=== PATIENT | female | born 1940 | race Caucasian/White ===

== ENCOUNTER 2016-05-27 19:18 | Inpatient (IN) | payer MEDICARE, OTHER ==
[~2016-05-27] VITALS: Ht 160 cm; Wt 52.3 kg
[~2016-05-27 19:18] MED LIST: ACET325T9 PO; ARIP15TA2 PO; ASCO500T3 PO; ASPI325T4 PO; BISA-42 PO; BISA5TAB4 PO; CALC-56 PO; CALC-77 PO; CALC500T PO; DOCO2CRE TP; ERGO500012 PO; FAMO1TAB3 PO; HALO5TAB PO; HYDR25TA PO; IBUP200T5 PO; IMIQ1CRE TP; IMIQ1CRE17 TP; LITH150C PO; LITH300C PO; LITH300T PO; LITH450T PO; LITH600C PO; LORA0.5T PO; LORA1TAB PO; MAG30ORA2 PO; MAGN2400 PO; MELA3TAB PO; METH57CR7 TP; MULT-246 PO; MULT1TAB52 PO; NICO2GUM5 BC; OMEG10005 PO; OMEG1CAP16 PO; RISP0.5T18 PO; TRAZ100T12 PO; TRAZ50TA15 PO
--- NOTE | 2016-05-27 20:16 | PHYS DOC ---
General Chief Complaint: PSYCH EVALUATION Stated Complaint: PSYCH EVAL Time Seen by MD: 19:29 Source: patient, [facility] records, other ([place] staff member) Exam Limitations: clinical condition Problems: History of Present Illness Initial Comments Pt is 75/F to ED via POV from [facility] [place], [place] for medical clearance and [facility] admission. AL records indicate for past two days pt very manic, hallucinating, sexually inappropriate. Pt has been talking constantly with high pitch voice, refusing meds and encouraging other residents to refuse meds etc. Pt had fall with head injury earlier today, was seen at [facility] reportedly CT head normal records requested. Pt agitated on arrival and when staff interact, otherwise pt lying quietly waiting obviously confused. Among other things pt claims to be a unicorn. Pt has DNR Timing/Duration: getting worse (2 days) Severity: severe Modifying Factors: improves with other Associated Symptoms: other Allergies: Coded Allergies: No Known Drug Allergies (Unverified , 10/13/13) Past Medical History Medical History: other (bipolar, tobaccoism, CHF, etoh, OA, DJD, Parkinson's, insomnia, dyspepsia, chronic pain, HLP, anxiety, impulse disorder) Surgical History: noncontributory Family History Significant Family History: no pertinent family hx Social History Smoker: cigarettes, less than 1 pack/day Alcohol: other (h/o alcoholism) Drugs: none Review of Systems All Other Systems: Reviewed and Negative (poor historian, accurate ROS unobtainable) Physical Exam Eyes: bilateral eye EOMI, bilateral eye PERRL, bilateral eye normal inspection Ear, Nose, Throat: hearing grossly normal, normal ENT inspection, normal pharynx, other (dried blood in hair, neg menard/raccoon eyes, no ear/nose disch no palpable bony deform) Neck: non-tender, supple Respiratory: normal breath sounds, no respiratory distress Cardiovascular: normal peripheral pulses, regular rate, rhythm Gastrointestinal: non tender, soft Extremities: normal range of motion, non-tender 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 Cipro 500mg bid given. Pt medically cleared for [facility] admission Dr Aguilera is accepting. Departure Time of Disposition: 22:08 Disposition: 09 ADMITTED INPATIENT Diagnosis: UTI, Dementia w/BD, h/o head injury Condition: STABLE Additional Instructions: Medically cleared for [facility] admission Dr Aguilera is accepting. MARCO BRANHMA DO May 27, 2016 20:16
--- NOTE | 2016-05-27 20:34 | EKG ---
[address] [address] Test Date: 2016-05-27 Test Time: 20:33:28 Pat Name: THELMA ROSA Department: Room: Gender: F Finisher Machine: : [id number] Requested By: MARCO BRANHAM Order Number: [id number] Reading MD: Measurements Intervals [place] Rate: 69 P: 44 NH: 156 QRS: -2 QRSD: 84 T: 58 QT: 390 QTc: 419 Interpretive Statements SINUS RHYTHM LEFTWARD AXIS QRS(T) CONTOUR ABNORMALITY CONSISTENT WITH ANTEROSEPTAL INFARCT AGE UNDETERMINED ABNORMAL ECG RI6.01 Unconfirmed report No previous ECG available for comparison
[2016-05-27 20:45] LABS: BASO % 0 % (0-3); EOS # 0.3 x10^3/uL (0.0-0.7); EOS % 4 % (0-3); HEMATOCRIT 37.1 % (36.0-47.0); HEMOGLOBIN 12.2 g/dL (12.0-15.5); LYMPH # 0.8 x10^3/uL (1.0-4.8); LYMPH % 10 % (24-48); MEAN CORPUSCULAR HEMOGLOBIN 30 pg (25-35); MEAN CORPUSCULAR HGB CONC 33 g/dL (31-37); MEAN CORPUSCULAR VOLUME 90 fL (79-100); MONO # 0.3 x10^3/uL (0.0-1.1); MONO % 4 % (0-9); NEUT # 6.9 x10^3uL (1.8-7.7); NEUT % 82 % (31-73); PLATELET COUNT 223 x10^3/uL (140-400); RED BLOOD COUNT 4.12 x10^6/uL (3.50-5.40); RED CELL DISTRIBUTION WIDTH 14.1 % (11.5-14.5); WHITE BLOOD COUNT 8.4 x10^3/uL (4.0-11.0)
[2016-05-27 21:52] LABS: AMPHETAMINE/METHAMPHETAMINE NEG (NEG); BARBITURATES NEG (NEG); BENZODIAZEPINES NEG (NEG); CANNABINOIDS NEG (NEG); COCAINE NEG (NEG); METHADONE NEG (NEG); OPIATES NEG (NEG); PHENCYCLIDINE NEG (NEG)
[2016-05-27 22:07] LABS: BILIRUBIN,URINE NEG (NEG); CLARITY,URINE CLEAR; COLOR,URINE STRAW; GLUCOSE,URINE NEG (NEG); NITRITE,URINE NEG (NEG); UROBILINOGEN,URINE 0.2 mg/dL (0.2 mg/dL)
[2016-05-27 22:08] LABS: BACTERIA,URINE 0 /HPF (0-FEW); RBC,URINE RARE /HPF (0-2); SQUAMOUS EPITHELIAL CELL,UR FEW /LPF
[2016-05-27] MEDS ORDERED: ACETAMINOPHEN 325 MG TABLET PO PRN ×3 (22:15→23:15)
[2016-05-27] MEDS: CIPROFLOXACIN HCL 500 MG TABLET PO SCH (22:27)
[2016-05-27 22:56] VITALS: BP 123/69
[2016-05-27] MEDS ORDERED: METHYL SALICYLATE/MENTHOL TOPICAL OINTMENT 29GM TUBE. TP PRN (23:00)
[2016-05-27] MEDS ORDERED: MAGNESIUM HYDROXIDE 2,400 MG/30 ML ORAL.SUSP. PO PRN (23:00)
[2016-05-27] MEDS ORDERED: MAG HYDROX/AL HYDROX/SIMETH 30 ML ORAL.SUSP PO PRN (23:00)
--- NOTE | 2016-05-27 23:07 | ACF ---
Admission Criteria Forms PSYCHIATRIC DISORDERS Clinical Indications for Inpatient Care (Place 'X' for any and all applicable criteria): Ongoing inpatient care may be needed for ANY ONE of the following(1)(2)(3)(4)(6) (7)(8): [ ]I. Danger to self or others not manageable at lower level of care. [ ]II. Grave disability (eg, inability to perform self care necessary at lower level of care) [X]III. Agitation or inappropriate behavior interfering with care for primary condition (eg, attempting to discontinue lines or drains prematurely, unable to cooperate with respiratory care) [ ]IV. Severe disability or disorder indicated by ALL of the following: [ ]a) Severe behavioral health disorder-related symptoms or condition indicated by ANY ONE of the following: [ ]i) Severe problem with cognition, memory, judgment, or impulse control [ ]ii) Severe clinical manifestations (eg, hallucinations, delusions, other acute psychotic symptoms, agustin, extreme agitation or anxiety) [ ]b) Patient management at lower level of care is not feasible until acute intervention or modification is initiated. Extended stay beyond goal length of stay for the primary condition may be indicated when ANY ONE of the following is present: (1)(2)(3)(4): [ ]a) Patient is a danger to self or others and not manageable at lower level of care. [ ]b) Behavior crisis management, including physical or chemical restraints, is required and is not available at a lower level of care. [ ]c) Behavioral symptoms (e.g., agitation, somnolence, inappropriate behavior) are present, and are not manageable at a lower level of care. [ ]d) Patient cannot understand follow-up treatment and crisis plan. [ ]e) Provider and supports are not sufficiently available at lower level of care. [ ]f) Patient cannot participate (e.g., verify absence of plan for harm) and is in needed of monitoring. The original [employer] content created by [employer] has been revised. The portions of the content which have been revised are identified through the use of italic text or in bold, and [facility] has neither reviewed nor approved the modified material. All other unmodified content is copyright [facility] [employer]. Please see references footnoted in the original [facility] edition 2016 Admission Criteria Met?: Yes OLIVE ACOSTA May 27, 2016 23:07
[2016-05-27] MEDS ORDERED: HYDR28.423 TP (23:08)
[2016-05-27] MEDS ORDERED: CALCIUM CARBONATE 500 MG TAB.CHEW PO PRN (23:15)
[2016-05-27] MEDS ORDERED: ASPIRIN 325 MG TABLET PO PRN (23:15)
[2016-05-27] MEDS ORDERED: traZODone 50 MG TABLET. PO PRN (23:15)
[2016-05-27] MEDS ORDERED: IBUPROFEN 200 MG TABLET PO PRN (23:15)
[2016-05-27] MEDS ORDERED: NON FORMULARY ITEM (Magnesium Hydroxide (Milk Of Magnesia) 2,400 MG) PO PRN (23:15)
[2016-05-27 23:31] LABS: ALBUMIN 3.5 g/dL (3.4-5.0); CALCIUM 9.8 mg/dL (8.5-10.1); CREATININE 0.9 mg/dL (0.6-1.0); GFR 61.2; MAGNESIUM 2.2 mg/dL (1.8-2.4); POTASSIUM 3.8 mmol/L (3.5-5.1); TOTAL BILIRUBIN 0.4 mg/dL (0.2-1.0)
[2016-05-28 05:45] VITALS: BP 124/75
[2016-05-28] MEDS: LITHIUM CARBONATE ER 300 MG TABLET.ER PO SCH ×2 (10:28→20:13)
[2016-05-28] MEDS: CIPROFLOXACIN HCL 500 MG TABLET PO SCH (10:28)
[2016-05-28] MEDS: CALCIUM CARB/VIT D3 500/200 TABLET PO SCH ×2 (10:28→20:13)
[2016-05-28] MEDS: OMEGA-3 FATTY ACIDS/FISH OIL 1,000 MG CAPSULE. PO SCH ×2 (10:28→20:12)
[2016-05-28] MEDS: MULTIVITAMIN with MINERAL TABLET. PO SCH (10:30)
[2016-05-28] MEDS: HYDROCORTISONE 1% TOPICAL CREAM 30GM TUBE. TP SCH ×2 (10:31→20:13)
[2016-05-28] MEDS: ASCORBIC ACID 500 MG TABLET PO SCH (10:31)
[2016-05-28] MEDS: OLANZAPINE ZYDIS 5 MG TAB.RAPDIS PO PRN (11:41)
[2016-05-28 14:39] LABS: THYROID STIM HORMONE (TSH) 0.814 uIU/mL (0.358-3.740)
[2016-05-28 14:41] LABS: IRON,SERUM 31 ug/dL (50-170)
[2016-05-28 14:42] LABS: LI 0.7 mmol/L (0.6-1.2)
[2016-05-28 15:41] VITALS: BP 132/82
[2016-05-28 17:59] LABS: T3 TOTAL 123 ng/dL (71-180); THYROXINE 7.5 ug/dL (4.5-12.0)
[2016-05-28] MEDS: NICOTINE POLACRILEX GUM 2 MG GUM. BC PRN ×2 (18:00→20:25)
[2016-05-28] MEDS: CIPROFLOXACIN HCL 250 MG TABLET PO SCH (20:12)
[2016-05-28] MEDS: risperiDONE 0.5 MG TABLET. PO SCH (20:13)
[2016-05-28] MEDS: NEOMY/BACITR/POLYMYXIN OINT PACKET. TP SCH (21:08)
--- NOTE | 2016-05-28 21:16 | PDOC ---
Exam [place] Demential Exam: [place] Note: Please also refer to the separate dictated note~for this date of service dictated separately.~Patient seen individually. Discussed the patient with Nursing staff reviewed the chart.~Reviewed interim history and current functioning. Reviewed vital signs,~Labs/ Radiology~and current medications noted below. Continue current treatment with the changes noted in the dictated addendum note Assessment: Vital Signs: Vital Signs Date Time Temp Pulse Resp B/P Pulse Ox O2 Delivery O2 Flow Rate FiO2 05/28/16 15:41 98.8 81 20 132/82 93 05/27/16 19:18 Room Air Current Medications: Meds: Current Medications Acetaminophen (Tylenol) 650 mg PRN Q6HRS PRN PO PAIN / TEMP Last administered on 05/27/16 22:28; Start 05/27/16 at 22:15; Stop 05/27/16 at 23:11; Status DC Ciprofloxacin (Cipro) 500 mg BID PO Last administered on 05/28/16 10:28; Start 05/27/16 at 22:30; Stop 05/28/16 at 13:06; Status DC Acetaminophen (Tylenol) 650 mg PRN Q6HRS PRN PO PAIN / TEMP; Start 05/27/16 at 23:00; Status Cancel Multi-Ingredient Ointment (Analgesic [place]) 1 mikaela PRN QID PRN TP MUSCLE PAIN; Start 05/27/16 at 23:00 Al Hydroxide/Mg Hydroxide (Mylanta Plus Xs) 15 ml PRN AFTMEALHC PRN PO DYSPEPSIA; Start 05/27/16 at 23:00 Magnesium Hydroxide (Milk Of Magnesia) 2,400 mg PRN QHS PRN PO CONSTIPATION; Start 05/27/16 at 23:00 Acetaminophen (Tylenol) 650 mg PRN Q6HRS PRN PO MILD PAIN; Start 05/27/16 at 23 :15 Ascorbic Acid (Vitamin C) 500 mg DAILY PO Last administered on 05/28/16 10:31 ; Start 05/28/16 at 09:00 Aspirin (Benji Aspirin) 325 mg PRN Q8HRS PRN PO MODERATE PAIN; Start 05/27/16 at 23:15 Calcium Carbonate/ Glycine (Tums) 500 mg PRN BID PRN PO DYSPEPSIA; Start at 23:15 Calcium/Vitamin D (Oscal D 500mg/ 200uts) 1 tab BID PO Last administered on 20:13; Start 05/28/16 at 09:00 Ergocalciferol (Vitamin D2) 50,000 unit Q4WK PO ; Start 06/24/16 at 09:00 Ibuprofen (Motrin) 200 mg PRN Q6HRS PRN PO ear pain; Start 05/27/16 at 23:15 Hydrocortisone (Cortaid) 1 mikaela BID TP Last administered on 05/28/16 20:13; Start 05/28/16 at 09:00 Non-Formulary Medication 2,400 mg PRN QHS PRN PO CONSTIPATION; Start 05/27/16 at 23:15; Status UNV Multivitamins/ Calcium (Thera-M Plus) 1 tab DAILY PO Last administered on 10:30; Start 05/28/16 at 09:00 Fish Oil (Fish Oil) 1,000 mg BID PO Last administered on 05/28/16 20:12; Start 05/28/16 at 09:00 [place] Carbonate (Lithobid) 300 mg BID PO Last administered on 05/28/16 20:13 ; Start 05/28/16 at 09:00 Risperidone (Risperdal) 0.75 mg HS PO Last administered on 05/28/16 20:13; Start 05/28/16 at 21:00 Trazodone HCl (Desyrel) 50 mg PRN QHS PRN PO INSOMNIA; Start 05/27/16 at 23:15 Nicotine Polacrilex (Nicorette Gum) 2 mg PRN Q1HR PRN BC SMOKING CESSATION Last administered on 05/28/16 20:25; Start 05/28/16 at 01:00 Olanzapine (Zyprexa Zydis) 2.5 mg PRN Q2HR PRN PO PSYCHOSIS Last administered on 05/28/16 11:41; Start 05/28/16 at 11:45 Ciprofloxacin (Cipro) 250 mg BID PO Last administered on 05/28/16 20:12; Start 05/28/16 at 21:00 Neomycin/ Polymyxin/ Bacitracin (Triple Antibiotic Ointment) 1 pkt BID TP Last administered on 05/28/16 21:08; Start 05/28/16 at 21:00 Active Scripts Active Reported Hydrocortisone Plus 1% Cream (Hydrocortisone/Aloe Vera) 28.4 Gm Cream..g. 1 Mikaela TP BID Apply to Bilateral lower legs topically for rash until healed. Calcium Carbonate 500 Mg Tablet 500 Mg PO PRN BID PRN Trazodone Hcl 50 Mg Tablet 50 Mg PO PRN QHS PRN Risperdal (Risperidone) 0.5 Mg Tablet 0.75 Mg PO HS [place] Carbonate 300 Mg Tablet.er 300 Mg PO BID Ibuprofen 200 Mg Tablet 200 Mg PO PRN Q6HRS PRN Aspirin 325 Mg Tablet 325 Mg PO PRN Q8HRS PRN [place]-3 ([place]-3 Fatty Acids) 1,000 Mg Capsule 1,000 Mg PO BID Vitamin D2 (Ergocalciferol (Vitamin D2)) 50,000 Unit Capsule 50,000 Unit PO Q4WK Ascorbic Acid 500 Mg Tablet 500 Mg PO DAILY Multivitamins (Multivitamin) 1 Each Tablet 1 Tab PO DAILY Milk Of Magnesia (Magnesium Hydroxide) 2,400 Mg/10 Ml Oral.susp 2,400 Mg PO PRN QHS PRN Tylenol (Acetaminophen) 325 Mg Tablet 650 Mg PO PRN Q6HRS PRN Calcium 500 + Vit D 200 Caplet (Calcium Carbonate/Vitamin D3) 1 Each Tablet 1 Each PO BID Diagnosis: Problems: (1) Behavior disorder (2) Impulse control disorder (3) Dementia with behavioral disturbance (4) Depressed (5) Bipolar 1 disorder (6) Anxiety (7) Impulse control disorder GERA MAY MD May 28, 2016 21:16
[2016-05-28 22:28] LABS: HEMOGLOBIN A1C 5.1 % (4.8-5.6)
[2016-05-29 02:10] LABS: VITAMIN D25(OH)TOTAL 25.3 ng/mL (30.0-100.0)
[2016-05-29 05:09] LABS: RPR REFLEX Non Reactive (Non Reactive)
[2016-05-29 06:15] VITALS: BP 114/70
[2016-05-29] MEDS: NICOTINE POLACRILEX GUM 2 MG GUM. BC PRN ×3 (06:42→20:41)
[2016-05-29] MEDS: MULTIVITAMIN with MINERAL TABLET. PO SCH (09:43)
[2016-05-29] MEDS: OMEGA-3 FATTY ACIDS/FISH OIL 1,000 MG CAPSULE. PO SCH ×2 (09:43→20:00)
[2016-05-29] MEDS: ASCORBIC ACID 500 MG TABLET PO SCH (09:43)
[2016-05-29] MEDS: CIPROFLOXACIN HCL 250 MG TABLET PO SCH (09:43)
[2016-05-29] MEDS: LITHIUM CARBONATE ER 300 MG TABLET.ER PO SCH ×2 (09:43→20:04)
[2016-05-29] MEDS: CALCIUM CARB/VIT D3 500/200 TABLET PO SCH ×2 (09:43→20:01)
[2016-05-29] MEDS: NEOMY/BACITR/POLYMYXIN OINT PACKET. TP SCH ×2 (09:44→20:05)
[2016-05-29] MEDS: HYDROCORTISONE 1% TOPICAL CREAM 30GM TUBE. TP SCH ×2 (09:44→20:05)
--- NOTE | 2016-05-29 14:52 | HP ---
ADMIT DATE: 05/28/2016 IDENTIFYING DATA: The patient is a 75-year-old female who was recently discharged from my unit to return back to [facility] after stabilization for her bipolar disorder mixed with psychotic features. The patient [facility] did well at the [facility], but over the past few days, she has been increasingly manic, hallucinating, sexually inappropriate, talking constantly in a high pitched voice, refusing her medications, and encouraging other patients to refuse their medications. She has failed outpatient psychiatric interventions with Dr. Lindsey Perez/Dr. Negrete and referred back to us by them and her primary care physician, Dr. Teodoro Orozco and admitted by her court-appointed legal guardian. CHIEF COMPLAINT: "I don't do those things. I fell and hit my head at the [facility]." HISTORY OF PRESENT ILLNESS: The patient has a history of bipolar disorder mixed with psychotic features. She has been residing at the above [facility] for sometime and was admitted to us 05/05/2016 to 05/19/2016 with marked exacerbation of her bipolar disorder with psychotic features. She was stabilized on a combination of Lithobid 300 b.i.d. with a level of 0.8, Risperdal 0.75 mg at bedtime, trazodone 50 at bedtime p.r.n., july repeat x1; and Ativan p.r.n. She was intermittently noncompliant with the psychotropics at discharge. She has had other significant psychiatric hospitalizations in the past. PSYCHIATRIC HISTORY: Past history of alcohol abuse. PAST MEDICAL HISTORY: Parkinson's disease, congestive heart failure, osteoarthritis, degenerative joint disease, dyspepsia, hyperlipidemia, and chronic pain. The patient was seen at the [facility] Emergency Room prior to this admission by Dr. Peters and found to have a UTI and she is on Cipro for this. Dr. Peters noted that the patient had a fall with head injury earlier on the day of admission, she was seen at [facility] and reportedly CT head normal. I have not reviewed those records however. CURRENT PSYCHOTROPICS: Lithobid 300 mg twice a day, Risperdal 0.75 mg at bedtime, and trazodone 50 at bedtime p.r.n. DRUG ALLERGIES: Negative. CODE STATUS: DNR. FAMILY HISTORY: Noncontributory. SOCIAL HISTORY: Past history of alcohol abuse. She has a court-appointed guardian. No physical, sexual, or elder abuse history is noted. She is not known to be a perpetrator. Reaction to hospitalization, the patient accepting, but minimizes and denies circumstances prompting admission. REVIEW OF SYSTEMS: Complains of headache. No CV, , pulmonary, or eye system symptoms on review. OBJECTIVE: VITAL SIGNS: Temperature 97.6, pulse 66, and BP 124/75. MENTAL STATUS EXAM: The patient is oriented to herself and situation. She readily recognized me. Speech is coherent and somewhat pressured at times. Abstraction fair, computation impaired, language function intact, and attention span short. Mood and affect remains intermittently labile. No active suicidal or homicidal ideation. LABORATORY DATA: Reviewed. IMPRESSION: Bipolar 1 disorder mixed with psychotic features; anxiety disorder, unspecified; impulse control disorder, unspecified; past history of alcohol abuse, current urinary tract infection, Parkinson's disease, congestive heart failure, degenerative joint disease, and osteoarthritis. PLAN: Admit to geropsychiatry unit at [facility]. I will see the patient daily individually from a psychiatric standpoint and request medical follow up with Dr. Washington/Dr. Botello. Follow the patient's lithium level. Treat the UTI symptoms. If mood lability persists, we will adjust psychotropics after the UTI results. We will get results of her past CT head. MAN Martin MAY MD DR: ANNE/caitlyn JOB#: [id number] / [id number]
[2016-05-29 15:52] VITALS: BP 132/78
[2016-05-29] MEDS ORDERED: DOCUSATE SODIUM 100 MG CAPSULE PO PRN (17:45)
[2016-05-29] MEDS: risperiDONE 0.5 MG TABLET. PO SCH (20:01)
[2016-05-29] MEDS: busPIRone 5 MG TABLET. PO SCH (20:04)
--- NOTE | 2016-05-29 21:21 | PDOC ---
Exam [place] Demential Exam: [place] Note: Please also refer to the separate dictated note~for this date of service dictated separately.~Patient seen individually. Discussed the patient with Nursing staff reviewed the chart.~Reviewed interim history and current functioning. Reviewed vital signs,~Labs/ Radiology~and current medications noted below. Continue current treatment with the changes noted in the dictated addendum note Assessment: Vital Signs: Vital Signs Date Time Temp Pulse Resp B/P Pulse Ox O2 Delivery O2 Flow Rate FiO2 05/29/16 15:52 96.7 74 18 132/78 96 05/27/16 19:18 Room Air I&O Intake and Output 05/29/16 07:00 Intake Total 960 ml Balance 960 ml Intake Oral 960 ml Current Medications: Meds: Current Medications Acetaminophen (Tylenol) 650 mg PRN Q6HRS PRN PO PAIN / TEMP Last administered on 05/27/16 22:28; Start 05/27/16 at 22:15; Stop 05/27/16 at 23:11; Status DC Ciprofloxacin (Cipro) 500 mg BID PO Last administered on 05/28/16 10:28; Start 05/27/16 at 22:30; Stop 05/28/16 at 13:06; Status DC Acetaminophen (Tylenol) 650 mg PRN Q6HRS PRN PO PAIN / TEMP; Start 05/27/16 at 23:00; Status Cancel Multi-Ingredient Ointment (Analgesic [place]) 1 mikaela PRN QID PRN TP MUSCLE PAIN; Start 05/27/16 at 23:00 Al Hydroxide/Mg Hydroxide (Mylanta Plus Xs) 15 ml PRN AFTMEALHC PRN PO DYSPEPSIA; Start 05/27/16 at 23:00 Magnesium Hydroxide (Milk Of Magnesia) 2,400 mg PRN QHS PRN PO CONSTIPATION; Start 05/27/16 at 23:00 Acetaminophen (Tylenol) 650 mg PRN Q6HRS PRN PO MILD PAIN; Start 05/27/16 at 23 :15 Ascorbic Acid (Vitamin C) 500 mg DAILY PO Last administered on 05/29/16 09:43 ; Start 05/28/16 at 09:00 Aspirin (Benji Aspirin) 325 mg PRN Q8HRS PRN PO MODERATE PAIN; Start 05/27/16 at 23:15 Calcium Carbonate/ Glycine (Tums) 500 mg PRN BID PRN PO DYSPEPSIA; Start at 23:15 Calcium/Vitamin D (Oscal D 500mg/ 200uts) 1 tab BID PO Last administered on 20:01; Start 05/28/16 at 09:00 Ergocalciferol (Vitamin D2) 50,000 unit Q4WK PO ; Start 06/24/16 at 09:00 Ibuprofen (Motrin) 200 mg PRN Q6HRS PRN PO ear pain; Start 05/27/16 at 23:15; Stop 05/29/16 at 17:42; Status DC Hydrocortisone (Cortaid) 1 mikaela BID TP Last administered on 05/29/16 20:05; Start 05/28/16 at 09:00 Non-Formulary Medication 2,400 mg PRN QHS PRN PO CONSTIPATION; Start 05/27/16 at 23:15; Status UNV Multivitamins/ Calcium (Thera-M Plus) 1 tab DAILY PO Last administered on 09:43; Start 05/28/16 at 09:00 Fish Oil (Fish Oil) 1,000 mg BID PO Last administered on 05/29/16 20:00; Start 05/28/16 at 09:00 [place] Carbonate (Lithobid) 300 mg BID PO Last administered on 05/29/16 20:04 ; Start 05/28/16 at 09:00 Risperidone (Risperdal) 0.75 mg HS PO Last administered on 05/29/16 20:01; Start 05/28/16 at 21:00 Trazodone HCl (Desyrel) 50 mg PRN QHS PRN PO INSOMNIA; Start 05/27/16 at 23:15 Nicotine Polacrilex (Nicorette Gum) 2 mg PRN Q1HR PRN BC SMOKING CESSATION Last administered on 05/29/16 20:41; Start 05/28/16 at 01:00 Olanzapine (Zyprexa Zydis) 2.5 mg PRN Q2HR PRN PO PSYCHOSIS Last administered on 05/28/16 11:41; Start 05/28/16 at 11:45 Ciprofloxacin (Cipro) 250 mg BID PO Last administered on 05/29/16 09:43; Start 05/28/16 at 21:00; Stop 05/29/16 at 17:44; Status DC Neomycin/ Polymyxin/ Bacitracin (Triple Antibiotic Ointment) 1 pkt BID TP Last administered on 05/29/16 20:05; Start 05/28/16 at 21:00 Docusate Sodium (Colace) 100 mg PRN BID PRN PO CONSTIPATION; Start 05/29/16 at 17:45 Polyethylene Glycol (miraLAX) 17 gm DAILY PO ; Start 05/30/16 at 09:00 Buspirone HCl (Buspar) 5 mg BID PO Last administered on 05/29/16 20:04; Start 05/29/16 at 21:00 Active Scripts Active Reported Hydrocortisone Plus 1% Cream (Hydrocortisone/Aloe Vera) 28.4 Gm Cream..g. 1 Mikaela TP BID Apply to Bilateral lower legs topically for rash until healed. Calcium Carbonate 500 Mg Tablet 500 Mg PO PRN BID PRN Trazodone Hcl 50 Mg Tablet 50 Mg PO PRN QHS PRN Risperdal (Risperidone) 0.5 Mg Tablet 0.75 Mg PO HS [place] Carbonate 300 Mg Tablet.er 300 Mg PO BID Ibuprofen 200 Mg Tablet 200 Mg PO PRN Q6HRS PRN Aspirin 325 Mg Tablet 325 Mg PO PRN Q8HRS PRN [place]-3 ([place]-3 Fatty Acids) 1,000 Mg Capsule 1,000 Mg PO BID Vitamin D2 (Ergocalciferol (Vitamin D2)) 50,000 Unit Capsule 50,000 Unit PO Q4WK Ascorbic Acid 500 Mg Tablet 500 Mg PO DAILY Multivitamins (Multivitamin) 1 Each Tablet 1 Tab PO DAILY Milk Of Magnesia (Magnesium Hydroxide) 2,400 Mg/10 Ml Oral.susp 2,400 Mg PO PRN QHS PRN Tylenol (Acetaminophen) 325 Mg Tablet 650 Mg PO PRN Q6HRS PRN Calcium 500 + Vit D 200 Caplet (Calcium Carbonate/Vitamin D3) 1 Each Tablet 1 Each PO BID Diagnosis: Problems: (1) Impulse control disorder (2) Dementia with behavioral disturbance (3) Behavior disorder (4) Depressed (5) Bipolar 1 disorder (6) Anxiety (7) Impulse control disorder GERA MAY MD May 29, 2016 21:21
[2016-05-30] MEDS: NICOTINE POLACRILEX GUM 2 MG GUM. BC PRN ×4 (05:36→20:43)
[2016-05-30 06:18] VITALS: BP 175/84
[2016-05-30] MEDS: busPIRone 5 MG TABLET. PO SCH ×2 (08:54→20:10)
[2016-05-30] MEDS: OMEGA-3 FATTY ACIDS/FISH OIL 1,000 MG CAPSULE. PO SCH ×2 (08:54→20:09)
[2016-05-30] MEDS: CALCIUM CARB/VIT D3 500/200 TABLET PO SCH ×2 (08:55→20:09)
[2016-05-30] MEDS: LITHIUM CARBONATE ER 300 MG TABLET.ER PO SCH ×2 (08:55→20:10)
[2016-05-30] MEDS: MULTIVITAMIN with MINERAL TABLET. PO SCH (08:56)
[2016-05-30] MEDS: ASCORBIC ACID 500 MG TABLET PO SCH (08:56)
[2016-05-30] MEDS: HYDROCORTISONE 1% TOPICAL CREAM 30GM TUBE. TP SCH ×3 (08:57→20:11)
[2016-05-30] MEDS: POLYETHYLENE GLYCOL 3350 17 GM PACKET. PO SCH (08:57)
[2016-05-30 09:00] VITALS: BP 90/50
[2016-05-30] MEDS: NEOMY/BACITR/POLYMYXIN OINT PACKET. TP SCH ×2 (09:00→20:10)
--- NOTE | 2016-05-30 09:57 | PDOC ---
Exam [place] Demential Exam: [place] Note: Please also refer to the separate dictated note~for this date of service dictated separately.~Patient seen individually. Discussed the patient with Nursing staff reviewed the chart.~Reviewed interim history and current functioning. Reviewed vital signs,~Labs/ Radiology~and current medications noted below. Continue current treatment with the changes noted in the dictated addendum note Assessment: Vital Signs: Vital Signs Date Time Temp Pulse Resp B/P Pulse Ox O2 Delivery O2 Flow Rate FiO2 05/30/16 06:18 97.8 45 16 175/84 97 05/27/16 19:18 Room Air I&O Intake and Output 05/30/16 07:00 Intake Total 960 ml Balance 960 ml Intake Oral 960 ml Current Medications: Meds: Current Medications Acetaminophen (Tylenol) 650 mg PRN Q6HRS PRN PO PAIN / TEMP Last administered on 05/27/16 22:28; Start 05/27/16 at 22:15; Stop 05/27/16 at 23:11; Status DC Ciprofloxacin (Cipro) 500 mg BID PO Last administered on 05/28/16 10:28; Start 05/27/16 at 22:30; Stop 05/28/16 at 13:06; Status DC Acetaminophen (Tylenol) 650 mg PRN Q6HRS PRN PO PAIN / TEMP; Start 05/27/16 at 23:00; Status Cancel Multi-Ingredient Ointment (Analgesic [place]) 1 mikaela PRN QID PRN TP MUSCLE PAIN; Start 05/27/16 at 23:00 Al Hydroxide/Mg Hydroxide (Mylanta Plus Xs) 15 ml PRN AFTMEALHC PRN PO DYSPEPSIA; Start 05/27/16 at 23:00 Magnesium Hydroxide (Milk Of Magnesia) 2,400 mg PRN QHS PRN PO CONSTIPATION; Start 05/27/16 at 23:00 Acetaminophen (Tylenol) 650 mg PRN Q6HRS PRN PO MILD PAIN; Start 05/27/16 at 23 :15 Ascorbic Acid (Vitamin C) 500 mg DAILY PO Last administered on 05/30/16 08:56 ; Start 05/28/16 at 09:00 Aspirin (Benji Aspirin) 325 mg PRN Q8HRS PRN PO MODERATE PAIN; Start 05/27/16 at 23:15 Calcium Carbonate/ Glycine (Tums) 500 mg PRN BID PRN PO DYSPEPSIA; Start at 23:15 Calcium/Vitamin D (Oscal D 500mg/ 200uts) 1 tab BID PO Last administered on 08:55; Start 05/28/16 at 09:00 Ergocalciferol (Vitamin D2) 50,000 unit Q4WK PO ; Start 06/24/16 at 09:00 Ibuprofen (Motrin) 200 mg PRN Q6HRS PRN PO ear pain; Start 05/27/16 at 23:15; Stop 05/29/16 at 17:42; Status DC Hydrocortisone (Cortaid) 1 mikaela BID TP Last administered on 05/30/16 08:57; Start 05/28/16 at 09:00 Non-Formulary Medication 2,400 mg PRN QHS PRN PO CONSTIPATION; Start 05/27/16 at 23:15; Status UNV Multivitamins/ Calcium (Thera-M Plus) 1 tab DAILY PO Last administered on 08:56; Start 05/28/16 at 09:00 Fish Oil (Fish Oil) 1,000 mg BID PO Last administered on 05/30/16 08:54; Start 05/28/16 at 09:00 [place] Carbonate (Lithobid) 300 mg BID PO Last administered on 05/30/16 08:55 ; Start 05/28/16 at 09:00 Risperidone (Risperdal) 0.75 mg HS PO Last administered on 05/29/16 20:01; Start 05/28/16 at 21:00 Trazodone HCl (Desyrel) 50 mg PRN QHS PRN PO INSOMNIA; Start 05/27/16 at 23:15 Nicotine Polacrilex (Nicorette Gum) 2 mg PRN Q1HR PRN BC SMOKING CESSATION Last administered on 05/30/16 05:36; Start 05/28/16 at 01:00 Olanzapine (Zyprexa Zydis) 2.5 mg PRN Q2HR PRN PO PSYCHOSIS Last administered on 05/28/16 11:41; Start 05/28/16 at 11:45 Ciprofloxacin (Cipro) 250 mg BID PO Last administered on 05/29/16 09:43; Start 05/28/16 at 21:00; Stop 05/29/16 at 17:44; Status DC Neomycin/ Polymyxin/ Bacitracin (Triple Antibiotic Ointment) 1 pkt BID TP Last administered on 05/29/16 20:05; Start 05/28/16 at 21:00 Docusate Sodium (Colace) 100 mg PRN BID PRN PO CONSTIPATION; Start 05/29/16 at 17:45 Polyethylene Glycol (miraLAX) 17 gm DAILY PO Last administered on 05/30/16 08: 57; Start 05/30/16 at 09:00 Buspirone HCl (Buspar) 5 mg BID PO Last administered on 05/30/16 08:54; Start 05/29/16 at 21:00 Active Scripts Active Reported Hydrocortisone Plus 1% Cream (Hydrocortisone/Aloe Vera) 28.4 Gm Cream..g. 1 Mikaela TP BID Apply to Bilateral lower legs topically for rash until healed. Calcium Carbonate 500 Mg Tablet 500 Mg PO PRN BID PRN Trazodone Hcl 50 Mg Tablet 50 Mg PO PRN QHS PRN Risperdal (Risperidone) 0.5 Mg Tablet 0.75 Mg PO HS [place] Carbonate 300 Mg Tablet.er 300 Mg PO BID Ibuprofen 200 Mg Tablet 200 Mg PO PRN Q6HRS PRN Aspirin 325 Mg Tablet 325 Mg PO PRN Q8HRS PRN [place]-3 ([place]-3 Fatty Acids) 1,000 Mg Capsule 1,000 Mg PO BID Vitamin D2 (Ergocalciferol (Vitamin D2)) 50,000 Unit Capsule 50,000 Unit PO Q4WK Ascorbic Acid 500 Mg Tablet 500 Mg PO DAILY Multivitamins (Multivitamin) 1 Each Tablet 1 Tab PO DAILY Milk Of Magnesia (Magnesium Hydroxide) 2,400 Mg/10 Ml Oral.susp 2,400 Mg PO PRN QHS PRN Tylenol (Acetaminophen) 325 Mg Tablet 650 Mg PO PRN Q6HRS PRN Calcium 500 + Vit D 200 Caplet (Calcium Carbonate/Vitamin D3) 1 Each Tablet 1 Each PO BID Diagnosis: Problems: (1) Impulse control disorder (2) Dementia with behavioral disturbance (3) Behavior disorder (4) Depressed (5) Bipolar 1 disorder (6) Anxiety (7) Impulse control disorder GERA MAY MD May 30, 2016 09:57
[2016-05-30 16:18] VITALS: BP 145/82
[2016-05-30] MEDS: risperiDONE 0.5 MG TABLET. PO SCH (20:09)
[2016-05-31] MEDS: NICOTINE POLACRILEX GUM 2 MG GUM. BC PRN (06:32)
[2016-05-31 07:00] VITALS: BP 121/77
[2016-05-31] MEDS: busPIRone 5 MG TABLET. PO SCH ×2 (09:09→20:09)
[2016-05-31] MEDS: POLYETHYLENE GLYCOL 3350 17 GM PACKET. PO SCH (09:09)
[2016-05-31] MEDS: LITHIUM CARBONATE ER 300 MG TABLET.ER PO SCH ×2 (09:09→20:18)
[2016-05-31] MEDS: OMEGA-3 FATTY ACIDS/FISH OIL 1,000 MG CAPSULE. PO SCH ×2 (09:09→20:09)
[2016-05-31] MEDS: CALCIUM CARB/VIT D3 500/200 TABLET PO SCH ×2 (09:10→20:09)
[2016-05-31] MEDS: NEOMY/BACITR/POLYMYXIN OINT PACKET. TP SCH ×2 (09:10→20:10)
[2016-05-31] MEDS: MULTIVITAMIN with MINERAL TABLET. PO SCH (09:10)
[2016-05-31] MEDS: ASCORBIC ACID 500 MG TABLET PO SCH (09:10)
[2016-05-31] MEDS: HYDROCORTISONE 1% TOPICAL CREAM 30GM TUBE. TP SCH ×2 (09:27→20:19)
[2016-05-31 16:41] VITALS: BP 142/86
[2016-05-31] MEDS: risperiDONE 0.5 MG TABLET. PO SCH (20:09)
--- NOTE | 2016-05-31 21:15 | PDOC ---
Exam [place] Demential Exam: [place] Note: Please also refer to the separate dictated note~for this date of service dictated separately.~Patient seen individually. Discussed the patient with Nursing staff reviewed the chart.~Reviewed interim history and current functioning. Reviewed vital signs,~Labs/ Radiology~and current medications noted below. Continue current treatment with the changes noted in the dictated addendum note Assessment: Vital Signs: Vital Signs Date Time Temp Pulse Resp B/P Pulse Ox O2 Delivery O2 Flow Rate FiO2 05/31/16 16:41 98.1 83 20 142/86 97 05/31/16 07:00 Room Air I&O Intake and Output 05/31/16 07:00 Intake Total 840 ml Balance 840 ml Intake Oral 840 ml Current Medications: Meds: Current Medications Acetaminophen (Tylenol) 650 mg PRN Q6HRS PRN PO PAIN / TEMP Last administered on 05/27/16 22:28; Start 05/27/16 at 22:15; Stop 05/27/16 at 23:11; Status DC Ciprofloxacin (Cipro) 500 mg BID PO Last administered on 05/28/16 10:28; Start 05/27/16 at 22:30; Stop 05/28/16 at 13:06; Status DC Acetaminophen (Tylenol) 650 mg PRN Q6HRS PRN PO PAIN / TEMP; Start 05/27/16 at 23:00; Status Cancel Multi-Ingredient Ointment (Analgesic [place]) 1 mikaela PRN QID PRN TP MUSCLE PAIN; Start 05/27/16 at 23:00 Al Hydroxide/Mg Hydroxide (Mylanta Plus Xs) 15 ml PRN AFTMEALHC PRN PO DYSPEPSIA; Start 05/27/16 at 23:00 Magnesium Hydroxide (Milk Of Magnesia) 2,400 mg PRN QHS PRN PO CONSTIPATION; Start 05/27/16 at 23:00 Acetaminophen (Tylenol) 650 mg PRN Q6HRS PRN PO MILD PAIN; Start 05/27/16 at 23 :15 Ascorbic Acid (Vitamin C) 500 mg DAILY PO Last administered on 05/31/16 09:10 ; Start 05/28/16 at 09:00 Aspirin (Benji Aspirin) 325 mg PRN Q8HRS PRN PO MODERATE PAIN; Start 05/27/16 at 23:15 Calcium Carbonate/ Glycine (Tums) 500 mg PRN BID PRN PO DYSPEPSIA; Start at 23:15 Calcium/Vitamin D (Oscal D 500mg/ 200uts) 1 tab BID PO Last administered on 20:09; Start 05/28/16 at 09:00 Ergocalciferol (Vitamin D2) 50,000 unit Q4WK PO ; Start 06/24/16 at 09:00 Ibuprofen (Motrin) 200 mg PRN Q6HRS PRN PO ear pain; Start 05/27/16 at 23:15; Stop 05/29/16 at 17:42; Status DC Hydrocortisone (Cortaid) 1 mikaela BID TP Last administered on 05/30/16 20:11; Start 05/28/16 at 09:00 Non-Formulary Medication 2,400 mg PRN QHS PRN PO CONSTIPATION; Start 05/27/16 at 23:15; Status UNV Multivitamins/ Calcium (Thera-M Plus) 1 tab DAILY PO Last administered on 09:10; Start 05/28/16 at 09:00 Fish Oil (Fish Oil) 1,000 mg BID PO Last administered on 05/31/16 20:09; Start 05/28/16 at 09:00 [place] Carbonate (Lithobid) 300 mg BID PO Last administered on 05/31/16 20:18 ; Start 05/28/16 at 09:00 Risperidone (Risperdal) 0.75 mg HS PO Last administered on 05/31/16 20:09; Start 05/28/16 at 21:00 Trazodone HCl (Desyrel) 50 mg PRN QHS PRN PO INSOMNIA; Start 05/27/16 at 23:15 Nicotine Polacrilex (Nicorette Gum) 2 mg PRN Q1HR PRN BC SMOKING CESSATION Last administered on 05/31/16 06:32; Start 05/28/16 at 01:00 Olanzapine (Zyprexa Zydis) 2.5 mg PRN Q2HR PRN PO PSYCHOSIS Last administered on 05/28/16 11:41; Start 05/28/16 at 11:45 Ciprofloxacin (Cipro) 250 mg BID PO Last administered on 05/29/16 09:43; Start 05/28/16 at 21:00; Stop 05/29/16 at 17:44; Status DC Neomycin/ Polymyxin/ Bacitracin (Triple Antibiotic Ointment) 1 pkt BID TP Last administered on 05/31/16 20:10; Start 05/28/16 at 21:00 Docusate Sodium (Colace) 100 mg PRN BID PRN PO CONSTIPATION; Start 05/29/16 at 17:45 Polyethylene Glycol (miraLAX) 17 gm DAILY PO Last administered on 05/31/16 09: 09; Start 05/30/16 at 09:00 Buspirone HCl (Buspar) 5 mg BID PO Last administered on 05/31/16 20:09; Start 05/29/16 at 21:00 Active Scripts Active Reported Hydrocortisone Plus 1% Cream (Hydrocortisone/Aloe Vera) 28.4 Gm Cream..g. 1 Mikaela TP BID Apply to Bilateral lower legs topically for rash until healed. Calcium Carbonate 500 Mg Tablet 500 Mg PO PRN BID PRN Trazodone Hcl 50 Mg Tablet 50 Mg PO PRN QHS PRN Risperdal (Risperidone) 0.5 Mg Tablet 0.75 Mg PO HS [place] Carbonate 300 Mg Tablet.er 300 Mg PO BID Ibuprofen 200 Mg Tablet 200 Mg PO PRN Q6HRS PRN Aspirin 325 Mg Tablet 325 Mg PO PRN Q8HRS PRN [place]-3 ([place]-3 Fatty Acids) 1,000 Mg Capsule 1,000 Mg PO BID Vitamin D2 (Ergocalciferol (Vitamin D2)) 50,000 Unit Capsule 50,000 Unit PO Q4WK Ascorbic Acid 500 Mg Tablet 500 Mg PO DAILY Multivitamins (Multivitamin) 1 Each Tablet 1 Tab PO DAILY Milk Of Magnesia (Magnesium Hydroxide) 2,400 Mg/10 Ml Oral.susp 2,400 Mg PO PRN QHS PRN Tylenol (Acetaminophen) 325 Mg Tablet 650 Mg PO PRN Q6HRS PRN Calcium 500 + Vit D 200 Caplet (Calcium Carbonate/Vitamin D3) 1 Each Tablet 1 Each PO BID Diagnosis: Problems: (1) Impulse control disorder (2) Dementia with behavioral disturbance (3) Behavior disorder (4) Depressed (5) Bipolar 1 disorder (6) Anxiety (7) Impulse control disorder GERA MAY MD May 31, 2016 21:15
--- NOTE | 2016-05-31 22:06 | PN ---
DATE: 05/29/2016 PSYCHIATRIC PROGRESS NOTE This is a late entry for 05/29/2016 covers the elements not covered in my initial note. SUBJECTIVE: The patient was quite inappropriate the previous night. She was wearing a blue glove in her hand quite psychotic, stated that she might need to dig into her bowels later. Later, the glove was found somewhat dirty stained with fecal matter in between the cushions of the sofa in the common area. The patient denied doing this. REVIEW OF SYSTEMS: No CV, , pulmonary, eye system symptoms on review. Reliability varies. MENTAL STATUS EXAM: Reasonably oriented. Speech coherent, abstraction fair, computation impaired, language function intact. She can have some racing thoughts at times. [place] level 0.7. No suicidal or homicidal ideation. IMPRESSION: Bipolar 1 disorder mixed with psychotic features, anxiety disorder, unspecified; impulse control disorder, unspecified. PLAN: Start BuSpar 5 mg twice a day for anxiety. Continue lithium carbonate 300 b.i.d., Risperdal and trazodone at current dosage. Adjust further as clinically indicated. MAN Martin MAY MD DR: ANNE/caitlyn JOB#: [id number] / [id number]
--- NOTE | 2016-05-31 22:21 | PN ---
DATE: 05/30/2016 PSYCHIATRIC PROGRESS NOTE This is a late entry for 05/30/2016, covers elements not covered in my initial note. SUBJECTIVE: Overall, the patient remains somewhat labile in her mood, and at times, yelling out, oblivious of what she is doing. REVIEW OF SYSTEMS: No CV, , pulmonary, eye system symptoms on review. MENTAL STATUS EXAM: Reasonably oriented. Speech is coherent, less pressured. Abstraction fair, computation impaired, language function intact. Attention span short. LABORATORY DATA: Reviewed. [place] level is 0.7. IMPRESSION: Bipolar 1 disorder, mixed with psychotic features, in partial remission; anxiety disorder, unspecified. PLAN: Continue lithium 300 mg b.i.d., BuSpar 5 mg b.i.d., trazodone 50 mg at bedtime, Zyprexa p.r.n., Risperdal 0.75 mg daily. Adjust further as clinically indicated. GERA MAY MD DR: ANNE/caitlyn JOB#: [id number] / [id number]
[2016-06-01 06:00] VITALS: BP 127/73
[2016-06-01] MEDS: ASCORBIC ACID 500 MG TABLET PO SCH (08:58)
[2016-06-01] MEDS: HYDROCORTISONE 1% TOPICAL CREAM 30GM TUBE. TP SCH ×2 (08:58→20:32)
[2016-06-01] MEDS: MULTIVITAMIN with MINERAL TABLET. PO SCH (08:58)
[2016-06-01] MEDS: POLYETHYLENE GLYCOL 3350 17 GM PACKET. PO SCH (08:58)
[2016-06-01] MEDS: OMEGA-3 FATTY ACIDS/FISH OIL 1,000 MG CAPSULE. PO SCH ×2 (08:58→20:26)
[2016-06-01] MEDS: busPIRone 5 MG TABLET. PO SCH ×2 (08:58→20:27)
[2016-06-01] MEDS: LITHIUM CARBONATE ER 300 MG TABLET.ER PO SCH ×2 (08:58→20:27)
[2016-06-01] MEDS: CALCIUM CARB/VIT D3 500/200 TABLET PO SCH ×2 (08:58→20:25)
[2016-06-01] MEDS: NEOMY/BACITR/POLYMYXIN OINT PACKET. TP SCH ×2 (08:59→20:25)
[2016-06-01] MEDS: NICOTINE POLACRILEX GUM 2 MG GUM. BC PRN ×3 (09:00→19:13)
[2016-06-01] MEDS: OLANZAPINE ZYDIS 5 MG TAB.RAPDIS PO PRN (15:45)
[2016-06-01 17:10] VITALS: BP 146/81
[2016-06-01] MEDS ORDERED: traZODone 100 MG TABLET. PO PRN (18:15)
--- NOTE | 2016-06-01 19:24 | PDOC ---
Exam [place] Demential Exam: [place] Note: Please also refer to the separate dictated note~for this date of service dictated separately.~Patient seen individually. Discussed the patient with Nursing staff reviewed the chart.~Reviewed interim history and current functioning. Reviewed vital signs,~Labs/ Radiology~and current medications noted below. Continue current treatment with the changes noted in the dictated addendum note Assessment: Vital Signs: Vital Signs Date Time Temp Pulse Resp B/P Pulse Ox O2 Delivery O2 Flow Rate FiO2 06/01/16 17:10 98.7 18 146/81 97 06/01/16 06:00 20 05/31/16 07:00 Room Air I&O Intake and Output 06/01/16 07:00 Intake Total 1560 ml Balance 1560 ml Intake Oral 1560 ml Current Medications: Meds: Current Medications Acetaminophen (Tylenol) 650 mg PRN Q6HRS PRN PO PAIN / TEMP Last administered on 05/27/16 22:28; Start 05/27/16 at 22:15; Stop 05/27/16 at 23:11; Status DC Ciprofloxacin (Cipro) 500 mg BID PO Last administered on 05/28/16 10:28; Start 05/27/16 at 22:30; Stop 05/28/16 at 13:06; Status DC Acetaminophen (Tylenol) 650 mg PRN Q6HRS PRN PO PAIN / TEMP; Start 05/27/16 at 23:00; Status Cancel Multi-Ingredient Ointment (Analgesic [place]) 1 mikaela PRN QID PRN TP MUSCLE PAIN; Start 05/27/16 at 23:00 Al Hydroxide/Mg Hydroxide (Mylanta Plus Xs) 15 ml PRN AFTMEALHC PRN PO DYSPEPSIA; Start 05/27/16 at 23:00 Magnesium Hydroxide (Milk Of Magnesia) 2,400 mg PRN QHS PRN PO CONSTIPATION; Start 05/27/16 at 23:00 Acetaminophen (Tylenol) 650 mg PRN Q6HRS PRN PO MILD PAIN; Start 05/27/16 at 23 :15 Ascorbic Acid (Vitamin C) 500 mg DAILY PO Last administered on 06/01/16 08:58 ; Start 05/28/16 at 09:00 Aspirin (Benji Aspirin) 325 mg PRN Q8HRS PRN PO MODERATE PAIN; Start 05/27/16 at 23:15 Calcium Carbonate/ Glycine (Tums) 500 mg PRN BID PRN PO DYSPEPSIA; Start at 23:15 Calcium/Vitamin D (Oscal D 500mg/ 200uts) 1 tab BID PO Last administered on 08:58; Start 05/28/16 at 09:00 Ergocalciferol (Vitamin D2) 50,000 unit Q4WK PO ; Start 06/24/16 at 09:00 Ibuprofen (Motrin) 200 mg PRN Q6HRS PRN PO ear pain; Start 05/27/16 at 23:15; Stop 05/29/16 at 17:42; Status DC Hydrocortisone (Cortaid) 1 mikaela BID TP Last administered on 05/30/16 20:11; Start 05/28/16 at 09:00 Non-Formulary Medication 2,400 mg PRN QHS PRN PO CONSTIPATION; Start 05/27/16 at 23:15; Status UNV Multivitamins/ Calcium (Thera-M Plus) 1 tab DAILY PO Last administered on 08:58; Start 05/28/16 at 09:00 Fish Oil (Fish Oil) 1,000 mg BID PO Last administered on 06/01/16 08:58; Start 05/28/16 at 09:00 [place] Carbonate (Lithobid) 300 mg BID PO Last administered on 06/01/16 08:58 ; Start 05/28/16 at 09:00 Risperidone (Risperdal) 0.75 mg HS PO Last administered on 05/31/16 20:09; Start 05/28/16 at 21:00 Trazodone HCl (Desyrel) 50 mg PRN QHS PRN PO INSOMNIA; Start 05/27/16 at 23:15 ; Stop 06/01/16 at 18:07; Status DC Nicotine Polacrilex (Nicorette Gum) 2 mg PRN Q1HR PRN BC SMOKING CESSATION Last administered on 06/01/16 19:13; Start 05/28/16 at 01:00 Olanzapine (Zyprexa Zydis) 2.5 mg PRN Q2HR PRN PO PSYCHOSIS Last administered on 06/01/16 15:45; Start 05/28/16 at 11:45 Ciprofloxacin (Cipro) 250 mg BID PO Last administered on 05/29/16 09:43; Start 05/28/16 at 21:00; Stop 05/29/16 at 17:44; Status DC Neomycin/ Polymyxin/ Bacitracin (Triple Antibiotic Ointment) 1 pkt BID TP Last administered on 06/01/16 08:59; Start 05/28/16 at 21:00 Docusate Sodium (Colace) 100 mg PRN BID PRN PO CONSTIPATION; Start 05/29/16 at 17:45 Polyethylene Glycol (miraLAX) 17 gm DAILY PO Last administered on 06/01/16 08: 58; Start 05/30/16 at 09:00 Buspirone HCl (Buspar) 5 mg BID PO Last administered on 06/01/16 08:58; Start 05/29/16 at 21:00 Trazodone HCl (Desyrel) 100 mg PRN QHS PRN PO INSOMNIA, MAY REPEAT X1; Start at 18:15 Active Scripts Active Reported Hydrocortisone Plus 1% Cream (Hydrocortisone/Aloe Vera) 28.4 Gm Cream..g. 1 Mikaela TP BID Apply to Bilateral lower legs topically for rash until healed. Calcium Carbonate 500 Mg Tablet 500 Mg PO PRN BID PRN Trazodone Hcl 50 Mg Tablet 50 Mg PO PRN QHS PRN Risperdal (Risperidone) 0.5 Mg Tablet 0.75 Mg PO HS [place] Carbonate 300 Mg Tablet.er 300 Mg PO BID Ibuprofen 200 Mg Tablet 200 Mg PO PRN Q6HRS PRN Aspirin 325 Mg Tablet 325 Mg PO PRN Q8HRS PRN [place]-3 ([place]-3 Fatty Acids) 1,000 Mg Capsule 1,000 Mg PO BID Vitamin D2 (Ergocalciferol (Vitamin D2)) 50,000 Unit Capsule 50,000 Unit PO Q4WK Ascorbic Acid 500 Mg Tablet 500 Mg PO DAILY Multivitamins (Multivitamin) 1 Each Tablet 1 Tab PO DAILY Milk Of Magnesia (Magnesium Hydroxide) 2,400 Mg/10 Ml Oral.susp 2,400 Mg PO PRN QHS PRN Tylenol (Acetaminophen) 325 Mg Tablet 650 Mg PO PRN Q6HRS PRN Calcium 500 + Vit D 200 Caplet (Calcium Carbonate/Vitamin D3) 1 Each Tablet 1 Each PO BID Diagnosis: Problems: (1) Impulse control disorder (2) Dementia with behavioral disturbance (3) Behavior disorder (4) Depressed (5) Bipolar 1 disorder (6) Anxiety (7) Impulse control disorder GERA MAY MD Jun 01, 2016 19:24
[2016-06-01] MEDS: risperiDONE 0.5 MG TABLET. PO SCH (20:26)
--- NOTE | 2016-06-01 22:18 | PN ---
DATE: 05/31/2016 This late entry for 05/31/2016 covers elements not covered in my initial note. SUBJECTIVE: The patient was somewhat irritable, labile in her mood in the evening of 05/30/2016, better during the day on 05/31/2016. As I met with her, she was talking to another patient and telling this other demented patient "I am an antique." She had pulled her pants up in a funny manner, covered her head with cover pretending to be "antique." REVIEW OF SYSTEMS: No CV, , pulmonary, eye, ENT system symptoms on review. MENTAL STATUS EXAM: Reasonably oriented. Speech coherent. She does have a sense of humor, abstraction fair, computation impaired, language function intact, attention span short. Mood and affect somewhat anxious, at times labile. LABORATORY DATA: Reviewed. IMPRESSION: Bipolar 1 disorder, mixed with psychotic features, in partial remission; anxiety disorder, unspecified; impulse control disorder, unspecified. PLAN: Continue lithium carbonate 300 mg b.i.d., level is 0.7. BuSpar 5 b.i.d., Risperdal 0.75 mg at bedtime, Zyprexa p.r.n. May need to increase BuSpar for anxiety or Risperdal, but I would prefer not to increase Risperdal since she already has some tremors consequent to this. GERA MAY MD DR: ANNE/caitlyn JOB#: [id number] / [id number]
[2016-06-02] MEDS: NICOTINE POLACRILEX GUM 2 MG GUM. BC PRN ×2 (04:44→13:21)
[2016-06-02 06:18] VITALS: BP 153/83
[2016-06-02] MEDS: LITHIUM CARBONATE ER 300 MG TABLET.ER PO SCH ×2 (08:13→21:29)
[2016-06-02] MEDS: busPIRone 5 MG TABLET. PO SCH ×2 (08:13→21:29)
[2016-06-02] MEDS: HYDROCORTISONE 1% TOPICAL CREAM 30GM TUBE. TP SCH ×2 (09:00→21:00)
[2016-06-02] MEDS: OMEGA-3 FATTY ACIDS/FISH OIL 1,000 MG CAPSULE. PO SCH ×2 (09:00→21:29)
[2016-06-02] MEDS: NEOMY/BACITR/POLYMYXIN OINT PACKET. TP SCH ×2 (09:00→21:30)
[2016-06-02] MEDS: ASCORBIC ACID 500 MG TABLET PO SCH (09:00)
[2016-06-02] MEDS: POLYETHYLENE GLYCOL 3350 17 GM PACKET. PO SCH (09:00)
[2016-06-02] MEDS: CALCIUM CARB/VIT D3 500/200 TABLET PO SCH ×2 (09:00→21:00)
[2016-06-02] MEDS: MULTIVITAMIN with MINERAL TABLET. PO SCH (09:00)
[2016-06-02 10:29] LABS: BASO # 0.1 x10^3/uL (0.0-0.2); BASO % 1 % (0-3); EOS # 0.5 x10^3/uL (0.0-0.7); EOS % 6 % (0-3); HEMATOCRIT 40.1 % (36.0-47.0); HEMOGLOBIN 13.1 g/dL (12.0-15.5); LYMPH # 1.4 x10^3/uL (1.0-4.8); LYMPH % 15 % (24-48); MEAN CORPUSCULAR HEMOGLOBIN 30 pg (25-35); MEAN CORPUSCULAR HGB CONC 33 g/dL (31-37); MEAN CORPUSCULAR VOLUME 91 fL (79-100); MONO # 0.5 x10^3/uL (0.0-1.1); MONO % 5 % (0-9); NEUT # 6.7 x10^3uL (1.8-7.7); NEUT % 73 % (31-73); PLATELET COUNT 265 x10^3/uL (140-400); RED CELL DISTRIBUTION WIDTH 14.1 % (11.5-14.5); WHITE BLOOD COUNT 9.1 x10^3/uL (4.0-11.0)
[2016-06-02 10:43] LABS: ALBUMIN 3.6 g/dL (3.4-5.0); ALBUMIN/GLOBULIN RATIO 0.9 (1.0-1.7); CALCIUM 9.8 mg/dL (8.5-10.1); GFR 54.2; POTASSIUM 3.9 mmol/L (3.5-5.1); TOTAL BILIRUBIN 0.6 mg/dL (0.2-1.0); TOTAL PROTEIN 7.5 g/dL (6.4-8.2)
[2016-06-02 15:55] VITALS: BP 136/69
--- NOTE | 2016-06-02 21:07 | PDOC ---
Exam [place] Demential Exam: [place] Note: Please also refer to the separate dictated note~for this date of service dictated separately.~Patient seen individually. Discussed the patient with Nursing staff reviewed the chart.~Reviewed interim history and current functioning. Reviewed vital signs,~Labs/ Radiology~and current medications noted below. Continue current treatment with the changes noted in the dictated addendum note Assessment: Vital Signs: Vital Signs Date Time Temp Pulse Resp B/P Pulse Ox O2 Delivery O2 Flow Rate FiO2 06/02/16 15:55 98.3 78 20 136/69 99 05/31/16 07:00 Room Air I&O Intake and Output 06/02/16 07:00 Intake Total 840 ml Balance 840 ml Intake Oral 840 ml Labs: Laboratory Tests Test 06/02/16 10:20 White Blood Count 9.1x10^3/uL (4.0-11.0) Red Blood Count 4.40x10^6/uL (3.50-5.40) Hemoglobin 13.1g/dL (12.0-15.5) Hematocrit 40.1% (36.0-47.0) Mean Corpuscular Volume 91fL (79-100) Mean Corpuscular Hemoglobin 30pg (25-35) Mean Corpuscular Hemoglobin Concent 33g/dL (31-37) Red Cell Distribution Width 14.1% (11.5-14.5) Platelet Count 265x10^3/uL (140-400) Neutrophils (%) (Auto) 73% (31-73) Lymphocytes (%) (Auto) 15% (24-48) L Monocytes (%) (Auto) 5% (0-9) Eosinophils (%) (Auto) 6% (0-3) H Basophils (%) (Auto) 1% (0-3) Neutrophils # (Auto) 6.7x10^3uL (1.8-7.7) Lymphocytes # (Auto) 1.4x10^3/uL (1.0-4.8) Monocytes # (Auto) 0.5x10^3/uL (0.0-1.1) Eosinophils # (Auto) 0.5x10^3/uL (0.0-0.7) Basophils # (Auto) 0.1x10^3/uL (0.0-0.2) Sodium Level 144mmol/L (136-145) Potassium Level 3.9mmol/L (3.5-5.1) Chloride Level 108mmol/L (98-107) H Carbon Dioxide Level 29mmol/L (21-32) Anion Gap 7 (6-14) Blood Urea Nitrogen 16mg/dL (7-20) Creatinine 1.0mg/dL (0.6-1.0) Estimated GFR (Cockcroft-Gault) 54.2 BUN/Creatinine Ratio 16 (6-20) Glucose Level 118mg/dL (70-99) H Calcium Level 9.8mg/dL (8.5-10.1) Total Bilirubin 0.6mg/dL (0.2-1.0) Aspartate Amino Transferase (AST) 17U/L (15-37) Alanine Aminotransferase (ALT) 24U/L (14-59) Alkaline Phosphatase 63U/L (46-116) Total Protein 7.5g/dL (6.4-8.2) Albumin 3.6g/dL (3.4-5.0) Albumin/Globulin Ratio 0.9 (1.0-1.7) L Current Medications: Meds: Current Medications Acetaminophen (Tylenol) 650 mg PRN Q6HRS PRN PO PAIN / TEMP Last administered on 05/27/16 22:28; Start 05/27/16 at 22:15; Stop 05/27/16 at 23:11; Status DC Ciprofloxacin (Cipro) 500 mg BID PO Last administered on 05/28/16 10:28; Start 05/27/16 at 22:30; Stop 05/28/16 at 13:06; Status DC Acetaminophen (Tylenol) 650 mg PRN Q6HRS PRN PO PAIN / TEMP; Start 05/27/16 at 23:00; Status Cancel Multi-Ingredient Ointment (Analgesic [place]) 1 mikaela PRN QID PRN TP MUSCLE PAIN; Start 05/27/16 at 23:00 Al Hydroxide/Mg Hydroxide (Mylanta Plus Xs) 15 ml PRN AFTMEALHC PRN PO DYSPEPSIA; Start 05/27/16 at 23:00 Magnesium Hydroxide (Milk Of Magnesia) 2,400 mg PRN QHS PRN PO CONSTIPATION; Start 05/27/16 at 23:00 Acetaminophen (Tylenol) 650 mg PRN Q6HRS PRN PO MILD PAIN; Start 05/27/16 at 23 :15 Ascorbic Acid (Vitamin C) 500 mg DAILY PO Last administered on 06/01/16 08:58 ; Start 05/28/16 at 09:00 Aspirin (Benji Aspirin) 325 mg PRN Q8HRS PRN PO MODERATE PAIN; Start 05/27/16 at 23:15 Calcium Carbonate/ Glycine (Tums) 500 mg PRN BID PRN PO DYSPEPSIA; Start at 23:15 Calcium/Vitamin D (Oscal D 500mg/ 200uts) 1 tab BID PO Last administered on 20:25; Start 05/28/16 at 09:00 Ergocalciferol (Vitamin D2) 50,000 unit Q4WK PO ; Start 06/24/16 at 09:00 Ibuprofen (Motrin) 200 mg PRN Q6HRS PRN PO ear pain; Start 05/27/16 at 23:15; Stop 05/29/16 at 17:42; Status DC Hydrocortisone (Cortaid) 1 mikaela BID TP Last administered on 05/30/16 20:11; Start 05/28/16 at 09:00 Non-Formulary Medication 2,400 mg PRN QHS PRN PO CONSTIPATION; Start 05/27/16 at 23:15; Status UNV Multivitamins/ Calcium (Thera-M Plus) 1 tab DAILY PO Last administered on 08:58; Start 05/28/16 at 09:00 Fish Oil (Fish Oil) 1,000 mg BID PO Last administered on 06/01/16 20:26; Start 05/28/16 at 09:00 [place] Carbonate (Lithobid) 300 mg BID PO Last administered on 06/02/16 08:13 ; Start 05/28/16 at 09:00 Risperidone (Risperdal) 0.75 mg HS PO Last administered on 06/01/16 20:26; Start 05/28/16 at 21:00 Trazodone HCl (Desyrel) 50 mg PRN QHS PRN PO INSOMNIA; Start 05/27/16 at 23:15 ; Stop 06/01/16 at 18:07; Status DC Nicotine Polacrilex (Nicorette Gum) 2 mg PRN Q1HR PRN BC SMOKING CESSATION Last administered on 06/02/16 13:21; Start 05/28/16 at 01:00 Olanzapine (Zyprexa Zydis) 2.5 mg PRN Q2HR PRN PO PSYCHOSIS Last administered on 06/01/16 15:45; Start 05/28/16 at 11:45 Ciprofloxacin (Cipro) 250 mg BID PO Last administered on 05/29/16 09:43; Start 05/28/16 at 21:00; Stop 05/29/16 at 17:44; Status DC Neomycin/ Polymyxin/ Bacitracin (Triple Antibiotic Ointment) 1 pkt BID TP Last administered on 06/02/16 09:00; Start 05/28/16 at 21:00 Docusate Sodium (Colace) 100 mg PRN BID PRN PO CONSTIPATION; Start 05/29/16 at 17:45 Polyethylene Glycol (miraLAX) 17 gm DAILY PO Last administered on 06/01/16 08: 58; Start 05/30/16 at 09:00 Buspirone HCl (Buspar) 5 mg BID PO Last administered on 06/02/16 08:13; Start 05/29/16 at 21:00 Trazodone HCl (Desyrel) 100 mg PRN QHS PRN PO INSOMNIA, MAY REPEAT X1; Start at 18:15 Active Scripts Active Reported Hydrocortisone Plus 1% Cream (Hydrocortisone/Aloe Vera) 28.4 Gm Cream..g. 1 Mikaela TP BID Apply to Bilateral lower legs topically for rash until healed. Calcium Carbonate 500 Mg Tablet 500 Mg PO PRN BID PRN Trazodone Hcl 50 Mg Tablet 50 Mg PO PRN QHS PRN Risperdal (Risperidone) 0.5 Mg Tablet 0.75 Mg PO HS [place] Carbonate 300 Mg Tablet.er 300 Mg PO BID Ibuprofen 200 Mg Tablet 200 Mg PO PRN Q6HRS PRN Aspirin 325 Mg Tablet 325 Mg PO PRN Q8HRS PRN [place]-3 ([place]-3 Fatty Acids) 1,000 Mg Capsule 1,000 Mg PO BID Vitamin D2 (Ergocalciferol (Vitamin D2)) 50,000 Unit Capsule 50,000 Unit PO Q4WK Ascorbic Acid 500 Mg Tablet 500 Mg PO DAILY Multivitamins (Multivitamin) 1 Each Tablet 1 Tab PO DAILY Milk Of Magnesia (Magnesium Hydroxide) 2,400 Mg/10 Ml Oral.susp 2,400 Mg PO PRN QHS PRN Tylenol (Acetaminophen) 325 Mg Tablet 650 Mg PO PRN Q6HRS PRN Calcium 500 + Vit D 200 Caplet (Calcium Carbonate/Vitamin D3) 1 Each Tablet 1 Each PO BID Diagnosis: Problems: (1) Impulse control disorder (2) Dementia with behavioral disturbance (3) Behavior disorder (4) Depressed (5) Bipolar 1 disorder (6) Anxiety (7) Impulse control disorder GERA MAY MD Jun 02, 2016 21:07
[2016-06-02] MEDS: risperiDONE 0.5 MG TABLET. PO SCH (21:29)
[2016-06-03 07:41] VITALS: BP 107/69
[2016-06-03] MEDS: ASCORBIC ACID 500 MG TABLET PO SCH (09:26)
[2016-06-03] MEDS: LITHIUM CARBONATE ER 300 MG TABLET.ER PO SCH ×2 (09:26→19:37)
[2016-06-03] MEDS: POLYETHYLENE GLYCOL 3350 17 GM PACKET. PO SCH (09:26)
[2016-06-03] MEDS: busPIRone 5 MG TABLET. PO SCH ×2 (09:26→19:38)
[2016-06-03] MEDS: MULTIVITAMIN with MINERAL TABLET. PO SCH (09:26)
[2016-06-03] MEDS: CALCIUM CARB/VIT D3 500/200 TABLET PO SCH ×2 (09:26→19:37)
[2016-06-03] MEDS: OMEGA-3 FATTY ACIDS/FISH OIL 1,000 MG CAPSULE. PO SCH ×2 (09:26→19:37)
[2016-06-03] MEDS: HYDROCORTISONE 1% TOPICAL CREAM 30GM TUBE. TP SCH ×2 (09:28→21:00)
[2016-06-03] MEDS: NEOMY/BACITR/POLYMYXIN OINT PACKET. TP SCH ×2 (09:28→21:00)
[2016-06-03 16:23] VITALS: BP 116/75
[2016-06-03] MEDS: NICOTINE POLACRILEX GUM 2 MG GUM. BC PRN (18:09)
[2016-06-03] MEDS: risperiDONE 0.5 MG TABLET. PO SCH (19:38)
--- NOTE | 2016-06-03 21:21 | PDOC ---
Exam [place] Demential Exam: [place] Note: Please also refer to the separate dictated note~for this date of service dictated separately.~Patient seen individually. Discussed the patient with Nursing staff reviewed the chart.~Reviewed interim history and current functioning. Reviewed vital signs,~Labs/ Radiology~and current medications noted below. Continue current treatment with the changes noted in the dictated addendum note Assessment: Vital Signs: Vital Signs Date Time Temp Pulse Resp B/P Pulse Ox O2 Delivery O2 Flow Rate FiO2 06/03/16 16:23 98.0 88 18 116/75 97 05/31/16 07:00 Room Air I&O Intake and Output 06/03/16 07:00 Intake Total 970 ml Balance 970 ml Intake Oral 970 ml Current Medications: Meds: Current Medications Acetaminophen (Tylenol) 650 mg PRN Q6HRS PRN PO PAIN / TEMP Last administered on 05/27/16 22:28; Start 05/27/16 at 22:15; Stop 05/27/16 at 23:11; Status DC Ciprofloxacin (Cipro) 500 mg BID PO Last administered on 05/28/16 10:28; Start 05/27/16 at 22:30; Stop 05/28/16 at 13:06; Status DC Acetaminophen (Tylenol) 650 mg PRN Q6HRS PRN PO PAIN / TEMP; Start 05/27/16 at 23:00; Status Cancel Multi-Ingredient Ointment (Analgesic [place]) 1 mikaela PRN QID PRN TP MUSCLE PAIN; Start 05/27/16 at 23:00 Al Hydroxide/Mg Hydroxide (Mylanta Plus Xs) 15 ml PRN AFTMEALHC PRN PO DYSPEPSIA; Start 05/27/16 at 23:00 Magnesium Hydroxide (Milk Of Magnesia) 2,400 mg PRN QHS PRN PO CONSTIPATION; Start 05/27/16 at 23:00 Acetaminophen (Tylenol) 650 mg PRN Q6HRS PRN PO MILD PAIN; Start 05/27/16 at 23 :15 Ascorbic Acid (Vitamin C) 500 mg DAILY PO Last administered on 06/03/16 09:26 ; Start 05/28/16 at 09:00 Aspirin (Benji Aspirin) 325 mg PRN Q8HRS PRN PO MODERATE PAIN; Start 05/27/16 at 23:15 Calcium Carbonate/ Glycine (Tums) 500 mg PRN BID PRN PO DYSPEPSIA; Start at 23:15 Calcium/Vitamin D (Oscal D 500mg/ 200uts) 1 tab BID PO Last administered on 19:37; Start 05/28/16 at 09:00 Ergocalciferol (Vitamin D2) 50,000 unit Q4WK PO ; Start 06/24/16 at 09:00 Ibuprofen (Motrin) 200 mg PRN Q6HRS PRN PO ear pain; Start 05/27/16 at 23:15; Stop 05/29/16 at 17:42; Status DC Hydrocortisone (Cortaid) 1 mikaela BID TP Last administered on 06/03/16 09:28; Start 05/28/16 at 09:00 Non-Formulary Medication 2,400 mg PRN QHS PRN PO CONSTIPATION; Start 05/27/16 at 23:15; Status UNV Multivitamins/ Calcium (Thera-M Plus) 1 tab DAILY PO Last administered on 09:26; Start 05/28/16 at 09:00 Fish Oil (Fish Oil) 1,000 mg BID PO Last administered on 06/03/16 19:37; Start 05/28/16 at 09:00 [place] Carbonate (Lithobid) 300 mg BID PO Last administered on 06/03/16 19:37 ; Start 05/28/16 at 09:00 Risperidone (Risperdal) 0.75 mg HS PO Last administered on 06/03/16 19:38; Start 05/28/16 at 21:00 Trazodone HCl (Desyrel) 50 mg PRN QHS PRN PO INSOMNIA; Start 05/27/16 at 23:15 ; Stop 06/01/16 at 18:07; Status DC Nicotine Polacrilex (Nicorette Gum) 2 mg PRN Q1HR PRN BC SMOKING CESSATION Last administered on 06/03/16 18:09; Start 05/28/16 at 01:00 Olanzapine (Zyprexa Zydis) 2.5 mg PRN Q2HR PRN PO PSYCHOSIS Last administered on 06/01/16 15:45; Start 05/28/16 at 11:45 Ciprofloxacin (Cipro) 250 mg BID PO Last administered on 3/17/17at 09:43; Start 05/28/16 at 21:00; Stop 05/29/16 at 17:44; Status DC Neomycin/ Polymyxin/ Bacitracin (Triple Antibiotic Ointment) 1 pkt BID TP Last administered on 06/03/16 09:28; Start 05/28/16 at 21:00 Docusate Sodium (Colace) 100 mg PRN BID PRN PO CONSTIPATION; Start 05/29/16 at 17:45 Polyethylene Glycol (miraLAX) 17 gm DAILY PO Last administered on 06/03/16 09: 26; Start 05/30/16 at 09:00 Buspirone HCl (Buspar) 5 mg BID PO Last administered on 06/03/16 19:38; Start 05/29/16 at 21:00 Trazodone HCl (Desyrel) 100 mg PRN QHS PRN PO INSOMNIA, MAY REPEAT X1; Start at 18:15 Active Scripts Active Reported Hydrocortisone Plus 1% Cream (Hydrocortisone/Aloe Vera) 28.4 Gm Cream..g. 1 Mikaela TP BID Apply to Bilateral lower legs topically for rash until healed. Calcium Carbonate 500 Mg Tablet 500 Mg PO PRN BID PRN Trazodone Hcl 50 Mg Tablet 50 Mg PO PRN QHS PRN Risperdal (Risperidone) 0.5 Mg Tablet 0.75 Mg PO HS [place] Carbonate 300 Mg Tablet.er 300 Mg PO BID Ibuprofen 200 Mg Tablet 200 Mg PO PRN Q6HRS PRN Aspirin 325 Mg Tablet 325 Mg PO PRN Q8HRS PRN [place]-3 ([place]-3 Fatty Acids) 1,000 Mg Capsule 1,000 Mg PO BID Vitamin D2 (Ergocalciferol (Vitamin D2)) 50,000 Unit Capsule 50,000 Unit PO Q4WK Ascorbic Acid 500 Mg Tablet 500 Mg PO DAILY Multivitamins (Multivitamin) 1 Each Tablet 1 Tab PO DAILY Milk Of Magnesia (Magnesium Hydroxide) 2,400 Mg/10 Ml Oral.susp 2,400 Mg PO PRN QHS PRN Tylenol (Acetaminophen) 325 Mg Tablet 650 Mg PO PRN Q6HRS PRN Calcium 500 + Vit D 200 Caplet (Calcium Carbonate/Vitamin D3) 1 Each Tablet 1 Each PO BID Diagnosis: Problems: (1) Impulse control disorder (2) Dementia with behavioral disturbance (3) Behavior disorder (4) Depressed (5) Bipolar 1 disorder (6) Anxiety (7) Impulse control disorder GERA MAY MD Jun 03, 2016 21:21
--- NOTE | 2016-06-04 01:43 | PN ---
DATE: 06/01/2016 PSYCHIATRIC PROGRESS NOTE This is a late entry for 06/01/2016, covers elements not covered in my initial note. SUBJECTIVE: Overall, the patient has been hyperverbal, at times agitated, but tremors are better. Received p.r.n. x 1. REVIEW OF SYSTEMS: No CV, , pulmonary, eye, ENT system symptoms on review. MENTAL STATUS EXAM: Reasonably oriented. Speech coherent, less pressured though it is still slightly pressured at times. Abstraction fair, computation impaired, language function intact. Mood and affect, lability, grandiosity, improved. LABORATORY DATA: Reviewed. IMPRESSION: Bipolar 1 disorder, mixed with psychotic features, in partial remission. Rest diagnosis unchanged. PLAN: Maintain BuSpar 5 mg b.i.d., lithium 300 mg b.i.d., level is 0.7, trazodone is 50 mg at bedtime. We will increase to 100 mg at bedtime, may repeat x 1 since she is having sleep disturbance, Risperdal 0.75 mg at bedtime, Zyprexa p.r.n. Adjust further as clinically indicated. MAN Martin MAY MD DR: ANNE/caitlyn JOB#: [id number] / [id number]
--- NOTE | 2016-06-04 01:44 | PN ---
DATE: 06/02/2016 This is a late entry for 06/02/2016 and covers elements not covered in my initial note. SUBJECTIVE: Per nursing report, the patient has had a good day, less hyperverbal, at times she has some bizarre behaviors, walking with 1 shoe, but she says she has a bunion and explanation does not seem unreasonable. REVIEW OF SYSTEMS: No CV, , pulmonary, eye, ENT system symptoms on review. MENTAL STATUS EXAM: Oriented to herself and situation. Speech is coherent, less pressured. Abstraction fair, computation impaired, language function intact, attention span short, mood and affect is less labile. She slept 5-1/2 hours previous night with increased trazodone. LABORATORY DATA: Reviewed. IMPRESSION: Bipolar 1 disorder, mixed with psychotic features, in partial remission. PLAN: Maintain BuSpar 5 b.i.d., lithium 300 b.i.d., level 0.7; trazodone 100 at bedtime, july repeat x 1; Risperdal 0.75 mg at bedtime, Zyprexa p.r.n. Adjust further as clinically indicated. MAN Martin MAY MD DR: ANNE/caitlyn JOB#: [id number] / [id number]
[2016-06-04 06:29] VITALS: BP 120/74
[2016-06-04] MEDS: MULTIVITAMIN with MINERAL TABLET. PO SCH (09:06)
[2016-06-04] MEDS: LITHIUM CARBONATE ER 300 MG TABLET.ER PO SCH ×2 (09:06→20:26)
[2016-06-04] MEDS: POLYETHYLENE GLYCOL 3350 17 GM PACKET. PO SCH (09:06)
[2016-06-04] MEDS: CALCIUM CARB/VIT D3 500/200 TABLET PO SCH ×2 (09:06→20:25)
[2016-06-04] MEDS: busPIRone 5 MG TABLET. PO SCH ×2 (09:06→20:25)
[2016-06-04] MEDS: ASCORBIC ACID 500 MG TABLET PO SCH (09:06)
[2016-06-04] MEDS: OMEGA-3 FATTY ACIDS/FISH OIL 1,000 MG CAPSULE. PO SCH ×2 (09:06→20:26)
[2016-06-04] MEDS: NEOMY/BACITR/POLYMYXIN OINT PACKET. TP SCH ×2 (09:08→20:27)
[2016-06-04] MEDS: NICOTINE POLACRILEX GUM 2 MG GUM. BC PRN ×3 (09:08→18:00)
[2016-06-04] MEDS: HYDROCORTISONE 1% TOPICAL CREAM 30GM TUBE. TP SCH ×2 (09:08→20:27)
[2016-06-04 16:14] VITALS: BP 133/76
[2016-06-04] MEDS: CLOZAPINE 25 MG TABLET PO SCH (20:25)
[2016-06-04] MEDS: risperiDONE 0.5 MG TABLET. PO SCH (20:26)
--- NOTE | 2016-06-04 21:05 | PDOC ---
Exam [place] Demential Exam: [place] Note: Please also refer to the separate dictated note~for this date of service dictated separately.~Patient seen individually. Discussed the patient with Nursing staff reviewed the chart.~Reviewed interim history and current functioning. Reviewed vital signs,~Labs/ Radiology~and current medications noted below. Continue current treatment with the changes noted in the dictated addendum note Assessment: Vital Signs: Vital Signs Date Time Temp Pulse Resp B/P Pulse Ox O2 Delivery O2 Flow Rate FiO2 06/04/16 16:14 98.6 68 20 133/76 96 05/31/16 07:00 Room Air I&O Intake and Output 06/04/16 07:00 Intake Total 720 ml Balance 720 ml Intake Oral 720 ml Current Medications: Meds: Current Medications Acetaminophen (Tylenol) 650 mg PRN Q6HRS PRN PO PAIN / TEMP Last administered on 05/27/16 22:28; Start 05/27/16 at 22:15; Stop 05/27/16 at 23:11; Status DC Ciprofloxacin (Cipro) 500 mg BID PO Last administered on 05/28/16 10:28; Start 05/27/16 at 22:30; Stop 05/28/16 at 13:06; Status DC Acetaminophen (Tylenol) 650 mg PRN Q6HRS PRN PO PAIN / TEMP; Start 05/27/16 at 23:00; Status Cancel Multi-Ingredient Ointment (Analgesic [place]) 1 mikeala PRN QID PRN TP MUSCLE PAIN; Start 05/27/16 at 23:00 Al Hydroxide/Mg Hydroxide (Mylanta Plus Xs) 15 ml PRN AFTMEALHC PRN PO DYSPEPSIA; Start 05/27/16 at 23:00 Magnesium Hydroxide (Milk Of Magnesia) 2,400 mg PRN QHS PRN PO CONSTIPATION; Start 05/27/16 at 23:00 Acetaminophen (Tylenol) 650 mg PRN Q6HRS PRN PO MILD PAIN; Start 05/27/16 at 23 :15 Ascorbic Acid (Vitamin C) 500 mg DAILY PO Last administered on 06/04/16 09:06 ; Start 05/28/16 at 09:00 Aspirin (Benji Aspirin) 325 mg PRN Q8HRS PRN PO MODERATE PAIN; Start 05/27/16 at 23:15 Calcium Carbonate/ Glycine (Tums) 500 mg PRN BID PRN PO DYSPEPSIA; Start at 23:15 Calcium/Vitamin D (Oscal D 500mg/ 200uts) 1 tab BID PO Last administered on 20:25; Start 05/28/16 at 09:00 Ergocalciferol (Vitamin D2) 50,000 unit Q4WK PO ; Start 06/24/16 at 09:00 Ibuprofen (Motrin) 200 mg PRN Q6HRS PRN PO ear pain; Start 05/27/16 at 23:15; Stop 05/29/16 at 17:42; Status DC Hydrocortisone (Cortaid) 1 mikaela BID TP Last administered on 06/04/16 20:27; Start 05/28/16 at 09:00 Non-Formulary Medication 2,400 mg PRN QHS PRN PO CONSTIPATION; Start 05/27/16 at 23:15; Status UNV Multivitamins/ Calcium (Thera-M Plus) 1 tab DAILY PO Last administered on 09:06; Start 05/28/16 at 09:00 Fish Oil (Fish Oil) 1,000 mg BID PO Last administered on 06/04/16 20:26; Start 05/28/16 at 09:00 [place] Carbonate (Lithobid) 300 mg BID PO Last administered on 06/04/16 20:26 ; Start 05/28/16 at 09:00 Risperidone (Risperdal) 0.75 mg HS PO Last administered on 06/04/16 20:26; Start 05/28/16 at 21:00 Trazodone HCl (Desyrel) 50 mg PRN QHS PRN PO INSOMNIA; Start 05/27/16 at 23:15 ; Stop 06/01/16 at 18:07; Status DC Nicotine Polacrilex (Nicorette Gum) 2 mg PRN Q1HR PRN BC SMOKING CESSATION Last administered on 06/04/16 18:00; Start 05/28/16 at 01:00 Olanzapine (Zyprexa Zydis) 2.5 mg PRN Q2HR PRN PO PSYCHOSIS Last administered on 06/01/16 15:45; Start 05/28/16 at 11:45 Ciprofloxacin (Cipro) 250 mg BID PO Last administered on 05/29/16 09:43; Start 05/28/16 at 21:00; Stop 05/29/16 at 17:44; Status DC Neomycin/ Polymyxin/ Bacitracin (Triple Antibiotic Ointment) 1 pkt BID TP Last administered on 06/04/16 20:27; Start 05/28/16 at 21:00 Docusate Sodium (Colace) 100 mg PRN BID PRN PO CONSTIPATION; Start 05/29/16 at 17:45 Polyethylene Glycol (miraLAX) 17 gm DAILY PO Last administered on 06/04/16 09: 06; Start 05/30/16 at 09:00 Buspirone HCl (Buspar) 5 mg BID PO Last administered on 06/04/16 20:25; Start 05/29/16 at 21:00 Trazodone HCl (Desyrel) 100 mg PRN QHS PRN PO INSOMNIA, MAY REPEAT X1; Start at 18:15 Clozapine (Clozaril) 25 mg HS PO Last administered on 06/04/16 20:25; Start at 21:00 Active Scripts Active Reported Hydrocortisone Plus 1% Cream (Hydrocortisone/Aloe Vera) 28.4 Gm Cream..g. 1 Mikaela TP BID Apply to Bilateral lower legs topically for rash until healed. Calcium Carbonate 500 Mg Tablet 500 Mg PO PRN BID PRN Trazodone Hcl 50 Mg Tablet 50 Mg PO PRN QHS PRN Risperdal (Risperidone) 0.5 Mg Tablet 0.75 Mg PO HS [place] Carbonate 300 Mg Tablet.er 300 Mg PO BID Ibuprofen 200 Mg Tablet 200 Mg PO PRN Q6HRS PRN Aspirin 325 Mg Tablet 325 Mg PO PRN Q8HRS PRN [place]-3 ([place]-3 Fatty Acids) 1,000 Mg Capsule 1,000 Mg PO BID Vitamin D2 (Ergocalciferol (Vitamin D2)) 50,000 Unit Capsule 50,000 Unit PO Q4WK Ascorbic Acid 500 Mg Tablet 500 Mg PO DAILY Multivitamins (Multivitamin) 1 Each Tablet 1 Tab PO DAILY Milk Of Magnesia (Magnesium Hydroxide) 2,400 Mg/10 Ml Oral.susp 2,400 Mg PO PRN QHS PRN Tylenol (Acetaminophen) 325 Mg Tablet 650 Mg PO PRN Q6HRS PRN Calcium 500 + Vit D 200 Caplet (Calcium Carbonate/Vitamin D3) 1 Each Tablet 1 Each PO BID Diagnosis: Problems: (1) Impulse control disorder (2) Dementia with behavioral disturbance (3) Behavior disorder (4) Depressed (5) Bipolar 1 disorder (6) Impulse control disorder (7) Anxiety GERA MAY MD Jun 04, 2016 21:05
[2016-06-05] MEDS: POLYETHYLENE GLYCOL 3350 17 GM PACKET. PO SCH (07:59)
[2016-06-05] MEDS: CALCIUM CARB/VIT D3 500/200 TABLET PO SCH ×2 (08:00→20:13)
[2016-06-05] MEDS: MULTIVITAMIN with MINERAL TABLET. PO SCH (08:00)
[2016-06-05] MEDS: busPIRone 5 MG TABLET. PO SCH ×2 (08:00→20:14)
[2016-06-05] MEDS: LITHIUM CARBONATE ER 300 MG TABLET.ER PO SCH ×2 (08:00→20:15)
[2016-06-05] MEDS: OMEGA-3 FATTY ACIDS/FISH OIL 1,000 MG CAPSULE. PO SCH ×2 (08:00→20:14)
[2016-06-05] MEDS: ASCORBIC ACID 500 MG TABLET PO SCH (08:00)
[2016-06-05] MEDS: NEOMY/BACITR/POLYMYXIN OINT PACKET. TP SCH ×2 (08:01→20:18)
[2016-06-05] MEDS: HYDROCORTISONE 1% TOPICAL CREAM 30GM TUBE. TP SCH ×2 (08:01→20:16)
[2016-06-05 16:09] VITALS: BP 128/77
[2016-06-05] MEDS: risperiDONE 0.5 MG TABLET. PO SCH (20:14)
[2016-06-05] MEDS: CLOZAPINE 25 MG TABLET PO SCH (20:15)
--- NOTE | 2016-06-05 21:04 | PDOC ---
Exam [place] Demential Exam: [place] Note: Please also refer to the separate dictated note~for this date of service dictated separately.~Patient seen individually. Discussed the patient with Nursing staff reviewed the chart.~Reviewed interim history and current functioning. Reviewed vital signs,~Labs/ Radiology~and current medications noted below. Continue current treatment with the changes noted in the dictated addendum note Assessment: Vital Signs: Vital Signs Date Time Temp Pulse Resp B/P Pulse Ox O2 Delivery O2 Flow Rate FiO2 06/05/16 16:09 98.1 79 18 128/77 99 05/31/16 07:00 Room Air I&O Intake and Output 06/05/16 07:00 Intake Total 1040 ml Balance 1040 ml Intake Oral 1040 ml # Voids 2 Current Medications: Meds: Current Medications Acetaminophen (Tylenol) 650 mg PRN Q6HRS PRN PO PAIN / TEMP Last administered on 05/27/16 22:28; Start 05/27/16 at 22:15; Stop 05/27/16 at 23:11; Status DC Ciprofloxacin (Cipro) 500 mg BID PO Last administered on 05/28/16 10:28; Start 05/27/16 at 22:30; Stop 05/28/16 at 13:06; Status DC Acetaminophen (Tylenol) 650 mg PRN Q6HRS PRN PO PAIN / TEMP; Start 05/27/16 at 23:00; Status Cancel Multi-Ingredient Ointment (Analgesic [place]) 1 mikaela PRN QID PRN TP MUSCLE PAIN; Start 05/27/16 at 23:00 Al Hydroxide/Mg Hydroxide (Mylanta Plus Xs) 15 ml PRN AFTMEALHC PRN PO DYSPEPSIA; Start 05/27/16 at 23:00 Magnesium Hydroxide (Milk Of Magnesia) 2,400 mg PRN QHS PRN PO CONSTIPATION; Start 05/27/16 at 23:00 Acetaminophen (Tylenol) 650 mg PRN Q6HRS PRN PO MILD PAIN; Start 05/27/16 at 23 :15 Ascorbic Acid (Vitamin C) 500 mg DAILY PO Last administered on 06/05/16 08:00 ; Start 05/28/16 at 09:00 Aspirin (Benji Aspirin) 325 mg PRN Q8HRS PRN PO MODERATE PAIN; Start 05/27/16 at 23:15 Calcium Carbonate/ Glycine (Tums) 500 mg PRN BID PRN PO DYSPEPSIA; Start at 23:15 Calcium/Vitamin D (Oscal D 500mg/ 200uts) 1 tab BID PO Last administered on 20:13; Start 05/28/16 at 09:00 Ergocalciferol (Vitamin D2) 50,000 unit Q4WK PO ; Start 06/24/16 at 09:00 Ibuprofen (Motrin) 200 mg PRN Q6HRS PRN PO ear pain; Start 05/27/16 at 23:15; Stop 05/29/16 at 17:42; Status DC Hydrocortisone (Cortaid) 1 mikaela BID TP Last administered on 06/05/16 20:16; Start 05/28/16 at 09:00 Non-Formulary Medication 2,400 mg PRN QHS PRN PO CONSTIPATION; Start 05/27/16 at 23:15; Status UNV Multivitamins/ Calcium (Thera-M Plus) 1 tab DAILY PO Last administered on 08:00; Start 05/28/16 at 09:00 Fish Oil (Fish Oil) 1,000 mg BID PO Last administered on 06/05/16 20:14; Start 05/28/16 at 09:00 [place] Carbonate (Lithobid) 300 mg BID PO Last administered on 06/05/16 20:15 ; Start 05/28/16 at 09:00 Risperidone (Risperdal) 0.75 mg HS PO Last administered on 06/05/16 20:14; Start 05/28/16 at 21:00 Trazodone HCl (Desyrel) 50 mg PRN QHS PRN PO INSOMNIA; Start 05/27/16 at 23:15 ; Stop 06/01/16 at 18:07; Status DC Nicotine Polacrilex (Nicorette Gum) 2 mg PRN Q1HR PRN BC SMOKING CESSATION Last administered on 06/04/16 18:00; Start 05/28/16 at 01:00 Olanzapine (Zyprexa Zydis) 2.5 mg PRN Q2HR PRN PO PSYCHOSIS Last administered on 06/01/16 15:45; Start 05/28/16 at 11:45 Ciprofloxacin (Cipro) 250 mg BID PO Last administered on 05/29/16 09:43; Start 05/28/16 at 21:00; Stop 05/29/16 at 17:44; Status DC Neomycin/ Polymyxin/ Bacitracin (Triple Antibiotic Ointment) 1 pkt BID TP Last administered on 06/05/16 20:18; Start 05/28/16 at 21:00 Docusate Sodium (Colace) 100 mg PRN BID PRN PO CONSTIPATION; Start 05/29/16 at 17:45 Polyethylene Glycol (miraLAX) 17 gm DAILY PO Last administered on 06/05/16 07: 59; Start 05/30/16 at 09:00 Buspirone HCl (Buspar) 5 mg BID PO Last administered on 06/05/16 20:14; Start 05/29/16 at 21:00 Trazodone HCl (Desyrel) 100 mg PRN QHS PRN PO INSOMNIA, MAY REPEAT X1; Start at 18:15 Clozapine (Clozaril) 25 mg HS PO Last administered on 06/05/16 20:15; Start at 21:00 Active Scripts Active Reported Hydrocortisone Plus 1% Cream (Hydrocortisone/Aloe Vera) 28.4 Gm Cream..g. 1 Mikaela TP BID Apply to Bilateral lower legs topically for rash until healed. Calcium Carbonate 500 Mg Tablet 500 Mg PO PRN BID PRN Trazodone Hcl 50 Mg Tablet 50 Mg PO PRN QHS PRN Risperdal (Risperidone) 0.5 Mg Tablet 0.75 Mg PO HS [place] Carbonate 300 Mg Tablet.er 300 Mg PO BID Ibuprofen 200 Mg Tablet 200 Mg PO PRN Q6HRS PRN Aspirin 325 Mg Tablet 325 Mg PO PRN Q8HRS PRN [place]-3 ([place]-3 Fatty Acids) 1,000 Mg Capsule 1,000 Mg PO BID Vitamin D2 (Ergocalciferol (Vitamin D2)) 50,000 Unit Capsule 50,000 Unit PO Q4WK Ascorbic Acid 500 Mg Tablet 500 Mg PO DAILY Multivitamins (Multivitamin) 1 Each Tablet 1 Tab PO DAILY Milk Of Magnesia (Magnesium Hydroxide) 2,400 Mg/10 Ml Oral.susp 2,400 Mg PO PRN QHS PRN Tylenol (Acetaminophen) 325 Mg Tablet 650 Mg PO PRN Q6HRS PRN Calcium 500 + Vit D 200 Caplet (Calcium Carbonate/Vitamin D3) 1 Each Tablet 1 Each PO BID Diagnosis: Problems: (1) Impulse control disorder (2) Dementia with behavioral disturbance (3) Behavior disorder (4) Depressed (5) Bipolar 1 disorder (6) Anxiety (7) Impulse control disorder GERA MAY MD Jun 05, 2016 21:04
[2016-06-06 06:20] VITALS: BP 136/74
[2016-06-06] MEDS: HYDROCORTISONE 1% TOPICAL CREAM 30GM TUBE. TP SCH ×2 (09:00→20:48)
[2016-06-06] MEDS: CALCIUM CARB/VIT D3 500/200 TABLET PO SCH ×3 (09:09→21:00)
[2016-06-06] MEDS: OMEGA-3 FATTY ACIDS/FISH OIL 1,000 MG CAPSULE. PO SCH ×3 (09:09→21:00)
[2016-06-06] MEDS: busPIRone 5 MG TABLET. PO SCH ×2 (09:09→20:44)
[2016-06-06] MEDS: LITHIUM CARBONATE ER 300 MG TABLET.ER PO SCH ×2 (09:09→20:42)
[2016-06-06] MEDS: NEOMY/BACITR/POLYMYXIN OINT PACKET. TP SCH ×2 (09:09→20:48)
[2016-06-06] MEDS: POLYETHYLENE GLYCOL 3350 17 GM PACKET. PO SCH (09:09)
[2016-06-06] MEDS: MULTIVITAMIN with MINERAL TABLET. PO SCH (09:09)
[2016-06-06] MEDS: ASCORBIC ACID 500 MG TABLET PO SCH (09:09)
[2016-06-06 16:09] VITALS: BP 115/71
[2016-06-06] MEDS: risperiDONE 0.5 MG TABLET. PO SCH (20:42)
[2016-06-06] MEDS: CLOZAPINE 25 MG TABLET PO SCH (20:44)
[2016-06-06] MEDS: NICOTINE POLACRILEX GUM 2 MG GUM. BC PRN (21:18)
--- NOTE | 2016-06-06 22:45 | PDOC ---
Exam [place] Demential Exam: [place] Note: Please also refer to the separate dictated note~for this date of service dictated separately.~Patient seen individually. Discussed the patient with Nursing staff reviewed the chart.~Reviewed interim history and current functioning. Reviewed vital signs,~Labs/ Radiology~and current medications noted below. Continue current treatment with the changes noted in the dictated addendum note Assessment: Vital Signs: Vital Signs Date Time Temp Pulse Resp B/P Pulse Ox O2 Delivery O2 Flow Rate FiO2 06/06/16 16:09 98.0 82 20 115/71 96 05/31/16 07:00 Room Air I&O Intake and Output 06/06/16 07:00 Intake Total 1040 ml Balance 1040 ml Intake Oral 1040 ml # Voids 3 Current Medications: Meds: Current Medications Acetaminophen (Tylenol) 650 mg PRN Q6HRS PRN PO PAIN / TEMP Last administered on 05/27/16 22:28; Start 05/27/16 at 22:15; Stop 05/27/16 at 23:11; Status DC Ciprofloxacin (Cipro) 500 mg BID PO Last administered on 05/28/16 10:28; Start 05/27/16 at 22:30; Stop 05/28/16 at 13:06; Status DC Acetaminophen (Tylenol) 650 mg PRN Q6HRS PRN PO PAIN / TEMP; Start 05/27/16 at 23:00; Status Cancel Multi-Ingredient Ointment (Analgesic [place]) 1 mikaela PRN QID PRN TP MUSCLE PAIN; Start 05/27/16 at 23:00 Al Hydroxide/Mg Hydroxide (Mylanta Plus Xs) 15 ml PRN AFTMEALHC PRN PO DYSPEPSIA; Start 05/27/16 at 23:00 Magnesium Hydroxide (Milk Of Magnesia) 2,400 mg PRN QHS PRN PO CONSTIPATION; Start 05/27/16 at 23:00 Acetaminophen (Tylenol) 650 mg PRN Q6HRS PRN PO MILD PAIN; Start 05/27/16 at 23 :15 Ascorbic Acid (Vitamin C) 500 mg DAILY PO Last administered on 06/06/16 09:09 ; Start 05/28/16 at 09:00 Aspirin (Benji Aspirin) 325 mg PRN Q8HRS PRN PO MODERATE PAIN; Start 05/27/16 at 23:15 Calcium Carbonate/ Glycine (Tums) 500 mg PRN BID PRN PO DYSPEPSIA; Start at 23:15 Calcium/Vitamin D (Oscal D 500mg/ 200uts) 1 tab BID PO Last administered on 09:09; Start 05/28/16 at 09:00 Ergocalciferol (Vitamin D2) 50,000 unit Q4WK PO ; Start 06/24/16 at 09:00 Ibuprofen (Motrin) 200 mg PRN Q6HRS PRN PO ear pain; Start 05/27/16 at 23:15; Stop 05/29/16 at 17:42; Status DC Hydrocortisone (Cortaid) 1 mikaela BID TP Last administered on 06/06/16 20:48; Start 05/28/16 at 09:00 Non-Formulary Medication 2,400 mg PRN QHS PRN PO CONSTIPATION; Start 05/27/16 at 23:15; Status UNV Multivitamins/ Calcium (Thera-M Plus) 1 tab DAILY PO Last administered on 09:09; Start 05/28/16 at 09:00 Fish Oil (Fish Oil) 1,000 mg BID PO Last administered on 06/06/16 09:09; Start 05/28/16 at 09:00 [place] Carbonate (Lithobid) 300 mg BID PO Last administered on 06/06/16 20:42 ; Start 05/28/16 at 09:00 Risperidone (Risperdal) 0.75 mg HS PO Last administered on 06/06/16 20:42; Start 05/28/16 at 21:00 Trazodone HCl (Desyrel) 50 mg PRN QHS PRN PO INSOMNIA; Start 05/27/16 at 23:15 ; Stop 06/01/16 at 18:07; Status DC Nicotine Polacrilex (Nicorette Gum) 2 mg PRN Q1HR PRN BC SMOKING CESSATION Last administered on 06/06/16 21:18; Start 05/28/16 at 01:00 Olanzapine (Zyprexa Zydis) 2.5 mg PRN Q2HR PRN PO PSYCHOSIS Last administered on 06/01/16 15:45; Start 05/28/16 at 11:45 Ciprofloxacin (Cipro) 250 mg BID PO Last administered on 05/29/16 09:43; Start 05/28/16 at 21:00; Stop 05/29/16 at 17:44; Status DC Neomycin/ Polymyxin/ Bacitracin (Triple Antibiotic Ointment) 1 pkt BID TP Last administered on 06/06/16 20:48; Start 05/28/16 at 21:00 Docusate Sodium (Colace) 100 mg PRN BID PRN PO CONSTIPATION; Start 05/29/16 at 17:45 Polyethylene Glycol (miraLAX) 17 gm DAILY PO Last administered on 06/06/16 09: 09; Start 05/30/16 at 09:00 Buspirone HCl (Buspar) 5 mg BID PO Last administered on 06/06/16 20:44; Start 05/29/16 at 21:00 Trazodone HCl (Desyrel) 100 mg PRN QHS PRN PO INSOMNIA, MAY REPEAT X1; Start at 18:15 Clozapine (Clozaril) 25 mg HS PO Last administered on 06/06/16 20:44; Start at 21:00 Active Scripts Active Reported Hydrocortisone Plus 1% Cream (Hydrocortisone/Aloe Vera) 28.4 Gm Cream..g. 1 Mikaela TP BID Apply to Bilateral lower legs topically for rash until healed. Calcium Carbonate 500 Mg Tablet 500 Mg PO PRN BID PRN Trazodone Hcl 50 Mg Tablet 50 Mg PO PRN QHS PRN Risperdal (Risperidone) 0.5 Mg Tablet 0.75 Mg PO HS [place] Carbonate 300 Mg Tablet.er 300 Mg PO BID Ibuprofen 200 Mg Tablet 200 Mg PO PRN Q6HRS PRN Aspirin 325 Mg Tablet 325 Mg PO PRN Q8HRS PRN [place]-3 ([place]-3 Fatty Acids) 1,000 Mg Capsule 1,000 Mg PO BID Vitamin D2 (Ergocalciferol (Vitamin D2)) 50,000 Unit Capsule 50,000 Unit PO Q4WK Ascorbic Acid 500 Mg Tablet 500 Mg PO DAILY Multivitamins (Multivitamin) 1 Each Tablet 1 Tab PO DAILY Milk Of Magnesia (Magnesium Hydroxide) 2,400 Mg/10 Ml Oral.susp 2,400 Mg PO PRN QHS PRN Tylenol (Acetaminophen) 325 Mg Tablet 650 Mg PO PRN Q6HRS PRN Calcium 500 + Vit D 200 Caplet (Calcium Carbonate/Vitamin D3) 1 Each Tablet 1 Each PO BID Diagnosis: Problems: (1) Impulse control disorder (2) Dementia with behavioral disturbance (3) Behavior disorder (4) Depressed (5) Bipolar 1 disorder (6) Anxiety (7) Impulse control disorder GERA MAY MD Jun 06, 2016 22:44
[2016-06-07 06:13] VITALS: BP 108/57
[2016-06-07] MEDS: busPIRone 5 MG TABLET. PO SCH ×2 (08:59→21:05)
[2016-06-07] MEDS: OMEGA-3 FATTY ACIDS/FISH OIL 1,000 MG CAPSULE. PO SCH ×3 (08:59→21:05)
[2016-06-07] MEDS: ASCORBIC ACID 500 MG TABLET PO SCH (09:00)
[2016-06-07] MEDS: HYDROCORTISONE 1% TOPICAL CREAM 30GM TUBE. TP SCH ×3 (09:00→21:09)
[2016-06-07] MEDS: POLYETHYLENE GLYCOL 3350 17 GM PACKET. PO SCH (09:00)
[2016-06-07] MEDS: MULTIVITAMIN with MINERAL TABLET. PO SCH (09:00)
[2016-06-07] MEDS: LITHIUM CARBONATE ER 300 MG TABLET.ER PO SCH ×2 (09:00→21:07)
[2016-06-07] MEDS: CALCIUM CARB/VIT D3 500/200 TABLET PO SCH ×2 (09:00→21:05)
[2016-06-07] MEDS: NEOMY/BACITR/POLYMYXIN OINT PACKET. TP SCH ×2 (09:00→21:09)
[2016-06-07] MEDS: NICOTINE POLACRILEX GUM 2 MG GUM. BC PRN ×2 (11:48→16:50)
[2016-06-07 15:59] VITALS: BP 134/80
[2016-06-07] MEDS: CLOZAPINE 25 MG TABLET PO SCH (21:07)
[2016-06-07] MEDS: risperiDONE 0.5 MG TABLET. PO SCH (21:07)
--- NOTE | 2016-06-07 21:11 | PDOC ---
Exam [place] Demential Exam: [place] Note: Please also refer to the separate dictated note~for this date of service dictated separately.~Patient seen individually. Discussed the patient with Nursing staff reviewed the chart.~Reviewed interim history and current functioning. Reviewed vital signs,~Labs/ Radiology~and current medications noted below. Continue current treatment with the changes noted in the dictated addendum note Assessment: Vital Signs: Vital Signs Date Time Temp Pulse Resp B/P Pulse Ox O2 Delivery O2 Flow Rate FiO2 06/07/16 15:59 98.3 67 20 134/80 96 I&O Intake and Output 06/07/16 07:00 Intake Total 660 ml Balance 660 ml Intake Oral 660 ml Current Medications: Meds: Current Medications Acetaminophen (Tylenol) 650 mg PRN Q6HRS PRN PO PAIN / TEMP Last administered on 05/27/16 22:28; Start 05/27/16 at 22:15; Stop 05/27/16 at 23:11; Status DC Ciprofloxacin (Cipro) 500 mg BID PO Last administered on 05/28/16 10:28; Start 05/27/16 at 22:30; Stop 05/28/16 at 13:06; Status DC Acetaminophen (Tylenol) 650 mg PRN Q6HRS PRN PO PAIN / TEMP; Start 05/27/16 at 23:00; Status Cancel Multi-Ingredient Ointment (Analgesic [place]) 1 mikaela PRN QID PRN TP MUSCLE PAIN; Start 05/27/16 at 23:00 Al Hydroxide/Mg Hydroxide (Mylanta Plus Xs) 15 ml PRN AFTMEALHC PRN PO DYSPEPSIA; Start 05/27/16 at 23:00 Magnesium Hydroxide (Milk Of Magnesia) 2,400 mg PRN QHS PRN PO CONSTIPATION; Start 05/27/16 at 23:00 Acetaminophen (Tylenol) 650 mg PRN Q6HRS PRN PO MILD PAIN; Start 05/27/16 at 23 :15 Ascorbic Acid (Vitamin C) 500 mg DAILY PO Last administered on 06/06/16 09:09 ; Start 05/28/16 at 09:00 Aspirin (Benji Aspirin) 325 mg PRN Q8HRS PRN PO MODERATE PAIN; Start 05/27/16 at 23:15 Calcium Carbonate/ Glycine (Tums) 500 mg PRN BID PRN PO DYSPEPSIA; Start at 23:15 Calcium/Vitamin D (Oscal D 500mg/ 200uts) 1 tab BID PO Last administered on 09:09; Start 05/28/16 at 09:00 Ergocalciferol (Vitamin D2) 50,000 unit Q4WK PO ; Start 06/24/16 at 09:00 Ibuprofen (Motrin) 200 mg PRN Q6HRS PRN PO ear pain; Start 05/27/16 at 23:15; Stop 05/29/16 at 17:42; Status DC Hydrocortisone (Cortaid) 1 mikaela BID TP Last administered on 06/06/16 20:48; Start 05/28/16 at 09:00 Non-Formulary Medication 2,400 mg PRN QHS PRN PO CONSTIPATION; Start 05/27/16 at 23:15; Status UNV Multivitamins/ Calcium (Thera-M Plus) 1 tab DAILY PO Last administered on 09:09; Start 05/28/16 at 09:00 Fish Oil (Fish Oil) 1,000 mg BID PO Last administered on 06/06/16 09:09; Start 05/28/16 at 09:00 [place] Carbonate (Lithobid) 300 mg BID PO Last administered on 06/07/16 09:00 ; Start 05/28/16 at 09:00 Risperidone (Risperdal) 0.75 mg HS PO Last administered on 06/06/16 20:42; Start 05/28/16 at 21:00 Trazodone HCl (Desyrel) 50 mg PRN QHS PRN PO INSOMNIA; Start 05/27/16 at 23:15 ; Stop 06/01/16 at 18:07; Status DC Nicotine Polacrilex (Nicorette Gum) 2 mg PRN Q1HR PRN BC SMOKING CESSATION Last administered on 06/07/16 16:50; Start 05/28/16 at 01:00 Olanzapine (Zyprexa Zydis) 2.5 mg PRN Q2HR PRN PO PSYCHOSIS Last administered on 06/01/16 15:45; Start 05/28/16 at 11:45 Ciprofloxacin (Cipro) 250 mg BID PO Last administered on 05/29/16 09:43; Start 05/28/16 at 21:00; Stop 05/29/16 at 17:44; Status DC Neomycin/ Polymyxin/ Bacitracin (Triple Antibiotic Ointment) 1 pkt BID TP Last administered on 06/07/16 09:00; Start 05/28/16 at 21:00 Docusate Sodium (Colace) 100 mg PRN BID PRN PO CONSTIPATION; Start 05/29/16 at 17:45 Polyethylene Glycol (miraLAX) 17 gm DAILY PO Last administered on 06/06/16 09: 09; Start 05/30/16 at 09:00 Buspirone HCl (Buspar) 5 mg BID PO Last administered on 06/07/16 08:59; Start 05/29/16 at 21:00 Trazodone HCl (Desyrel) 100 mg PRN QHS PRN PO INSOMNIA, MAY REPEAT X1; Start at 18:15 Clozapine (Clozaril) 25 mg HS PO Last administered on 06/06/16 20:44; Start at 21:00 Active Scripts Active Reported Hydrocortisone Plus 1% Cream (Hydrocortisone/Aloe Vera) 28.4 Gm Cream..g. 1 Mikaela TP BID Apply to Bilateral lower legs topically for rash until healed. Calcium Carbonate 500 Mg Tablet 500 Mg PO PRN BID PRN Trazodone Hcl 50 Mg Tablet 50 Mg PO PRN QHS PRN Risperdal (Risperidone) 0.5 Mg Tablet 0.75 Mg PO HS [place] Carbonate 300 Mg Tablet.er 300 Mg PO BID Ibuprofen 200 Mg Tablet 200 Mg PO PRN Q6HRS PRN Aspirin 325 Mg Tablet 325 Mg PO PRN Q8HRS PRN [place]-3 ([place]-3 Fatty Acids) 1,000 Mg Capsule 1,000 Mg PO BID Vitamin D2 (Ergocalciferol (Vitamin D2)) 50,000 Unit Capsule 50,000 Unit PO Q4WK Ascorbic Acid 500 Mg Tablet 500 Mg PO DAILY Multivitamins (Multivitamin) 1 Each Tablet 1 Tab PO DAILY Milk Of Magnesia (Magnesium Hydroxide) 2,400 Mg/10 Ml Oral.susp 2,400 Mg PO PRN QHS PRN Tylenol (Acetaminophen) 325 Mg Tablet 650 Mg PO PRN Q6HRS PRN Calcium 500 + Vit D 200 Caplet (Calcium Carbonate/Vitamin D3) 1 Each Tablet 1 Each PO BID Diagnosis: Problems: (1) Impulse control disorder (2) Dementia with behavioral disturbance (3) Behavior disorder (4) Depressed (5) Bipolar 1 disorder (6) Anxiety (7) Impulse control disorder GERA MAY MD Jun 07, 2016 21:11
--- NOTE | 2016-06-07 21:54 | PN ---
DATE: 06/05/2016 PSYCHIATRIC PROGRESS NOTE This is a late entry for 06/05/2016, covers elements not covered in my initial note. 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 REVIEW OF SYSTEMS: No CV, , pulmonary, eye, ENT system symptoms on review. MENTAL STATUS EXAM: Oriented to herself and situation. Speech coherent, abstraction fair, computation impaired, language function intact, attention span short. Mood and affect still labile, but improved. LABORATORY DATA: Reviewed. IMPRESSION: Unchanged from initial note. PLAN: Continue current psychotropics including the Clozaril. Follow labs level, adjust as indicated, then reduce the Risperdal. MAN Martin MAY MD DR: ANNE/caitlyn JOB#: [id number] / [id number]
--- NOTE | 2016-06-07 21:57 | PN ---
DATE: 06/06/2016 PSYCHIATRIC PROGRESS NOTE This is a late entry of 06/06/2016 covers elements not covered in my initial note. SUBJECTIVE: The patient has been acting oddly per nursing report. She had a green sport bra on her head and refused to take it off. Nursing staff found specimen back a full of fecal matter in her room. She appears quite psychotic even though on talking to her, she does not appear that way, but her behaviors certainly are. No CV, , pulmonary, eye, ENT system symptoms on review. She has dressed quite oddly in different colored socks and clothes and ____ on her. MENTAL STATUS EXAM: Reasonably oriented. Speech coherent, abstraction fair, computation impaired, language function intact. Mood and affect, intermittently labile. LABORATORY DATA: Reviewed. IMPRESSION: Unchanged from initial note. PLAN: Continue current psychotropics. Check labs and absolute neutrophil counts. CBC on Wednesday and then increase the Clozaril consider reducing the respirdal. MAN Martin MAY MD DR: ANNE/caitlyn JOB#: [id number] / [id number]
[2016-06-08 06:09] LABS: BASO % 0 % (0-3); EOS # 0.4 x10^3/uL (0.0-0.7); EOS % 4 % (0-3); HEMATOCRIT 38.3 % (36.0-47.0); HEMOGLOBIN 12.3 g/dL (12.0-15.5); LYMPH # 0.7 x10^3/uL (1.0-4.8); LYMPH % 7 % (24-48); MEAN CORPUSCULAR HEMOGLOBIN 29 pg (25-35); MEAN CORPUSCULAR HGB CONC 32 g/dL (31-37); MEAN CORPUSCULAR VOLUME 91 fL (79-100); MONO # 0.4 x10^3/uL (0.0-1.1); MONO % 4 % (0-9); NEUT # 8.9 x10^3uL (1.8-7.7); NEUT % 85 % (31-73); PLATELET COUNT 230 x10^3/uL (140-400); RED BLOOD COUNT 4.21 x10^6/uL (3.50-5.40); WHITE BLOOD COUNT 10.5 x10^3/uL (4.0-11.0)
[2016-06-08 06:26] VITALS: BP 118/71
[2016-06-08] MEDS: HYDROCORTISONE 1% TOPICAL CREAM 30GM TUBE. TP SCH ×2 (09:00→20:34)
[2016-06-08] MEDS: OMEGA-3 FATTY ACIDS/FISH OIL 1,000 MG CAPSULE. PO SCH ×3 (09:51→20:44)
[2016-06-08] MEDS: ASCORBIC ACID 500 MG TABLET PO SCH (09:52)
[2016-06-08] MEDS: busPIRone 5 MG TABLET. PO SCH ×2 (09:52→20:32)
[2016-06-08] MEDS: MULTIVITAMIN with MINERAL TABLET. PO SCH (09:52)
[2016-06-08] MEDS: LITHIUM CARBONATE ER 300 MG TABLET.ER PO SCH ×2 (09:52→20:32)
[2016-06-08] MEDS: POLYETHYLENE GLYCOL 3350 17 GM PACKET. PO SCH (09:52)
[2016-06-08] MEDS: CALCIUM CARB/VIT D3 500/200 TABLET PO SCH ×3 (09:52→20:44)
[2016-06-08] MEDS: NEOMY/BACITR/POLYMYXIN OINT PACKET. TP SCH ×3 (09:53→20:45)
[2016-06-08] MEDS: NICOTINE POLACRILEX GUM 2 MG GUM. BC PRN ×2 (09:54→19:13)
[2016-06-08 16:22] VITALS: BP 121/83
[2016-06-08] MEDS: risperiDONE 0.5 MG TABLET. PO SCH ×2 (20:33→20:46)
[2016-06-08] MEDS: CLOZAPINE 25 MG TABLET PO SCH (20:33)
--- NOTE | 2016-06-08 21:05 | PDOC ---
Exam [place] Demential Exam: [place] Note: Please also refer to the separate dictated note~for this date of service dictated separately.~Patient seen individually. Discussed the patient with Nursing staff reviewed the chart.~Reviewed interim history and current functioning. Reviewed vital signs,~Labs/ Radiology~and current medications noted below. Continue current treatment with the changes noted in the dictated addendum note Assessment: Vital Signs: Vital Signs Date Time Temp Pulse Resp B/P Pulse Ox O2 Delivery O2 Flow Rate FiO2 06/08/16 16:22 97.6 76 20 121/83 97 I&O Intake and Output 06/08/16 07:00 Intake Total 1200 ml Balance 1200 ml Intake Oral 1200 ml Labs: Laboratory Tests Test 06/08/16 05:53 White Blood Count 10.5x10^3/uL (4.0-11.0) Red Blood Count 4.21x10^6/uL (3.50-5.40) Hemoglobin 12.3g/dL (12.0-15.5) Hematocrit 38.3% (36.0-47.0) Mean Corpuscular Volume 91fL (79-100) Mean Corpuscular Hemoglobin 29pg (25-35) Mean Corpuscular Hemoglobin Concent 32g/dL (31-37) Red Cell Distribution Width 14.0% (11.5-14.5) Platelet Count 230x10^3/uL (140-400) Neutrophils (%) (Auto) 85% (31-73) H Lymphocytes (%) (Auto) 7% (24-48) L Monocytes (%) (Auto) 4% (0-9) Eosinophils (%) (Auto) 4% (0-3) H Basophils (%) (Auto) 0% (0-3) Neutrophils # (Auto) 8.9x10^3uL (1.8-7.7) H Lymphocytes # (Auto) 0.7x10^3/uL (1.0-4.8) L Monocytes # (Auto) 0.4x10^3/uL (0.0-1.1) Eosinophils # (Auto) 0.4x10^3/uL (0.0-0.7) Basophils # (Auto) 0.0x10^3/uL (0.0-0.2) Current Medications: Meds: Current Medications Acetaminophen (Tylenol) 650 mg PRN Q6HRS PRN PO PAIN / TEMP Last administered on 05/27/16 22:28; Start 05/27/16 at 22:15; Stop 05/27/16 at 23:11; Status DC Ciprofloxacin (Cipro) 500 mg BID PO Last administered on 05/28/16 10:28; Start 05/27/16 at 22:30; Stop 05/28/16 at 13:06; Status DC Acetaminophen (Tylenol) 650 mg PRN Q6HRS PRN PO PAIN / TEMP; Start 05/27/16 at 23:00; Status Cancel Multi-Ingredient Ointment (Analgesic [place]) 1 mikaela PRN QID PRN TP MUSCLE PAIN; Start 05/27/16 at 23:00 Al Hydroxide/Mg Hydroxide (Mylanta Plus Xs) 15 ml PRN AFTMEALHC PRN PO DYSPEPSIA; Start 05/27/16 at 23:00 Magnesium Hydroxide (Milk Of Magnesia) 2,400 mg PRN QHS PRN PO CONSTIPATION Last administered on 06/08/16 10:18; Start 05/27/16 at 23:00 Acetaminophen (Tylenol) 650 mg PRN Q6HRS PRN PO MILD PAIN; Start 05/27/16 at 23 :15 Ascorbic Acid (Vitamin C) 500 mg DAILY PO Last administered on 06/08/16 09:52 ; Start 05/28/16 at 09:00 Aspirin (Benji Aspirin) 325 mg PRN Q8HRS PRN PO MODERATE PAIN; Start 05/27/16 at 23:15 Calcium Carbonate/ Glycine (Tums) 500 mg PRN BID PRN PO DYSPEPSIA; Start at 23:15 Calcium/Vitamin D (Oscal D 500mg/ 200uts) 1 tab BID PO Last administered on 09:52; Start 05/28/16 at 09:00 Ergocalciferol (Vitamin D2) 50,000 unit Q4WK PO ; Start 06/24/16 at 09:00 Ibuprofen (Motrin) 200 mg PRN Q6HRS PRN PO ear pain; Start 05/27/16 at 23:15; Stop 05/29/16 at 17:42; Status DC Hydrocortisone (Cortaid) 1 mikaela BID TP Last administered on 06/07/16 21:09; Start 05/28/16 at 09:00 Non-Formulary Medication 2,400 mg PRN QHS PRN PO CONSTIPATION; Start 05/27/16 at 23:15; Status UNV Multivitamins/ Calcium (Thera-M Plus) 1 tab DAILY PO Last administered on 09:52; Start 05/28/16 at 09:00 Fish Oil (Fish Oil) 1,000 mg BID PO Last administered on 06/08/16 09:51; Start 05/28/16 at 09:00 [place] Carbonate (Lithobid) 300 mg BID PO Last administered on 06/08/16 20:32 ; Start 05/28/16 at 09:00 Risperidone (Risperdal) 0.75 mg HS PO Last administered on 06/07/16 21:07; Start 05/28/16 at 21:00 Trazodone HCl (Desyrel) 50 mg PRN QHS PRN PO INSOMNIA; Start 05/27/16 at 23:15 ; Stop 06/01/16 at 18:07; Status DC Nicotine Polacrilex (Nicorette Gum) 2 mg PRN Q1HR PRN BC SMOKING CESSATION Last administered on 06/08/16 19:13; Start 05/28/16 at 01:00 Olanzapine (Zyprexa Zydis) 2.5 mg PRN Q2HR PRN PO PSYCHOSIS Last administered on 06/01/16 15:45; Start 05/28/16 at 11:45 Ciprofloxacin (Cipro) 250 mg BID PO Last administered on 05/29/16 09:43; Start 05/28/16 at 21:00; Stop 05/29/16 at 17:44; Status DC Neomycin/ Polymyxin/ Bacitracin (Triple Antibiotic Ointment) 1 pkt BID TP Last administered on 06/08/16 09:53; Start 05/28/16 at 21:00 Docusate Sodium (Colace) 100 mg PRN BID PRN PO CONSTIPATION; Start 05/29/16 at 17:45 Polyethylene Glycol (miraLAX) 17 gm DAILY PO Last administered on 06/08/16 09: 52; Start 05/30/16 at 09:00 Buspirone HCl (Buspar) 5 mg BID PO Last administered on 3/27/17at 20:32; Start 05/29/16 at 21:00 Trazodone HCl (Desyrel) 100 mg PRN QHS PRN PO INSOMNIA, MAY REPEAT X1; Start at 18:15 Clozapine (Clozaril) 25 mg HS PO Last administered on 06/07/16 21:07; Start at 21:00; Stop 06/08/16 at 18:21; Status DC Clozapine (Clozaril) 50 mg HS PO Last administered on 06/08/16 20:33; Start at 21:00 Active Scripts Active Reported Hydrocortisone Plus 1% Cream (Hydrocortisone/Aloe Vera) 28.4 Gm Cream..g. 1 Mikaela TP BID Apply to Bilateral lower legs topically for rash until healed. Calcium Carbonate 500 Mg Tablet 500 Mg PO PRN BID PRN Trazodone Hcl 50 Mg Tablet 50 Mg PO PRN QHS PRN Risperdal (Risperidone) 0.5 Mg Tablet 0.75 Mg PO HS [place] Carbonate 300 Mg Tablet.er 300 Mg PO BID Ibuprofen 200 Mg Tablet 200 Mg PO PRN Q6HRS PRN Aspirin 325 Mg Tablet 325 Mg PO PRN Q8HRS PRN [place]-3 ([place]-3 Fatty Acids) 1,000 Mg Capsule 1,000 Mg PO BID Vitamin D2 (Ergocalciferol (Vitamin D2)) 50,000 Unit Capsule 50,000 Unit PO Q4WK Ascorbic Acid 500 Mg Tablet 500 Mg PO DAILY Multivitamins (Multivitamin) 1 Each Tablet 1 Tab PO DAILY Milk Of Magnesia (Magnesium Hydroxide) 2,400 Mg/10 Ml Oral.susp 2,400 Mg PO PRN QHS PRN Tylenol (Acetaminophen) 325 Mg Tablet 650 Mg PO PRN Q6HRS PRN Calcium 500 + Vit D 200 Caplet (Calcium Carbonate/Vitamin D3) 1 Each Tablet 1 Each PO BID Diagnosis: Problems: (1) Impulse control disorder (2) Dementia with behavioral disturbance (3) Behavior disorder (4) Depressed (5) Bipolar 1 disorder (6) Anxiety (7) Impulse control disorder GERA MAY MD Jun 08, 2016 21:05
[2016-06-09] MEDS: NICOTINE POLACRILEX GUM 2 MG GUM. BC PRN ×2 (05:34→14:21)
[2016-06-09 06:41] VITALS: BP 122/79
[2016-06-09] MEDS: POLYETHYLENE GLYCOL 3350 17 GM PACKET. PO SCH ×2 (09:00→09:20)
[2016-06-09] MEDS: OMEGA-3 FATTY ACIDS/FISH OIL 1,000 MG CAPSULE. PO SCH ×3 (09:00→22:10)
[2016-06-09] MEDS: MULTIVITAMIN with MINERAL TABLET. PO SCH ×2 (09:00→09:20)
[2016-06-09] MEDS: ASCORBIC ACID 500 MG TABLET PO SCH ×2 (09:00→09:20)
[2016-06-09] MEDS: HYDROCORTISONE 1% TOPICAL CREAM 30GM TUBE. TP SCH ×3 (09:00→22:12)
[2016-06-09] MEDS: CALCIUM CARB/VIT D3 500/200 TABLET PO SCH ×3 (09:00→22:10)
[2016-06-09] MEDS: NEOMY/BACITR/POLYMYXIN OINT PACKET. TP SCH ×3 (09:00→22:13)
[2016-06-09] MEDS: LITHIUM CARBONATE ER 300 MG TABLET.ER PO SCH ×2 (09:20→22:10)
[2016-06-09] MEDS: busPIRone 5 MG TABLET. PO SCH ×2 (09:20→22:10)
[2016-06-09 16:02] VITALS: BP 124/88
--- NOTE | 2016-06-09 21:17 | PDOC ---
Exam [place] Demential Exam: [place] Note: Please also refer to the separate dictated note~for this date of service dictated separately.~Patient seen individually. Discussed the patient with Nursing staff reviewed the chart.~Reviewed interim history and current functioning. Reviewed vital signs,~Labs/ Radiology~and current medications noted below. Continue current treatment with the changes noted in the dictated addendum note Assessment: Vital Signs: Vital Signs Date Time Temp Pulse Resp B/P Pulse Ox O2 Delivery O2 Flow Rate FiO2 06/09/16 16:02 97.8 76 18 124/88 98 06/09/16 06:41 Room Air I&O Intake and Output 06/09/16 07:00 Intake Total 1080 ml Balance 1080 ml Intake Oral 1080 ml Current Medications: Meds: Current Medications Acetaminophen (Tylenol) 650 mg PRN Q6HRS PRN PO PAIN / TEMP Last administered on 05/27/16 22:28; Start 05/27/16 at 22:15; Stop 05/27/16 at 23:11; Status DC Ciprofloxacin (Cipro) 500 mg BID PO Last administered on 05/28/16 10:28; Start 05/27/16 at 22:30; Stop 05/28/16 at 13:06; Status DC Acetaminophen (Tylenol) 650 mg PRN Q6HRS PRN PO PAIN / TEMP; Start 05/27/16 at 23:00; Status Cancel Multi-Ingredient Ointment (Analgesic [place]) 1 mikaela PRN QID PRN TP MUSCLE PAIN; Start 05/27/16 at 23:00 Al Hydroxide/Mg Hydroxide (Mylanta Plus Xs) 15 ml PRN AFTMEALHC PRN PO DYSPEPSIA; Start 05/27/16 at 23:00 Magnesium Hydroxide (Milk Of Magnesia) 2,400 mg PRN QHS PRN PO CONSTIPATION Last administered on 06/08/16 10:18; Start 05/27/16 at 23:00 Acetaminophen (Tylenol) 650 mg PRN Q6HRS PRN PO MILD PAIN; Start 05/27/16 at 23 :15 Ascorbic Acid (Vitamin C) 500 mg DAILY PO Last administered on 06/08/16 09:52 ; Start 05/28/16 at 09:00 Aspirin (Benji Aspirin) 325 mg PRN Q8HRS PRN PO MODERATE PAIN; Start 05/27/16 at 23:15 Calcium Carbonate/ Glycine (Tums) 500 mg PRN BID PRN PO DYSPEPSIA; Start at 23:15 Calcium/Vitamin D (Oscal D 500mg/ 200uts) 1 tab BID PO Last administered on 09:52; Start 05/28/16 at 09:00 Ergocalciferol (Vitamin D2) 50,000 unit Q4WK PO ; Start 06/24/16 at 09:00 Ibuprofen (Motrin) 200 mg PRN Q6HRS PRN PO ear pain; Start 05/27/16 at 23:15; Stop 05/29/16 at 17:42; Status DC Hydrocortisone (Cortaid) 1 mikaela BID TP Last administered on 06/07/16 21:09; Start 05/28/16 at 09:00 Non-Formulary Medication 2,400 mg PRN QHS PRN PO CONSTIPATION; Start 05/27/16 at 23:15; Status UNV Multivitamins/ Calcium (Thera-M Plus) 1 tab DAILY PO Last administered on 09:52; Start 05/28/16 at 09:00 Fish Oil (Fish Oil) 1,000 mg BID PO Last administered on 06/08/16 09:51; Start 05/28/16 at 09:00 [place] Carbonate (Lithobid) 300 mg BID PO Last administered on 06/09/16 09:20 ; Start 05/28/16 at 09:00 Risperidone (Risperdal) 0.75 mg HS PO Last administered on 06/07/16 21:07; Start 05/28/16 at 21:00 Trazodone HCl (Desyrel) 50 mg PRN QHS PRN PO INSOMNIA; Start 05/27/16 at 23:15 ; Stop 06/01/16 at 18:07; Status DC Nicotine Polacrilex (Nicorette Gum) 2 mg PRN Q1HR PRN BC SMOKING CESSATION Last administered on 06/09/16 14:21; Start 05/28/16 at 01:00 Olanzapine (Zyprexa Zydis) 2.5 mg PRN Q2HR PRN PO PSYCHOSIS Last administered on 06/01/16 15:45; Start 05/28/16 at 11:45 Ciprofloxacin (Cipro) 250 mg BID PO Last administered on 05/29/16 09:43; Start 05/28/16 at 21:00; Stop 05/29/16 at 17:44; Status DC Neomycin/ Polymyxin/ Bacitracin (Triple Antibiotic Ointment) 1 pkt BID TP Last administered on 06/08/16 09:53; Start 05/28/16 at 21:00 Docusate Sodium (Colace) 100 mg PRN BID PRN PO CONSTIPATION; Start 05/29/16 at 17:45 Polyethylene Glycol (miraLAX) 17 gm DAILY PO Last administered on 06/08/16 09: 52; Start 05/30/16 at 09:00 Buspirone HCl (Buspar) 5 mg BID PO Last administered on 06/09/16 09:20; Start 05/29/16 at 21:00 Trazodone HCl (Desyrel) 100 mg PRN QHS PRN PO INSOMNIA, MAY REPEAT X1; Start at 18:15 Clozapine (Clozaril) 25 mg HS PO Last administered on 06/07/16 21:07; Start at 21:00; Stop 06/08/16 at 18:21; Status DC Clozapine (Clozaril) 50 mg HS PO Last administered on 06/08/16 20:33; Start at 21:00 Active Scripts Active Reported Hydrocortisone Plus 1% Cream (Hydrocortisone/Aloe Vera) 28.4 Gm Cream..g. 1 Mikaela TP BID Apply to Bilateral lower legs topically for rash until healed. Calcium Carbonate 500 Mg Tablet 500 Mg PO PRN BID PRN Trazodone Hcl 50 Mg Tablet 50 Mg PO PRN QHS PRN Risperdal (Risperidone) 0.5 Mg Tablet 0.75 Mg PO HS [place] Carbonate 300 Mg Tablet.er 300 Mg PO BID Ibuprofen 200 Mg Tablet 200 Mg PO PRN Q6HRS PRN Aspirin 325 Mg Tablet 325 Mg PO PRN Q8HRS PRN [place]-3 ([place]-3 Fatty Acids) 1,000 Mg Capsule 1,000 Mg PO BID Vitamin D2 (Ergocalciferol (Vitamin D2)) 50,000 Unit Capsule 50,000 Unit PO Q4WK Ascorbic Acid 500 Mg Tablet 500 Mg PO DAILY Multivitamins (Multivitamin) 1 Each Tablet 1 Tab PO DAILY Milk Of Magnesia (Magnesium Hydroxide) 2,400 Mg/10 Ml Oral.susp 2,400 Mg PO PRN QHS PRN Tylenol (Acetaminophen) 325 Mg Tablet 650 Mg PO PRN Q6HRS PRN Calcium 500 + Vit D 200 Caplet (Calcium Carbonate/Vitamin D3) 1 Each Tablet 1 Each PO BID Diagnosis: Problems: (1) Impulse control disorder (2) Dementia with behavioral disturbance (3) Behavior disorder (4) Depressed (5) Bipolar 1 disorder (6) Anxiety (7) Impulse control disorder GERA MAY MD Jun 09, 2016 21:17
[2016-06-09] MEDS: risperiDONE 0.5 MG TABLET. PO SCH (22:09)
[2016-06-09] MEDS: CLOZAPINE 25 MG TABLET PO SCH (22:12)
--- NOTE | 2016-06-09 22:29 | PN ---
DATE: 06/08/2016 PSYCHIATRIC PROGRESS NOTE This is a late entry of 06/08/2016 covers elements not covered in my initial note. SUBJECTIVE: Per nursing report, the patient sometimes appears somewhat bizarre in her statements psychotic at times, but no suicidal ideation noted though she told the nursing staff "in the past medications sometimes made me suicidal." REVIEW OF SYSTEMS: No CV, , pulmonary, eye, ENT system symptoms on review. MENTAL STATUS EXAM: Oriented reasonably. Speech coherent, abstraction fair, computation impaired, language function intact. Mood and affect still somewhat anxious, labile at times, but improved. LABORATORY DATA: Reviewed. IMPRESSION: Unchanged from initial note. PLAN: WBC count absolute neutrophil count unremarkable. We will increase the Clozaril to 50 mg at bedtime. Continue lithium along with Risperdal may need to reduce Risperdal in due course. MAN Martin MAY MD DR: ANNE/caitlyn JOB#: [id number] / [id number]
[2016-06-10 06:31] VITALS: BP 117/78
[2016-06-10] MEDS: HYDROCORTISONE 1% TOPICAL CREAM 30GM TUBE. TP SCH ×2 (09:00→19:21)
[2016-06-10] MEDS: NEOMY/BACITR/POLYMYXIN OINT PACKET. TP SCH ×2 (09:00→19:35)
[2016-06-10] MEDS: MULTIVITAMIN with MINERAL TABLET. PO SCH (09:28)
[2016-06-10] MEDS: POLYETHYLENE GLYCOL 3350 17 GM PACKET. PO SCH (09:28)
[2016-06-10] MEDS: OMEGA-3 FATTY ACIDS/FISH OIL 1,000 MG CAPSULE. PO SCH ×2 (09:28→19:16)
[2016-06-10] MEDS: CALCIUM CARB/VIT D3 500/200 TABLET PO SCH ×2 (09:28→19:17)
[2016-06-10] MEDS: busPIRone 5 MG TABLET. PO SCH ×2 (09:28→19:16)
[2016-06-10] MEDS: LITHIUM CARBONATE ER 300 MG TABLET.ER PO SCH ×2 (09:28→19:17)
[2016-06-10] MEDS: ASCORBIC ACID 500 MG TABLET PO SCH (09:28)
[2016-06-10 16:23] VITALS: BP 170/81
[2016-06-10] MEDS: risperiDONE 0.5 MG TABLET. PO SCH (19:18)
[2016-06-10] MEDS: CLOZAPINE 25 MG TABLET PO SCH (19:34)
[2016-06-10] MEDS: NICOTINE POLACRILEX GUM 2 MG GUM. BC PRN ×2 (22:01→23:01)
[2016-06-11 06:22] VITALS: BP 123/84
[2016-06-11] MEDS: NEOMY/BACITR/POLYMYXIN OINT PACKET. TP SCH ×2 (09:00→21:00)
[2016-06-11] MEDS: HYDROCORTISONE 1% TOPICAL CREAM 30GM TUBE. TP SCH ×2 (09:00→21:00)
[2016-06-11] MEDS: CALCIUM CARB/VIT D3 500/200 TABLET PO SCH ×3 (09:01→21:15)
[2016-06-11] MEDS: ASCORBIC ACID 500 MG TABLET PO SCH (09:01)
[2016-06-11] MEDS: busPIRone 5 MG TABLET. PO SCH ×2 (09:01→21:15)
[2016-06-11] MEDS: LITHIUM CARBONATE ER 300 MG TABLET.ER PO SCH ×2 (09:01→21:16)
[2016-06-11] MEDS: OMEGA-3 FATTY ACIDS/FISH OIL 1,000 MG CAPSULE. PO SCH ×3 (09:01→21:15)
[2016-06-11] MEDS: POLYETHYLENE GLYCOL 3350 17 GM PACKET. PO SCH (09:01)
[2016-06-11] MEDS: MULTIVITAMIN with MINERAL TABLET. PO SCH (09:01)
[2016-06-11 09:32] LABS: ALBUMIN 3.2 g/dL (3.4-5.0); ALBUMIN/GLOBULIN RATIO 0.9 (1.0-1.7); CALCIUM 9.7 mg/dL (8.5-10.1); CREATININE 0.9 mg/dL (0.6-1.0); GFR 61.2; POTASSIUM 4.2 mmol/L (3.5-5.1); TOTAL BILIRUBIN 0.4 mg/dL (0.2-1.0); TOTAL PROTEIN 6.9 g/dL (6.4-8.2)
[2016-06-11 16:28] VITALS: BP 156/72
[2016-06-11] MEDS: NICOTINE POLACRILEX GUM 2 MG GUM. BC PRN ×2 (18:21→22:06)
[2016-06-11] MEDS: risperiDONE 0.5 MG TABLET. PO SCH (21:15)
[2016-06-11] MEDS: CLOZAPINE 25 MG TABLET PO SCH (21:19)
[2016-06-12 05:58] VITALS: BP 122/82
[2016-06-12] MEDS: busPIRone 5 MG TABLET. PO SCH ×2 (08:11→20:39)
[2016-06-12] MEDS: POLYETHYLENE GLYCOL 3350 17 GM PACKET. PO SCH (08:11)
[2016-06-12] MEDS: ASCORBIC ACID 500 MG TABLET PO SCH ×2 (08:11→08:16)
[2016-06-12] MEDS: LITHIUM CARBONATE ER 300 MG TABLET.ER PO SCH ×2 (08:11→20:37)
[2016-06-12] MEDS: MULTIVITAMIN with MINERAL TABLET. PO SCH ×2 (08:11→08:16)
[2016-06-12] MEDS: CALCIUM CARB/VIT D3 500/200 TABLET PO SCH ×5 (08:11→21:00)
[2016-06-12] MEDS: OMEGA-3 FATTY ACIDS/FISH OIL 1,000 MG CAPSULE. PO SCH ×4 (08:11→20:49)
[2016-06-12] MEDS: NEOMY/BACITR/POLYMYXIN OINT PACKET. TP SCH ×2 (08:13→20:48)
[2016-06-12] MEDS: HYDROCORTISONE 1% TOPICAL CREAM 30GM TUBE. TP SCH ×2 (08:13→20:47)
[2016-06-12] MEDS: NICOTINE POLACRILEX GUM 2 MG GUM. BC PRN ×5 (09:07→19:21)
--- NOTE | 2016-06-12 09:25 | PDOC ---
Exam [place] Demential Exam: [place] Note: Please also refer to the separate dictated note~for this date of service dictated separately.~Patient seen individually. Discussed the patient with Nursing staff reviewed the chart.~Reviewed interim history and current functioning. Reviewed vital signs,~Labs/ Radiology~and current medications noted below. Continue current treatment with the changes noted in the dictated addendum note Assessment: Vital Signs: Vital Signs Date Time Temp Pulse Resp B/P Pulse Ox O2 Delivery O2 Flow Rate FiO2 06/12/16 05:58 97.2 97 22 122/82 94 06/10/16 16:23 Room Air I&O Intake and Output 06/12/16 07:00 Intake Total 1320 ml Balance 1320 ml Intake Oral 1320 ml Current Medications: Meds: Current Medications Acetaminophen (Tylenol) 650 mg PRN Q6HRS PRN PO PAIN / TEMP Last administered on 05/27/16 22:28; Start 05/27/16 at 22:15; Stop 05/27/16 at 23:11; Status DC Ciprofloxacin (Cipro) 500 mg BID PO Last administered on 05/28/16 10:28; Start 05/27/16 at 22:30; Stop 05/28/16 at 13:06; Status DC Acetaminophen (Tylenol) 650 mg PRN Q6HRS PRN PO PAIN / TEMP; Start 05/27/16 at 23:00; Status Cancel Multi-Ingredient Ointment (Analgesic [place]) 1 mikaela PRN QID PRN TP MUSCLE PAIN; Start 05/27/16 at 23:00 Al Hydroxide/Mg Hydroxide (Mylanta Plus Xs) 15 ml PRN AFTMEALHC PRN PO DYSPEPSIA; Start 05/27/16 at 23:00 Magnesium Hydroxide (Milk Of Magnesia) 2,400 mg PRN QHS PRN PO CONSTIPATION Last administered on 06/08/16 10:18; Start 05/27/16 at 23:00 Acetaminophen (Tylenol) 650 mg PRN Q6HRS PRN PO MILD PAIN; Start 05/27/16 at 23 :15 Ascorbic Acid (Vitamin C) 500 mg DAILY PO Last administered on 06/11/16 09:01 ; Start 05/28/16 at 09:00 Aspirin (Benji Aspirin) 325 mg PRN Q8HRS PRN PO MODERATE PAIN; Start 05/27/16 at 23:15 Calcium Carbonate/ Glycine (Tums) 500 mg PRN BID PRN PO DYSPEPSIA; Start at 23:15 Calcium/Vitamin D (Oscal D 500mg/ 200uts) 1 tab BID PO Last administered on 09:01; Start 05/28/16 at 09:00 Ergocalciferol (Vitamin D2) 50,000 unit Q4WK PO ; Start 06/24/16 at 09:00 Ibuprofen (Motrin) 200 mg PRN Q6HRS PRN PO ear pain; Start 05/27/16 at 23:15; Stop 05/29/16 at 17:42; Status DC Hydrocortisone (Cortaid) 1 mikaela BID TP Last administered on 06/10/16 19:21; Start 05/28/16 at 09:00 Non-Formulary Medication 2,400 mg PRN QHS PRN PO CONSTIPATION; Start 05/27/16 at 23:15; Status UNV Multivitamins/ Calcium (Thera-M Plus) 1 tab DAILY PO Last administered on 09:01; Start 05/28/16 at 09:00 Fish Oil (Fish Oil) 1,000 mg BID PO Last administered on 06/11/16 09:01; Start 05/28/16 at 09:00 [place] Carbonate (Lithobid) 300 mg BID PO Last administered on 06/12/16 08:11 ; Start 05/28/16 at 09:00 Risperidone (Risperdal) 0.75 mg HS PO Last administered on 06/11/16 21:15; Start 05/28/16 at 21:00 Trazodone HCl (Desyrel) 50 mg PRN QHS PRN PO INSOMNIA; Start 05/27/16 at 23:15 ; Stop 06/01/16 at 18:07; Status DC Nicotine Polacrilex (Nicorette Gum) 2 mg PRN Q1HR PRN BC SMOKING CESSATION Last administered on 06/12/16 09:07; Start 05/28/16 at 01:00 Olanzapine (Zyprexa Zydis) 2.5 mg PRN Q2HR PRN PO PSYCHOSIS Last administered on 06/01/16 15:45; Start 05/28/16 at 11:45 Ciprofloxacin (Cipro) 250 mg BID PO Last administered on 05/29/16 09:43; Start 05/28/16 at 21:00; Stop 05/29/16 at 17:44; Status DC Neomycin/ Polymyxin/ Bacitracin (Triple Antibiotic Ointment) 1 pkt BID TP Last administered on 06/11/16 09:00; Start 05/28/16 at 21:00 Docusate Sodium (Colace) 100 mg PRN BID PRN PO CONSTIPATION; Start 05/29/16 at 17:45 Polyethylene Glycol (miraLAX) 17 gm DAILY PO Last administered on 06/11/16 09: 01; Start 05/30/16 at 09:00 Buspirone HCl (Buspar) 5 mg BID PO Last administered on 06/12/16 08:11; Start 05/29/16 at 21:00 Trazodone HCl (Desyrel) 100 mg PRN QHS PRN PO INSOMNIA, MAY REPEAT X1; Start at 18:15 Clozapine (Clozaril) 25 mg HS PO Last administered on 06/07/16 21:07; Start at 21:00; Stop 06/08/16 at 18:21; Status DC Clozapine (Clozaril) 50 mg HS PO Last administered on 06/11/16 21:19; Start at 21:00 Active Scripts Active Reported Hydrocortisone Plus 1% Cream (Hydrocortisone/Aloe Vera) 28.4 Gm Cream..g. 1 Mikaela TP BID Apply to Bilateral lower legs topically for rash until healed. Calcium Carbonate 500 Mg Tablet 500 Mg PO PRN BID PRN Trazodone Hcl 50 Mg Tablet 50 Mg PO PRN QHS PRN Risperdal (Risperidone) 0.5 Mg Tablet 0.75 Mg PO HS [place] Carbonate 300 Mg Tablet.er 300 Mg PO BID Ibuprofen 200 Mg Tablet 200 Mg PO PRN Q6HRS PRN Aspirin 325 Mg Tablet 325 Mg PO PRN Q8HRS PRN [place]-3 ([place]-3 Fatty Acids) 1,000 Mg Capsule 1,000 Mg PO BID Vitamin D2 (Ergocalciferol (Vitamin D2)) 50,000 Unit Capsule 50,000 Unit PO Q4WK Ascorbic Acid 500 Mg Tablet 500 Mg PO DAILY Multivitamins (Multivitamin) 1 Each Tablet 1 Tab PO DAILY Milk Of Magnesia (Magnesium Hydroxide) 2,400 Mg/10 Ml Oral.susp 2,400 Mg PO PRN QHS PRN Tylenol (Acetaminophen) 325 Mg Tablet 650 Mg PO PRN Q6HRS PRN Calcium 500 + Vit D 200 Caplet (Calcium Carbonate/Vitamin D3) 1 Each Tablet 1 Each PO BID Diagnosis: Problems: (1) Impulse control disorder (2) Dementia with behavioral disturbance (3) Behavior disorder (4) Depressed (5) Bipolar 1 disorder (6) Anxiety (7) Impulse control disorder GERA MAY MD Jun 12, 2016 09:25
[2016-06-12 16:23] VITALS: BP 134/75
[2016-06-12] MEDS: risperiDONE 0.5 MG TABLET. PO SCH (20:37)
[2016-06-12] MEDS: CLOZAPINE 25 MG TABLET PO SCH (20:38)
[2016-06-12] MEDS: MIRTAZAPINE 7.5 MG TABLET. PO SCH (20:41)
--- NOTE | 2016-06-13 02:45 | PN ---
DATE: 06/11/2016 PSYCHIATRIC PROGRESS NOTE This is a late entry for 06/11/2016. SUBJECTIVE: Temperature 97.5, BP 123/84, pulse 85. The patient was seen individually. Per nursing report, she is better on 06/11/2016 as compared to previous day with no pasting her fecal matter all over the unit. Her speech is sing-song manner, pants around her head. Some of her mannerisms are bizarre and consistent with her diagnosis and psychosis, which is improving. REVIEW OF SYSTEMS: No CV, , pulmonary, eye system symptoms on review. MENTAL STATUS EXAM: Reasonably oriented. Speech is coherent as above. Abstraction fair, computation impaired, language function intact. Mood and affect, intermittently labile. LABORATORY DATA: Reviewed. IMPRESSION: Bipolar 1 disorder, mixed with psychotic features versus schizoaffective disorder, bipolar type, mixed with psychotic features. Rest diagnoses, unchanged. PLAN: Continue BuSpar 5 mg b.i.d.; lithium 300 mg b.i.d., level 0.7; trazodone 100 mg at bedtime, may repeat x 1; Risperdal 0.75 mg at bedtime, Clozaril 50 mg at bedtime. Adjust further as clinically indicated. MAN Martin MAY MD DR: ANNE/caitlyn JOB#: [id number] / [id number]
[2016-06-13 06:12] VITALS: BP 104/67
[2016-06-13] MEDS: ASCORBIC ACID 500 MG TABLET PO SCH (09:00)
[2016-06-13] MEDS: NEOMY/BACITR/POLYMYXIN OINT PACKET. TP SCH ×2 (09:00→19:31)
[2016-06-13] MEDS: POLYETHYLENE GLYCOL 3350 17 GM PACKET. PO SCH (09:00)
[2016-06-13] MEDS: MULTIVITAMIN with MINERAL TABLET. PO SCH (09:00)
[2016-06-13] MEDS: HYDROCORTISONE 1% TOPICAL CREAM 30GM TUBE. TP SCH ×2 (09:00→19:31)
[2016-06-13] MEDS: OMEGA-3 FATTY ACIDS/FISH OIL 1,000 MG CAPSULE. PO SCH ×3 (09:00→21:00)
[2016-06-13] MEDS: busPIRone 5 MG TABLET. PO SCH ×2 (09:37→19:28)
[2016-06-13] MEDS: LITHIUM CARBONATE ER 300 MG TABLET.ER PO SCH ×2 (09:38→19:28)
[2016-06-13] MEDS: NICOTINE POLACRILEX GUM 2 MG GUM. BC PRN ×2 (09:42→19:31)
[2016-06-13 16:21] VITALS: BP 138/79
[2016-06-13] MEDS: MIRTAZAPINE 7.5 MG TABLET. PO SCH (19:28)
[2016-06-13] MEDS: CALCIUM CARB/VIT D3 500/200 TABLET PO SCH ×2 (19:28→21:00)
[2016-06-13] MEDS: risperiDONE 0.5 MG TABLET. PO SCH (19:28)
[2016-06-13] MEDS: CLOZAPINE 25 MG TABLET PO SCH (19:31)
--- NOTE | 2016-06-13 22:09 | PDOC ---
Exam [place] Demential Exam: [place] Note: Please also refer to the separate dictated note~for this date of service dictated separately.~Patient seen individually. Discussed the patient with Nursing staff reviewed the chart.~Reviewed interim history and current functioning. Reviewed vital signs,~Labs/ Radiology~and current medications noted below. Continue current treatment with the changes noted in the dictated addendum note Assessment: Vital Signs: Vital Signs Date Time Temp Pulse Resp B/P Pulse Ox O2 Delivery O2 Flow Rate FiO2 06/13/16 16:21 98.4 80 18 138/79 94 06/13/16 06:12 Room Air I&O Intake and Output 06/13/16 07:00 Intake Total 1440 ml Balance 1440 ml Intake Oral 1440 ml Current Medications: Meds: Current Medications Acetaminophen (Tylenol) 650 mg PRN Q6HRS PRN PO PAIN / TEMP Last administered on 05/27/16 22:28; Start 05/27/16 at 22:15; Stop 05/27/16 at 23:11; Status DC Ciprofloxacin (Cipro) 500 mg BID PO Last administered on 05/28/16 10:28; Start 05/27/16 at 22:30; Stop 05/28/16 at 13:06; Status DC Acetaminophen (Tylenol) 650 mg PRN Q6HRS PRN PO PAIN / TEMP; Start 05/27/16 at 23:00; Status Cancel Multi-Ingredient Ointment (Analgesic [place]) 1 mikaela PRN QID PRN TP MUSCLE PAIN; Start 05/27/16 at 23:00 Al Hydroxide/Mg Hydroxide (Mylanta Plus Xs) 15 ml PRN AFTMEALHC PRN PO DYSPEPSIA; Start 05/27/16 at 23:00 Magnesium Hydroxide (Milk Of Magnesia) 2,400 mg PRN QHS PRN PO CONSTIPATION Last administered on 06/08/16 10:18; Start 05/27/16 at 23:00 Acetaminophen (Tylenol) 650 mg PRN Q6HRS PRN PO MILD PAIN; Start 05/27/16 at 23 :15 Ascorbic Acid (Vitamin C) 500 mg DAILY PO Last administered on 06/11/16 09:01 ; Start 05/28/16 at 09:00 Aspirin (Benji Aspirin) 325 mg PRN Q8HRS PRN PO MODERATE PAIN; Start 05/27/16 at 23:15 Calcium Carbonate/ Glycine (Tums) 500 mg PRN BID PRN PO DYSPEPSIA; Start at 23:15 Calcium/Vitamin D (Oscal D 500mg/ 200uts) 1 tab BID PO Last administered on 09:01; Start 05/28/16 at 09:00 Ergocalciferol (Vitamin D2) 50,000 unit Q4WK PO ; Start 06/24/16 at 09:00 Ibuprofen (Motrin) 200 mg PRN Q6HRS PRN PO ear pain; Start 05/27/16 at 23:15; Stop 05/29/16 at 17:42; Status DC Hydrocortisone (Cortaid) 1 mikaela BID TP Last administered on 06/10/16 19:21; Start 05/28/16 at 09:00 Non-Formulary Medication 2,400 mg PRN QHS PRN PO CONSTIPATION; Start 05/27/16 at 23:15; Status UNV Multivitamins/ Calcium (Thera-M Plus) 1 tab DAILY PO Last administered on 09:01; Start 05/28/16 at 09:00 Fish Oil (Fish Oil) 1,000 mg BID PO Last administered on 06/11/16 09:01; Start 05/28/16 at 09:00 [place] Carbonate (Lithobid) 300 mg BID PO Last administered on 06/13/16 19:28 ; Start 05/28/16 at 09:00 Risperidone (Risperdal) 0.75 mg HS PO Last administered on 06/13/16 19:28; Start 05/28/16 at 21:00 Trazodone HCl (Desyrel) 50 mg PRN QHS PRN PO INSOMNIA; Start 05/27/16 at 23:15 ; Stop 06/01/16 at 18:07; Status DC Nicotine Polacrilex (Nicorette Gum) 2 mg PRN Q1HR PRN BC SMOKING CESSATION Last administered on 06/13/16 19:31; Start 05/28/16 at 01:00 Olanzapine (Zyprexa Zydis) 2.5 mg PRN Q2HR PRN PO PSYCHOSIS Last administered on 06/01/16 15:45; Start 05/28/16 at 11:45 Ciprofloxacin (Cipro) 250 mg BID PO Last administered on 05/29/16 09:43; Start 05/28/16 at 21:00; Stop 05/29/16 at 17:44; Status DC Neomycin/ Polymyxin/ Bacitracin (Triple Antibiotic Ointment) 1 pkt BID TP Last administered on 06/11/16 09:00; Start 05/28/16 at 21:00 Docusate Sodium (Colace) 100 mg PRN BID PRN PO CONSTIPATION; Start 05/29/16 at 17:45 Polyethylene Glycol (miraLAX) 17 gm DAILY PO Last administered on 06/11/16 09: 01; Start 05/30/16 at 09:00 Buspirone HCl (Buspar) 5 mg BID PO Last administered on 06/13/16 19:28; Start 05/29/16 at 21:00 Trazodone HCl (Desyrel) 100 mg PRN QHS PRN PO INSOMNIA, MAY REPEAT X1; Start at 18:15 Clozapine (Clozaril) 25 mg HS PO Last administered on 06/07/16 21:07; Start at 21:00; Stop 06/08/16 at 18:21; Status DC Clozapine (Clozaril) 50 mg HS PO Last administered on 06/13/16 19:31; Start at 21:00 Mirtazapine (Remeron) 7.5 mg QHS PO Last administered on 06/13/16 19:28; Start 06/12/16 at 21:00 Active Scripts Active Reported Hydrocortisone Plus 1% Cream (Hydrocortisone/Aloe Vera) 28.4 Gm Cream..g. 1 Mikaela TP BID Apply to Bilateral lower legs topically for rash until healed. Calcium Carbonate 500 Mg Tablet 500 Mg PO PRN BID PRN Trazodone Hcl 50 Mg Tablet 50 Mg PO PRN QHS PRN Risperdal (Risperidone) 0.5 Mg Tablet 0.75 Mg PO HS [place] Carbonate 300 Mg Tablet.er 300 Mg PO BID Ibuprofen 200 Mg Tablet 200 Mg PO PRN Q6HRS PRN Aspirin 325 Mg Tablet 325 Mg PO PRN Q8HRS PRN [place]-3 ([place]-3 Fatty Acids) 1,000 Mg Capsule 1,000 Mg PO BID Vitamin D2 (Ergocalciferol (Vitamin D2)) 50,000 Unit Capsule 50,000 Unit PO Q4WK Ascorbic Acid 500 Mg Tablet 500 Mg PO DAILY Multivitamins (Multivitamin) 1 Each Tablet 1 Tab PO DAILY Milk Of Magnesia (Magnesium Hydroxide) 2,400 Mg/10 Ml Oral.susp 2,400 Mg PO PRN QHS PRN Tylenol (Acetaminophen) 325 Mg Tablet 650 Mg PO PRN Q6HRS PRN Calcium 500 + Vit D 200 Caplet (Calcium Carbonate/Vitamin D3) 1 Each Tablet 1 Each PO BID Diagnosis: Problems: (1) Impulse control disorder (2) Dementia with behavioral disturbance (3) Behavior disorder (4) Depressed (5) Bipolar 1 disorder (6) Anxiety (7) Impulse control disorder GERA MAY MD Jun 13, 2016 22:08
[2016-06-14] MEDS: OLANZAPINE ZYDIS 5 MG TAB.RAPDIS PO PRN (05:53)
[2016-06-14 06:33] VITALS: BP 102/66
[2016-06-14] MEDS: busPIRone 5 MG TABLET. PO SCH ×2 (08:56→20:04)
[2016-06-14] MEDS: POLYETHYLENE GLYCOL 3350 17 GM PACKET. PO SCH (08:57)
[2016-06-14] MEDS: LITHIUM CARBONATE ER 300 MG TABLET.ER PO SCH ×2 (08:57→20:05)
[2016-06-14] MEDS: OMEGA-3 FATTY ACIDS/FISH OIL 1,000 MG CAPSULE. PO SCH ×3 (08:57→21:00)
[2016-06-14] MEDS: HYDROCORTISONE 1% TOPICAL CREAM 30GM TUBE. TP SCH ×2 (08:58→21:00)
[2016-06-14] MEDS: NEOMY/BACITR/POLYMYXIN OINT PACKET. TP SCH ×2 (08:58→20:06)
[2016-06-14] MEDS: ASCORBIC ACID 500 MG TABLET PO SCH (08:58)
[2016-06-14] MEDS: MULTIVITAMIN with MINERAL TABLET. PO SCH (08:58)
[2016-06-14] MEDS: CALCIUM CARB/VIT D3 500/200 TABLET PO SCH ×3 (08:58→21:00)
[2016-06-14 10:01] LABS: MEAN CORPUSCULAR HEMOGLOBIN 29 pg (25-35); MEAN CORPUSCULAR VOLUME 92 fL (79-100)
[2016-06-14 10:12] LABS: ALBUMIN 3.1 g/dL (3.4-5.0); ALBUMIN/GLOBULIN RATIO 0.9 (1.0-1.7); CALCIUM 9.5 mg/dL (8.5-10.1); GFR 54.2; POTASSIUM 4.7 mmol/L (3.5-5.1); TOTAL BILIRUBIN 0.6 mg/dL (0.2-1.0); TOTAL PROTEIN 6.7 g/dL (6.4-8.2)
[2016-06-14] MEDS: NICOTINE POLACRILEX GUM 2 MG GUM. BC PRN ×2 (10:43→18:53)
[2016-06-14 11:53] LABS: BASO % 1 % (0-3); EOS # 0.4 x10^3/uL (0.0-0.7); EOS % 5 % (0-3); LYMPH # 1.1 x10^3/uL (1.0-4.8); LYMPH % 14 % (24-48); MONO # 0.4 x10^3/uL (0.0-1.1); MONO % 5 % (0-9); NEUT # 5.7 x10^3uL (1.8-7.7); NEUT % 75 % (31-73)
[2016-06-14 11:57] LABS: RED BLOOD COUNT 4.11 x10^6/uL (3.50-5.40); WHITE BLOOD COUNT 7.6 x10^3/uL (4.0-11.0)
[2016-06-14 11:58] LABS: HEMATOCRIT 37.6 % (36.0-47.0); MEAN CORPUSCULAR HGB CONC 32 g/dL (31-37); PLATELET COUNT 229 x10^3/uL (140-400); RED CELL DISTRIBUTION WIDTH 14.3 % (11.5-14.5)
[2016-06-14 15:54] VITALS: BP 121/88
[2016-06-14] MEDS: CLOZAPINE 25 MG TABLET PO SCH (20:04)
[2016-06-14] MEDS: MIRTAZAPINE 7.5 MG TABLET. PO SCH (20:05)
[2016-06-14] MEDS: risperiDONE 0.5 MG TABLET. PO SCH (20:06)
--- NOTE | 2016-06-14 20:39 | PN ---
DATE: 06/13/2016 PSYCHIATRIC PROGRESS NOTE This is a late entry for 06/13/2016 covers elements not covered in my initial note. SUBJECTIVE: Per nursing report, the patient was labile the previous night and during the day. Refused BuSpar took it later. REVIEW OF SYSTEMS: No CV, , pulmonary, eye, ENT system symptoms on review. Reliability poor. MENTAL STATUS EXAM: Oriented reasonably. Speech coherent, abstraction fair, computation impaired, mood lability persists, but is improved. LABORATORY DATA: Reviewed. IMPRESSION: Unchanged from initial note. PLAN: Continue current psychotropics mentioned in my initial note. MAN Martin MAY MD DR: ANNE/caitlyn JOB#: [id number] / [id number]
--- NOTE | 2016-06-14 20:51 | PDOC ---
Exam [place] Demential Exam: [place] Note: Please also refer to the separate dictated note~for this date of service dictated separately.~Patient seen individually. Discussed the patient with Nursing staff reviewed the chart.~Reviewed interim history and current functioning. Reviewed vital signs,~Labs/ Radiology~and current medications noted below. Continue current treatment with the changes noted in the dictated addendum note Assessment: Vital Signs: Vital Signs Date Time Temp Pulse Resp B/P Pulse Ox O2 Delivery O2 Flow Rate FiO2 06/14/16 15:54 98.7 68 20 121/88 100 06/13/16 06:12 Room Air I&O Intake and Output 06/14/16 07:00 Intake Total 1080 ml Balance 1080 ml Intake Oral 1080 ml Labs: Laboratory Tests Test 06/14/16 09:48 White Blood Count 7.6x10^3/uL (4.0-11.0) Red Blood Count 4.11x10^6/uL (3.50-5.40) Hemoglobin 12.0g/dL (12.0-15.5) Hematocrit 37.6% (36.0-47.0) Mean Corpuscular Volume 92fL (79-100) Mean Corpuscular Hemoglobin 29pg (25-35) Mean Corpuscular Hemoglobin Concent 32g/dL (31-37) Red Cell Distribution Width 14.3% (11.5-14.5) Platelet Count 229x10^3/uL (140-400) Neutrophils (%) (Auto) 75% (31-73) H Lymphocytes (%) (Auto) 14% (24-48) L Monocytes (%) (Auto) 5% (0-9) Eosinophils (%) (Auto) 5% (0-3) H Basophils (%) (Auto) 1% (0-3) Neutrophils # (Auto) 5.7x10^3uL (1.8-7.7) Lymphocytes # (Auto) 1.1x10^3/uL (1.0-4.8) Monocytes # (Auto) 0.4x10^3/uL (0.0-1.1) Eosinophils # (Auto) 0.4x10^3/uL (0.0-0.7) Basophils # (Auto) 0.0x10^3/uL (0.0-0.2) Sodium Level 145mmol/L (136-145) Potassium Level 4.7mmol/L (3.5-5.1) Chloride Level 109mmol/L (98-107) H Carbon Dioxide Level 30mmol/L (21-32) Anion Gap 6 (6-14) Blood Urea Nitrogen 21mg/dL (7-20) H Creatinine 1.0mg/dL (0.6-1.0) Estimated GFR (Cockcroft-Gault) 54.2 BUN/Creatinine Ratio 21 (6-20) H Glucose Level 136mg/dL (70-99) H Calcium Level 9.5mg/dL (8.5-10.1) Total Bilirubin 0.6mg/dL (0.2-1.0) Aspartate Amino Transferase (AST) 17U/L (15-37) Alanine Aminotransferase (ALT) 22U/L (14-59) Alkaline Phosphatase 56U/L (46-116) Total Protein 6.7g/dL (6.4-8.2) Albumin 3.1g/dL (3.4-5.0) L Albumin/Globulin Ratio 0.9 (1.0-1.7) L Current Medications: Meds: Current Medications Acetaminophen (Tylenol) 650 mg PRN Q6HRS PRN PO PAIN / TEMP Last administered on 05/27/16 22:28; Start 05/27/16 at 22:15; Stop 05/27/16 at 23:11; Status DC Ciprofloxacin (Cipro) 500 mg BID PO Last administered on 05/28/16 10:28; Start 05/27/16 at 22:30; Stop 05/28/16 at 13:06; Status DC Acetaminophen (Tylenol) 650 mg PRN Q6HRS PRN PO PAIN / TEMP; Start 05/27/16 at 23:00; Status Cancel Multi-Ingredient Ointment (Analgesic [place]) 1 mikaela PRN QID PRN TP MUSCLE PAIN; Start 05/27/16 at 23:00 Al Hydroxide/Mg Hydroxide (Mylanta Plus Xs) 15 ml PRN AFTMEALHC PRN PO DYSPEPSIA; Start 05/27/16 at 23:00 Magnesium Hydroxide (Milk Of Magnesia) 2,400 mg PRN QHS PRN PO CONSTIPATION Last administered on 06/08/16 10:18; Start 05/27/16 at 23:00 Acetaminophen (Tylenol) 650 mg PRN Q6HRS PRN PO MILD PAIN; Start 05/27/16 at 23 :15 Ascorbic Acid (Vitamin C) 500 mg DAILY PO Last administered on 06/11/16 09:01 ; Start 05/28/16 at 09:00 Aspirin (Benji Aspirin) 325 mg PRN Q8HRS PRN PO MODERATE PAIN; Start 05/27/16 at 23:15 Calcium Carbonate/ Glycine (Tums) 500 mg PRN BID PRN PO DYSPEPSIA; Start at 23:15 Calcium/Vitamin D (Oscal D 500mg/ 200uts) 1 tab BID PO Last administered on 06/14 20:05; Start 05/28/16 at 09:00 Ergocalciferol (Vitamin D2) 50,000 unit Q4WK PO ; Start 06/24/16 at 09:00 Ibuprofen (Motrin) 200 mg PRN Q6HRS PRN PO ear pain; Start 05/27/16 at 23:15; Stop 05/29/16 at 17:42; Status DC Hydrocortisone (Cortaid) 1 mikaela BID TP Last administered on 06/10/16 19:21; Start 05/28/16 at 09:00 Non-Formulary Medication 2,400 mg PRN QHS PRN PO CONSTIPATION; Start 05/27/16 at 23:15; Status UNV Multivitamins/ Calcium (Thera-M Plus) 1 tab DAILY PO Last administered on 09:01; Start 05/28/16 at 09:00 Fish Oil (Fish Oil) 1,000 mg BID PO Last administered on 06/14/16 20:05; Start 05/28/16 at 09:00 [place] Carbonate (Lithobid) 300 mg BID PO Last administered on 06/14/16 20:05 ; Start 05/28/16 at 09:00 Risperidone (Risperdal) 0.75 mg HS PO Last administered on 06/14/16 20:06; Start 05/28/16 at 21:00 Trazodone HCl (Desyrel) 50 mg PRN QHS PRN PO INSOMNIA; Start 05/27/16 at 23:15 ; Stop 06/01/16 at 18:07; Status DC Nicotine Polacrilex (Nicorette Gum) 2 mg PRN Q1HR PRN BC SMOKING CESSATION Last administered on 06/14/16 18:53; Start 05/28/16 at 01:00 Olanzapine (Zyprexa Zydis) 2.5 mg PRN Q2HR PRN PO PSYCHOSIS Last administered on 06/14/16 05:53; Start 05/28/16 at 11:45 Ciprofloxacin (Cipro) 250 mg BID PO Last administered on 05/29/16 09:43; Start 05/28/16 at 21:00; Stop 05/29/16 at 17:44; Status DC Neomycin/ Polymyxin/ Bacitracin (Triple Antibiotic Ointment) 1 pkt BID TP Last administered on 06/14/16 20:06; Start 05/28/16 at 21:00 Docusate Sodium (Colace) 100 mg PRN BID PRN PO CONSTIPATION; Start 05/29/16 at 17:45 Polyethylene Glycol (miraLAX) 17 gm DAILY PO Last administered on 06/11/16 09: 01; Start 05/30/16 at 09:00 Buspirone HCl (Buspar) 5 mg BID PO Last administered on 06/14/16 20:04; Start 05/29/16 at 21:00 Trazodone HCl (Desyrel) 100 mg PRN QHS PRN PO INSOMNIA, MAY REPEAT X1; Start at 18:15 Clozapine (Clozaril) 25 mg HS PO Last administered on 06/07/16 21:07; Start at 21:00; Stop 06/08/16 at 18:21; Status DC Clozapine (Clozaril) 50 mg HS PO Last administered on 06/14/16 20:04; Start at 21:00 Mirtazapine (Remeron) 7.5 mg QHS PO Last administered on 06/14/16 20:05; Start 06/12/16 at 21:00 Active Scripts Active Reported Hydrocortisone Plus 1% Cream (Hydrocortisone/Aloe Vera) 28.4 Gm Cream..g. 1 Mikaela TP BID Apply to Bilateral lower legs topically for rash until healed. Calcium Carbonate 500 Mg Tablet 500 Mg PO PRN BID PRN Trazodone Hcl 50 Mg Tablet 50 Mg PO PRN QHS PRN Risperdal (Risperidone) 0.5 Mg Tablet 0.75 Mg PO HS [place] Carbonate 300 Mg Tablet.er 300 Mg PO BID Ibuprofen 200 Mg Tablet 200 Mg PO PRN Q6HRS PRN Aspirin 325 Mg Tablet 325 Mg PO PRN Q8HRS PRN [place]-3 ([place]-3 Fatty Acids) 1,000 Mg Capsule 1,000 Mg PO BID Vitamin D2 (Ergocalciferol (Vitamin D2)) 50,000 Unit Capsule 50,000 Unit PO Q4WK Ascorbic Acid 500 Mg Tablet 500 Mg PO DAILY Multivitamins (Multivitamin) 1 Each Tablet 1 Tab PO DAILY Milk Of Magnesia (Magnesium Hydroxide) 2,400 Mg/10 Ml Oral.susp 2,400 Mg PO PRN QHS PRN Tylenol (Acetaminophen) 325 Mg Tablet 650 Mg PO PRN Q6HRS PRN Calcium 500 + Vit D 200 Caplet (Calcium Carbonate/Vitamin D3) 1 Each Tablet 1 Each PO BID Diagnosis: Problems: (1) Impulse control disorder (2) Dementia with behavioral disturbance (3) Behavior disorder (4) Depressed (5) Bipolar 1 disorder (6) Anxiety (7) Impulse control disorder GERA MAY MD Jun 14, 2016 20:51
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
[2016-06-15 06:55] VITALS: BP 111/68
[2016-06-15] MEDS: NICOTINE POLACRILEX GUM 2 MG GUM. BC PRN ×3 (07:41→18:24)
[2016-06-15] MEDS: ASCORBIC ACID 500 MG TABLET PO SCH ×2 (09:00→09:23)
[2016-06-15] MEDS: HYDROCORTISONE 1% TOPICAL CREAM 30GM TUBE. TP SCH ×2 (09:00→21:13)
[2016-06-15] MEDS: NEOMY/BACITR/POLYMYXIN OINT PACKET. TP SCH ×3 (09:00→21:13)
[2016-06-15] MEDS: CALCIUM CARB/VIT D3 500/200 TABLET PO SCH ×3 (09:00→21:05)
[2016-06-15] MEDS: OMEGA-3 FATTY ACIDS/FISH OIL 1,000 MG CAPSULE. PO SCH ×3 (09:00→21:05)
[2016-06-15] MEDS: MULTIVITAMIN with MINERAL TABLET. PO SCH (09:23)
[2016-06-15] MEDS: busPIRone 5 MG TABLET. PO SCH ×2 (09:23→21:05)
[2016-06-15] MEDS: LITHIUM CARBONATE ER 300 MG TABLET.ER PO SCH ×2 (09:23→21:05)
[2016-06-15] MEDS: POLYETHYLENE GLYCOL 3350 17 GM PACKET. PO SCH (09:23)
[2016-06-15 16:56] VITALS: BP 115/76
[2016-06-15] MEDS: CHOLECALCIFEROL (VITAMIN D3) 1,000 UNIT TABLET PO SCH (18:01)
[2016-06-15] MEDS: risperiDONE 0.5 MG TABLET. PO SCH (21:01)
[2016-06-15] MEDS: CLOZAPINE 25 MG TABLET PO SCH (21:05)
[2016-06-15] MEDS: MIRTAZAPINE 7.5 MG TABLET. PO SCH (21:05)
--- NOTE | 2016-06-15 21:17 | PDOC ---
Exam [place] Demential Exam: [place] Note: Please also refer to the separate dictated note~for this date of service dictated separately.~Patient seen individually. Discussed the patient with Nursing staff reviewed the chart.~Reviewed interim history and current functioning. Reviewed vital signs,~Labs/ Radiology~and current medications noted below. Continue current treatment with the changes noted in the dictated addendum note Assessment: Vital Signs: Vital Signs Date Time Temp Pulse Resp B/P Pulse Ox O2 Delivery O2 Flow Rate FiO2 06/15/16 16:56 98.4 76 20 115/76 95 Room Air I&O Intake and Output 06/15/16 06:59 Intake Total 1800 ml Balance 1800 ml Intake Oral 1800 ml Current Medications: Meds: Current Medications Acetaminophen (Tylenol) 650 mg PRN Q6HRS PRN PO PAIN / TEMP Last administered on 05/27/16 22:28; Start 05/27/16 at 22:15; Stop 05/27/16 at 23:11; Status DC Ciprofloxacin (Cipro) 500 mg BID PO Last administered on 05/28/16 10:28; Start 05/27/16 at 22:30; Stop 05/28/16 at 13:06; Status DC Acetaminophen (Tylenol) 650 mg PRN Q6HRS PRN PO PAIN / TEMP; Start 05/27/16 at 23:00; Status Cancel Multi-Ingredient Ointment (Analgesic [place]) 1 mikaela PRN QID PRN TP MUSCLE PAIN; Start 05/27/16 at 23:00 Al Hydroxide/Mg Hydroxide (Mylanta Plus Xs) 15 ml PRN AFTMEALHC PRN PO DYSPEPSIA; Start 05/27/16 at 23:00 Magnesium Hydroxide (Milk Of Magnesia) 2,400 mg PRN QHS PRN PO CONSTIPATION Last administered on 06/08/16 10:18; Start 05/27/16 at 23:00 Acetaminophen (Tylenol) 650 mg PRN Q6HRS PRN PO MILD PAIN; Start 05/27/16 at 23 :15 Ascorbic Acid (Vitamin C) 500 mg DAILY PO Last administered on 06/11/16 09:01 ; Start 05/28/16 at 09:00 Aspirin (Benji Aspirin) 325 mg PRN Q8HRS PRN PO MODERATE PAIN; Start 05/27/16 at 23:15 Calcium Carbonate/ Glycine (Tums) 500 mg PRN BID PRN PO DYSPEPSIA; Start at 23:15 Calcium/Vitamin D (Oscal D 500mg/ 200uts) 1 tab BID PO Last administered on 06/15 21:05; Start 05/28/16 at 09:00 Ergocalciferol (Vitamin D2) 50,000 unit Q4WK PO ; Start 06/24/16 at 09:00 Ibuprofen (Motrin) 200 mg PRN Q6HRS PRN PO ear pain; Start 05/27/16 at 23:15; Stop 05/29/16 at 17:42; Status DC Hydrocortisone (Cortaid) 1 mikaela BID TP Last administered on 06/15/16 21:13; Start 05/28/16 at 09:00 Non-Formulary Medication 2,400 mg PRN QHS PRN PO CONSTIPATION; Start 05/27/16 at 23:15; Status UNV Multivitamins/ Calcium (Thera-M Plus) 1 tab DAILY PO Last administered on 09:23; Start 05/28/16 at 09:00 Fish Oil (Fish Oil) 1,000 mg BID PO Last administered on 06/15/16 21:05; Start 05/28/16 at 09:00 [place] Carbonate (Lithobid) 300 mg BID PO Last administered on 06/15/16 21:05 ; Start 05/28/16 at 09:00 Risperidone (Risperdal) 0.75 mg HS PO Last administered on 06/15/16 21:01; Start 05/28/16 at 21:00 Trazodone HCl (Desyrel) 50 mg PRN QHS PRN PO INSOMNIA; Start 05/27/16 at 23:15 ; Stop 06/01/16 at 18:07; Status DC Nicotine Polacrilex (Nicorette Gum) 2 mg PRN Q1HR PRN BC SMOKING CESSATION Last administered on 06/15/16 18:24; Start 05/28/16 at 01:00 Olanzapine (Zyprexa Zydis) 2.5 mg PRN Q2HR PRN PO PSYCHOSIS Last administered on 06/14/16 05:53; Start 05/28/16 at 11:45 Ciprofloxacin (Cipro) 250 mg BID PO Last administered on 05/29/16 09:43; Start 05/28/16 at 21:00; Stop 05/29/16 at 17:44; Status DC Neomycin/ Polymyxin/ Bacitracin (Triple Antibiotic Ointment) 1 pkt BID TP Last administered on 06/15/16 21:13; Start 05/28/16 at 21:00 Docusate Sodium (Colace) 100 mg PRN BID PRN PO CONSTIPATION; Start 05/29/16 at 17:45 Polyethylene Glycol (miraLAX) 17 gm DAILY PO Last administered on 06/15/16 09: 23; Start 05/30/16 at 09:00 Buspirone HCl (Buspar) 5 mg BID PO Last administered on 06/15/16 21:05; Start 05/29/16 at 21:00 Trazodone HCl (Desyrel) 100 mg PRN QHS PRN PO INSOMNIA, MAY REPEAT X1; Start at 18:15 Clozapine (Clozaril) 25 mg HS PO Last administered on 06/07/16 21:07; Start at 21:00; Stop 06/08/16 at 18:21; Status DC Clozapine (Clozaril) 50 mg HS PO Last administered on 06/14/16 20:04; Start at 21:00; Stop 06/15/16 at 18:18; Status DC Mirtazapine (Remeron) 7.5 mg QHS PO Last administered on 06/15/16 21:05; Start 06/12/16 at 21:00 Vitamin D (Vitamin D3) 2,000 unit DAILYBFRSUP PO Last administered on 06/15/16 18:01; Start 06/15/16 at 17:00 Clozapine (Clozaril) 75 mg HS PO Last administered on 06/15/16 21:05; Start 06/15/16 at 21:00 Active Scripts Active Reported Hydrocortisone Plus 1% Cream (Hydrocortisone/Aloe Vera) 28.4 Gm Cream..g. 1 Mikaela TP BID Apply to Bilateral lower legs topically for rash until healed. Calcium Carbonate 500 Mg Tablet 500 Mg PO PRN BID PRN Trazodone Hcl 50 Mg Tablet 50 Mg PO PRN QHS PRN Risperdal (Risperidone) 0.5 Mg Tablet 0.75 Mg PO HS [place] Carbonate 300 Mg Tablet.er 300 Mg PO BID Ibuprofen 200 Mg Tablet 200 Mg PO PRN Q6HRS PRN Aspirin 325 Mg Tablet 325 Mg PO PRN Q8HRS PRN [place]-3 ([place]-3 Fatty Acids) 1,000 Mg Capsule 1,000 Mg PO BID Vitamin D2 (Ergocalciferol (Vitamin D2)) 50,000 Unit Capsule 50,000 Unit PO Q4WK Ascorbic Acid 500 Mg Tablet 500 Mg PO DAILY Multivitamins (Multivitamin) 1 Each Tablet 1 Tab PO DAILY Milk Of Magnesia (Magnesium Hydroxide) 2,400 Mg/10 Ml Oral.susp 2,400 Mg PO PRN QHS PRN Tylenol (Acetaminophen) 325 Mg Tablet 650 Mg PO PRN Q6HRS PRN Calcium 500 + Vit D 200 Caplet (Calcium Carbonate/Vitamin D3) 1 Each Tablet 1 Each PO BID Diagnosis: Problems: (1) Impulse control disorder (2) Dementia with behavioral disturbance (3) Behavior disorder (4) Depressed (5) Bipolar 1 disorder (6) Anxiety (7) Impulse control disorder GERA MAY MD Jun 15, 2016 21:17
[2016-06-16 06:05] VITALS: BP 114/67
--- NOTE | 2016-06-16 08:12 | PN ---
DATE: 06/14/2016 This late entry for 06/14/2016 covers elements not covered in my initial note. SUBJECTIVE: The patient seen individually at length. Per nursing report, the patient tried to feed the patient who was on n.p.o. and she was directed not to do so. She did relent. Otherwise, she remains somewhat psychotic at times, but better, not shrieking in a low and a high tone at different times like she was at one point. REVIEW OF SYSTEMS: No CV, , Pulmonary, eye system symptoms on review. MENTAL STATUS EXAM: Reasonably oriented. Speech coherent, abstraction fair, computation impaired, language function intact. Mood and affect is improved. LABORATORY DATA: Reviewed. IMPRESSION: Bipolar 1 disorder, mixed with psychotic features, in partial remission schizoaffective disorder, bipolar type, mixed with psychotic features, in partial remission, rest unchanged. PLAN: Continue current psychotropics. Check CBC, absolute neutrophil count in the morning of 06/15/2016. May need to then increase Clozaril to 75 mg at bedtime and reduce the Risperdal. MAN Martin MAY MD DR: ANNE/caitlyn JOB#: [id number] / [id number]
[2016-06-16] MEDS: NICOTINE POLACRILEX GUM 2 MG GUM. BC PRN ×2 (08:36→18:25)
[2016-06-16] MEDS: POLYETHYLENE GLYCOL 3350 17 GM PACKET. PO SCH (08:37)
[2016-06-16] MEDS: LITHIUM CARBONATE ER 300 MG TABLET.ER PO SCH ×2 (08:37→20:30)
[2016-06-16] MEDS: MULTIVITAMIN with MINERAL TABLET. PO SCH ×2 (08:37→08:52)
[2016-06-16] MEDS: busPIRone 5 MG TABLET. PO SCH ×2 (08:37→20:31)
[2016-06-16] MEDS: CALCIUM CARB/VIT D3 500/200 TABLET PO SCH ×3 (08:37→20:31)
[2016-06-16] MEDS: OMEGA-3 FATTY ACIDS/FISH OIL 1,000 MG CAPSULE. PO SCH ×4 (08:37→20:44)
[2016-06-16] MEDS: ASCORBIC ACID 500 MG TABLET PO SCH ×2 (08:37→08:53)
[2016-06-16] MEDS: HYDROCORTISONE 1% TOPICAL CREAM 30GM TUBE. TP SCH ×4 (08:38→20:45)
[2016-06-16] MEDS: NEOMY/BACITR/POLYMYXIN OINT PACKET. TP SCH ×4 (08:38→20:45)
--- NOTE | 2016-06-16 10:47 | CONS ---
DATE OF CONSULTATION: 06/10/2016 REASON FOR CONSULTATION: Medical management. HISTORY OF PRESENT ILLNESS: The patient is a 75-year-old female patient who is a resident at [facility], who was readmitted [facility] as she has been increasingly manic, hallucinating, sexually inappropriate, talking constantly in a high-pitched voice, refusing her medication, encouraging other patients to refuse their medication. She apparently has failed outpatient psychiatric intervention and was admitted for inpatient psychiatric stabilization. PAST MEDICAL HISTORY: Significant for Parkinson disease, congestive heart failure, osteoarthritis, degenerative disk disease, dyspepsia, hyperlipidemia and chronic pain. PAST SURGICAL HISTORY: Unremarkable. PAST PSYCHIATRIC HISTORY: Bipolar disorder, mixed with psychotic features. ALLERGIES: She has no known drug allergies. CODE STATUS: DNR. FAMILY HISTORY: Noncontributory. SOCIAL HISTORY: She is a resident at [facility]. She has a court-appointed guardian. She does not smoke, drink alcohol or use recreational drugs. REVIEW OF SYSTEMS: Unremarkable. MEDICATIONS: She is currently on the following medications: She is on Tylenol 650 mg every 6 hours, ascorbic acid 500 mg once a day, aspirin 325 mg once a day, calcium carbonate 500 mg twice a day, calcium carbonate with vitamin D one tablet twice a day, ergocalciferol 50,000 units once a week, hydrocortisone/aloe vera cream applied topically twice a day, ibuprofen 200 mg every 6 hours, lithium carbonate 300 mg p.o. b.i.d., magnesium hydroxide, milk of magnesia 30 mL p.o. daily p.r.n. for constipation, multivitamin 1 tablet once a day, omega-3 fatty acid 1000 mg once a day, risperidone 0.75 mg at bedtime and trazodone 50 mg at bedtime. PHYSICAL EXAMINATION: GENERAL: On examining her, she looked well and was clearly in no apparent respiratory distress, pale, jaundiced, cyanosis, ____ thyromegaly. No jugular venous distention. No limb edema. VITAL SIGNS: Her heart rate was 76, blood pressure was 124/88, temperature was 97.8, respiratory rate was 18 and oxygen saturation was 98% on room air. HEENT: Showed normocephalic, atraumatic. NECK: Supple. HEART: Showed normal first and second heart sounds with no gallop, rub or murmur. CHEST: Clear to auscultation. No crepitation or rhonchi. ABDOMEN: Distended, soft, nontender. No guarding or rigidity. No organomegaly. Hernial orifices intact. Bowel sounds normal. NEUROLOGIC: She is awake, alert, responding appropriately. All cranial nerves intact. EXTREMITIES: She moves extremities without difficulty. She ambulates without assistance or assistive devices. LABORATORY DATA: Showed a white cell count of 10,500, hemoglobin 12, hematocrit 38, MCV 91, and platelet count of 230,000 with normal manual differential. Her chemistry showed a serum sodium of 144, potassium 3.9, chloride 108, bicarbonate 29, anion gap of 7, BUN 16, creatinine 1, estimated GFR was 54 mL per minute. Her glucose is 118, calcium was 9.8. Total bilirubin, AST, ALT, alkaline phosphatase were normal. Total protein 7.5, albumin 3.6. Her vitamin B12 was 614 picogram/mL. Hemoglobin A1c was 5.1%, serum iron was 31, total iron binding capacity was elevated at 302 and percent saturation was 10. Her total T4 and T3 are normal. Urinalysis was unremarkable. Urine toxicology was also negative and her RPR nonreactive. Her urine culture showed growth of 10,000-25,000 colony forming units per mL of mixed urogenital pablito. IMPRESSION: In summary, this is a 75-year-old female patient who yet again was admitted with another episode of agustin, hallucinations, being sexually inappropriate, talking constantly in a high-pitched voice, refusing her medication. From a medical point of view, she seemed to be stable. All her vital signs are normal and all her lab works are within acceptable range. The 25-hydroxy vitamin D was slightly low at 25.3. However, she is already on vitamin D supplement, so all in all, she seemed to be stable medically. I will follow her closely and make any appropriate recommendations for the labs that are still pending at the time of this dictation. Thank you, Dr. Aguilera, for allowing me to participate in the care of this patient. VIRGILIO THAO MD DR: LELA/caitlyn JOB#: [id number] / [id number]
[2016-06-16 16:25] VITALS: BP 113/83
[2016-06-16] MEDS: CHOLECALCIFEROL (VITAMIN D3) 1,000 UNIT TABLET PO SCH (17:22)
[2016-06-16] MEDS: MIRTAZAPINE 7.5 MG TABLET. PO SCH (20:30)
[2016-06-16] MEDS: risperiDONE 0.5 MG TABLET. PO SCH (20:31)
[2016-06-16] MEDS: CLOZAPINE 25 MG TABLET PO SCH (20:33)
--- NOTE | 2016-06-16 21:13 | PDOC ---
Exam [place] Demential Exam: [place] Note: Please also refer to the separate dictated note~for this date of service dictated separately.~Patient seen individually. Discussed the patient with Nursing staff reviewed the chart.~Reviewed interim history and current functioning. Reviewed vital signs,~Labs/ Radiology~and current medications noted below. Continue current treatment with the changes noted in the dictated addendum note Assessment: Vital Signs: Vital Signs Date Time Temp Pulse Resp B/P Pulse Ox O2 Delivery O2 Flow Rate FiO2 06/16/16 16:25 98.5 70 18 113/83 96 06/16/16 06:05 Room Air I&O Intake and Output 06/16/16 06:59 Intake Total 1620 ml Balance 1620 ml Intake Oral 1620 ml # Voids 3 Current Medications: Meds: Current Medications Acetaminophen (Tylenol) 650 mg PRN Q6HRS PRN PO PAIN / TEMP Last administered on 05/27/16 22:28; Start 05/27/16 at 22:15; Stop 05/27/16 at 23:11; Status DC Ciprofloxacin (Cipro) 500 mg BID PO Last administered on 05/28/16 10:28; Start 05/27/16 at 22:30; Stop 05/28/16 at 13:06; Status DC Acetaminophen (Tylenol) 650 mg PRN Q6HRS PRN PO PAIN / TEMP; Start 05/27/16 at 23:00; Status Cancel Multi-Ingredient Ointment (Analgesic [place]) 1 mikaela PRN QID PRN TP MUSCLE PAIN; Start 05/27/16 at 23:00 Al Hydroxide/Mg Hydroxide (Mylanta Plus Xs) 15 ml PRN AFTMEALHC PRN PO DYSPEPSIA; Start 05/27/16 at 23:00 Magnesium Hydroxide (Milk Of Magnesia) 2,400 mg PRN QHS PRN PO CONSTIPATION Last administered on 06/08/16 10:18; Start 05/27/16 at 23:00 Acetaminophen (Tylenol) 650 mg PRN Q6HRS PRN PO MILD PAIN; Start 05/27/16 at 23 :15 Ascorbic Acid (Vitamin C) 500 mg DAILY PO Last administered on 06/11/16 09:01 ; Start 05/28/16 at 09:00 Aspirin (Benji Aspirin) 325 mg PRN Q8HRS PRN PO MODERATE PAIN; Start 05/27/16 at 23:15 Calcium Carbonate/ Glycine (Tums) 500 mg PRN BID PRN PO DYSPEPSIA; Start at 23:15 Calcium/Vitamin D (Oscal D 500mg/ 200uts) 1 tab BID PO Last administered on 06/16 20:31; Start 05/28/16 at 09:00 Ergocalciferol (Vitamin D2) 50,000 unit Q4WK PO ; Start 06/24/16 at 09:00 Ibuprofen (Motrin) 200 mg PRN Q6HRS PRN PO ear pain; Start 05/27/16 at 23:15; Stop 05/29/16 at 17:42; Status DC Hydrocortisone (Cortaid) 1 mikaela BID TP Last administered on 06/15/16 21:13; Start 05/28/16 at 09:00 Non-Formulary Medication 2,400 mg PRN QHS PRN PO CONSTIPATION; Start 05/27/16 at 23:15; Status UNV Multivitamins/ Calcium (Thera-M Plus) 1 tab DAILY PO Last administered on 09:23; Start 05/28/16 at 09:00 Fish Oil (Fish Oil) 1,000 mg BID PO Last administered on 06/15/16 21:05; Start 05/28/16 at 09:00 [place] Carbonate (Lithobid) 300 mg BID PO Last administered on 06/16/16 20:30 ; Start 05/28/16 at 09:00 Risperidone (Risperdal) 0.75 mg HS PO Last administered on 06/15/16 21:01; Start 05/28/16 at 21:00; Stop 06/16/16 at 18:41; Status DC Trazodone HCl (Desyrel) 50 mg PRN QHS PRN PO INSOMNIA; Start 05/27/16 at 23:15 ; Stop 06/01/16 at 18:07; Status DC Nicotine Polacrilex (Nicorette Gum) 2 mg PRN Q1HR PRN BC SMOKING CESSATION Last administered on 06/16/16 18:25; Start 05/28/16 at 01:00 Olanzapine (Zyprexa Zydis) 2.5 mg PRN Q2HR PRN PO PSYCHOSIS Last administered on 06/14/16 05:53; Start 05/28/16 at 11:45 Ciprofloxacin (Cipro) 250 mg BID PO Last administered on 05/29/16 09:43; Start 05/28/16 at 21:00; Stop 05/29/16 at 17:44; Status DC Neomycin/ Polymyxin/ Bacitracin (Triple Antibiotic Ointment) 1 pkt BID TP Last administered on 06/15/16 21:13; Start 05/28/16 at 21:00 Docusate Sodium (Colace) 100 mg PRN BID PRN PO CONSTIPATION; Start 05/29/16 at 17:45 Polyethylene Glycol (miraLAX) 17 gm DAILY PO Last administered on 06/16/16 08: 37; Start 05/30/16 at 09:00 Buspirone HCl (Buspar) 5 mg BID PO Last administered on 06/16/16 20:31; Start 05/29/16 at 21:00 Trazodone HCl (Desyrel) 100 mg PRN QHS PRN PO INSOMNIA, MAY REPEAT X1; Start at 18:15 Clozapine (Clozaril) 25 mg HS PO Last administered on 06/07/16 21:07; Start at 21:00; Stop 06/08/16 at 18:21; Status DC Clozapine (Clozaril) 50 mg HS PO Last administered on 06/14/16 20:04; Start at 21:00; Stop 06/15/16 at 18:18; Status DC Mirtazapine (Remeron) 7.5 mg QHS PO Last administered on 06/16/16 20:30; Start 06/12/16 at 21:00 Vitamin D (Vitamin D3) 2,000 unit DAILYBFRSUP PO Last administered on 06/16/16 17:22; Start 06/15/16 at 17:00 Clozapine (Clozaril) 75 mg HS PO Last administered on 06/16/16 20:33; Start 06/15/16 at 21:00 Risperidone (Risperdal) 0.5 mg HS PO Last administered on 06/16/16 20:31; Start 06/16/16 at 21:00 Active Scripts Active Reported Hydrocortisone Plus 1% Cream (Hydrocortisone/Aloe Vera) 28.4 Gm Cream..g. 1 Mikaela TP BID Apply to Bilateral lower legs topically for rash until healed. Calcium Carbonate 500 Mg Tablet 500 Mg PO PRN BID PRN Trazodone Hcl 50 Mg Tablet 50 Mg PO PRN QHS PRN Risperdal (Risperidone) 0.5 Mg Tablet 0.75 Mg PO HS [place] Carbonate 300 Mg Tablet.er 300 Mg PO BID Ibuprofen 200 Mg Tablet 200 Mg PO PRN Q6HRS PRN Aspirin 325 Mg Tablet 325 Mg PO PRN Q8HRS PRN [place]-3 ([place]-3 Fatty Acids) 1,000 Mg Capsule 1,000 Mg PO BID Vitamin D2 (Ergocalciferol (Vitamin D2)) 50,000 Unit Capsule 50,000 Unit PO Q4WK Ascorbic Acid 500 Mg Tablet 500 Mg PO DAILY Multivitamins (Multivitamin) 1 Each Tablet 1 Tab PO DAILY Milk Of Magnesia (Magnesium Hydroxide) 2,400 Mg/10 Ml Oral.susp 2,400 Mg PO PRN QHS PRN Tylenol (Acetaminophen) 325 Mg Tablet 650 Mg PO PRN Q6HRS PRN Calcium 500 + Vit D 200 Caplet (Calcium Carbonate/Vitamin D3) 1 Each Tablet 1 Each PO BID Diagnosis: Problems: (1) Impulse control disorder (2) Dementia with behavioral disturbance (3) Behavior disorder (4) Depressed (5) Bipolar 1 disorder (6) Anxiety (7) Impulse control disorder GERA MAY MD Jun 16, 2016 21:13
[2016-06-17 05:53] VITALS: BP 134/82
[2016-06-17] MEDS: NICOTINE POLACRILEX GUM 2 MG GUM. BC PRN ×2 (07:52→14:06)
[2016-06-17] MEDS: busPIRone 5 MG TABLET. PO SCH ×2 (07:52→20:02)
[2016-06-17] MEDS: OMEGA-3 FATTY ACIDS/FISH OIL 1,000 MG CAPSULE. PO SCH ×2 (07:52→20:03)
[2016-06-17] MEDS: POLYETHYLENE GLYCOL 3350 17 GM PACKET. PO SCH (07:52)
[2016-06-17] MEDS: MULTIVITAMIN with MINERAL TABLET. PO SCH (07:52)
[2016-06-17] MEDS: CALCIUM CARB/VIT D3 500/200 TABLET PO SCH ×2 (07:53→20:02)
[2016-06-17] MEDS: ASCORBIC ACID 500 MG TABLET PO SCH (07:53)
[2016-06-17] MEDS: LITHIUM CARBONATE ER 300 MG TABLET.ER PO SCH ×2 (07:53→20:02)
[2016-06-17] MEDS: HYDROCORTISONE 1% TOPICAL CREAM 30GM TUBE. TP SCH ×2 (07:54→20:02)
[2016-06-17] MEDS: NEOMY/BACITR/POLYMYXIN OINT PACKET. TP SCH ×2 (07:59→20:02)
[2016-06-17 14:17] LABS: LI 0.8 mmol/L (0.6-1.2)
[2016-06-17 16:35] VITALS: BP 146/83
[2016-06-17] MEDS ORDERED: BUSP5TAB PO (16:37)
[2016-06-17] MEDS ORDERED: CHOL20002 PO (16:44)
[2016-06-17] MEDS ORDERED: CLOZ25TA PO (16:45)
[2016-06-17] MEDS ORDERED: DOCU100T5 PO (16:46)
[2016-06-17] MEDS ORDERED: MAG30ORA2 PO (16:50)
[2016-06-17] MEDS: CHOLECALCIFEROL (VITAMIN D3) 1,000 UNIT TABLET PO SCH (16:50)
[2016-06-17] MEDS ORDERED: METH57CR7 TP (17:03)
[2016-06-17] MEDS ORDERED: MIRT15TA2 PO (17:05)
[2016-06-17] MEDS ORDERED: NEOM1PAC TP (17:06)
[2016-06-17] MEDS ORDERED: NICO2GUM3 BC (17:07)
[2016-06-17] MEDS ORDERED: OLAN5TAB5 PO (17:08)
[2016-06-17] MEDS ORDERED: POLY17PO5 PO (17:09)
[2016-06-17] MEDS: risperiDONE 0.5 MG TABLET. PO SCH (20:01)
[2016-06-17] MEDS: MIRTAZAPINE 7.5 MG TABLET. PO SCH (20:02)
[2016-06-17] MEDS: CLOZAPINE 25 MG TABLET PO SCH (20:02)
--- NOTE | 2016-06-17 21:16 | PDOC ---
Exam [place] Demential Exam: [place] Note: Please also refer to the separate dictated note~for this date of service dictated separately.~Patient seen individually. Discussed the patient with Nursing staff reviewed the chart.~Reviewed interim history and current functioning. Reviewed vital signs,~Labs/ Radiology~and current medications noted below. Continue current treatment with the changes noted in the dictated addendum note Assessment: Vital Signs: Vital Signs Date Time Temp Pulse Resp B/P Pulse Ox O2 Delivery O2 Flow Rate FiO2 06/17/16 16:35 97.7 82 20 146/83 100 06/16/16 06:05 Room Air I&O Intake and Output 06/17/16 07:00 Intake Total 1200 ml Balance 1200 ml Intake Oral 1200 ml # Voids 2 # Bowel Movements 1 Labs: Laboratory Tests Test 06/17/16 06:33 [place] Level 0.8mmol/L (0.6-1.2) [place] Last Dose Date 06/16/16 [place] Last Dose Time 2100 Current Medications: Meds: Current Medications Acetaminophen (Tylenol) 650 mg PRN Q6HRS PRN PO PAIN / TEMP Last administered on 05/27/16 22:28; Start 05/27/16 at 22:15; Stop 05/27/16 at 23:11; Status DC Ciprofloxacin (Cipro) 500 mg BID PO Last administered on 05/28/16 10:28; Start 05/27/16 at 22:30; Stop 05/28/16 at 13:06; Status DC Acetaminophen (Tylenol) 650 mg PRN Q6HRS PRN PO PAIN / TEMP; Start 05/27/16 at 23:00; Status Cancel Multi-Ingredient Ointment (Analgesic [place]) 1 mikaela PRN QID PRN TP MUSCLE PAIN; Start 05/27/16 at 23:00 Al Hydroxide/Mg Hydroxide (Mylanta Plus Xs) 15 ml PRN AFTMEALHC PRN PO DYSPEPSIA; Start 05/27/16 at 23:00 Magnesium Hydroxide (Milk Of Magnesia) 2,400 mg PRN QHS PRN PO CONSTIPATION Last administered on 06/08/16 10:18; Start 05/27/16 at 23:00 Acetaminophen (Tylenol) 650 mg PRN Q6HRS PRN PO MILD PAIN; Start 05/27/16 at 23 :15 Ascorbic Acid (Vitamin C) 500 mg DAILY PO Last administered on 06/17/16 07:53; Start 05/28/16 at 09:00 Aspirin (Benji Aspirin) 325 mg PRN Q8HRS PRN PO MODERATE PAIN; Start 05/27/16 at 23:15 Calcium Carbonate/ Glycine (Tums) 500 mg PRN BID PRN PO DYSPEPSIA; Start at 23:15 Calcium/Vitamin D (Oscal D 500mg/ 200uts) 1 tab BID PO Last administered on 06/17 20:02; Start 05/28/16 at 09:00 Ergocalciferol (Vitamin D2) 50,000 unit Q4WK PO ; Start 06/24/16 at 09:00 Ibuprofen (Motrin) 200 mg PRN Q6HRS PRN PO ear pain; Start 05/27/16 at 23:15; Stop 05/29/16 at 17:42; Status DC Hydrocortisone (Cortaid) 1 mikaela BID TP Last administered on 06/15/16 21:13; Start 05/28/16 at 09:00 Non-Formulary Medication 2,400 mg PRN QHS PRN PO CONSTIPATION; Start 05/27/16 at 23:15; Status UNV Multivitamins/ Calcium (Thera-M Plus) 1 tab DAILY PO Last administered on 07:52; Start 05/28/16 at 09:00 Fish Oil (Fish Oil) 1,000 mg BID PO Last administered on 06/17/16 07:52; Start 05/28/16 at 09:00 [place] Carbonate (Lithobid) 300 mg BID PO Last administered on 06/17/16 20:02 ; Start 05/28/16 at 09:00 Risperidone (Risperdal) 0.75 mg HS PO Last administered on 06/15/16 21:01; Start 05/28/16 at 21:00; Stop 06/16/16 at 18:41; Status DC Trazodone HCl (Desyrel) 50 mg PRN QHS PRN PO INSOMNIA; Start 05/27/16 at 23:15 ; Stop 06/01/16 at 18:07; Status DC Nicotine Polacrilex (Nicorette Gum) 2 mg PRN Q1HR PRN BC SMOKING CESSATION Last administered on 06/17/16 14:06; Start 05/28/16 at 01:00 Olanzapine (Zyprexa Zydis) 2.5 mg PRN Q2HR PRN PO PSYCHOSIS Last administered on 06/14/16 05:53; Start 05/28/16 at 11:45 Ciprofloxacin (Cipro) 250 mg BID PO Last administered on 05/29/16 09:43; Start 05/28/16 at 21:00; Stop 05/29/16 at 17:44; Status DC Neomycin/ Polymyxin/ Bacitracin (Triple Antibiotic Ointment) 1 pkt BID TP Last administered on 06/15/16 21:13; Start 05/28/16 at 21:00 Docusate Sodium (Colace) 100 mg PRN BID PRN PO CONSTIPATION; Start 05/29/16 at 17:45 Polyethylene Glycol (miraLAX) 17 gm DAILY PO Last administered on 06/17/16 07: 52; Start 05/30/16 at 09:00 Buspirone HCl (Buspar) 5 mg BID PO Last administered on 06/17/16 20:02; Start 05/29/16 at 21:00 Trazodone HCl (Desyrel) 100 mg PRN QHS PRN PO INSOMNIA, MAY REPEAT X1; Start at 18:15 Clozapine (Clozaril) 25 mg HS PO Last administered on 06/07/16 21:07; Start at 21:00; Stop 06/08/16 at 18:21; Status DC Clozapine (Clozaril) 50 mg HS PO Last administered on 06/14/16 20:04; Start at 21:00; Stop 06/15/16 at 18:18; Status DC Mirtazapine (Remeron) 7.5 mg QHS PO Last administered on 06/17/16 20:02; Start 06/12/16 at 21:00 Vitamin D (Vitamin D3) 2,000 unit DAILYBFRSUP PO Last administered on 06/17/16 16:50; Start 06/15/16 at 17:00 Clozapine (Clozaril) 75 mg HS PO Last administered on 06/17/16 20:02; Start 06/15/16 at 21:00 Risperidone (Risperdal) 0.5 mg HS PO Last administered on 4/5/17at 20:01; Start 06/16/16 at 21:00 Active Scripts Active Reported Miralax (Polyethylene Glycol 3350) 17 Gm Powd.pack 1 Packet PO DAILY Zyprexa Zydis (Olanzapine) 5 Mg Tab.rapdis 2.5 Mg PO PRN Q2HR PRN Nicotine Gum (Nicotine Polacrilex) 2 Mg Gum 2 Mg BC PRN Q1HR PRN Triple Antibiotic Ointment (Neomy Sulf/Bacitra/Polymyxin B) 1 Each Packet 1 Each TP BID Remeron (Mirtazapine) 15 Mg Tab.rapdis 7.5 Mg PO QHS [place] Greaseless Cream (Methyl Salicylate/Menthol) 57 Gm Cream..g. 1 Mikaela TP PRN QID PRN Mag-Al Plus Xs Suspension (Mag Hydrox/Al Hydrox/Simeth) 30 Ml Oral.susp 15 Ml PO PRN AFTMEALHC PRN Docusate Sodium 100 Mg Tablet 100 Mg PO PRN BID PRN Clozaril (Clozapine) 25 Mg Tablet 75 Mg PO HS Vitamin D-3 (Cholecalciferol (Vitamin D3)) 2,000 Unit Tablet 2,000 Unit PO DAILYBFRSUP Buspirone Hcl 5 Mg Tablet 5 Mg PO BID Hydrocortisone Plus 1% Cream (Hydrocortisone/Aloe Vera) 28.4 Gm Cream..g. 1 Mikaela TP BID Apply to Bilateral lower legs topically for rash until healed. Calcium Carbonate 500 Mg Tablet 500 Mg PO PRN BID PRN Trazodone Hcl 50 Mg Tablet 50 Mg PO PRN QHS PRN Risperdal (Risperidone) 0.5 Mg Tablet 0.75 Mg PO HS [place] Carbonate 300 Mg Tablet.er 300 Mg PO BID Ibuprofen 200 Mg Tablet 200 Mg PO PRN Q6HRS PRN Aspirin 325 Mg Tablet 325 Mg PO PRN Q8HRS PRN [place]-3 ([place]-3 Fatty Acids) 1,000 Mg Capsule 1,000 Mg PO BID Vitamin D2 (Ergocalciferol (Vitamin D2)) 50,000 Unit Capsule 50,000 Unit PO Q4WK Ascorbic Acid 500 Mg Tablet 500 Mg PO DAILY Multivitamins (Multivitamin) 1 Each Tablet 1 Tab PO DAILY Milk Of Magnesia (Magnesium Hydroxide) 2,400 Mg/10 Ml Oral.susp 2,400 Mg PO PRN QHS PRN Tylenol (Acetaminophen) 325 Mg Tablet 650 Mg PO PRN Q6HRS PRN Calcium 500 + Vit D 200 Caplet (Calcium Carbonate/Vitamin D3) 1 Each Tablet 1 Each PO BID Diagnosis: Problems: (1) Impulse control disorder (2) Dementia with behavioral disturbance (3) Behavior disorder (4) Depressed (5) Bipolar 1 disorder (6) Anxiety (7) Impulse control disorder GERA MAY MD Jun 17, 2016 21:16
[2016-06-18] MEDS: NICOTINE POLACRILEX GUM 2 MG GUM. BC PRN ×3 (03:21→14:37)
[2016-06-18 05:13] VITALS: BP 133/82
[2016-06-18] MEDS: LITHIUM CARBONATE ER 300 MG TABLET.ER PO SCH ×2 (08:32→19:27)
[2016-06-18] MEDS: CALCIUM CARB/VIT D3 500/200 TABLET PO SCH ×2 (08:32→19:27)
[2016-06-18] MEDS: ASCORBIC ACID 500 MG TABLET PO SCH (08:32)
[2016-06-18] MEDS: MULTIVITAMIN with MINERAL TABLET. PO SCH (08:32)
[2016-06-18] MEDS: POLYETHYLENE GLYCOL 3350 17 GM PACKET. PO SCH (08:32)
[2016-06-18] MEDS: busPIRone 5 MG TABLET. PO SCH ×2 (08:32→19:27)
[2016-06-18] MEDS: HYDROCORTISONE 1% TOPICAL CREAM 30GM TUBE. TP SCH ×2 (08:33→19:28)
[2016-06-18] MEDS: OMEGA-3 FATTY ACIDS/FISH OIL 1,000 MG CAPSULE. PO SCH ×2 (08:33→19:27)
[2016-06-18] MEDS: NEOMY/BACITR/POLYMYXIN OINT PACKET. TP SCH ×2 (08:33→19:28)
[2016-06-18 15:52] VITALS: BP 104/62
[2016-06-18] MEDS: CHOLECALCIFEROL (VITAMIN D3) 1,000 UNIT TABLET PO SCH (16:36)
[2016-06-18] MEDS: risperiDONE 0.5 MG TABLET. PO SCH (19:27)
[2016-06-18] MEDS: CLOZAPINE 25 MG TABLET PO SCH (19:27)
[2016-06-18] MEDS: MIRTAZAPINE 7.5 MG TABLET. PO SCH (19:27)
--- NOTE | 2016-06-18 21:27 | PDOC ---
Exam [place] Demential Exam: [place] Note: Please also refer to the separate dictated note~for this date of service dictated separately.~Patient seen individually. Discussed the patient with Nursing staff reviewed the chart.~Reviewed interim history and current functioning. Reviewed vital signs,~Labs/ Radiology~and current medications noted below. Continue current treatment with the changes noted in the dictated addendum note Assessment: Vital Signs: Vital Signs Date Time Temp Pulse Resp B/P Pulse Ox O2 Delivery O2 Flow Rate FiO2 06/18/16 15:52 97.7 91 20 104/62 100 06/16/16 06:05 Room Air I&O Intake and Output 06/18/16 07:00 Intake Total 960 ml Balance 960 ml Intake Oral 960 ml # Voids 2 Current Medications: Meds: Current Medications Acetaminophen (Tylenol) 650 mg PRN Q6HRS PRN PO PAIN / TEMP Last administered on 05/27/16 22:28; Start 05/27/16 at 22:15; Stop 05/27/16 at 23:11; Status DC Ciprofloxacin (Cipro) 500 mg BID PO Last administered on 05/28/16 10:28; Start 05/27/16 at 22:30; Stop 05/28/16 at 13:06; Status DC Acetaminophen (Tylenol) 650 mg PRN Q6HRS PRN PO PAIN / TEMP; Start 05/27/16 at 23:00; Status Cancel Multi-Ingredient Ointment (Analgesic [place]) 1 mikaela PRN QID PRN TP MUSCLE PAIN; Start 05/27/16 at 23:00 Al Hydroxide/Mg Hydroxide (Mylanta Plus Xs) 15 ml PRN AFTMEALHC PRN PO DYSPEPSIA; Start 05/27/16 at 23:00 Magnesium Hydroxide (Milk Of Magnesia) 2,400 mg PRN QHS PRN PO CONSTIPATION Last administered on 06/08/16 10:18; Start 05/27/16 at 23:00 Acetaminophen (Tylenol) 650 mg PRN Q6HRS PRN PO MILD PAIN; Start 05/27/16 at 23 :15 Ascorbic Acid (Vitamin C) 500 mg DAILY PO Last administered on 06/18/16 08:32; Start 05/28/16 at 09:00 Aspirin (Benji Aspirin) 325 mg PRN Q8HRS PRN PO MODERATE PAIN; Start 05/27/16 at 23:15 Calcium Carbonate/ Glycine (Tums) 500 mg PRN BID PRN PO DYSPEPSIA; Start at 23:15 Calcium/Vitamin D (Oscal D 500mg/ 200uts) 1 tab BID PO Last administered on 06/18 19:27; Start 05/28/16 at 09:00 Ergocalciferol (Vitamin D2) 50,000 unit Q4WK PO ; Start 06/24/16 at 09:00 Ibuprofen (Motrin) 200 mg PRN Q6HRS PRN PO ear pain; Start 05/27/16 at 23:15; Stop 05/29/16 at 17:42; Status DC Hydrocortisone (Cortaid) 1 mikaela BID TP Last administered on 06/15/16 21:13; Start 05/28/16 at 09:00 Non-Formulary Medication 2,400 mg PRN QHS PRN PO CONSTIPATION; Start 05/27/16 at 23:15; Status UNV Multivitamins/ Calcium (Thera-M Plus) 1 tab DAILY PO Last administered on 08:32; Start 05/28/16 at 09:00 Fish Oil (Fish Oil) 1,000 mg BID PO Last administered on 06/18/16 19:27; Start 05/28/16 at 09:00 [place] Carbonate (Lithobid) 300 mg BID PO Last administered on 06/18/16 19:27 ; Start 05/28/16 at 09:00 Risperidone (Risperdal) 0.75 mg HS PO Last administered on 06/15/16 21:01; Start 05/28/16 at 21:00; Stop 06/16/16 at 18:41; Status DC Trazodone HCl (Desyrel) 50 mg PRN QHS PRN PO INSOMNIA; Start 05/27/16 at 23:15 ; Stop 06/01/16 at 18:07; Status DC Nicotine Polacrilex (Nicorette Gum) 2 mg PRN Q1HR PRN BC SMOKING CESSATION Last administered on 06/18/16 14:37; Start 05/28/16 at 01:00 Olanzapine (Zyprexa Zydis) 2.5 mg PRN Q2HR PRN PO PSYCHOSIS Last administered on 06/14/16 05:53; Start 05/28/16 at 11:45 Ciprofloxacin (Cipro) 250 mg BID PO Last administered on 05/29/16 09:43; Start 05/28/16 at 21:00; Stop 05/29/16 at 17:44; Status DC Neomycin/ Polymyxin/ Bacitracin (Triple Antibiotic Ointment) 1 pkt BID TP Last administered on 06/15/16 21:13; Start 05/28/16 at 21:00 Docusate Sodium (Colace) 100 mg PRN BID PRN PO CONSTIPATION; Start 05/29/16 at 17:45 Polyethylene Glycol (miraLAX) 17 gm DAILY PO Last administered on 06/18/16 08: 32; Start 05/30/16 at 09:00 Buspirone HCl (Buspar) 5 mg BID PO Last administered on 06/18/16 19:27; Start 05/29/16 at 21:00 Trazodone HCl (Desyrel) 100 mg PRN QHS PRN PO INSOMNIA, MAY REPEAT X1; Start at 18:15 Clozapine (Clozaril) 25 mg HS PO Last administered on 06/07/16 21:07; Start at 21:00; Stop 06/08/16 at 18:21; Status DC Clozapine (Clozaril) 50 mg HS PO Last administered on 06/14/16 20:04; Start at 21:00; Stop 06/15/16 at 18:18; Status DC Mirtazapine (Remeron) 7.5 mg QHS PO Last administered on 06/18/16 19:27; Start 06/12/16 at 21:00 Vitamin D (Vitamin D3) 2,000 unit DAILYBFRSUP PO Last administered on 06/18/16 16:36; Start 06/15/16 at 17:00 Clozapine (Clozaril) 75 mg HS PO Last administered on 06/18/16 19:27; Start 06/15/16 at 21:00 Risperidone (Risperdal) 0.5 mg HS PO Last administered on 06/18/16 19:27; Start 06/16/16 at 21:00 Active Scripts Active Reported Miralax (Polyethylene Glycol 3350) 17 Gm Powd.pack 1 Packet PO DAILY Zyprexa Zydis (Olanzapine) 5 Mg Tab.rapdis 2.5 Mg PO PRN Q2HR PRN Nicotine Gum (Nicotine Polacrilex) 2 Mg Gum 2 Mg BC PRN Q1HR PRN Triple Antibiotic Ointment (Neomy Sulf/Bacitra/Polymyxin B) 1 Each Packet 1 Each TP BID Remeron (Mirtazapine) 15 Mg Tab.rapdis 7.5 Mg PO QHS [place] Greaseless Cream (Methyl Salicylate/Menthol) 57 Gm Cream..g. 1 Mikaela TP PRN QID PRN Mag-Al Plus Xs Suspension (Mag Hydrox/Al Hydrox/Simeth) 30 Ml Oral.susp 15 Ml PO PRN AFTMEALHC PRN Docusate Sodium 100 Mg Tablet 100 Mg PO PRN BID PRN Clozaril (Clozapine) 25 Mg Tablet 75 Mg PO HS Vitamin D-3 (Cholecalciferol (Vitamin D3)) 2,000 Unit Tablet 2,000 Unit PO DAILYBFRSUP Buspirone Hcl 5 Mg Tablet 5 Mg PO BID Hydrocortisone Plus 1% Cream (Hydrocortisone/Aloe Vera) 28.4 Gm Cream..g. 1 Mikaela TP BID Apply to Bilateral lower legs topically for rash until healed. Calcium Carbonate 500 Mg Tablet 500 Mg PO PRN BID PRN Trazodone Hcl 50 Mg Tablet 50 Mg PO PRN QHS PRN Risperdal (Risperidone) 0.5 Mg Tablet 0.75 Mg PO HS [place] Carbonate 300 Mg Tablet.er 300 Mg PO BID Ibuprofen 200 Mg Tablet 200 Mg PO PRN Q6HRS PRN Aspirin 325 Mg Tablet 325 Mg PO PRN Q8HRS PRN [place]-3 ([place]-3 Fatty Acids) 1,000 Mg Capsule 1,000 Mg PO BID Vitamin D2 (Ergocalciferol (Vitamin D2)) 50,000 Unit Capsule 50,000 Unit PO Q4WK Ascorbic Acid 500 Mg Tablet 500 Mg PO DAILY Multivitamins (Multivitamin) 1 Each Tablet 1 Tab PO DAILY Milk Of Magnesia (Magnesium Hydroxide) 2,400 Mg/10 Ml Oral.susp 2,400 Mg PO PRN QHS PRN Tylenol (Acetaminophen) 325 Mg Tablet 650 Mg PO PRN Q6HRS PRN Calcium 500 + Vit D 200 Caplet (Calcium Carbonate/Vitamin D3) 1 Each Tablet 1 Each PO BID Diagnosis: Problems: (1) Impulse control disorder (2) Dementia with behavioral disturbance (3) Behavior disorder (4) Depressed (5) Bipolar 1 disorder (6) Anxiety (7) Impulse control disorder GERA MAY MD Jun 18, 2016 21:27
[2016-06-19 06:08] VITALS: BP 124/69
[2016-06-19] MEDS: MULTIVITAMIN with MINERAL TABLET. PO SCH (08:44)
[2016-06-19] MEDS: LITHIUM CARBONATE ER 300 MG TABLET.ER PO SCH ×3 (08:44→20:20)
[2016-06-19] MEDS: POLYETHYLENE GLYCOL 3350 17 GM PACKET. PO SCH (08:44)
[2016-06-19] MEDS: busPIRone 5 MG TABLET. PO SCH ×3 (08:44→20:19)
[2016-06-19] MEDS: CALCIUM CARB/VIT D3 500/200 TABLET PO SCH ×3 (08:44→20:20)
[2016-06-19] MEDS: OMEGA-3 FATTY ACIDS/FISH OIL 1,000 MG CAPSULE. PO SCH ×3 (08:44→20:20)
[2016-06-19] MEDS: HYDROCORTISONE 1% TOPICAL CREAM 30GM TUBE. TP SCH ×2 (08:44→20:21)
[2016-06-19] MEDS: ASCORBIC ACID 500 MG TABLET PO SCH (08:44)
[2016-06-19] MEDS: NEOMY/BACITR/POLYMYXIN OINT PACKET. TP SCH (08:45)
[2016-06-19] MEDS: NICOTINE POLACRILEX GUM 2 MG GUM. BC PRN ×2 (09:23→18:08)
[2016-06-19 16:24] VITALS: BP 144/79
[2016-06-19] MEDS: CHOLECALCIFEROL (VITAMIN D3) 1,000 UNIT TABLET PO SCH (16:27)
[2016-06-19] MEDS: CLOZAPINE 25 MG TABLET PO SCH ×2 (20:12→20:19)
[2016-06-19] MEDS: MIRTAZAPINE 7.5 MG TABLET. PO SCH ×2 (20:12→20:19)
[2016-06-19] MEDS: risperiDONE 0.5 MG TABLET. PO SCH ×2 (20:12→20:20)
--- NOTE | 2016-06-19 21:20 | PDOC ---
Exam [place] Demential Exam: [place] Note: Please also refer to the separate dictated note~for this date of service dictated separately.~Patient seen individually. Discussed the patient with Nursing staff reviewed the chart.~Reviewed interim history and current functioning. Reviewed vital signs,~Labs/ Radiology~and current medications noted below. Continue current treatment with the changes noted in the dictated addendum note Assessment: Vital Signs: Vital Signs Date Time Temp Pulse Resp B/P Pulse Ox O2 Delivery O2 Flow Rate FiO2 06/19/16 16:24 98.2 84 18 144/79 96 06/16/16 06:05 Room Air I&O Intake and Output 06/19/16 07:00 Intake Total 1800 ml Balance 1800 ml Intake Oral 1800 ml Current Medications: Meds: Current Medications Acetaminophen (Tylenol) 650 mg PRN Q6HRS PRN PO PAIN / TEMP Last administered on 05/27/16 22:28; Start 05/27/16 at 22:15; Stop 05/27/16 at 23:11; Status DC Ciprofloxacin (Cipro) 500 mg BID PO Last administered on 05/28/16 10:28; Start 05/27/16 at 22:30; Stop 05/28/16 at 13:06; Status DC Acetaminophen (Tylenol) 650 mg PRN Q6HRS PRN PO PAIN / TEMP; Start 05/27/16 at 23:00; Status Cancel Multi-Ingredient Ointment (Analgesic [place]) 1 mikaela PRN QID PRN TP MUSCLE PAIN; Start 05/27/16 at 23:00 Al Hydroxide/Mg Hydroxide (Mylanta Plus Xs) 15 ml PRN AFTMEALHC PRN PO DYSPEPSIA; Start 05/27/16 at 23:00 Magnesium Hydroxide (Milk Of Magnesia) 2,400 mg PRN QHS PRN PO CONSTIPATION Last administered on 06/08/16 10:18; Start 05/27/16 at 23:00 Acetaminophen (Tylenol) 650 mg PRN Q6HRS PRN PO MILD PAIN; Start 05/27/16 at 23 :15 Ascorbic Acid (Vitamin C) 500 mg DAILY PO Last administered on 06/19/16 08:44; Start 05/28/16 at 09:00 Aspirin (Benji Aspirin) 325 mg PRN Q8HRS PRN PO MODERATE PAIN; Start 05/27/16 at 23:15 Calcium Carbonate/ Glycine (Tums) 500 mg PRN BID PRN PO DYSPEPSIA; Start at 23:15 Calcium/Vitamin D (Oscal D 500mg/ 200uts) 1 tab BID PO Last administered on 06/19 20:20; Start 05/28/16 at 09:00 Ergocalciferol (Vitamin D2) 50,000 unit Q4WK PO ; Start 06/24/16 at 09:00 Ibuprofen (Motrin) 200 mg PRN Q6HRS PRN PO ear pain; Start 05/27/16 at 23:15; Stop 05/29/16 at 17:42; Status DC Hydrocortisone (Cortaid) 1 mikaela BID TP Last administered on 06/15/16 21:13; Start 05/28/16 at 09:00 Non-Formulary Medication 2,400 mg PRN QHS PRN PO CONSTIPATION; Start 05/27/16 at 23:15; Status UNV Multivitamins/ Calcium (Thera-M Plus) 1 tab DAILY PO Last administered on 08:44; Start 05/28/16 at 09:00 Fish Oil (Fish Oil) 1,000 mg BID PO Last administered on 06/19/16 20:20; Start 05/28/16 at 09:00 [place] Carbonate (Lithobid) 300 mg BID PO Last administered on 06/19/16 20:20 ; Start 05/28/16 at 09:00 Risperidone (Risperdal) 0.75 mg HS PO Last administered on 06/15/16 21:01; Start 05/28/16 at 21:00; Stop 06/16/16 at 18:41; Status DC Trazodone HCl (Desyrel) 50 mg PRN QHS PRN PO INSOMNIA; Start 05/27/16 at 23:15 ; Stop 06/01/16 at 18:07; Status DC Nicotine Polacrilex (Nicorette Gum) 2 mg PRN Q1HR PRN BC SMOKING CESSATION Last administered on 06/19/16 18:08; Start 05/28/16 at 01:00 Olanzapine (Zyprexa Zydis) 2.5 mg PRN Q2HR PRN PO PSYCHOSIS Last administered on 06/14/16 05:53; Start 05/28/16 at 11:45 Ciprofloxacin (Cipro) 250 mg BID PO Last administered on 05/29/16 09:43; Start 05/28/16 at 21:00; Stop 05/29/16 at 17:44; Status DC Neomycin/ Polymyxin/ Bacitracin (Triple Antibiotic Ointment) 1 pkt BID TP Last administered on 06/15/16 21:13; Start 05/28/16 at 21:00; Stop 06/19/16 at 12:36; Status DC Docusate Sodium (Colace) 100 mg PRN BID PRN PO CONSTIPATION; Start 05/29/16 at 17:45 Polyethylene Glycol (miraLAX) 17 gm DAILY PO Last administered on 06/19/16 08: 44; Start 05/30/16 at 09:00 Buspirone HCl (Buspar) 5 mg BID PO Last administered on 06/19/16 20:19; Start 05/29/16 at 21:00 Trazodone HCl (Desyrel) 100 mg PRN QHS PRN PO INSOMNIA, MAY REPEAT X1; Start at 18:15 Clozapine (Clozaril) 25 mg HS PO Last administered on 06/07/16 21:07; Start at 21:00; Stop 06/08/16 at 18:21; Status DC Clozapine (Clozaril) 50 mg HS PO Last administered on 06/14/16 20:04; Start at 21:00; Stop 06/15/16 at 18:18; Status DC Mirtazapine (Remeron) 7.5 mg QHS PO Last administered on 06/19/16 20:19; Start 06/12/16 at 21:00 Vitamin D (Vitamin D3) 2,000 unit DAILYBFRSUP PO Last administered on 06/19/16 16:27; Start 06/15/16 at 17:00 Clozapine (Clozaril) 75 mg HS PO Last administered on 06/19/16 20:19; Start 06/15/16 at 21:00 Risperidone (Risperdal) 0.5 mg HS PO Last administered on 06/19/16 20:20; Start 06/16/16 at 21:00 Active Scripts Active Reported Miralax (Polyethylene Glycol 3350) 17 Gm Powd.pack 1 Packet PO DAILY Zyprexa Zydis (Olanzapine) 5 Mg Tab.rapdis 2.5 Mg PO PRN Q2HR PRN Nicotine Gum (Nicotine Polacrilex) 2 Mg Gum 2 Mg BC PRN Q1HR PRN Triple Antibiotic Ointment (Neomy Sulf/Bacitra/Polymyxin B) 1 Each Packet 1 Each TP BID Remeron (Mirtazapine) 15 Mg Tab.rapdis 7.5 Mg PO QHS [place] Greaseless Cream (Methyl Salicylate/Menthol) 57 Gm Cream..g. 1 Mikaela TP PRN QID PRN Mag-Al Plus Xs Suspension (Mag Hydrox/Al Hydrox/Simeth) 30 Ml Oral.susp 15 Ml PO PRN AFTMEALHC PRN Docusate Sodium 100 Mg Tablet 100 Mg PO PRN BID PRN Clozaril (Clozapine) 25 Mg Tablet 75 Mg PO HS Vitamin D-3 (Cholecalciferol (Vitamin D3)) 2,000 Unit Tablet 2,000 Unit PO DAILYBFRSUP Buspirone Hcl 5 Mg Tablet 5 Mg PO BID Hydrocortisone Plus 1% Cream (Hydrocortisone/Aloe Vera) 28.4 Gm Cream..g. 1 Mikaela TP BID Apply to Bilateral lower legs topically for rash until healed. Calcium Carbonate 500 Mg Tablet 500 Mg PO PRN BID PRN Trazodone Hcl 50 Mg Tablet 50 Mg PO PRN QHS PRN Risperdal (Risperidone) 0.5 Mg Tablet 0.75 Mg PO HS [place] Carbonate 300 Mg Tablet.er 300 Mg PO BID Ibuprofen 200 Mg Tablet 200 Mg PO PRN Q6HRS PRN Aspirin 325 Mg Tablet 325 Mg PO PRN Q8HRS PRN [place]-3 ([place]-3 Fatty Acids) 1,000 Mg Capsule 1,000 Mg PO BID Vitamin D2 (Ergocalciferol (Vitamin D2)) 50,000 Unit Capsule 50,000 Unit PO Q4WK Ascorbic Acid 500 Mg Tablet 500 Mg PO DAILY Multivitamins (Multivitamin) 1 Each Tablet 1 Tab PO DAILY Milk Of Magnesia (Magnesium Hydroxide) 2,400 Mg/10 Ml Oral.susp 2,400 Mg PO PRN QHS PRN Tylenol (Acetaminophen) 325 Mg Tablet 650 Mg PO PRN Q6HRS PRN Calcium 500 + Vit D 200 Caplet (Calcium Carbonate/Vitamin D3) 1 Each Tablet 1 Each PO BID Diagnosis: Problems: (1) Impulse control disorder (2) Dementia with behavioral disturbance (3) Behavior disorder (4) Depressed (5) Bipolar 1 disorder (6) Anxiety (7) Impulse control disorder GERA MAY MD Jun 19, 2016 21:20
--- NOTE | 2016-06-20 03:02 | PN ---
DATE: 06/17/2016 PSYCHIATRIC PROGRESS NOTE This is a late entry of 06/17/2016 covers elements not covered in my initial note. SUBJECTIVE: The patient was staffed at a treatment team meeting with the entire team and then I met with her individually. She gets frustrated at times. For example, previous evening she was outside the long term care social worker's office, but when the long term care social worker was on the telephone call could not respond to her right away, she was loud, banging, yelling, did redirect later. REVIEW OF SYSTEMS: No CV, , pulmonary, eye, ENT system symptoms on review. Otherwise, psychotic symptoms are better, mood lability is better. MENTAL STATUS EXAM: Reasonably oriented. Speech is coherent, less pressured. Abstraction fair, computation impaired, language function intact. Mood and affect, lability is improved. LABORATORY DATA: Reviewed. IMPRESSION: Unchanged from initial note. PLAN: Continue current psychotropics mentioned in my initial note that she is on Clozaril 75 mg at bedtime. We will reduce the Risperdal from 0.75 mg at bedtime to 0.5 mg at bedtime. Maintain lithium, trazodone, BuSpar, Zyprexa p.r.n., Remeron at current dosage. Adjust as indicated. GERA MAY MD DR: ANNE/caitlyn JOB#: [id number] / [id number]
--- NOTE | 2016-06-20 03:04 | PN ---
DATE: 06/18/2016 PSYCHIATRIC PROGRESS NOTE This is a late entry of 06/18/2016 covers elements not covered in my initial note. SUBJECTIVE: The patient overall is doing better, less labile, less anxious, less bizarre in her statements. She did wake up briefly at 3:00 a.m., then went back to sleep. REVIEW OF SYSTEMS: No CV, , pulmonary, eye, ENT system symptoms on review. MENTAL STATUS EXAM: Reasonably oriented. Speech coherent, abstraction fair, computation somewhat impaired, language function intact. Mood and affect is improved. IMPRESSION: Bipolar 1 disorder, mixed with psychotic features in partial remission. PLAN: Continue Clozaril 75 mg at bedtime, Risperdal has been reduced to 0.5 mg at bedtime. Continue BuSpar, lithium, trazodone, along with Remeron and Zyprexa p.r.n. Adjust further as clinically indicated. We will check labs, CBC, absolute neutrophil count on Wednesday this is unremarkable. We will increase the Clozaril to 100 mg at bedtime therefore her discharge back to the group home. GERA MAY MD DR: ANNE/caitlyn JOB#: [id number] / [id number]
[2016-06-20 05:51] VITALS: BP 127/72
[2016-06-20] MEDS: NICOTINE POLACRILEX GUM 2 MG GUM. BC PRN ×3 (06:09→18:45)
[2016-06-20] MEDS: LITHIUM CARBONATE ER 300 MG TABLET.ER PO SCH ×2 (09:15→19:39)
[2016-06-20] MEDS: OMEGA-3 FATTY ACIDS/FISH OIL 1,000 MG CAPSULE. PO SCH ×2 (09:15→19:39)
[2016-06-20] MEDS: ASCORBIC ACID 500 MG TABLET PO SCH (09:15)
[2016-06-20] MEDS: busPIRone 5 MG TABLET. PO SCH ×2 (09:15→19:39)
[2016-06-20] MEDS: POLYETHYLENE GLYCOL 3350 17 GM PACKET. PO SCH (09:15)
[2016-06-20] MEDS: CALCIUM CARB/VIT D3 500/200 TABLET PO SCH ×2 (09:15→19:39)
[2016-06-20] MEDS: MULTIVITAMIN with MINERAL TABLET. PO SCH (09:15)
[2016-06-20] MEDS: HYDROCORTISONE 1% TOPICAL CREAM 30GM TUBE. TP SCH ×2 (09:16→19:40)
[2016-06-20] MEDS: CHOLECALCIFEROL (VITAMIN D3) 1,000 UNIT TABLET PO SCH (09:16)
[2016-06-20 15:50] VITALS: BP 103/57
[2016-06-20] MEDS: MIRTAZAPINE 7.5 MG TABLET. PO SCH (19:39)
[2016-06-20] MEDS: CLOZAPINE 25 MG TABLET PO SCH (19:39)
[2016-06-20] MEDS: risperiDONE 0.5 MG TABLET. PO SCH (19:39)
--- NOTE | 2016-06-20 22:08 | PDOC ---
Exam [place] Demential Exam: [place] Note: Please also refer to the separate dictated note~for this date of service dictated separately.~Patient seen individually. Discussed the patient with Nursing staff reviewed the chart.~Reviewed interim history and current functioning. Reviewed vital signs,~Labs/ Radiology~and current medications noted below. Continue current treatment with the changes noted in the dictated addendum note Assessment: Vital Signs: Vital Signs Date Time Temp Pulse Resp B/P Pulse Ox O2 Delivery O2 Flow Rate FiO2 06/20/16 15:50 98.0 73 18 103/57 96 06/16/16 06:05 Room Air I&O Intake and Output 06/20/16 07:00 Intake Total 1200 ml Balance 1200 ml Intake Oral 1200 ml # Bowel Movements 1 Current Medications: Meds: Current Medications Acetaminophen (Tylenol) 650 mg PRN Q6HRS PRN PO PAIN / TEMP Last administered on 05/27/16 22:28; Start 05/27/16 at 22:15; Stop 05/27/16 at 23:11; Status DC Ciprofloxacin (Cipro) 500 mg BID PO Last administered on 05/28/16 10:28; Start 05/27/16 at 22:30; Stop 05/28/16 at 13:06; Status DC Acetaminophen (Tylenol) 650 mg PRN Q6HRS PRN PO PAIN / TEMP; Start 05/27/16 at 23:00; Status Cancel Multi-Ingredient Ointment (Analgesic [place]) 1 mikaela PRN QID PRN TP MUSCLE PAIN; Start 05/27/16 at 23:00 Al Hydroxide/Mg Hydroxide (Mylanta Plus Xs) 15 ml PRN AFTMEALHC PRN PO DYSPEPSIA; Start 05/27/16 at 23:00 Magnesium Hydroxide (Milk Of Magnesia) 2,400 mg PRN QHS PRN PO CONSTIPATION Last administered on 06/08/16 10:18; Start 05/27/16 at 23:00 Acetaminophen (Tylenol) 650 mg PRN Q6HRS PRN PO MILD PAIN; Start 05/27/16 at 23 :15 Ascorbic Acid (Vitamin C) 500 mg DAILY PO Last administered on 06/20/16 09:15; Start 05/28/16 at 09:00 Aspirin (Benji Aspirin) 325 mg PRN Q8HRS PRN PO MODERATE PAIN; Start 05/27/16 at 23:15 Calcium Carbonate/ Glycine (Tums) 500 mg PRN BID PRN PO DYSPEPSIA; Start at 23:15 Calcium/Vitamin D (Oscal D 500mg/ 200uts) 1 tab BID PO Last administered on 06/20 19:39; Start 05/28/16 at 09:00 Ergocalciferol (Vitamin D2) 50,000 unit Q4WK PO ; Start 06/24/16 at 09:00 Ibuprofen (Motrin) 200 mg PRN Q6HRS PRN PO ear pain; Start 05/27/16 at 23:15; Stop 05/29/16 at 17:42; Status DC Hydrocortisone (Cortaid) 1 mikaela BID TP Last administered on 06/20/16 09:16; Start 05/28/16 at 09:00 Non-Formulary Medication 2,400 mg PRN QHS PRN PO CONSTIPATION; Start 05/27/16 at 23:15; Status UNV Multivitamins/ Calcium (Thera-M Plus) 1 tab DAILY PO Last administered on 09:15; Start 05/28/16 at 09:00 Fish Oil (Fish Oil) 1,000 mg BID PO Last administered on 06/20/16 19:39; Start 05/28/16 at 09:00 [place] Carbonate (Lithobid) 300 mg BID PO Last administered on 06/20/16 19:39 ; Start 05/28/16 at 09:00 Risperidone (Risperdal) 0.75 mg HS PO Last administered on 06/15/16 21:01; Start 05/28/16 at 21:00; Stop 06/16/16 at 18:41; Status DC Trazodone HCl (Desyrel) 50 mg PRN QHS PRN PO INSOMNIA; Start 05/27/16 at 23:15 ; Stop 06/01/16 at 18:07; Status DC Nicotine Polacrilex (Nicorette Gum) 2 mg PRN Q1HR PRN BC SMOKING CESSATION Last administered on 06/20/16 18:45; Start 05/28/16 at 01:00 Olanzapine (Zyprexa Zydis) 2.5 mg PRN Q2HR PRN PO PSYCHOSIS Last administered on 06/14/16 05:53; Start 05/28/16 at 11:45 Ciprofloxacin (Cipro) 250 mg BID PO Last administered on 05/29/16 09:43; Start 05/28/16 at 21:00; Stop 05/29/16 at 17:44; Status DC Neomycin/ Polymyxin/ Bacitracin (Triple Antibiotic Ointment) 1 pkt BID TP Last administered on 06/15/16 21:13; Start 05/28/16 at 21:00; Stop 06/19/16 at 12:36; Status DC Docusate Sodium (Colace) 100 mg PRN BID PRN PO CONSTIPATION; Start 05/29/16 at 17:45 Polyethylene Glycol (miraLAX) 17 gm DAILY PO Last administered on 06/20/16 09: 15; Start 05/30/16 at 09:00 Buspirone HCl (Buspar) 5 mg BID PO Last administered on 06/20/16 19:39; Start 05/29/16 at 21:00 Trazodone HCl (Desyrel) 100 mg PRN QHS PRN PO INSOMNIA, MAY REPEAT X1; Start at 18:15 Clozapine (Clozaril) 25 mg HS PO Last administered on 06/07/16 21:07; Start at 21:00; Stop 06/08/16 at 18:21; Status DC Clozapine (Clozaril) 50 mg HS PO Last administered on 06/14/16 20:04; Start at 21:00; Stop 06/15/16 at 18:18; Status DC Mirtazapine (Remeron) 7.5 mg QHS PO Last administered on 06/20/16 19:39; Start 06/12/16 at 21:00 Vitamin D (Vitamin D3) 2,000 unit DAILYBFRSUP PO Last administered on 06/20/16 09:16; Start 06/15/16 at 17:00 Clozapine (Clozaril) 75 mg HS PO Last administered on 06/20/16 19:39; Start 06/15/16 at 21:00 Risperidone (Risperdal) 0.5 mg HS PO Last administered on 06/20/16 19:39; Start 06/16/16 at 21:00 Active Scripts Active Reported Miralax (Polyethylene Glycol 3350) 17 Gm Powd.pack 1 Packet PO DAILY Zyprexa Zydis (Olanzapine) 5 Mg Tab.rapdis 2.5 Mg PO PRN Q2HR PRN Nicotine Gum (Nicotine Polacrilex) 2 Mg Gum 2 Mg BC PRN Q1HR PRN Triple Antibiotic Ointment (Neomy Sulf/Bacitra/Polymyxin B) 1 Each Packet 1 Each TP BID Remeron (Mirtazapine) 15 Mg Tab.rapdis 7.5 Mg PO QHS [place] Greaseless Cream (Methyl Salicylate/Menthol) 57 Gm Cream..g. 1 Mikaela TP PRN QID PRN Mag-Al Plus Xs Suspension (Mag Hydrox/Al Hydrox/Simeth) 30 Ml Oral.susp 15 Ml PO PRN AFTMEALHC PRN Docusate Sodium 100 Mg Tablet 100 Mg PO PRN BID PRN Clozaril (Clozapine) 25 Mg Tablet 75 Mg PO HS Vitamin D-3 (Cholecalciferol (Vitamin D3)) 2,000 Unit Tablet 2,000 Unit PO DAILYBFRSUP Buspirone Hcl 5 Mg Tablet 5 Mg PO BID Hydrocortisone Plus 1% Cream (Hydrocortisone/Aloe Vera) 28.4 Gm Cream..g. 1 Mikaela TP BID Apply to Bilateral lower legs topically for rash until healed. Calcium Carbonate 500 Mg Tablet 500 Mg PO PRN BID PRN Trazodone Hcl 50 Mg Tablet 50 Mg PO PRN QHS PRN Risperdal (Risperidone) 0.5 Mg Tablet 0.75 Mg PO HS [place] Carbonate 300 Mg Tablet.er 300 Mg PO BID Ibuprofen 200 Mg Tablet 200 Mg PO PRN Q6HRS PRN Aspirin 325 Mg Tablet 325 Mg PO PRN Q8HRS PRN [place]-3 ([place]-3 Fatty Acids) 1,000 Mg Capsule 1,000 Mg PO BID Vitamin D2 (Ergocalciferol (Vitamin D2)) 50,000 Unit Capsule 50,000 Unit PO Q4WK Ascorbic Acid 500 Mg Tablet 500 Mg PO DAILY Multivitamins (Multivitamin) 1 Each Tablet 1 Tab PO DAILY Milk Of Magnesia (Magnesium Hydroxide) 2,400 Mg/10 Ml Oral.susp 2,400 Mg PO PRN QHS PRN Tylenol (Acetaminophen) 325 Mg Tablet 650 Mg PO PRN Q6HRS PRN Calcium 500 + Vit D 200 Caplet (Calcium Carbonate/Vitamin D3) 1 Each Tablet 1 Each PO BID Diagnosis: Problems: (1) Impulse control disorder (2) Dementia with behavioral disturbance (3) Behavior disorder (4) Depressed (5) Bipolar 1 disorder (6) Anxiety (7) Impulse control disorder GERA MAY MD Jun 20, 2016 22:08
[2016-06-21 06:06] VITALS: BP 110/68
[2016-06-21] MEDS: NICOTINE POLACRILEX GUM 2 MG GUM. BC PRN ×3 (06:59→19:38)
[2016-06-21] MEDS: OMEGA-3 FATTY ACIDS/FISH OIL 1,000 MG CAPSULE. PO SCH ×2 (08:38→19:38)
[2016-06-21] MEDS: ASCORBIC ACID 500 MG TABLET PO SCH (08:39)
[2016-06-21] MEDS: HYDROCORTISONE 1% TOPICAL CREAM 30GM TUBE. TP SCH ×2 (08:39→19:38)
[2016-06-21] MEDS: LITHIUM CARBONATE ER 300 MG TABLET.ER PO SCH ×2 (08:39→19:38)
[2016-06-21] MEDS: CALCIUM CARB/VIT D3 500/200 TABLET PO SCH ×2 (08:39→19:38)
[2016-06-21] MEDS: POLYETHYLENE GLYCOL 3350 17 GM PACKET. PO SCH (08:39)
[2016-06-21] MEDS: MULTIVITAMIN with MINERAL TABLET. PO SCH (08:39)
[2016-06-21] MEDS: busPIRone 5 MG TABLET. PO SCH ×2 (08:39→19:38)
[2016-06-21] MEDS: CHOLECALCIFEROL (VITAMIN D3) 1,000 UNIT TABLET PO SCH (08:40)
[2016-06-21 16:01] VITALS: BP 118/73
[2016-06-21] MEDS: MIRTAZAPINE 7.5 MG TABLET. PO SCH (19:38)
[2016-06-21] MEDS: CLOZAPINE 25 MG TABLET PO SCH (19:38)
[2016-06-21] MEDS: risperiDONE 0.5 MG TABLET. PO SCH (19:38)
--- NOTE | 2016-06-21 21:08 | PDOC ---
Exam [place] Demential Exam: [place] Note: Please also refer to the separate dictated note~for this date of service dictated separately.~Patient seen individually. Discussed the patient with Nursing staff reviewed the chart.~Reviewed interim history and current functioning. Reviewed vital signs,~Labs/ Radiology~and current medications noted below. Continue current treatment with the changes noted in the dictated addendum note Assessment: Vital Signs: Vital Signs Date Time Temp Pulse Resp B/P Pulse Ox O2 Delivery O2 Flow Rate FiO2 06/21/16 16:01 98.3 82 20 118/73 98 Room Air I&O Intake and Output 06/21/16 07:00 Intake Total 1080 ml Balance 1080 ml Intake Oral 1080 ml # Voids 4 Current Medications: Meds: Current Medications Acetaminophen (Tylenol) 650 mg PRN Q6HRS PRN PO PAIN / TEMP Last administered on 05/27/16 22:28; Start 05/27/16 at 22:15; Stop 05/27/16 at 23:11; Status DC Ciprofloxacin (Cipro) 500 mg BID PO Last administered on 05/28/16 10:28; Start 05/27/16 at 22:30; Stop 05/28/16 at 13:06; Status DC Acetaminophen (Tylenol) 650 mg PRN Q6HRS PRN PO PAIN / TEMP; Start 05/27/16 at 23:00; Status Cancel Multi-Ingredient Ointment (Analgesic [place]) 1 mikaela PRN QID PRN TP MUSCLE PAIN; Start 05/27/16 at 23:00 Al Hydroxide/Mg Hydroxide (Mylanta Plus Xs) 15 ml PRN AFTMEALHC PRN PO DYSPEPSIA; Start 05/27/16 at 23:00 Magnesium Hydroxide (Milk Of Magnesia) 2,400 mg PRN QHS PRN PO CONSTIPATION Last administered on 06/08/16 10:18; Start 05/27/16 at 23:00 Acetaminophen (Tylenol) 650 mg PRN Q6HRS PRN PO MILD PAIN; Start 05/27/16 at 23 :15 Ascorbic Acid (Vitamin C) 500 mg DAILY PO Last administered on 06/21/16 08:39; Start 05/28/16 at 09:00 Aspirin (Benji Aspirin) 325 mg PRN Q8HRS PRN PO MODERATE PAIN; Start 05/27/16 at 23:15 Calcium Carbonate/ Glycine (Tums) 500 mg PRN BID PRN PO DYSPEPSIA; Start at 23:15 Calcium/Vitamin D (Oscal D 500mg/ 200uts) 1 tab BID PO Last administered on 06/21 19:38; Start 05/28/16 at 09:00 Ergocalciferol (Vitamin D2) 50,000 unit Q4WK PO ; Start 06/24/16 at 09:00 Ibuprofen (Motrin) 200 mg PRN Q6HRS PRN PO ear pain; Start 05/27/16 at 23:15; Stop 05/29/16 at 17:42; Status DC Hydrocortisone (Cortaid) 1 mikaela BID TP Last administered on 06/21/16 19:38; Start 05/28/16 at 09:00 Non-Formulary Medication 2,400 mg PRN QHS PRN PO CONSTIPATION; Start 05/27/16 at 23:15; Status UNV Multivitamins/ Calcium (Thera-M Plus) 1 tab DAILY PO Last administered on 08:39; Start 05/28/16 at 09:00 Fish Oil (Fish Oil) 1,000 mg BID PO Last administered on 06/21/16 19:38; Start 05/28/16 at 09:00 [place] Carbonate (Lithobid) 300 mg BID PO Last administered on 06/21/16 19:38 ; Start 05/28/16 at 09:00 Risperidone (Risperdal) 0.75 mg HS PO Last administered on 06/15/16 21:01; Start 05/28/16 at 21:00; Stop 06/16/16 at 18:41; Status DC Trazodone HCl (Desyrel) 50 mg PRN QHS PRN PO INSOMNIA; Start 05/27/16 at 23:15 ; Stop 06/01/16 at 18:07; Status DC Nicotine Polacrilex (Nicorette Gum) 2 mg PRN Q1HR PRN BC SMOKING CESSATION Last administered on 06/21/16 19:38; Start 05/28/16 at 01:00 Olanzapine (Zyprexa Zydis) 2.5 mg PRN Q2HR PRN PO PSYCHOSIS Last administered on 06/14/16 05:53; Start 05/28/16 at 11:45 Ciprofloxacin (Cipro) 250 mg BID PO Last administered on 05/29/16 09:43; Start 05/28/16 at 21:00; Stop 05/29/16 at 17:44; Status DC Neomycin/ Polymyxin/ Bacitracin (Triple Antibiotic Ointment) 1 pkt BID TP Last administered on 06/15/16 21:13; Start 05/28/16 at 21:00; Stop 06/19/16 at 12:36; Status DC Docusate Sodium (Colace) 100 mg PRN BID PRN PO CONSTIPATION; Start 05/29/16 at 17:45 Polyethylene Glycol (miraLAX) 17 gm DAILY PO Last administered on 06/21/16 08: 39; Start 05/30/16 at 09:00 Buspirone HCl (Buspar) 5 mg BID PO Last administered on 06/21/16 19:38; Start 05/29/16 at 21:00 Trazodone HCl (Desyrel) 100 mg PRN QHS PRN PO INSOMNIA, MAY REPEAT X1; Start at 18:15 Clozapine (Clozaril) 25 mg HS PO Last administered on 06/07/16 21:07; Start at 21:00; Stop 06/08/16 at 18:21; Status DC Clozapine (Clozaril) 50 mg HS PO Last administered on 06/14/16 20:04; Start at 21:00; Stop 06/15/16 at 18:18; Status DC Mirtazapine (Remeron) 7.5 mg QHS PO Last administered on 06/21/16 19:38; Start 06/12/16 at 21:00 Vitamin D (Vitamin D3) 2,000 unit DAILYBFRSUP PO Last administered on 06/21/16 08:40; Start 06/15/16 at 17:00 Clozapine (Clozaril) 75 mg HS PO Last administered on 06/21/16 19:38; Start 06/15/16 at 21:00 Risperidone (Risperdal) 0.5 mg HS PO Last administered on 06/21/16 19:38; Start 06/16/16 at 21:00 Active Scripts Active Reported Miralax (Polyethylene Glycol 3350) 17 Gm Powd.pack 1 Packet PO DAILY Zyprexa Zydis (Olanzapine) 5 Mg Tab.rapdis 2.5 Mg PO PRN Q2HR PRN Nicotine Gum (Nicotine Polacrilex) 2 Mg Gum 2 Mg BC PRN Q1HR PRN Triple Antibiotic Ointment (Neomy Sulf/Bacitra/Polymyxin B) 1 Each Packet 1 Each TP BID Remeron (Mirtazapine) 15 Mg Tab.rapdis 7.5 Mg PO QHS [place] Greaseless Cream (Methyl Salicylate/Menthol) 57 Gm Cream..g. 1 Mikaela TP PRN QID PRN Mag-Al Plus Xs Suspension (Mag Hydrox/Al Hydrox/Simeth) 30 Ml Oral.susp 15 Ml PO PRN AFTMEALHC PRN Docusate Sodium 100 Mg Tablet 100 Mg PO PRN BID PRN Clozaril (Clozapine) 25 Mg Tablet 75 Mg PO HS Vitamin D-3 (Cholecalciferol (Vitamin D3)) 2,000 Unit Tablet 2,000 Unit PO DAILYBFRSUP Buspirone Hcl 5 Mg Tablet 5 Mg PO BID Hydrocortisone Plus 1% Cream (Hydrocortisone/Aloe Vera) 28.4 Gm Cream..g. 1 Mikaela TP BID Apply to Bilateral lower legs topically for rash until healed. Calcium Carbonate 500 Mg Tablet 500 Mg PO PRN BID PRN Trazodone Hcl 50 Mg Tablet 50 Mg PO PRN QHS PRN Risperdal (Risperidone) 0.5 Mg Tablet 0.75 Mg PO HS [place] Carbonate 300 Mg Tablet.er 300 Mg PO BID Ibuprofen 200 Mg Tablet 200 Mg PO PRN Q6HRS PRN Aspirin 325 Mg Tablet 325 Mg PO PRN Q8HRS PRN [place]-3 ([place]-3 Fatty Acids) 1,000 Mg Capsule 1,000 Mg PO BID Vitamin D2 (Ergocalciferol (Vitamin D2)) 50,000 Unit Capsule 50,000 Unit PO Q4WK Ascorbic Acid 500 Mg Tablet 500 Mg PO DAILY Multivitamins (Multivitamin) 1 Each Tablet 1 Tab PO DAILY Milk Of Magnesia (Magnesium Hydroxide) 2,400 Mg/10 Ml Oral.susp 2,400 Mg PO PRN QHS PRN Tylenol (Acetaminophen) 325 Mg Tablet 650 Mg PO PRN Q6HRS PRN Calcium 500 + Vit D 200 [place] (Calcium Carbonate/Vitamin D3) 1 Each Tablet 1 Each PO BID Diagnosis: Problems: (1) Impulse control disorder (2) Dementia with behavioral disturbance (3) Behavior disorder (4) Depressed (5) Bipolar 1 disorder (6) Anxiety (7) Impulse control disorder GERA MAY MD Jun 21, 2016 21:08
[2016-06-22 06:03] VITALS: BP 134/57
[2016-06-22] MEDS: NICOTINE POLACRILEX GUM 2 MG GUM. BC PRN ×3 (06:08→11:26)
[2016-06-22 06:14] LABS: BASO % 0 % (0-3); EOS # 0.5 x10^3/uL (0.0-0.7); EOS % 8 % (0-3); HEMATOCRIT 37.4 % (36.0-47.0); HEMOGLOBIN 12.1 g/dL (12.0-15.5); LYMPH % 15 % (24-48); MEAN CORPUSCULAR HEMOGLOBIN 30 pg (25-35); MEAN CORPUSCULAR HGB CONC 33 g/dL (31-37); MEAN CORPUSCULAR VOLUME 91 fL (79-100); MONO # 0.4 x10^3/uL (0.0-1.1); MONO % 6 % (0-9); NEUT # 4.8 x10^3uL (1.8-7.7); NEUT % 71 % (31-73); PLATELET COUNT 198 x10^3/uL (140-400); RED BLOOD COUNT 4.11 x10^6/uL (3.50-5.40); RED CELL DISTRIBUTION WIDTH 14.2 % (11.5-14.5); WHITE BLOOD COUNT 6.8 x10^3/uL (4.0-11.0)
[2016-06-22 06:28] LABS: ALBUMIN 3.2 g/dL (3.4-5.0); ALBUMIN/GLOBULIN RATIO 0.9 (1.0-1.7); CALCIUM 9.8 mg/dL (8.5-10.1); GFR 54.2; POTASSIUM 4.3 mmol/L (3.5-5.1); TOTAL BILIRUBIN 0.4 mg/dL (0.2-1.0); TOTAL PROTEIN 6.9 g/dL (6.4-8.2)
[2016-06-22] MEDS: ASCORBIC ACID 500 MG TABLET PO SCH (07:46)
[2016-06-22] MEDS: LITHIUM CARBONATE ER 300 MG TABLET.ER PO SCH (07:46)
[2016-06-22] MEDS: CALCIUM CARB/VIT D3 500/200 TABLET PO SCH (07:46)
[2016-06-22] MEDS: OMEGA-3 FATTY ACIDS/FISH OIL 1,000 MG CAPSULE. PO SCH (07:46)
[2016-06-22] MEDS: MULTIVITAMIN with MINERAL TABLET. PO SCH (07:46)
[2016-06-22] MEDS: busPIRone 5 MG TABLET. PO SCH (07:46)
[2016-06-22] MEDS: POLYETHYLENE GLYCOL 3350 17 GM PACKET. PO SCH (07:47)
[2016-06-22] MEDS: HYDROCORTISONE 1% TOPICAL CREAM 30GM TUBE. TP SCH (07:48)
--- NOTE | 2016-06-23 01:02 | PN ---
DATE: 06/21/2016 PSYCHIATRIC PROGRESS NOTE This is a late entry for 06/21/2016 covers elements not covered in my initial note. SUBJECTIVE: Per nursing report, the patient has been fairly cooperative on the unit. No bizarre symptoms, behaviors, or aggression noted. REVIEW OF SYSTEMS: No CV, , pulmonary, eye, ENT system symptoms on review. MENTAL STATUS EXAM: Oriented reasonably speech coherent, abstraction fair, computation impaired, mood and affect is improved. IMPRESSION: Unchanged from initial note. PLAN: Continue current psychotropics discharge back to group home 06/22/2016. MAN Martin MAY MD DR: ANNE/caitlyn JOB#: [id number] / [id number]
--- NOTE | 2016-06-23 10:10 | PN ---
DATE: 06/20/2016 PSYCHIATRIC PROGRESS NOTE This is late entry of 06/20/2016, covers elements not covered in my initial note. SUBJECTIVE: Overall, the patient has been more appropriate on the unit, less labile in her mood, less psychotic. No CV, , pulmonary, eye, ENT system symptoms on review. She was again wearing a blue glove on her right hand but on close questioning, she is not digging herself. REVIEW OF SYSTEMS: No CV, , pulmonary, eye, ENT system symptoms on review. MENTAL STATUS EXAMINATION: Reasonably oriented. Speech coherent, abstraction fair, computation impaired. Mood and affect is improved. IMPRESSION: Unchanged from initial note. PLAN: Continue current psychotropics. Check CBC, absolute neutrophil count 06/22/2016, if okay, we will increase Clozaril prior to her discharge [facility] 06/22/2016. MAN Martin MAY MD DR: ANNE/caitlyn JOB#: [id number] / [id number]
--- NOTE | 2016-06-23 10:13 | PN ---
DATE: 06/19/2016 PSYCHIATRIC PROGRESS NOTE This is late entry of 06/19/2016, covers elements not covered in my initial note. SUBJECTIVE: Overall, per nursing report, the patient has been calm, cooperative, doing much better with the increase of Clozaril, less psychotic. REVIEW OF SYSTEMS: No CV, , eye, ENT or pulmonary system symptoms on review. Reliability poor. MENTAL STATUS EXAMINATION: Reasonably oriented. Speech coherent, abstraction fair, computation impaired, language function intact, attention span short. Mood and affect is improved, less labile. LABORATORY DATA: Reviewed. IMPRESSION: Unchanged from initial note. PLAN: Continue psychotropics mentioned in my initial note. Adjust as clinically indicated. MAN Martin MAY MD DR: ANNE/caitlyn JOB#: [id number] / [id number]
--- NOTE | 2016-06-23 22:03 | DS ---
DATE OF DISCHARGE: 06/22/2016 DISCHARGE SUMMARY/PSYCHIATRIC PROGRESS NOTE This is a late entry for 06/22/2016, covers elements not covered in my initial note. REASON FOR ADMISSION: Please refer to the admission history for details. Briefly, the patient is a 75-year-old female referred back to us from [facility] on account of worsening psychotic symptoms, being extremely manic, hallucinating, sexually inappropriate, constantly talking in a high-pitched tone, having failed treatment at the retirement for her bipolar disorder mixed with psychotic features. SIGNIFICANT FINDING AND CLINICAL COURSE: Following admission, the patient seen daily individually by myself, followed medically per Dr. Washington/Dr. Botello. She was extremely manic, psychotic, agitated, restless, bizarre in her behavior, digging her fecal matter, putting it in the glove and placing it in different places around the unit. Adjustments were made in her psychotropics, gradually in a very controlled manner and she seemed to respond to a combination of Clozaril 75 mg at bedtime. Risperdal was being tapered from 0.75 mg daily and had been reduced to 0.5 mg at bedtime and it is recommended that back at the retirement this can be reduced by 0.25 mg a day every month till it is discontinued and Clozaril may have to be increased up to about 150 or 200 mg a day depending on how she does at lower dosages. Certainly, the CBC and absolute neutrophil counts would have to be monitored weekly. Discharged with also on BuSpar 5 mg b.i.d., lithium carbonate 300 mg b.i.d. with a level of 0.8, trazodone 100 mg at bedtime, p.r.n., Remeron 7.5 mg at bedtime, Zyprexa p.r.n. Prior to discharge on 06/22/2016, temperature 98.4, pulse 68, respirations 18. REVIEW OF SYSTEMS: No CV, , pulmonary, eye, ENT system symptoms on review. MENTAL STATUS EXAM: Oriented to herself and situation. Speech coherent, less pressured. Abstraction fair, computation impaired, language function intact, attention span short. Mood and affect, lability was much improved. She is much more stable. No suicidal or homicidal ideation prior to discharge. FINAL DIAGNOSES: Bipolar 1 disorder, mixed with psychotic features in partial remission; anxiety disorder, unspecified; impulse control disorder, unspecified. Rest diagnoses as above. DISCHARGE MEDICATIONS: Please refer to the MRAD and taper of the Risperdal and adjustment of Clozaril. DISCHARGE INSTRUCTIONS: Lab work to be done as noted above. Outpatient medical and psychiatric followup at the retirement. Time for discharge day management greater than 30 minutes. GERA MAY MD DR: ANNE/caitlyn JOB#: [id number] / [id number]
[2016-06-24] MEDS ORDERED: ERGOCALCIFEROL (VITAMIN D2) 50,000 UNIT CAPSULE PO SCH (09:00)
== END 2016-06-22 13:00 | DRG 885 ==
LOC: ER 19:18 → GEROPSY 22:42
PROVIDERS: ADMIT Psychiatry & Neurology Psychiatry; ATTEND Psychiatry & Neurology Psychiatry
DX: F31.64 Bipolar disorder, current episode mixed, severe, with psychotic features (principal); N39.0 Urinary tract infection, site not specified; F03.91 Unspecified dementia, unspecified severity, with behavioral disturbance; E78.5 Hyperlipidemia, unspecified; F17.210 Nicotine dependence, cigarettes, uncomplicated; F41.9 Anxiety disorder, unspecified; F63.9 Impulse disorder, unspecified; G20 Parkinson's disease; I50.9 Heart failure, unspecified; M19.90 Unspecified osteoarthritis, unspecified site; Z66 Do not resuscitate; F31.77 Bipolar disorder, in partial remission, most recent episode mixed; F10.20 Alcohol dependence, uncomplicated; M21.619 Bunion of unspecified foot; G47.00 Insomnia, unspecified; G89.29 Other chronic pain; Z91.19 Patient's noncompliance with other medical treatment and regimen; Z87.440 Personal history of urinary (tract) infections; S09.90XA Unspecified injury of head, initial encounter
CPT/HCPCS: 36415; 80053; 80061; 80178; 81001; 82306; 82550; 82607; 83036; 83540; 83550; 83735; 84436; 84443; 84480; 84484; 85027; 86592; 86593; 87086; 93005; G0437; G0481; 99285-25

== ENCOUNTER 2016-12-28 11:57 | Inpatient (IN) | payer MEDICARE, OTHER ==
[~2016-12-28] VITALS: Ht 162.6 cm; Wt 48.6 kg
[~2016-12-28 11:57] MED LIST changes: -ARIP15TA2 PO; +ARIP15TA36 PO; -ASPI325T4 PO; +ASPI325T8 PO; +ATOR20TA58 PO; +BUSP10TA PO; +BUSP5TAB PO; +CALC300T5 PO; +CHOL10003 PO; +CHOL20002 PO; +CLOZ100T7 PO; +CLOZ25TA PO; +DOCU-109 PO; +DOCU100T5 PO; -ERGO500012 PO; +ERGO500027 PO; +HYDR28.423 TP; +IBUP-1227 PO; -IBUP200T5 PO; -LITH300T PO; +LITH300T30 PO; -LITH450T PO; +LITH450T16 PO; -MELA3TAB PO; +MELA3TAB2 PO; +MENT118G TP; +METH29OI TP; +MIRT15TA2 PO; +NEOM1PAC TP; +NICO2GUM42 BC; +OLAN5TAB5 PO; +POLY17PO5 PO; -RISP0.5T18 PO; +RISP0.5T24 PO; +TRAZ-90 PO; -TRAZ100T12 PO
--- NOTE | 2016-12-28 12:22 | EKG ---
[address] [address] Test Date: 2016-12-28 Test Time: 12:16:30 Pat Name: THELMA ROSA Department: Room: Gender: F Transit Clerk: : 1940 Requested By: BAHMAN WALDROP Order Number: [id number] Reading MD: Pritesh Reynolds Measurements Intervals [place] Rate: 67 P: 47 [place]: 142 QRS: -1 QRSD: 82 T: 58 QT: 398 QTc: 423 Interpretive Statements SINUS RHYTHM Electronically Signed On 01-11-2017 9:15:03 CDT by Pritesh Reynolds
[2016-12-28 12:35] LABS: BASO % 1 % (0-3); EOS # 0.2 x10^3/uL (0.0-0.7); EOS % 2 % (0-3); HEMATOCRIT 40.7 % (36.0-47.0); HEMOGLOBIN 13.5 g/dL (12.0-15.5); LYMPH # 1.3 x10^3/uL (1.0-4.8); LYMPH % 16 % (24-48); MEAN CORPUSCULAR HEMOGLOBIN 30 pg (25-35); MEAN CORPUSCULAR HGB CONC 33 g/dL (31-37); MEAN CORPUSCULAR VOLUME 91 fL (79-100); MONO # 0.4 x10^3/uL (0.0-1.1); MONO % 5 % (0-9); NEUT # 6.1 x10^3uL (1.8-7.7); NEUT % 76 % (31-73); PLATELET COUNT 207 x10^3/uL (140-400); RED BLOOD COUNT 4.49 x10^6/uL (3.50-5.40); RED CELL DISTRIBUTION WIDTH 14.6 % (11.5-14.5)
[2016-12-28 12:50] LABS: ALBUMIN 3.7 g/dL (3.4-5.0); CALCIUM 9.7 mg/dL (8.5-10.1); CREATININE 0.9 mg/dL (0.6-1.0); DIRECT BILIRUBIN 0.2 mg/dL (0.0-0.2); GFR 61.2; POTASSIUM 4.6 mmol/L (3.5-5.1); TOTAL BILIRUBIN 0.6 mg/dL (0.2-1.0); TOTAL PROTEIN 7.2 g/dL (6.4-8.2)
[2016-12-28 13:00] LABS: BACTERIA,URINE MOD /HPF (0-FEW); BILIRUBIN,URINE NEG (NEG); CLARITY,URINE HAZY; COLOR,URINE YELLOW; GLUCOSE,URINE NEG (NEG); NITRITE,URINE NEG (NEG); SQUAMOUS EPITHELIAL CELL,UR OCC /LPF; UROBILINOGEN,URINE 0.2 mg/dL (0.2 mg/dL)
--- NOTE | 2016-12-28 13:42 | PHYS DOC ---
Past History Past Medical History: Anxiety, Bipolar, Constipation, Depression, High Cholesterol Past Surgical History: Other Smoking: Less than 1pk/day Alcohol Use: Heavy Drug Use: None Adult General Chief Complaint Chief Complaint: PSYCH EVALUATION HPI HPI Patient is a Ana Paula year old 75 who presents for medical evaluation prior to psychiatric admission. Ana Paula's history is limited by her current psychiatric condition. She states that she has no pain. She denies shortness of breath. She has no rash. She denies dysuria, frequency or urgency. She has no other associated signs or symptoms. Review of Systems Review of Systems Constitutional: Denies fever or chills [] Eyes: Denies change in visual acuity, redness, or eye pain [] HENT: Denies nasal congestion or sore throat [] Respiratory: Denies cough or shortness of breath [] Cardiovascular: No additional information not addressed in HPI [] GI: Denies abdominal pain, nausea, vomiting, bloody stools or diarrhea [] : Denies dysuria or hematuria [] Musculoskeletal: Denies back pain or joint pain [] Integument: Denies rash or skin lesions [] Neurologic: Denies headache, focal weakness or sensory changes [] Endocrine: Denies polyuria or polydipsia [] Family History Family History Noncontributory Current Medications Current Medications Medications reviewed Allergies Allergies Allergies Coded Allergies Type Severity Reaction Last Updated Verified No Known Drug Allergies 10/13/13 No Physical Exam Physical Exam Constitutional: Well developed, well nourished, no acute distress, non-toxic appearance. [] HENT: Normocephalic, atraumatic, bilateral external ears normal, oropharynx moist, no oral exudates, nose normal. [] Eyes: PERRLA, conjunctiva normal, no discharge. [] Neck: Normal range of motion, no tenderness, supple, no stridor. [] Cardiovascular:Heart rate regular rhythm, no murmur [] Lungs & Thorax: Bilateral breath sounds clear to auscultation [] Abdomen: Bowel sounds normal, soft, no tenderness, no masses, no pulsatile masses. [] Skin: Warm, dry, no erythema, no rash. [] Back: No tenderness, no CVA tenderness. [] Extremities: No tenderness, no cyanosis, no clubbing, ROM intact, no edema. [] Neurologic: Alert and oriented X 3, normal motor function, normal sensory function, no focal deficits noted. [] Current Patient Data Vital Signs Vital Signs Date Time Temp Pulse Resp B/P (MAP) Pulse Ox O2 Delivery O2 Flow Rate FiO2 12/28/16 13:19 87 20 140/50 (80) 12/28/16 11:57 98.2 99 Lab Results Laboratory Tests Test 12/28/16 12:22 12/28/16 12:25 White Blood Count 8.0 x10^3/uL (4.0-11.0) Red Blood Count 4.49 x10^6/uL (3.50-5.40) Hemoglobin 13.5 g/dL (12.0-15.5) Hematocrit 40.7 % (36.0-47.0) Mean Corpuscular Volume 91 fL (79-100) Mean Corpuscular Hemoglobin 30 pg (25-35) Mean Corpuscular Hemoglobin Concent 33 g/dL (31-37) Red Cell Distribution Width 14.6 % (11.5-14.5) H Platelet Count 207 x10^3/uL (140-400) Neutrophils (%) (Auto) 76 % (31-73) H Lymphocytes (%) (Auto) 16 % (24-48) L Monocytes (%) (Auto) 5 % (0-9) Eosinophils (%) (Auto) 2 % (0-3) Basophils (%) (Auto) 1 % (0-3) Neutrophils # (Auto) 6.1 x10^3uL (1.8-7.7) Lymphocytes # (Auto) 1.3 x10^3/uL (1.0-4.8) Monocytes # (Auto) 0.4 x10^3/uL (0.0-1.1) Eosinophils # (Auto) 0.2 x10^3/uL (0.0-0.7) Basophils # (Auto) 0.0 x10^3/uL (0.0-0.2) Sodium Level 141 mmol/L (136-145) Potassium Level 4.6 mmol/L (3.5-5.1) Chloride Level 106 mmol/L (98-107) Carbon Dioxide Level 27 mmol/L (21-32) Anion Gap 8 (6-14) Blood Urea Nitrogen 15 mg/dL (7-20) Creatinine 0.9 mg/dL (0.6-1.0) Estimated GFR (Cockcroft-Gault) 61.2 Glucose Level 108 mg/dL (70-99) H Calcium Level 9.7 mg/dL (8.5-10.1) Magnesium Level 2.0 mg/dL (1.8-2.4) Total Bilirubin 0.6 mg/dL (0.2-1.0) Direct Bilirubin 0.2 mg/dL (0.0-0.2) Aspartate Amino Transferase (AST) 20 U/L (15-37) Alanine Aminotransferase (ALT) 20 U/L (14-59) Alkaline Phosphatase 55 U/L (46-116) Total Protein 7.2 g/dL (6.4-8.2) Albumin 3.7 g/dL (3.4-5.0) Urine Collection Type Unknown Urine Color Yellow Urine Clarity Hazy Urine pH 7.0 Urine Specific [place] 1.010 Urine Protein Neg (NEG-TRACE) Urine Glucose (UA) Neg mg/dL (NEG) Urine Ketones (Stick) Trace mg/dL (NEG) Urine Blood Trace (NEG) Urine Nitrite Neg (NEG) Urine Bilirubin Neg (NEG) Urine Urobilinogen Dipstick 0.2 mg/dL (0.2 mg/dL) Urine Leukocyte Esterase Small (NEG) Urine RBC 3-5 /HPF (0-2) Urine WBC 1-4 /HPF (0-4) Urine Squamous Epithelial Cells Occ /LPF Urine Bacteria Mod /HPF (0-FEW) EKG EKG Normal sinus rhythm Radiology/Procedures Radiology/Procedures [] Course & Med Decision Making Course & Med Decision Making Pertinent Labs and Imaging studies reviewed. (See chart for details) No acute medical diagnoses were found on history or physical exam. Her urine was suspicious for a urinary tract infection however given that she is asymptomatic no antibiotics are recommended at this time. Dragon Disclaimer Dragon Disclaimer This chart was dictated in whole or in part using Voice Recognition software in a busy, high-work load, and often noisy Emergency Department environment. It may contain unintended and wholly unrecognized errors or omissions. Departure Departure: Impression: Primary Impression: Karmen Disposition: 65 XFER TO PSYCH HOSP/UNIT Referrals: THOMAS PARIS DO (PCP) BAHMAN WALDROP MD Dec 28, 2016 13:42
[2016-12-28] MEDS ORDERED: ASPIRIN 325 MG TABLET PO PRN (14:30)
[2016-12-28] MEDS ORDERED: MAG HYDROX/AL HYDROX/SIMETH 30 ML ORAL.SUSP PO PRN (14:30)
[2016-12-28] MEDS ORDERED: DOCUSATE SODIUM 100 MG CAPSULE PO PRN (14:30)
[2016-12-28] MEDS ORDERED: METHYL SALICYLATE/MENTHOL TOPICAL OINTMENT 29GM TUBE. TP PRN (14:30)
[2016-12-28] MEDS ORDERED: ACETAMINOPHEN 325 MG TABLET PO PRN (14:30)
[2016-12-28 15:26] VITALS: BP 127/97
[2016-12-28] MEDS: NICOTINE POLACRILEX GUM 2 MG GUM. BC PRN ×2 (15:30→19:53)
[2016-12-28] MEDS: CHOLECALCIFEROL (VITAMIN D3) 1,000 UNIT TABLET PO SCH ×3 (16:56→17:09)
[2016-12-28] MEDS: ATORVASTATIN CALCIUM 20 MG TABLET PO SCH (19:51)
[2016-12-28] MEDS: LITHIUM CARBONATE ER 450 MG TABLET.ER PO SCH (19:51)
[2016-12-28] MEDS: busPIRone 10 MG TABLET. PO SCH (19:51)
[2016-12-28] MEDS ORDERED: MIRTAZAPINE 15 MG TAB.RAPDIS PO SCH (21:00)
--- NOTE | 2016-12-28 21:32 | PDOC ---
Exam [place] Demential Exam: [place] Note: Please also refer to the separate dictated note~for this date of service dictated separately.~Patient seen individually. Discussed the patient with Nursing staff reviewed the chart.~Reviewed interim history and current functioning. Reviewed vital signs,~Labs/ Radiology~and current medications noted below. Continue current treatment with the changes noted in the dictated addendum note Assessment: Vital Signs: Vital Signs Date Time Temp Pulse Resp B/P (MAP) Pulse Ox O2 Delivery O2 Flow Rate FiO2 12/28/16 15:26 97.7 97 20 127/97 (107) 92 Room Air Labs: Laboratory Tests Test 12/28/16 12:22 12/28/16 12:25 White Blood Count 8.0 x10^3/uL (4.0-11.0) Red Blood Count 4.49 x10^6/uL (3.50-5.40) Hemoglobin 13.5 g/dL (12.0-15.5) Hematocrit 40.7 % (36.0-47.0) Mean Corpuscular Volume 91 fL (79-100) Mean Corpuscular Hemoglobin 30 pg (25-35) Mean Corpuscular Hemoglobin Concent 33 g/dL (31-37) Red Cell Distribution Width 14.6 % (11.5-14.5) H Platelet Count 207 x10^3/uL (140-400) Neutrophils (%) (Auto) 76 % (31-73) H Lymphocytes (%) (Auto) 16 % (24-48) L Monocytes (%) (Auto) 5 % (0-9) Eosinophils (%) (Auto) 2 % (0-3) Basophils (%) (Auto) 1 % (0-3) Neutrophils # (Auto) 6.1 x10^3uL (1.8-7.7) Lymphocytes # (Auto) 1.3 x10^3/uL (1.0-4.8) Monocytes # (Auto) 0.4 x10^3/uL (0.0-1.1) Eosinophils # (Auto) 0.2 x10^3/uL (0.0-0.7) Basophils # (Auto) 0.0 x10^3/uL (0.0-0.2) Sodium Level 141 mmol/L (136-145) Potassium Level 4.6 mmol/L (3.5-5.1) Chloride Level 106 mmol/L (98-107) Carbon Dioxide Level 27 mmol/L (21-32) Anion Gap 8 (6-14) Blood Urea Nitrogen 15 mg/dL (7-20) Creatinine 0.9 mg/dL (0.6-1.0) Estimated GFR (Cockcroft-Gault) 61.2 Glucose Level 108 mg/dL (70-99) H Calcium Level 9.7 mg/dL (8.5-10.1) Magnesium Level 2.0 mg/dL (1.8-2.4) Total Bilirubin 0.6 mg/dL (0.2-1.0) Direct Bilirubin 0.2 mg/dL (0.0-0.2) Aspartate Amino Transferase (AST) 20 U/L (15-37) Alanine Aminotransferase (ALT) 20 U/L (14-59) Alkaline Phosphatase 55 U/L (46-116) Total Protein 7.2 g/dL (6.4-8.2) Albumin 3.7 g/dL (3.4-5.0) Urine Collection Type Unknown Urine Color Yellow Urine Clarity Hazy Urine pH 7.0 Urine Specific [place] 1.010 Urine Protein Neg (NEG-TRACE) Urine Glucose (UA) Neg mg/dL (NEG) Urine Ketones (Stick) Trace mg/dL (NEG) Urine Blood Trace (NEG) Urine Nitrite Neg (NEG) Urine Bilirubin Neg (NEG) Urine Urobilinogen Dipstick 0.2 mg/dL (0.2 mg/dL) Urine Leukocyte Esterase Small (NEG) Urine RBC 3-5 /HPF (0-2) Urine WBC 1-4 /HPF (0-4) Urine Squamous Epithelial Cells Occ /LPF Urine Bacteria Mod /HPF (0-FEW) Current Medications: Meds: Current Medications Buspirone HCl (Buspar) 10 mg BID PO Last administered on 12/28/16 19:51; Start 12/28/16 at 21:00 [place] Carbonate (Lithobid) 300 mg DAILY PO ; Start 12/29/16 at 09:00 [place] Carbonate (Eskalith) 450 mg QHS PO Last administered on 12/28/16 19: 51; Start 12/28/16 at 21:00 Mirtazapine (Remeron [place]-Tab) 7.5 mg QHS PO Last administered on 12/28/16 19: 51; Start 12/28/16 at 21:00 Acetaminophen (Tylenol) 650 mg PRN Q6HRS PRN PO pain/temp; Start 12/28/16 at 14:30 Aspirin (Benji Aspirin) 325 mg PRN Q8HRS PRN PO PAIN; Start 12/28/16 at 14:30 Atorvastatin Calcium (Lipitor) 20 mg QHS PO Last administered on 12/28/16 19: 51; Start 12/28/16 at 21:00 Vitamin D (Vitamin D3) 2,000 unit DAILYBFRSUP PO ; Start 12/28/16 at 17:00 Al Hydroxide/Mg Hydroxide (Mylanta Plus Xs) 15 ml PRN AFTMEALHC PRN PO DYSPEPSIA; Start 12/28/16 at 14:30 Multi-Ingredient Ointment (Analgesic [place]) 1 raegan PRN QID PRN TP MUSCLE PAIN; Start 12/28/16 at 14:30 Nicotine Polacrilex (Nicorette Gum) 2 mg PRN Q2HR PRN BC SMOKING CESSATION Last administered on 12/28/16 19:53; Start 12/28/16 at 14:30 Docusate Sodium (Colace) 100 mg PRN BID PRN PO CONSTIPATION; Start 12/28/16 at 14:30 Magnesium Hydroxide (Milk Of Magnesia) 2,400 mg PRN QHS PRN PO CONSTIPATION; Start 12/28/16 at 14:30 Active Scripts Active Reported Nicotine Gum (Nicotine Polacrilex) 2 Mg Gum 2 Mg BC PRN Q2HR PRN Clozapine 100 Mg Tablet 150 Mg PO HS Buspirone Hcl 10 Mg Tablet 10 Mg PO BID Analgesic [place] (Methyl Salicylate/Menthol) 28 Gm Oint...g. 1 Applic TP PRN QID PRN [place] Carbonate 450 Mg Tablet.er 450 Mg PO QHS Vitamin D3 (Cholecalciferol (Vitamin D3)) 1,000 Unit Tablet 2,000 Unit PO DAILYBFRSUP Atorvastatin Calcium 20 Mg Tablet 20 Mg PO QHS Zyprexa Zydis (Olanzapine) 5 Mg Tab.rapdis 2.5 Mg PO PRN Q2HR PRN Remeron (Mirtazapine) 15 Mg Tab.rapdis 7.5 Mg PO QHS Mag-Al Plus Xs Suspension (Mag Hydrox/Al Hydrox/Simeth) 30 Ml Oral.susp 15 Ml PO PRN AFTMEALHC PRN Docusate Sodium 100 Mg Tablet 100 Mg PO PRN BID PRN Trazodone Hcl 50 Mg Tablet 100 Mg PO PRN QHS PRN [place] Carbonate 300 Mg Tablet.er 300 Mg PO DAILY Aspirin 325 Mg Tablet 325 Mg PO PRN Q8HRS PRN Milk Of Magnesia (Magnesium Hydroxide) 2,400 Mg/10 Ml Oral.susp 2,400 Mg PO PRN QHS PRN Tylenol (Acetaminophen) 325 Mg Tablet 650 Mg PO PRN Q6HRS PRN Diagnosis: Problems: (1) Depressed (2) Bipolar 1 disorder (3) Anxiety (4) Impulse control disorder (5) Impulse control disorder (6) Dementia with behavioral disturbance (7) Behavior disorder (8) Schizoaffective disorder, chronic condition with acute exacerbation GERA MAY MD Dec 28, 2016 21:32
[2016-12-29 06:20] VITALS: BP 140/68
[2016-12-29] MEDS: busPIRone 10 MG TABLET. PO SCH ×2 (07:44→20:11)
[2016-12-29] MEDS: LITHIUM CARBONATE ER 300 MG TABLET.ER PO SCH (07:45)
[2016-12-29 10:06] LABS: BASO % 0 % (0-3); EOS # 0.3 x10^3/uL (0.0-0.7); EOS % 5 % (0-3); HEMATOCRIT 41.8 % (36.0-47.0); HEMOGLOBIN 13.6 g/dL (12.0-15.5); LYMPH # 1.1 x10^3/uL (1.0-4.8); LYMPH % 17 % (24-48); MEAN CORPUSCULAR HEMOGLOBIN 30 pg (25-35); MEAN CORPUSCULAR HGB CONC 33 g/dL (31-37); MEAN CORPUSCULAR VOLUME 91 fL (79-100); MONO # 0.4 x10^3/uL (0.0-1.1); MONO % 6 % (0-9); NEUT # 4.9 x10^3uL (1.8-7.7); NEUT % 72 % (31-73); PLATELET COUNT 210 x10^3/uL (140-400); RED BLOOD COUNT 4.61 x10^6/uL (3.50-5.40); RED CELL DISTRIBUTION WIDTH 14.9 % (11.5-14.5); WHITE BLOOD COUNT 6.8 x10^3/uL (4.0-11.0)
[2016-12-29 10:27] LABS: ALBUMIN 3.4 g/dL (3.4-5.0); CREATININE 0.9 mg/dL (0.6-1.0); GFR 61.2; MAGNESIUM 2.3 mg/dL (1.8-2.4); POTASSIUM 5.3 mmol/L (3.5-5.1); TOTAL BILIRUBIN 0.6 mg/dL (0.2-1.0); TOTAL PROTEIN 6.8 g/dL (6.4-8.2)
--- NOTE | 2016-12-29 13:27 | HP ---
ADMIT DATE: 12/28/2016 PSYCHIATRIC ADMISSION HISTORY/EVALUATION This is a late entry, date of service 12/28/2016, covers elements not covered in my initial note of 12/28/2016. The patient seen individually evening of 12/28/2016. Discussed with nursing staff on 2 or 3 occasions prior to the patient's admission to gather referral background information from [facility] and review of past history, current symptoms prompting hospitalization, the patient was seen individually evening of 12/28/2016. IDENTIFYING DATA: The patient is a 75-year-old female referred back to us from [facility] by Dr. Negrete, her psychiatrist, Dr. Orozco, her primary care physician on account of increase manic behavior, pacing the hallways, yelling in high voice. The patient reportedly had put her emesis in AC vent, was otherwise engaging in rather bizarre behavior with bizarre verbalization, noncompliant with medications, appeared extremely psychotic within the context of her bipolar disorder, mixed with psychotic features. She had failed outpatient psychiatric interventions resulting in this referral. CHIEF COMPLAINT: "Oh I don't know everything is copesthetic." This is a typical phrase for the patient. She had a typical singsong manner to her voice, appears distractible, somewhat labile, but recognized me readily. HISTORY OF PRESENT ILLNESS: The patient has a history of bipolar disorder for an extended period of time. She has been hospitalized here in the past and has been stable for some time, but over the past week or two, she has been pacing the hallways, speaking in a high pitched voice, not able to calm herself, manic, refusing medications. She had to be on one-on-one status at the long-term, behaviors worsened over the weekend, she had failed outpatient psychiatric interventions with Dr. Negrete and admitted at the behest of her court-appointed guardian. No active suicidal or homicidal ideation. PAST PSYCHIATRIC HISTORY: Positive for bipolar disorder, mixed with psychotic features. PAST MEDICAL HISTORY: History of falls, unsteady gait, hyperlipidemia, hypertension, chronic constipation, marked insomnia, vitamin deficiency, chronic pain. ACCU-CHEKS: None. CODE STATUS: DNR. ALLERGIES: Negative. DIET: Regular. Takes her medications whole. Ambulates ad philippe. UA culture pending 12/28/2016. CURRENT PSYCHOTROPICS: [place] carbonate 300 mg a.m. and 450 at bedtime, BuSpar 10 mg b.i.d., Remeron 7.5 mg at bedtime. FAMILY HISTORY: Noncontributory. SOCIAL HISTORY: No alcohol, drug abuse, physical, sexual or elder abuse. She is not known to be a perpetrator. MENTAL STATUS EXAMINATION: The patient is oriented to herself and situation, readily recognized me. Speech is in a singsong manner, high pitched. She appears psychotic, distractable, extremely labile, restless, anxious. No active suicidal or homicidal ideation. Intellect average. Insight limited, judgment marginal, language function intact. Attention span short. LABORATORY DATA: Reviewed. REVIEW OF SYSTEMS: Ambulation impaired. No CV, , pulmonary, eye, ENT system symptoms on review. IMPRESSION: Bipolar 1 disorder, mixed with psychotic features; anxiety disorder, unspecified; impulse control disorder, unspecified. Rest diagnoses as noted above. PLAN: Admit to the geropsychiatry unit at [facility]. I will see the patient daily individually from a psychiatric standpoint, medical followup per Dr. Washington/Dr. Botello. Continue the patient on her current psychotropics, observe baseline, adjust psychotropics as clinically indicated. We will check a lithium level as well to make sure it is therapeutic. GERA MAY MD DR: ANNE/caitlyn JOB#: [id number] / [id number]
[2016-12-29 13:47] LABS: LI 0.8 mmol/L (0.6-1.2)
[2016-12-29 14:03] LABS: THYROID STIM HORMONE (TSH) 1.101 uIU/mL (0.358-3.740)
[2016-12-29 16:08] VITALS: BP 128/80
[2016-12-29 18:08] LABS: T3 TOTAL 133 ng/dL (71-180); THYROXINE 7.7 ug/dL (4.5-12.0)
[2016-12-29] MEDS: ATORVASTATIN CALCIUM 20 MG TABLET PO SCH (20:11)
[2016-12-29] MEDS: LITHIUM CARBONATE ER 450 MG TABLET.ER PO SCH (20:11)
[2016-12-29] MEDS: MIRTAZAPINE 7.5 MG TABLET. PO SCH (20:12)
--- NOTE | 2016-12-29 20:29 | PDOC ---
Exam [place] Demential Exam: [place] Note: Please also refer to the separate dictated note~for this date of service dictated separately.~Patient seen individually. Discussed the patient with Nursing staff reviewed the chart.~Reviewed interim history and current functioning. Reviewed vital signs,~Labs/ Radiology~and current medications noted below. Continue current treatment with the changes noted in the dictated addendum note Assessment: Vital Signs: Vital Signs Date Time Temp Pulse Resp B/P (MAP) Pulse Ox O2 Delivery O2 Flow Rate FiO2 12/29/16 16:08 97.5 62 20 128/80 (96) 95 12/28/16 15:26 Room Air I&O Intake and Output 12/30/16 07:00 Intake Total 1080 ml Balance 1080 ml Intake Oral 1080 ml Labs: Laboratory Tests Test 12/29/16 09:40 White Blood Count 6.8 x10^3/uL (4.0-11.0) Red Blood Count 4.61 x10^6/uL (3.50-5.40) Hemoglobin 13.6 g/dL (12.0-15.5) Hematocrit 41.8 % (36.0-47.0) Mean Corpuscular Volume 91 fL (79-100) Mean Corpuscular Hemoglobin 30 pg (25-35) Mean Corpuscular Hemoglobin Concent 33 g/dL (31-37) Red Cell Distribution Width 14.9 % (11.5-14.5) H Platelet Count 210 x10^3/uL (140-400) Neutrophils (%) (Auto) 72 % (31-73) Lymphocytes (%) (Auto) 17 % (24-48) L Monocytes (%) (Auto) 6 % (0-9) Eosinophils (%) (Auto) 5 % (0-3) H Basophils (%) (Auto) 0 % (0-3) Neutrophils # (Auto) 4.9 x10^3uL (1.8-7.7) Lymphocytes # (Auto) 1.1 x10^3/uL (1.0-4.8) Monocytes # (Auto) 0.4 x10^3/uL (0.0-1.1) Eosinophils # (Auto) 0.3 x10^3/uL (0.0-0.7) Basophils # (Auto) 0.0 x10^3/uL (0.0-0.2) Sodium Level 143 mmol/L (136-145) Potassium Level 5.3 mmol/L (3.5-5.1) H Chloride Level 110 mmol/L (98-107) H Carbon Dioxide Level 30 mmol/L (21-32) Anion Gap 3 (6-14) L Blood Urea Nitrogen 14 mg/dL (7-20) Creatinine 0.9 mg/dL (0.6-1.0) Estimated GFR (Cockcroft-Gault) 61.2 BUN/Creatinine Ratio 16 (6-20) Glucose Level 63 mg/dL (70-99) L Calcium Level 10.0 mg/dL (8.5-10.1) Magnesium Level 2.3 mg/dL (1.8-2.4) Total Bilirubin 0.6 mg/dL (0.2-1.0) Aspartate Amino Transferase (AST) 18 U/L (15-37) Alanine Aminotransferase (ALT) 21 U/L (14-59) Alkaline Phosphatase 52 U/L (46-116) Total Protein 6.8 g/dL (6.4-8.2) Albumin 3.4 g/dL (3.4-5.0) Albumin/Globulin Ratio 1.0 (1.0-1.7) [place] Level 0.8 mmol/L (0.6-1.2) [place] Last Dose Date 12/28/16 [place] Last Dose Time 2100 Current Medications: Meds: Current Medications Buspirone HCl (Buspar) 10 mg BID PO Last administered on 12/29/16 20:11; Start 12/28/16 at 21:00 [place] Carbonate (Lithobid) 300 mg DAILY PO Last administered on 12/29/16 07 :45; Start 12/29/16 at 09:00 [place] Carbonate (Eskalith) 450 mg QHS PO Last administered on 12/29/16 20: 11; Start 12/28/16 at 21:00 Mirtazapine (Remeron [place]-Tab) 7.5 mg QHS PO Last administered on 12/28/16 19: 51; Start 12/28/16 at 21:00; Stop 12/29/16 at 13:02; Status DC Acetaminophen (Tylenol) 650 mg PRN Q6HRS PRN PO pain/temp; Start 12/28/16 at 14:30 Aspirin (Benji Aspirin) 325 mg PRN Q8HRS PRN PO PAIN; Start 12/28/16 at 14:30 Atorvastatin Calcium (Lipitor) 20 mg QHS PO Last administered on 12/29/16 20: 11; Start 12/28/16 at 21:00 Vitamin D (Vitamin D3) 2,000 unit DAILYBFRSUP PO ; Start 12/28/16 at 17:00 Al Hydroxide/Mg Hydroxide (Mylanta Plus Xs) 15 ml PRN AFTMEALHC PRN PO DYSPEPSIA; Start 12/28/16 at 14:30 Multi-Ingredient Ointment (Analgesic [place]) 1 raegan PRN QID PRN TP MUSCLE PAIN; Start 12/28/16 at 14:30 Nicotine Polacrilex (Nicorette Gum) 2 mg PRN Q2HR PRN BC SMOKING CESSATION Last administered on 12/28/16 19:53; Start 12/28/16 at 14:30 Docusate Sodium (Colace) 100 mg PRN BID PRN PO CONSTIPATION; Start 12/28/16 at 14:30 Magnesium Hydroxide (Milk Of Magnesia) 2,400 mg PRN QHS PRN PO CONSTIPATION; Start 12/28/16 at 14:30 Mirtazapine (Remeron) 7.5 mg QHS PO Last administered on 12/29/16 20:12; Start 12/29/16 at 21:00 Active Scripts Active Reported Nicotine Gum (Nicotine Polacrilex) 2 Mg Gum 2 Mg BC PRN Q2HR PRN Clozapine 100 Mg Tablet 150 Mg PO HS Buspirone Hcl 10 Mg Tablet 10 Mg PO BID Analgesic [place] (Methyl Salicylate/Menthol) 28 Gm Oint...g. 1 Applic TP PRN QID PRN [place] Carbonate 450 Mg Tablet.er 450 Mg PO QHS Vitamin D3 (Cholecalciferol (Vitamin D3)) 1,000 Unit Tablet 2,000 Unit PO DAILYBFRSUP Atorvastatin Calcium 20 Mg Tablet 20 Mg PO QHS Zyprexa Zydis (Olanzapine) 5 Mg Tab.rapdis 2.5 Mg PO PRN Q2HR PRN Remeron (Mirtazapine) 15 Mg Tab.rapdis 7.5 Mg PO QHS Mag-Al Plus Xs Suspension (Mag Hydrox/Al Hydrox/Simeth) 30 Ml Oral.susp 15 Ml PO PRN AFTMEALHC PRN Docusate Sodium 100 Mg Tablet 100 Mg PO PRN BID PRN Trazodone Hcl 50 Mg Tablet 100 Mg PO PRN QHS PRN [place] Carbonate 300 Mg Tablet.er 300 Mg PO DAILY Aspirin 325 Mg Tablet 325 Mg PO PRN Q8HRS PRN Milk Of Magnesia (Magnesium Hydroxide) 2,400 Mg/10 Ml Oral.susp 2,400 Mg PO PRN QHS PRN Tylenol (Acetaminophen) 325 Mg Tablet 650 Mg PO PRN Q6HRS PRN Diagnosis: Problems: (1) Depressed (2) Bipolar 1 disorder (3) Anxiety (4) Impulse control disorder (5) Impulse control disorder (6) Dementia with behavioral disturbance (7) Behavior disorder (8) Schizoaffective disorder, chronic condition with acute exacerbation GERA MAY MD Dec 29, 2016 20:29
[2016-12-30 00:08] LABS: HEMOGLOBIN A1C 5.2 % (4.8-5.6)
[2016-12-30 06:03] VITALS: BP 105/70
[2016-12-30] MEDS: busPIRone 10 MG TABLET. PO SCH ×2 (08:54→19:55)
[2016-12-30] MEDS: LITHIUM CARBONATE ER 300 MG TABLET.ER PO SCH (08:54)
[2016-12-30] MEDS: CHOLECALCIFEROL (VITAMIN D3) 1,000 UNIT TABLET PO SCH (08:54)
--- NOTE | 2016-12-30 14:46 | HP ---
ADMIT DATE: 12/28/2016 MEDICAL HISTORY AND PHYSICAL FOR THE [facility] REASON FOR ADMISSION TO [facility]: This is a 76-year-old female, who came from [facility]. She was admitted on 12/28/2016 and was seen by myself on 12/29/2016. The patient has been having some issues at the [facility], exhibiting manic behavior, yelling in a high voice, she was using a [place] voice when I was speaking to her and was using a high voice. She also threw up into air conditioning vent, which she emphatically denies, also not compliant with medications and psychotic. PAST MEDICAL HISTORY: Bipolar disorder with agustin. She has also had several [facility] to the [facility] in [facility] past. Other problems include vitamin D deficiency, anxiety, impulse control disorder, unsteady gait, hyperlipidemia. ALLERGIES: None. MEDICATIONS: Reviewed and are available on the MAR. SOCIAL HISTORY: Resides at [facility]. She smokes 6 cigarettes a day smoke. She is not allowed drink, so does not drink. For further information please review other H and P. REVIEW OF SYSTEMS: Positive for headaches, otherwise negative. OBJECTIVE: VITAL SIGNS: Blood pressure 128/80, temperature 97.5, pulse 62, respirations 20, pulse ox 95% on room air. Height 64 inches, weight 112.13 pounds. GENERAL: Thin appearing female, who looks her stated age. HEENT: Her hearing was normal. Her eyes were clear. Her nose was patent. Her throat was clear. NECK: Supple. LUNGS: Clear. CARDIOVASCULAR: Regular rhythm and rate. ABDOMEN: Soft, nontender. EXTREMITIES: Without edema. MUSCULOSKELETAL: She ambulates without assistance and little bit unsteady in her gait. NEUROLOGIC: She does have a fine tremor. She is somewhat high strong at our interview, but was cooperative with the exam. Cranial nerves were intact. LABORATORY DATA: CBC is unremarkable. Her potassium is 5.3, chloride 110. B12 729. Urinalysis; 1 to 4 white cells, lithium level 0.8. ASSESSMENT: 1. Bipolar with manic features. 2. Hyperkalemia, probably hemolyzed, is not on potassium. 3. Hyperlipidemia. 4. Chronic constipation. PLAN: Follow along with Dr. Aguilera to treat her medical conditions. VALERIE SANDHU DO DR: Russel JOB#: [id number] / [id number]
[2016-12-30 16:21] VITALS: BP 110/71
[2016-12-30] MEDS: MIRTAZAPINE 7.5 MG TABLET. PO SCH (19:55)
[2016-12-30] MEDS: LITHIUM CARBONATE ER 450 MG TABLET.ER PO SCH (19:55)
[2016-12-30] MEDS: ATORVASTATIN CALCIUM 20 MG TABLET PO SCH (19:55)
[2016-12-30] MEDS: DIVALPROEX ER 500 MG TAB.ER.24H PO SCH (19:56)
--- NOTE | 2016-12-30 20:59 | PDOC ---
Exam [place] Demential Exam: [place] Note: Please also refer to the separate dictated note~for this date of service dictated separately.~Patient seen individually. Discussed the patient with Nursing staff reviewed the chart.~Reviewed interim history and current functioning. Reviewed vital signs,~Labs/ Radiology~and current medications noted below. Continue current treatment with the changes noted in the dictated addendum note Assessment: Vital Signs: Vital Signs Date Time Temp Pulse Resp B/P (MAP) Pulse Ox O2 Delivery O2 Flow Rate FiO2 12/30/16 16:21 98.6 90 20 110/71 (84) 92 12/28/16 15:26 Room Air I&O Intake and Output 12/31/16 06:59 Intake Total 720 ml Balance 720 ml Intake Oral 720 ml Current Medications: Meds: Current Medications Buspirone HCl (Buspar) 10 mg BID PO Last administered on 12/30/16 19:55; Start 12/28/16 at 21:00 [place] Carbonate (Lithobid) 300 mg DAILY PO Last administered on 12/30/16 08 :54; Start 12/29/16 at 09:00 [place] Carbonate (Eskalith) 450 mg QHS PO Last administered on 12/30/16 19: 55; Start 12/28/16 at 21:00 Mirtazapine (Remeron Olimpia-Tab) 7.5 mg QHS PO Last administered on 12/28/16 19: 51; Start 12/28/16 at 21:00; Stop 12/29/16 at 13:02; Status DC Acetaminophen (Tylenol) 650 mg PRN Q6HRS PRN PO pain/temp; Start 12/28/16 at 14:30 Aspirin (Benji Aspirin) 325 mg PRN Q8HRS PRN PO PAIN; Start 12/28/16 at 14:30 Atorvastatin Calcium (Lipitor) 20 mg QHS PO Last administered on 12/30/16 19: 55; Start 12/28/16 at 21:00 Vitamin D (Vitamin D3) 2,000 unit DAILYBFRSUP PO Last administered on 08:54; Start 12/28/16 at 17:00 Al Hydroxide/Mg Hydroxide (Mylanta Plus Xs) 15 ml PRN AFTMEALHC PRN PO DYSPEPSIA; Start 12/28/16 at 14:30 Multi-Ingredient Ointment (Analgesic [place]) 1 raegan PRN QID PRN TP MUSCLE PAIN; Start 12/28/16 at 14:30 Nicotine Polacrilex (Nicorette Gum) 2 mg PRN Q2HR PRN BC SMOKING CESSATION Last administered on 12/28/16 19:53; Start 12/28/16 at 14:30 Docusate Sodium (Colace) 100 mg PRN BID PRN PO CONSTIPATION; Start 12/28/16 at 14:30 Magnesium Hydroxide (Milk Of Magnesia) 2,400 mg PRN QHS PRN PO CONSTIPATION; Start 12/28/16 at 14:30 Mirtazapine (Remeron) 7.5 mg QHS PO Last administered on 12/30/16 19:55; Start 12/29/16 at 21:00 Divalproex Sodium (Depakote Er) 500 mg QHS PO Last administered on 12/30/16 19:56; Start 12/30/16 at 21:00 Risperidone (RisperDAL) 0.5 mg DAILY PO ; Start 12/31/16 at 09:00 Risperidone (RisperDAL CONSTA) 25 mg Q2WKS IM ; Start 01/02/17 at 09:00 Active Scripts Active Reported Nicotine Gum (Nicotine Polacrilex) 2 Mg Gum 2 Mg BC PRN Q2HR PRN Clozapine 100 Mg Tablet 150 Mg PO HS Buspirone Hcl 10 Mg Tablet 10 Mg PO BID Analgesic [place] (Methyl Salicylate/Menthol) 28 Gm Oint...g. 1 Applic TP PRN QID PRN [place] Carbonate 450 Mg Tablet.er 450 Mg PO QHS Vitamin D3 (Cholecalciferol (Vitamin D3)) 1,000 Unit Tablet 2,000 Unit PO DAILYBFRSUP Atorvastatin Calcium 20 Mg Tablet 20 Mg PO QHS Zyprexa Zydis (Olanzapine) 5 Mg Tab.rapdis 2.5 Mg PO PRN Q2HR PRN Remeron (Mirtazapine) 15 Mg Tab.rapdis 7.5 Mg PO QHS Mag-Al Plus Xs Suspension (Mag Hydrox/Al Hydrox/Simeth) 30 Ml Oral.susp 15 Ml PO PRN AFTMEALHC PRN Docusate Sodium 100 Mg Tablet 100 Mg PO PRN BID PRN Trazodone Hcl 50 Mg Tablet 100 Mg PO PRN QHS PRN [place] Carbonate 300 Mg Tablet.er 300 Mg PO DAILY Aspirin 325 Mg Tablet 325 Mg PO PRN Q8HRS PRN Milk Of Magnesia (Magnesium Hydroxide) 2,400 Mg/10 Ml Oral.susp 2,400 Mg PO PRN QHS PRN Tylenol (Acetaminophen) 325 Mg Tablet 650 Mg PO PRN Q6HRS PRN Diagnosis: Problems: (1) Depressed (2) Bipolar 1 disorder (3) Anxiety (4) Impulse control disorder (5) Impulse control disorder (6) Dementia with behavioral disturbance (7) Behavior disorder (8) Schizoaffective disorder, chronic condition with acute exacerbation GERA MAY MD Dec 30, 2016 20:59
[2016-12-31 06:38] VITALS: BP 117/58
[2016-12-31] MEDS: busPIRone 10 MG TABLET. PO SCH ×2 (08:12→19:28)
[2016-12-31] MEDS: LITHIUM CARBONATE ER 300 MG TABLET.ER PO SCH (08:14)
[2016-12-31] MEDS: risperiDONE 0.5 MG TABLET. PO SCH (08:16)
[2016-12-31] MEDS: NICOTINE POLACRILEX GUM 2 MG GUM. BC PRN ×3 (08:23→20:22)
--- NOTE | 2016-12-31 10:07 | PN ---
DATE: 12/29/2016 This late entry 12/29/2016 covers elements not covered in my initial note of 12/29/2016. Per nursing report, the patient has been extremely psychotic, attention seeking. She has urinated on herself in the dining room, created a puddle on the entire floor, resistive to taking medications, poured Gatorade on herself over her head, sitting right with the others. [place] level is 0.8, slept 6-1/2 hours the previous evening. We noticed that at the time of patient's discharge from our unit, the last time she was stabilized on Clozaril, but that has since been discontinued. On further inquiry from the correction, it appears she was resistive to taking Clozaril and it was stopped and Dr. Negrete had intended to start Depakote as a mood stabilizer. We can certainly try this, but the patient is already on lithium as a mood stabilizer and what she needs is an antipsychotic. We will have to see whether a long acting IM antipsychotic might be what she needs. In the meantime, she is quite disorganized, psychotic with her typical speech. No CV, , pulmonary, eye, ENT system symptoms on review. Reliability poor. MENTAL STATUS EXAM: Oriented to herself and situation. Speech somewhat high pitched. Insight and judgment is impaired. Language function intact. Memory has some deficits. No active suicidal or homicidal ideation. LABORATORY DATA: Reviewed. IMPRESSION: Schizoaffective disorder, bipolar type, mixed with psychotic features; cognitive disorder, unspecified; impulse control disorder, unspecified; anxiety disorder, unspecified. PLAN: Continue lithium at current dosage together with BuSanastasiia Remeron. We will gather further historical information from the correction and then decide on what to initiate as an antipsychotic because she certainly needs an antipsychotic, not just a mood stabilizer. Reviewed drug interactions, risk/benefit ratio at length and risk/benefit ratio favors no further change at this time other than that is noted above. MAN Martin MAY MD DR: ANNE/caitlyn JOB#: [id number] / [id number]
[2016-12-31 16:24] VITALS: BP 114/64
[2016-12-31] MEDS: CHOLECALCIFEROL (VITAMIN D3) 1,000 UNIT TABLET PO SCH (17:29)
[2016-12-31] MEDS: MIRTAZAPINE 7.5 MG TABLET. PO SCH (19:27)
[2016-12-31] MEDS: ATORVASTATIN CALCIUM 20 MG TABLET PO SCH (19:27)
[2016-12-31] MEDS: DIVALPROEX ER 500 MG TAB.ER.24H PO SCH (19:27)
[2016-12-31] MEDS: LITHIUM CARBONATE ER 450 MG TABLET.ER PO SCH (19:27)
--- NOTE | 2016-12-31 21:02 | PDOC ---
Exam [place] Demential Exam: [place] Note: Please also refer to the separate dictated note~for this date of service dictated separately.~Patient seen individually. Discussed the patient with Nursing staff reviewed the chart.~Reviewed interim history and current functioning. Reviewed vital signs,~Labs/ Radiology~and current medications noted below. Continue current treatment with the changes noted in the dictated addendum note Assessment: Vital Signs: Vital Signs Date Time Temp Pulse Resp B/P (MAP) Pulse Ox O2 Delivery O2 Flow Rate FiO2 12/31/16 16:24 97.7 62 18 114/64 (81) 99 12/28/16 15:26 Room Air I&O Intake and Output 01/01/17 07:00 Intake Total 1200 ml Balance 1200 ml Intake Oral 1200 ml Current Medications: Meds: Current Medications Buspirone HCl (Buspar) 10 mg BID PO Last administered on 12/31/16 19:28; Start 12/28/16 at 21:00 [place] Carbonate (Lithobid) 300 mg DAILY PO Last administered on 12/31/16 08 :14; Start 12/29/16 at 09:00 [place] Carbonate (Eskalith) 450 mg QHS PO Last administered on 12/31/16 19: 27; Start 12/28/16 at 21:00 Mirtazapine (Remeron Olimpia-Tab) 7.5 mg QHS PO Last administered on 12/28/16 19: 51; Start 12/28/16 at 21:00; Stop 12/29/16 at 13:02; Status DC Acetaminophen (Tylenol) 650 mg PRN Q6HRS PRN PO pain/temp; Start 12/28/16 at 14:30 Aspirin (Benji Aspirin) 325 mg PRN Q8HRS PRN PO PAIN; Start 12/28/16 at 14:30 Atorvastatin Calcium (Lipitor) 20 mg QHS PO Last administered on 12/31/16 19: 27; Start 12/28/16 at 21:00 Vitamin D (Vitamin D3) 2,000 unit DAILYBFRSUP PO Last administered on 17:29; Start 12/28/16 at 17:00 Al Hydroxide/Mg Hydroxide (Mylanta Plus Xs) 15 ml PRN AFTMEALHC PRN PO DYSPEPSIA; Start 12/28/16 at 14:30 Multi-Ingredient Ointment (Analgesic [place]) 1 raegan PRN QID PRN TP MUSCLE PAIN; Start 12/28/16 at 14:30 Nicotine Polacrilex (Nicorette Gum) 2 mg PRN Q2HR PRN BC SMOKING CESSATION Last administered on 12/31/16 20:22; Start 12/28/16 at 14:30 Docusate Sodium (Colace) 100 mg PRN BID PRN PO CONSTIPATION; Start 12/28/16 at 14:30 Magnesium Hydroxide (Milk Of Magnesia) 2,400 mg PRN QHS PRN PO CONSTIPATION; Start 12/28/16 at 14:30 Mirtazapine (Remeron) 7.5 mg QHS PO Last administered on 12/31/16 19:27; Start 12/29/16 at 21:00 Divalproex Sodium (Depakote Er) 500 mg QHS PO Last administered on 12/31/16 19:27; Start 12/30/16 at 21:00 Risperidone (RisperDAL) 0.5 mg DAILY PO Last administered on 12/31/16 08:16; Start 12/31/16 at 09:00 Risperidone (RisperDAL CONSTA) 25 mg Q2WKS IM ; Start 01/02/17 at 09:00 Active Scripts Active Reported Nicotine Gum (Nicotine Polacrilex) 2 Mg Gum 2 Mg BC PRN Q2HR PRN Clozapine 100 Mg Tablet 150 Mg PO HS Buspirone Hcl 10 Mg Tablet 10 Mg PO BID Analgesic [place] (Methyl Salicylate/Menthol) 28 Gm Oint...g. 1 Applic TP PRN QID PRN [place] Carbonate 450 Mg Tablet.er 450 Mg PO QHS Vitamin D3 (Cholecalciferol (Vitamin D3)) 1,000 Unit Tablet 2,000 Unit PO DAILYBFRSUP Atorvastatin Calcium 20 Mg Tablet 20 Mg PO QHS Zyprexa Zydis (Olanzapine) 5 Mg Tab.rapdis 2.5 Mg PO PRN Q2HR PRN Remeron (Mirtazapine) 15 Mg Tab.rapdis 7.5 Mg PO QHS Mag-Al Plus Xs Suspension (Mag Hydrox/Al Hydrox/Simeth) 30 Ml Oral.susp 15 Ml PO PRN AFTMEALHC PRN Docusate Sodium 100 Mg Tablet 100 Mg PO PRN BID PRN Trazodone Hcl 50 Mg Tablet 100 Mg PO PRN QHS PRN [place] Carbonate 300 Mg Tablet.er 300 Mg PO DAILY Aspirin 325 Mg Tablet 325 Mg PO PRN Q8HRS PRN Milk Of Magnesia (Magnesium Hydroxide) 2,400 Mg/10 Ml Oral.susp 2,400 Mg PO PRN QHS PRN Tylenol (Acetaminophen) 325 Mg Tablet 650 Mg PO PRN Q6HRS PRN Diagnosis: Problems: (1) Depressed (2) Bipolar 1 disorder (3) Anxiety (4) Impulse control disorder (5) Impulse control disorder (6) Dementia with behavioral disturbance (7) Behavior disorder (8) Schizoaffective disorder, chronic condition with acute exacerbation GERA MAY MD Dec 31, 2016 21:02
[2017-01-01 05:59] VITALS: BP 110/59
[2017-01-01] MEDS: busPIRone 10 MG TABLET. PO SCH ×2 (08:16→20:03)
[2017-01-01] MEDS: risperiDONE 0.5 MG TABLET. PO SCH (08:16)
[2017-01-01] MEDS: LITHIUM CARBONATE ER 300 MG TABLET.ER PO SCH (08:16)
[2017-01-01] MEDS: NICOTINE POLACRILEX GUM 2 MG GUM. BC PRN ×3 (08:32→18:31)
--- NOTE | 2017-01-01 09:50 | PN ---
DATE: 12/30/2016 PSYCHIATRIC PROGRESS NOTE This late entry 12/30/2016 covers elements not covered in my initial note of 12/30/2016. SUBJECTIVE: I met with the patient in the evening of 12/30/2016. Reviewed information from Dr. Negrete outpatient psychiatrist wanting the patient on long-acting atypical antipsychotic. She remains extremely confused, delusional, poured Gatorade over herself and then urinated while sitting at the supper table in the dining room, quite oblivious of what she had done, psychotic, labile. REVIEW OF SYSTEMS: No CV, , pulmonary, eye, ENT system symptoms on review. Reliability poor. MENTAL STATUS EXAM: Oriented to herself. Insight, Judgment is impaired. Memory is otherwise reasonable. Mood and affect: Labile, paranoid, psychotic, delusional. No active suicidal or homicidal ideation. IMPRESSION: Unchanged from initial note. PLAN: Start oral Risperdal 0.5 mg a day for 2 days, and if she tolerates it well start Risperdal [place] 25 mg IM q. 2 weeks. Maintain the rest of her psychotropics including lithium level is therapeutic. Review drug interactions, risk/benefit ratio favors no further change. GERA MAY MD DR: ANNE/caitlyn JOB#: [id number] / [id number]
[2017-01-01 16:37] VITALS: BP 124/79
[2017-01-01] MEDS: CHOLECALCIFEROL (VITAMIN D3) 1,000 UNIT TABLET PO SCH (17:17)
[2017-01-01] MEDS: ATORVASTATIN CALCIUM 20 MG TABLET PO SCH (20:02)
[2017-01-01] MEDS: MIRTAZAPINE 7.5 MG TABLET. PO SCH (20:02)
[2017-01-01] MEDS: DIVALPROEX ER 500 MG TAB.ER.24H PO SCH (20:03)
[2017-01-01] MEDS: LITHIUM CARBONATE ER 450 MG TABLET.ER PO SCH (20:03)
--- NOTE | 2017-01-01 20:59 | PDOC ---
Exam [place] D[place] Exam: [place] Note: Please also refer to the separate dictated note~for this date of service dictated separately.~Patient seen individually. Discussed the patient with Nursing staff reviewed the chart.~Reviewed interim history and current functioning. Reviewed vital signs,~Labs/ Radiology~and current medications noted below. Continue current treatment with the changes noted in the dictated addendum note Assessment: Vital Signs: Vital Signs Date Time Temp Pulse Resp B/P (MAP) Pulse Ox O2 Delivery O2 Flow Rate FiO2 01/01/17 16:37 98.3 83 16 124/79 (94) 98 12/28/16 15:26 Room Air I&O Intake and Output 01/02/17 07:00 Intake Total 840 ml Balance 840 ml Intake Oral 840 ml Current Medications: Meds: Current Medications Buspirone HCl (Buspar) 10 mg BID PO Last administered on 01/01/17 20:03; Start 12/28/16 at 21:00 [place] Carbonate (Lithobid) 300 mg DAILY PO Last administered on 01/01/17 08 :16; Start 12/29/16 at 09:00 [place] Carbonate (Eskalith) 450 mg QHS PO Last administered on 01/01/17 20: 03; Start 12/28/16 at 21:00 Mirtazapine (Remeron [place]-Tab) 7.5 mg QHS PO Last administered on 12/28/16 19: 51; Start 12/28/16 at 21:00; Stop 12/29/16 at 13:02; Status DC Acetaminophen (Tylenol) 650 mg PRN Q6HRS PRN PO pain/temp; Start 12/28/16 at 14:30 Aspirin (Benji Aspirin) 325 mg PRN Q8HRS PRN PO PAIN; Start 12/28/16 at 14:30 Atorvastatin Calcium (Lipitor) 20 mg QHS PO Last administered on 01/01/17 20: 02; Start 12/28/16 at 21:00 Vitamin D (Vitamin D3) 2,000 unit DAILYBFRSUP PO Last administered on 17:17; Start 12/28/16 at 17:00 Al Hydroxide/Mg Hydroxide (Mylanta Plus Xs) 15 ml PRN AFTMEALHC PRN PO DYSPEPSIA; Start 12/28/16 at 14:30 Multi-Ingredient Ointment (Analgesic [place]) 1 raegan PRN QID PRN TP MUSCLE PAIN; Start 12/28/16 at 14:30 Nicotine Polacrilex (Nicorette Gum) 2 mg PRN Q2HR PRN BC SMOKING CESSATION Last administered on 01/01/17 18:31; Start 12/28/16 at 14:30 Docusate Sodium (Colace) 100 mg PRN BID PRN PO CONSTIPATION; Start 12/28/16 at 14:30 Magnesium Hydroxide (Milk Of Magnesia) 2,400 mg PRN QHS PRN PO CONSTIPATION; Start 12/28/16 at 14:30 Mirtazapine (Remeron) 7.5 mg QHS PO Last administered on 01/01/17 20:02; Start 12/29/16 at 21:00 Divalproex Sodium (Depakote Er) 500 mg QHS PO Last administered on 01/01/17 20:03; Start 12/30/16 at 21:00 Risperidone (RisperDAL) 0.5 mg DAILY PO Last administered on 01/01/17 08:16; Start 12/31/16 at 09:00 Risperidone (RisperDAL CONSTA) 25 mg Q2WKS IM ; Start 01/02/17 at 09:00 Active Scripts Active Reported Nicotine Gum (Nicotine Polacrilex) 2 Mg Gum 2 Mg BC PRN Q2HR PRN Clozapine 100 Mg Tablet 150 Mg PO HS Buspirone Hcl 10 Mg Tablet 10 Mg PO BID Analgesic [place] (Methyl Salicylate/Menthol) 28 Gm Oint...g. 1 Applic TP PRN QID PRN [place] Carbonate 450 Mg Tablet.er 450 Mg PO QHS Vitamin D3 (Cholecalciferol (Vitamin D3)) 1,000 Unit Tablet 2,000 Unit PO DAILYBFRSUP Atorvastatin Calcium 20 Mg Tablet 20 Mg PO QHS Zyprexa Zydis (Olanzapine) 5 Mg Tab.rapdis 2.5 Mg PO PRN Q2HR PRN Remeron (Mirtazapine) 15 Mg Tab.rapdis 7.5 Mg PO QHS Mag-Al Plus Xs Suspension (Mag Hydrox/Al Hydrox/Simeth) 30 Ml Oral.susp 15 Ml PO PRN AFTMEALHC PRN Docusate Sodium 100 Mg Tablet 100 Mg PO PRN BID PRN Trazodone Hcl 50 Mg Tablet 100 Mg PO PRN QHS PRN [place] Carbonate 300 Mg Tablet.er 300 Mg PO DAILY Aspirin 325 Mg Tablet 325 Mg PO PRN Q8HRS PRN Milk Of Magnesia (Magnesium Hydroxide) 2,400 Mg/10 Ml Oral.susp 2,400 Mg PO PRN QHS PRN Tylenol (Acetaminophen) 325 Mg Tablet 650 Mg PO PRN Q6HRS PRN Diagnosis: Problems: (1) Depressed (2) Bipolar 1 disorder (3) Anxiety (4) Impulse control disorder (5) Impulse control disorder (6) Dementia with behavioral disturbance (7) Behavior disorder (8) Schizoaffective disorder, chronic condition with acute exacerbation GERA MAY MD Jan 01, 2017 20:59
[2017-01-02 06:01] VITALS: BP 103/70
[2017-01-02] MEDS: LITHIUM CARBONATE ER 300 MG TABLET.ER PO SCH ×2 (08:29→20:02)
[2017-01-02] MEDS: busPIRone 10 MG TABLET. PO SCH ×2 (08:29→20:00)
[2017-01-02] MEDS: risperiDONE 0.5 MG TABLET. PO SCH (08:30)
[2017-01-02] MEDS ORDERED: risperiDONE MICROSPHERES 25 MG/2 ML DISP.SYRIN. IM SCH (09:00)
[2017-01-02] MEDS: NICOTINE POLACRILEX GUM 2 MG GUM. BC PRN ×4 (09:13→20:03)
[2017-01-02 09:24] LABS: BASO % 1 % (0-3); EOS # 0.4 x10^3/uL (0.0-0.7); EOS % 5 % (0-3); HEMATOCRIT 39.8 % (36.0-47.0); HEMOGLOBIN 13.2 g/dL (12.0-15.5); LYMPH # 1.3 x10^3/uL (1.0-4.8); LYMPH % 19 % (24-48); MEAN CORPUSCULAR HEMOGLOBIN 30 pg (25-35); MEAN CORPUSCULAR HGB CONC 33 g/dL (31-37); MEAN CORPUSCULAR VOLUME 90 fL (79-100); MONO # 0.5 x10^3/uL (0.0-1.1); MONO % 7 % (0-9); NEUT # 4.9 x10^3uL (1.8-7.7); NEUT % 69 % (31-73); PLATELET COUNT 188 x10^3/uL (140-400); RED BLOOD COUNT 4.44 x10^6/uL (3.50-5.40); RED CELL DISTRIBUTION WIDTH 14.3 % (11.5-14.5)
[2017-01-02 09:25] LABS: ALBUMIN 3.4 g/dL (3.4-5.0); ALK PHOS 45 U/L (46-116); ALT (SGPT) 22 U/L (14-59); ANION GAP 5 (6-14); AST (SGOT) 17 U/L (15-37); BLOOD UREA NITROGEN 17 mg/dL (7-20); BUN/CREATININE RATIO 17 (6-20); CARBON DIOXIDE 29 mmol/L (21-32); CHLORIDE 105 mmol/L (98-107); GFR 54.1; GLUCOSE 126 mg/dL (70-99); MAGNESIUM 2.2 mg/dL (1.8-2.4); SODIUM 139 mmol/L (136-145); TOTAL BILIRUBIN 0.7 mg/dL (0.2-1.0); TOTAL PROTEIN 6.9 g/dL (6.4-8.2)
[2017-01-02 09:26] LABS: VAL ACID 46 mcg/mL (50-100)
[2017-01-02 16:31] VITALS: BP 115/68
[2017-01-02] MEDS: CHOLECALCIFEROL (VITAMIN D3) 1,000 UNIT TABLET PO SCH (17:03)
[2017-01-02] MEDS: LITHIUM CARBONATE ER 450 MG TABLET.ER PO SCH (19:59)
[2017-01-02] MEDS: ATORVASTATIN CALCIUM 20 MG TABLET PO SCH (19:59)
[2017-01-02] MEDS: MIRTAZAPINE 7.5 MG TABLET. PO SCH (20:00)
[2017-01-02] MEDS: DIVALPROEX ER 500 MG TAB.ER.24H PO SCH (20:00)
--- NOTE | 2017-01-02 22:03 | PDOC ---
Exam [place] Exam: [place] Note: Please also refer to the separate dictated note~for this date of service dictated separately.~Patient seen individually. Discussed the patient with Nursing staff reviewed the chart.~Reviewed interim history and current functioning. Reviewed vital signs,~Labs/ Radiology~and current medications noted below. Continue current treatment with the changes noted in the dictated addendum note Assessment: Vital Signs: Vital Signs Date Time Temp Pulse Resp B/P (MAP) Pulse Ox O2 Delivery O2 Flow Rate FiO2 01/02/17 16:31 97.4 82 18 115/68 (84) 01/02/17 06:01 98 Room Air I&O Intake and Output 01/03/17 07:00 Intake Total 840 ml Balance 840 ml Intake Oral 840 ml Labs: Laboratory Tests Test 01/02/17 08:52 White Blood Count 7.0 x10^3/uL (4.0-11.0) Red Blood Count 4.44 x10^6/uL (3.50-5.40) Hemoglobin 13.2 g/dL (12.0-15.5) Hematocrit 39.8 % (36.0-47.0) Mean Corpuscular Volume 90 fL (79-100) Mean Corpuscular Hemoglobin 30 pg (25-35) Mean Corpuscular Hemoglobin Concent 33 g/dL (31-37) Red Cell Distribution Width 14.3 % (11.5-14.5) Platelet Count 188 x10^3/uL (140-400) Neutrophils (%) (Auto) 69 % (31-73) Lymphocytes (%) (Auto) 19 % (24-48) L Monocytes (%) (Auto) 7 % (0-9) Eosinophils (%) (Auto) 5 % (0-3) H Basophils (%) (Auto) 1 % (0-3) Neutrophils # (Auto) 4.9 x10^3uL (1.8-7.7) Lymphocytes # (Auto) 1.3 x10^3/uL (1.0-4.8) Monocytes # (Auto) 0.5 x10^3/uL (0.0-1.1) Eosinophils # (Auto) 0.4 x10^3/uL (0.0-0.7) Basophils # (Auto) 0.0 x10^3/uL (0.0-0.2) Sodium Level 139 mmol/L (136-145) Potassium Level 5.0 mmol/L (3.5-5.1) Chloride Level 105 mmol/L (98-107) Carbon Dioxide Level 29 mmol/L (21-32) Anion Gap 5 (6-14) L Blood Urea Nitrogen 17 mg/dL (7-20) Creatinine 1.0 mg/dL (0.6-1.0) Estimated GFR (Cockcroft-Gault) 54.1 BUN/Creatinine Ratio 17 (6-20) Glucose Level 126 mg/dL (70-99) H Calcium Level 10.0 mg/dL (8.5-10.1) Magnesium Level 2.2 mg/dL (1.8-2.4) Total Bilirubin 0.7 mg/dL (0.2-1.0) Aspartate Amino Transferase (AST) 17 U/L (15-37) Alanine Aminotransferase (ALT) 22 U/L (14-59) Alkaline Phosphatase 45 U/L (46-116) L Total Protein 6.9 g/dL (6.4-8.2) Albumin 3.4 g/dL (3.4-5.0) Albumin/Globulin Ratio 1.0 (1.0-1.7) Valproic Acid Level 46 mcg/mL (50-100) L Valproic Acid Last Dose Date 01/01/17 Valproic Acid Last Dose Time 2100 Current Medications: Meds: Current Medications Buspirone HCl (Buspar) 10 mg BID PO Last administered on 01/02/17 20:00; Start 12/28/16 at 21:00 [place] Carbonate (Lithobid) 300 mg DAILY PO Last administered on 01/02/17 20 :02; Start 12/29/16 at 09:00 [place] Carbonate (Eskalith) 450 mg QHS PO Last administered on 01/02/17 19: 59; Start 12/28/16 at 21:00 Mirtazapine (Remeron Olimpia-Tab) 7.5 mg QHS PO Last administered on 12/28/16 19: 51; Start 12/28/16 at 21:00; Stop 12/29/16 at 13:02; Status DC Acetaminophen (Tylenol) 650 mg PRN Q6HRS PRN PO pain/temp; Start 12/28/16 at 14:30 Aspirin (Benji Aspirin) 325 mg PRN Q8HRS PRN PO PAIN; Start 12/28/16 at 14:30 Atorvastatin Calcium (Lipitor) 20 mg QHS PO Last administered on 01/02/17 19: 59; Start 12/28/16 at 21:00 Vitamin D (Vitamin D3) 2,000 unit DAILYBFRSUP PO Last administered on 17:03; Start 12/28/16 at 17:00 Al Hydroxide/Mg Hydroxide (Mylanta Plus Xs) 15 ml PRN AFTMEALHC PRN PO DYSPEPSIA; Start 12/28/16 at 14:30 Multi-Ingredient Ointment (Analgesic [place]) 1 raegan PRN QID PRN TP MUSCLE PAIN; Start 12/28/16 at 14:30 Nicotine Polacrilex (Nicorette Gum) 2 mg PRN Q2HR PRN BC SMOKING CESSATION Last administered on 01/02/17 20:03; Start 12/28/16 at 14:30 Docusate Sodium (Colace) 100 mg PRN BID PRN PO CONSTIPATION; Start 12/28/16 at 14:30 Magnesium Hydroxide (Milk Of Magnesia) 2,400 mg PRN QHS PRN PO CONSTIPATION; Start 12/28/16 at 14:30 Mirtazapine (Remeron) 7.5 mg QHS PO Last administered on 01/02/17 20:00; Start 12/29/16 at 21:00 Divalproex Sodium (Depakote Er) 500 mg QHS PO Last administered on 01/02/17 20:00; Start 12/30/16 at 21:00 Risperidone (RisperDAL) 0.5 mg DAILY PO Last administered on 01/02/17 08:30; Start 12/31/16 at 09:00 Risperidone (RisperDAL CONSTA) 25 mg Q2WKS IM Last administered on 01/02/17 09:13; Start 01/02/17 at 09:00 Active Scripts Active Reported Nicotine Gum (Nicotine Polacrilex) 2 Mg Gum 2 Mg BC PRN Q2HR PRN Clozapine 100 Mg Tablet 150 Mg PO HS Buspirone Hcl 10 Mg Tablet 10 Mg PO BID Analgesic [place] (Methyl Salicylate/Menthol) 28 Gm Oint...g. 1 Applic TP PRN QID PRN [place] Carbonate 450 Mg Tablet.er 450 Mg PO QHS Vitamin D3 (Cholecalciferol (Vitamin D3)) 1,000 Unit Tablet 2,000 Unit PO DAILYBFRSUP Atorvastatin Calcium 20 Mg Tablet 20 Mg PO QHS Zyprexa Zydis (Olanzapine) 5 Mg Tab.rapdis 2.5 Mg PO PRN Q2HR PRN Remeron (Mirtazapine) 15 Mg Tab.rapdis 7.5 Mg PO QHS Mag-Al Plus Xs Suspension (Mag Hydrox/Al Hydrox/Simeth) 30 Ml Oral.susp 15 Ml PO PRN AFTMEALHC PRN Docusate Sodium 100 Mg Tablet 100 Mg PO PRN BID PRN Trazodone Hcl 50 Mg Tablet 100 Mg PO PRN QHS PRN [place] Carbonate 300 Mg Tablet.er 300 Mg PO DAILY Aspirin 325 Mg Tablet 325 Mg PO PRN Q8HRS PRN Milk Of Magnesia (Magnesium Hydroxide) 2,400 Mg/10 Ml Oral.susp 2,400 Mg PO PRN QHS PRN Tylenol (Acetaminophen) 325 Mg Tablet 650 Mg PO PRN Q6HRS PRN Diagnosis: Problems: (1) Depressed (2) Bipolar 1 disorder (3) Anxiety (4) Impulse control disorder (5) Impulse control disorder (6) Dementia with behavioral disturbance (7) Behavior disorder (8) Schizoaffective disorder, chronic condition with acute exacerbation GERA MAY MD Jan 02, 2017 22:03
[2017-01-03 06:08] VITALS: BP 127/80
[2017-01-03] MEDS: risperiDONE 0.5 MG TABLET. PO SCH (08:01)
[2017-01-03] MEDS: busPIRone 10 MG TABLET. PO SCH ×2 (08:01→19:57)
[2017-01-03] MEDS: CHOLECALCIFEROL (VITAMIN D3) 1,000 UNIT TABLET PO SCH (08:04)
[2017-01-03] MEDS: NICOTINE POLACRILEX GUM 2 MG GUM. BC PRN (11:00)
[2017-01-03 16:12] VITALS: BP 118/75
[2017-01-03] MEDS: LITHIUM CARBONATE ER 450 MG TABLET.ER PO SCH (19:57)
[2017-01-03] MEDS: DIVALPROEX ER 500 MG TAB.ER.24H PO SCH (19:57)
[2017-01-03] MEDS: MIRTAZAPINE 7.5 MG TABLET. PO SCH (19:57)
[2017-01-03] MEDS: ATORVASTATIN CALCIUM 20 MG TABLET PO SCH (19:57)
[2017-01-04 06:12] VITALS: BP 156/68
[2017-01-04] MEDS: risperiDONE 0.5 MG TABLET. PO SCH (07:47)
[2017-01-04] MEDS: busPIRone 10 MG TABLET. PO SCH ×2 (07:47→20:07)
[2017-01-04] MEDS: LITHIUM CARBONATE ER 300 MG TABLET.ER PO SCH (07:47)
[2017-01-04] MEDS: CHOLECALCIFEROL (VITAMIN D3) 1,000 UNIT TABLET PO SCH (07:48)
[2017-01-04] MEDS: NICOTINE POLACRILEX GUM 2 MG GUM. BC PRN (08:45)
--- NOTE | 2017-01-04 11:25 | PN ---
DATE: 12/31/2016 PSYCHIATRIC PROGRESS NOTE This late entry, date of service, 12/31/2016 covers elements not covered in my initial note of 12/31/2016. SUBJECTIVE: I met with the patient in the evening of 12/31/2016 and staffed at a treatment team meeting with the entire team the morning of 12/31/2016. The patient remains extremely psychotic, talking in high-pitched voices, somewhat bizarre in her presentation, expansive, eccentric per nursing report, disheveled in her appearance, attempted to sleep on the floor in front of the dining room stating "someone is in my bed." REVIEW OF SYSTEMS: No CV, , pulmonary, eye, ENT system symptoms on review. She has vague somatic symptoms. MENTAL STATUS EXAM: Oriented to herself and situation. Speech is loud and high pitched, abstraction fair, computation impaired, language function intact. Attention span short. She is quite psychotic, bizarre in her presentation. LABORATORIES: Reviewed. IMPRESSION: Unchanged from initial note. PLAN: Continue lithium at current dosage. Follow labs level. We have initiated oral Risperdal in preparation for Risperdal Consta. Continue BuSpar, Remeron, and Depakote was reinitiated as suggested by Dr. Negrete, her outpatient psychiatrist and we will follow up repeat labs. Review drug interactions, risk/benefit ratio favors no further change. MAN Martin MAY MD DR: ANNE/caitlyn JOB#: [id number] / [id number]
--- NOTE | 2017-01-04 11:28 | PN ---
DATE: 01/01/2017 PSYCHIATRIC PROGRESS NOTE This late entry 01/01/2017 covers elements not covered in my initial note of 01/01/2017. I met with the patient individually at length in her room evening of 01/01/2017. Per nursing report, the patient has been making rather bizarre statements, appear psychotic "they are milking the sun, because Maurice said so" amongst other statements. She talks in a high pitched tone. REVIEW OF SYSTEMS: No CV, , pulmonary, eye, ENT system symptoms on review. MENTAL STATUS EXAM: The patient is reasonably oriented. Speech is high pitched, thought processes loose, abstraction fair, computation impaired, language function intact. Attention span short. Mood and affect remains labile. LABORATORY DATA: Reviewed. IMPRESSION: Unchanged from initial note. PLAN: Continue current psychotropics and once she tolerates the oral Risperdal, we will start her on the Risperdal Consta, maintain, the rest unchanged, reviewed drug interactions, risk/benefit ratio favors no further change, lithium level therapeutic at 0.8. MAN Martin MAY MD DR: ANNE/caitlyn JOB#: [id number] / [id number]
--- NOTE | 2017-01-04 11:35 | PN ---
DATE: 01/02/2017 This note covers elements, not covered in my initial note of 01/02/2017. SUBJECTIVE: I met with the patient at length in her room. Previous evening, she was yelling loud, labile, psychotic, but better this morning. REVIEW OF SYSTEMS: No CV, , pulmonary, eye, ENT system symptoms on review. I met with her in her room. MENTAL STATUS EXAM: Reasonably oriented. Speech coherent, abstraction fair, computation impaired, language function intact, attention span short. Mood and affect still labile, anxious, but better than before. LABORATORY DATA: Reviewed. IMPRESSION: Unchanged from initial note. PLAN: Continue current psychotropics, Risperdal Consta has been started. We will make further adjustments as clinically indicated. Reviewed drug interactions, risk/benefit ratio favors no further change for now. MAN Martin MAY MD DR: ANNE/caitlyn JOB#: [id number] / [id number]
[2017-01-04 16:15] VITALS: BP 146/92
[2017-01-04] MEDS: MIRTAZAPINE 7.5 MG TABLET. PO SCH (20:05)
[2017-01-04] MEDS: LITHIUM CARBONATE ER 450 MG TABLET.ER PO SCH (20:05)
[2017-01-04] MEDS: DIVALPROEX ER 500 MG TAB.ER.24H PO SCH (20:06)
[2017-01-04] MEDS: ATORVASTATIN CALCIUM 20 MG TABLET PO SCH (20:06)
[2017-01-05] MEDS: NICOTINE POLACRILEX GUM 2 MG GUM. BC PRN (06:39)
[2017-01-05 06:41] VITALS: BP 129/81
[2017-01-05] MEDS: risperiDONE 0.5 MG TABLET. PO SCH (08:21)
[2017-01-05] MEDS: busPIRone 10 MG TABLET. PO SCH (08:21)
[2017-01-05] MEDS: LITHIUM CARBONATE ER 300 MG TABLET.ER PO SCH (08:22)
--- NOTE | 2017-01-05 10:23 | PN ---
DATE: 01/04/2017 SUBJECTIVE: The patient was seen today, met with the staff, chart reviewed. Staff reports social isolation, history of psychotic behaviors including smearing feces on the wall. The patient also tends to pace constantly. The patient also has a diagnosis of bipolar disorder. The patient has a long history of psychiatric problems. The patient constantly yelling in high voice, loud, noncompliant with medications. The patient also emesis in an AC vent. The patient is difficult to redirect. OBJECTIVE: VITAL SIGNS: Temperature 97.6, blood pressure 156/68, pulse 71, respirations 18. Slept about 6 hours last night. LABORATORY DATA: The patient's lab reviewed. Her Depakote level was 46. [place] level was 0.8. CURRENT MEDICATIONS: Include Risperdal 25 mg Consta q. 2 weeks, Risperdal 0.5 mg daily, Depakote 500 mg at night, mirtazapine 7.5 mg at night, lithium carbonate 300 mg daily and 450 mg at night, BuSpar 10 mg b.i.d. The patient is not showing any side effects to the medications. The patient's symptoms are more suggestive of schizophrenia than bipolar. PLAN: Continue with the treatment. ALMAS CORDOVA MD DR: CLIVE/caitlyn JOB#: [id number] / [id number]
[2017-01-05 15:33] VITALS: BP 116/80
[2017-01-05] MEDS: CHOLECALCIFEROL (VITAMIN D3) 1,000 UNIT TABLET PO SCH ×2 (16:53→17:00)
[2017-01-05] MEDS: LITHIUM CARBONATE ER 450 MG TABLET.ER PO SCH (20:04)
[2017-01-05] MEDS: DIVALPROEX ER 500 MG TAB.ER.24H PO SCH (20:04)
[2017-01-05] MEDS: busPIRone 5 MG TABLET. PO SCH (20:04)
[2017-01-05] MEDS: MIRTAZAPINE 7.5 MG TABLET. PO SCH (20:04)
[2017-01-05] MEDS: ATORVASTATIN CALCIUM 20 MG TABLET PO SCH (20:04)
[2017-01-06 06:09] VITALS: BP 118/64
[2017-01-06] MEDS: busPIRone 5 MG TABLET. PO SCH ×2 (08:31→19:11)
[2017-01-06] MEDS: LITHIUM CARBONATE ER 300 MG TABLET.ER PO SCH (08:31)
[2017-01-06] MEDS: risperiDONE 0.5 MG TABLET. PO SCH (08:31)
[2017-01-06] MEDS: MAGNESIUM HYDROXIDE 2,400 MG/30 ML ORAL.SUSP. PO PRN (08:40)
--- NOTE | 2017-01-06 09:58 | PN ---
DATE: 01/05/2017 SUBJECTIVE: The patient was seen today, met with the staff, chart reviewed. The patient continues to be anxious and face has been itching on her back and constantly scratching and also forehead. The patient also thinks she may be allergic to the soap. Staff reports that she tends to isolate and also tends to pace a lot, but overall behavior has improved. OBSERVATION: VITAL SIGNS: Temperature 97.6, blood pressure 129/81, pulse 69, respirations 16, O2 sat 97%. GENERAL: Slept about 4 hours last night. Appetite fair. The patient is not having any side effects to the medications. LABORATORY DATA: The patient's lab reviewed. The patient is not having any physical complaints except for stretching. ASSESSMENT: Bipolar disorder mixed with psychotic features. PLAN: To continue with the treatment. The patient will continue on her medications including lithium carbonate 300 mg daily and 450 mg at night, BuSpar 10 mg b.i.d., Remeron 7.5 mg at night. She is also on Depakote ER 500 mg at night. The patient is not having any major physical complaints at this time. ALMAS CORDOVA MD DR: CLIVE/caitlyn JOB#: [id number] / [id number]
[2017-01-06 16:18] VITALS: BP 117/84
[2017-01-06] MEDS: CHOLECALCIFEROL (VITAMIN D3) 1,000 UNIT TABLET PO SCH (17:54)
[2017-01-06] MEDS: NICOTINE POLACRILEX GUM 2 MG GUM. BC PRN (19:11)
[2017-01-06] MEDS: MIRTAZAPINE 7.5 MG TABLET. PO SCH (19:11)
[2017-01-06] MEDS: ATORVASTATIN CALCIUM 20 MG TABLET PO SCH (19:12)
[2017-01-06] MEDS: DIVALPROEX ER 500 MG TAB.ER.24H PO SCH (19:12)
[2017-01-06] MEDS: LITHIUM CARBONATE ER 450 MG TABLET.ER PO SCH (19:12)
--- NOTE | 2017-01-07 04:41 | PN ---
DATE: 01/06/2017 SUBJECTIVE: The patient was seen today, met with the staff, chart reviewed. The patient continues to have tremors of upper extremities. The patient continues to pace, unsteady gait, did not have any falls. OBSERVATION: VITAL SIGNS: Temperature 97.2, blood pressure 118/64, pulse 64, respirations 16, and O2 sat 98%. Slept about 5 hours last night. MEDICATIONS: Reviewed. Currently she is on lithium carbonate 300 mg daily and 450 at night, BuSpar 10 mg b.i.d., Remeron 7.5 mg at night. She is also on Depakote ER 500 mg at night. The patient is not showing any side effects to the medications. ASSESSMENT: Bipolar disorder mixed with psychotic features. PLAN: To continue with the treatment. ALMAS CORDOVA MD DR: CLIVE/caitlyn JOB#: [id number] / [id number]
[2017-01-07 06:01] VITALS: BP 113/54
[2017-01-07] MEDS: busPIRone 5 MG TABLET. PO SCH ×2 (07:41→20:21)
[2017-01-07] MEDS: risperiDONE 0.5 MG TABLET. PO SCH (07:42)
[2017-01-07] MEDS: LITHIUM CARBONATE ER 300 MG TABLET.ER PO SCH (07:42)
[2017-01-07 15:05] LABS: LI 1.2 mmol/L (0.6-1.2)
[2017-01-07 15:37] VITALS: BP 143/82
[2017-01-07] MEDS: CHOLECALCIFEROL (VITAMIN D3) 1,000 UNIT TABLET PO SCH (17:26)
[2017-01-07] MEDS: NICOTINE POLACRILEX GUM 2 MG GUM. BC PRN (17:55)
[2017-01-07] MEDS: LITHIUM CARBONATE ER 450 MG TABLET.ER PO SCH (20:20)
[2017-01-07] MEDS: ATORVASTATIN CALCIUM 20 MG TABLET PO SCH (20:21)
[2017-01-07] MEDS: MIRTAZAPINE 7.5 MG TABLET. PO SCH (20:21)
[2017-01-07] MEDS: DIVALPROEX ER 500 MG TAB.ER.24H PO SCH (20:21)
[2017-01-08 05:51] VITALS: BP 110/73
[2017-01-08 06:47] LABS: ALBUMIN 3.1 g/dL (3.4-5.0); CALCIUM 9.6 mg/dL (8.5-10.1); CREATININE 0.8 mg/dL (0.6-1.0); GFR 69.9; MAGNESIUM 2.3 mg/dL (1.8-2.4); POTASSIUM 4.3 mmol/L (3.5-5.1); TOTAL BILIRUBIN 0.5 mg/dL (0.2-1.0); TOTAL PROTEIN 6.3 g/dL (6.4-8.2)
[2017-01-08 07:01] LABS: BASO % 1 % (0-3); EOS # 0.4 x10^3/uL (0.0-0.7); EOS % 6 % (0-3); HEMOGLOBIN 13.2 g/dL (12.0-15.5); LYMPH # 1.3 x10^3/uL (1.0-4.8); LYMPH % 19 % (24-48); MEAN CORPUSCULAR HEMOGLOBIN 30 pg (25-35); MEAN CORPUSCULAR HGB CONC 33 g/dL (31-37); MEAN CORPUSCULAR VOLUME 90 fL (79-100); MONO # 0.5 x10^3/uL (0.0-1.1); MONO % 7 % (0-9); NEUT # 4.5 x10^3uL (1.8-7.7); NEUT % 68 % (31-73); PLATELET COUNT 185 x10^3/uL (140-400); RED BLOOD COUNT 4.45 x10^6/uL (3.50-5.40); RED CELL DISTRIBUTION WIDTH 14.3 % (11.5-14.5); WHITE BLOOD COUNT 6.7 x10^3/uL (4.0-11.0)
[2017-01-08] MEDS: risperiDONE 0.5 MG TABLET. PO SCH (08:02)
[2017-01-08] MEDS: busPIRone 5 MG TABLET. PO SCH ×2 (08:02→20:20)
[2017-01-08] MEDS: LITHIUM CARBONATE ER 300 MG TABLET.ER PO SCH ×2 (08:02→20:23)
--- NOTE | 2017-01-08 08:02 | PN ---
DATE: 01/07/2017 SUBJECTIVE: The patient's diagnosis, treatment behaviors and discharge plans were discussed in the treatment review today. Staff reports lithium level was 1.2. Apparently, it was drawn 2 hours after the first dose in the morning. The patient does not have any symptoms of lithium toxicity at this time. The patient's behavior remains the same, continues to have some tremors of upper extremities, also unsteady gait, did not have any falls. OBSERVATION: VITAL SIGNS: Temperature 96.4, blood pressure 113/54, pulse 57, respirations 16, O2 sat 96%. Slept about 9 hours last night. The patient is not having any side effects to the medications. CURRENT MEDICATIONS: [place] carbonate 300 mg in the morning and 450 mg at night, BuSpar 10 mg b.i.d., Remeron 7.5 mg at night, and Depakote 500 mg at night. ASSESSMENT: Bipolar disorder mixed with psychotic features. PLAN: The patient will continue with the treatment, but [place] will be on hold for tonight. We will recheck lithium tomorrow and then reinstitute [place] if the levels were reasonable. Continue with the treatment. ALMAS CORDOVA MD DR: CLIVE/caitlyn JOB#: [id number] / [id number]
[2017-01-08 13:31] LABS: LI 0.8 mmol/L (0.6-1.2)
[2017-01-08 16:40] VITALS: BP 136/86
[2017-01-08] MEDS: CHOLECALCIFEROL (VITAMIN D3) 1,000 UNIT TABLET PO SCH (17:38)
[2017-01-08] MEDS: DIVALPROEX ER 500 MG TAB.ER.24H PO SCH (20:20)
[2017-01-08] MEDS: ATORVASTATIN CALCIUM 20 MG TABLET PO SCH (20:20)
[2017-01-08] MEDS: MIRTAZAPINE 7.5 MG TABLET. PO SCH (20:20)
[2017-01-09 06:00] VITALS: BP 130/62
[2017-01-09] MEDS: busPIRone 5 MG TABLET. PO SCH ×2 (08:08→19:36)
[2017-01-09] MEDS: LITHIUM CARBONATE ER 300 MG TABLET.ER PO SCH ×2 (08:11→19:36)
[2017-01-09] MEDS: risperiDONE 0.5 MG TABLET. PO SCH (08:11)
[2017-01-09] MEDS: CHOLECALCIFEROL (VITAMIN D3) 1,000 UNIT TABLET PO SCH (08:12)
--- NOTE | 2017-01-09 14:46 | PN ---
DATE: 01/08/2017 SUBJECTIVE: The patient was seen today, met with the staff, chart reviewed. The patient currently not exhibiting any side effects from the lithium except for hand tremors. No evidence of any toxic symptoms. No nausea, vomiting, gait impairment except for some blurring of vision. The patient's lithium level was 0.8 today and the previous level was 1.2. OBSERVATION: Vital signs stable. The patient's sleep and appetite have improved. The patient is not presenting with any manic behavior at this point. MEDICATIONS: The patient's current medications include lithium carbonate 300 mg at night, BuSpar 5 mg b.i.d., Risperdal Consta 25 mg IM every 2 weeks, Risperdal 0.5 mg daily, Depakote 500 mg at night, mirtazapine 7.5 mg at night, lithium carbonate 300 mg daily. ASSESSMENT: Bipolar disorder, mixed with psychotic features. PLAN: To continue with the treatment. Continue to monitor her lithium level and also the patient's lithium level to be decreased to 450 mg at night. ALMAS CORDOVA MD DR: CLIVE/caitlyn JOB#: [id number] / [id number]
[2017-01-09 15:58] VITALS: BP 123/61
[2017-01-09] MEDS: MIRTAZAPINE 7.5 MG TABLET. PO SCH (19:36)
[2017-01-09] MEDS: ATORVASTATIN CALCIUM 20 MG TABLET PO SCH (19:36)
[2017-01-09] MEDS: DIVALPROEX ER 500 MG TAB.ER.24H PO SCH (19:36)
[2017-01-09] MEDS: NICOTINE POLACRILEX GUM 2 MG GUM. BC PRN (19:37)
[2017-01-10 06:02] VITALS: BP 133/77
[2017-01-10] MEDS: LITHIUM CARBONATE ER 300 MG TABLET.ER PO SCH ×2 (08:05→19:50)
[2017-01-10] MEDS: risperiDONE 0.5 MG TABLET. PO SCH (08:05)
[2017-01-10] MEDS: CHOLECALCIFEROL (VITAMIN D3) 1,000 UNIT TABLET PO SCH (08:05)
[2017-01-10] MEDS: busPIRone 5 MG TABLET. PO SCH ×2 (08:05→19:49)
[2017-01-10] MEDS: NICOTINE POLACRILEX GUM 2 MG GUM. BC PRN ×2 (08:30→15:11)
[2017-01-10 12:32] LABS: LI 0.7 mmol/L (0.6-1.2)
[2017-01-10 16:53] VITALS: BP 132/94
[2017-01-10] MEDS: DIVALPROEX ER 500 MG TAB.ER.24H PO SCH (19:49)
[2017-01-10] MEDS: MIRTAZAPINE 7.5 MG TABLET. PO SCH (19:50)
[2017-01-10] MEDS: ATORVASTATIN CALCIUM 20 MG TABLET PO SCH (19:50)
--- NOTE | 2017-01-11 05:46 | PN ---
DATE: 01/08/2017 SUBJECTIVE: The patient was seen today, met with the staff, chart reviewed. The patient still complains of hand tremors. The patient is not having any other major behavior problems. OBSERVATION: VITAL SIGNS: Temperature 97.7, blood pressure 133/77, pulse 56, respirations 16, O2 sat 98%. Slept about 8 hours last night. CURRENT MEDICATIONS: Include lithium carbonate 300 mg at night, BuSpar 5 mg b.i.d., Risperdal Consta 25 mg q. 2 weeks, Risperdal 0.5 mg daily, Depakote 500 mg at night, mirtazapine 7.5 mg at night, lithium carbonate 300 mg daily. LABORATORY DATA: Reviewed. The patient's Depakote level was 0.7. ASSESSMENT: Bipolar disorder mixed with psychotic features. PLAN: Continue with the treatment. ALMAS CORDOVA MD DR: CLIVE/caitlyn JOB#: [id number] / [id number]
[2017-01-11 06:30] VITALS: BP 120/47
[2017-01-11] MEDS: busPIRone 5 MG TABLET. PO SCH ×2 (08:01→20:12)
[2017-01-11] MEDS: LITHIUM CARBONATE ER 300 MG TABLET.ER PO SCH ×2 (08:01→20:12)
[2017-01-11] MEDS: risperiDONE 0.5 MG TABLET. PO SCH (08:01)
--- NOTE | 2017-01-11 12:40 | PN ---
DATE: 01/09/2017 SUBJECTIVE: The patient was seen today, met with the staff, chart reviewed. The patient continues to pace, continues to scream high pitched voice. The patient is difficult to redirect at times. The patient still has some fine tremors of both hands. The patient is not having any major physical problems. The last lithium level was 0.8. OBSERVATION: VITAL SIGNS: Temperature 97.3, blood pressure 130/62, pulse 75, O2 sat 95. Slept about 6 hours last night. The patient's lab reviewed. The patient's labs were within the normal range. CURRENT MEDICATIONS: Include lithium carbonate 300 mg at night, BuSpar 5 mg b.i.d., Risperdal 25 mg IM q. 2 weeks, also Risperdal 0.5 mg daily, Depakote 500 mg at night, mirtazapine 7.5 mg at night, lithium carbonate 300 mg daily. The patient is not having any side effects to the medications. The patient has complaints of itching. ASSESSMENT: Bipolar disorder mixed with psychotic features. PLAN: To continue with the treatment. ALMAS CORDOVA MD DR: CLIVE/caitlyn JOB#: [id number] / [id number]
[2017-01-11 16:06] VITALS: BP 135/83
[2017-01-11] MEDS: CHOLECALCIFEROL (VITAMIN D3) 1,000 UNIT TABLET PO SCH (17:27)
[2017-01-11] MEDS: NICOTINE POLACRILEX GUM 2 MG GUM. BC PRN ×2 (17:28→20:11)
[2017-01-11] MEDS: DIVALPROEX ER 250 MG TAB.ER.24H. PO SCH (20:12)
[2017-01-11] MEDS: MIRTAZAPINE 7.5 MG TABLET. PO SCH (20:12)
[2017-01-11] MEDS: ATORVASTATIN CALCIUM 20 MG TABLET PO SCH (20:12)
--- NOTE | 2017-01-11 20:49 | PDOC ---
Exam [place] Demential Exam: [place] Note: Please also refer to the separate dictated note~for this date of service dictated separately.~Patient seen individually. Discussed the patient with Nursing staff reviewed the chart.~Reviewed interim history and current functioning. Reviewed vital signs,~Labs/ Radiology~and current medications noted below. Continue current treatment with the changes noted in the dictated addendum note Assessment: Vital Signs: Vital Signs Date Time Temp Pulse Resp B/P (MAP) Pulse Ox O2 Delivery O2 Flow Rate FiO2 01/11/17 16:06 97.2 81 20 135/83 (100) 98 01/11/17 06:30 Room Air I&O Intake and Output 01/12/17 07:00 Intake Total 1080 ml Balance 1080 ml Intake Oral 1080 ml Current Medications: Meds: Current Medications Buspirone HCl (Buspar) 10 mg BID PO Last administered on 01/05/17 08:21; Start 12/28/16 at 21:00; Stop 01/05/17 at 15:54; Status DC [place] Carbonate (Lithobid) 300 mg DAILY PO Last administered on 01/11/17 08 :01; Start 12/29/16 at 09:00 [place] Carbonate (Eskalith) 450 mg QHS PO Last administered on 01/06/17 19: 12; Start 12/28/16 at 21:00; Stop 01/08/17 at 16:27; Status DC Mirtazapine (Remeron [place]-Tab) 7.5 mg QHS PO Last administered on 12/28/16 19: 51; Start 12/28/16 at 21:00; Stop 12/29/16 at 13:02; Status DC Acetaminophen (Tylenol) 650 mg PRN Q6HRS PRN PO pain/temp; Start 12/28/16 at 14:30 Aspirin (Benij Aspirin) 325 mg PRN Q8HRS PRN PO PAIN; Start 12/28/16 at 14:30 Atorvastatin Calcium (Lipitor) 20 mg QHS PO Last administered on 01/11/17 20: 12; Start 12/28/16 at 21:00 Vitamin D (Vitamin D3) 2,000 unit DAILYBFRSUP PO Last administered on 17:27; Start 12/28/16 at 17:00 Al Hydroxide/Mg Hydroxide (Mylanta Plus Xs) 15 ml PRN AFTMEALHC PRN PO DYSPEPSIA; Start 12/28/16 at 14:30 Multi-Ingredient Ointment (Analgesic [place]) 1 raegan PRN QID PRN TP MUSCLE PAIN; Start 12/28/16 at 14:30 Nicotine Polacrilex (Nicorette Gum) 2 mg PRN Q2HR PRN BC SMOKING CESSATION Last administered on 01/11/17 20:11; Start 12/28/16 at 14:30 Docusate Sodium (Colace) 100 mg PRN BID PRN PO CONSTIPATION; Start 12/28/16 at 14:30 Magnesium Hydroxide (Milk Of Magnesia) 2,400 mg PRN QHS PRN PO CONSTIPATION Last administered on 01/06/17 08:40; Start 12/28/16 at 14:30 Mirtazapine (Remeron) 7.5 mg QHS PO Last administered on 01/11/17 20:12; Start 12/29/16 at 21:00 Divalproex Sodium (Depakote Er) 500 mg QHS PO Last administered on 01/10/17 19:49; Start 12/30/16 at 21:00; Stop 01/11/17 at 19:09; Status DC Risperidone (RisperDAL) 0.5 mg DAILY PO Last administered on 01/11/17 08:01; Start 12/31/16 at 09:00 Risperidone (RisperDAL CONSTA) 25 mg Q2WKS IM Last administered on 01/02/17 09:13; Start 01/02/17 at 09:00 Buspirone HCl (Buspar) 5 mg BID PO Last administered on 01/11/17 20:12; Start 01/05/17 at 21:00 [place] Carbonate (Lithobid) 300 mg QHS PO Last administered on 01/11/17 20: 12; Start 01/08/17 at 21:00 Divalproex Sodium (Depakote Er) 750 mg QHS PO Last administered on 01/11/17 20:12; Start 01/11/17 at 21:00 Active Scripts Active Reported Nicotine Gum (Nicotine Polacrilex) 2 Mg Gum 2 Mg BC PRN Q2HR PRN Clozapine 100 Mg Tablet 150 Mg PO HS Buspirone Hcl 10 Mg Tablet 10 Mg PO BID Analgesic [place] (Methyl Salicylate/Menthol) 28 Gm Oint...g. 1 Applic TP PRN QID PRN [place] Carbonate 450 Mg Tablet.er 450 Mg PO QHS Vitamin D3 (Cholecalciferol (Vitamin D3)) 1,000 Unit Tablet 2,000 Unit PO DAILYBFRSUP Atorvastatin Calcium 20 Mg Tablet 20 Mg PO QHS Zyprexa Zydis (Olanzapine) 5 Mg Tab.rapdis 2.5 Mg PO PRN Q2HR PRN Remeron (Mirtazapine) 15 Mg Tab.rapdis 7.5 Mg PO QHS Mag-Al Plus Xs Suspension (Mag Hydrox/Al Hydrox/Simeth) 30 Ml Oral.susp 15 Ml PO PRN AFTMEALHC PRN Docusate Sodium 100 Mg Tablet 100 Mg PO PRN BID PRN Trazodone Hcl 50 Mg Tablet 100 Mg PO PRN QHS PRN [place] Carbonate 300 Mg Tablet.er 300 Mg PO DAILY Aspirin 325 Mg Tablet 325 Mg PO PRN Q8HRS PRN Milk Of Magnesia (Magnesium Hydroxide) 2,400 Mg/10 Ml Oral.susp 2,400 Mg PO PRN QHS PRN Tylenol (Acetaminophen) 325 Mg Tablet 650 Mg PO PRN Q6HRS PRN Diagnosis: Problems: (1) Depressed (2) Bipolar 1 disorder (3) Anxiety (4) Impulse control disorder (5) Impulse control disorder (6) Dementia with behavioral disturbance (7) Behavior disorder (8) Schizoaffective disorder, chronic condition with acute exacerbation GERA MAY MD Jan 11, 2017 20:49
[2017-01-11] MEDS: MAGNESIUM HYDROXIDE 2,400 MG/30 ML ORAL.SUSP. PO PRN (20:58)
[2017-01-12 05:56] VITALS: BP 115/71
[2017-01-12] MEDS: busPIRone 5 MG TABLET. PO SCH ×2 (08:06→19:55)
[2017-01-12] MEDS: risperiDONE 0.5 MG TABLET. PO SCH (08:06)
[2017-01-12] MEDS: LITHIUM CARBONATE ER 300 MG TABLET.ER PO SCH ×2 (08:06→19:55)
[2017-01-12] MEDS: NICOTINE POLACRILEX GUM 2 MG GUM. BC PRN ×3 (08:16→20:36)
[2017-01-12 16:17] VITALS: BP 92/59
[2017-01-12] MEDS: CHOLECALCIFEROL (VITAMIN D3) 1,000 UNIT TABLET PO SCH (17:24)
[2017-01-12] MEDS: MIRTAZAPINE 7.5 MG TABLET. PO SCH (19:55)
[2017-01-12] MEDS: DIVALPROEX ER 250 MG TAB.ER.24H. PO SCH (19:56)
[2017-01-12] MEDS: ATORVASTATIN CALCIUM 20 MG TABLET PO SCH (19:56)
--- NOTE | 2017-01-12 22:13 | PDOC ---
Exam [place] Demential Exam: [place] Note: Please also refer to the separate dictated note~for this date of service dictated separately.~Patient seen individually. Discussed the patient with Nursing staff reviewed the chart.~Reviewed interim history and current functioning. Reviewed vital signs,~Labs/ Radiology~and current medications noted below. Continue current treatment with the changes noted in the dictated addendum note Assessment: Vital Signs: Vital Signs Date Time Temp Pulse Resp B/P (MAP) Pulse Ox O2 Delivery O2 Flow Rate FiO2 01/12/17 16: 97.6 70 18 92/59 (70) 95 01/11/17 06:30 Room Air I&O Intake and Output 01/13/17 07:00 Intake Total 1080 ml Balance 1080 ml Intake Oral 1080 ml # Bowel Movements 1 Current Medications: Meds: Current Medications Buspirone HCl (Buspar) 10 mg BID PO Last administered on 01/05/17 08:21; Start 12/28/16 at 21:00; Stop 01/05/17 at 15:54; Status DC [place] Carbonate (Lithobid) 300 mg DAILY PO Last administered on 01/12/17 08 :06; Start 12/29/16 at 09:00 [place] Carbonate (Eskalith) 450 mg QHS PO Last administered on 01/06/17 19: 12; Start 12/28/16 at 21:00; Stop 01/08/17 at 16:27; Status DC Mirtazapine (Remeron Olimpia-Tab) 7.5 mg QHS PO Last administered on 12/28/16 19: 51; Start 12/28/16 at 21:00; Stop 12/29/16 at 13:02; Status DC Acetaminophen (Tylenol) 650 mg PRN Q6HRS PRN PO pain/temp; Start 12/28/16 at 14:30 Aspirin (Benji Aspirin) 325 mg PRN Q8HRS PRN PO PAIN; Start 12/28/16 at 14:30 Atorvastatin Calcium (Lipitor) 20 mg QHS PO Last administered on 01/12/17 19: 56; Start 12/28/16 at 21:00 Vitamin D (Vitamin D3) 2,000 unit DAILYBFRSUP PO Last administered on 17:27; Start 12/28/16 at 17:00 Al Hydroxide/Mg Hydroxide (Mylanta Plus Xs) 15 ml PRN AFTMEALHC PRN PO DYSPEPSIA; Start 12/28/16 at 14:30 Multi-Ingredient Ointment (Analgesic [place]) 1 raegan PRN QID PRN TP MUSCLE PAIN; Start 12/28/16 at 14:30 Nicotine Polacrilex (Nicorette Gum) 2 mg PRN Q2HR PRN BC SMOKING CESSATION Last administered on 01/12/17 20:36; Start 12/28/16 at 14:30 Docusate Sodium (Colace) 100 mg PRN BID PRN PO CONSTIPATION; Start 12/28/16 at 14:30 Magnesium Hydroxide (Milk Of Magnesia) 2,400 mg PRN QHS PRN PO CONSTIPATION Last administered on 01/11/17 20:58; Start 12/28/16 at 14:30 Mirtazapine (Remeron) 7.5 mg QHS PO Last administered on 01/12/17 19:55; Start 12/29/16 at 21:00 Divalproex Sodium (Depakote Er) 500 mg QHS PO Last administered on 01/10/17 19:49; Start 12/30/16 at 21:00; Stop 01/11/17 at 19:09; Status DC Risperidone (RisperDAL) 0.5 mg DAILY PO Last administered on 01/12/17 08:06; Start 12/31/16 at 09:00; Stop 01/12/17 at 19:08; Status DC Risperidone (RisperDAL CONSTA) 25 mg Q2WKS IM Last administered on 01/02/17 09:13; Start 01/02/17 at 09:00 Buspirone HCl (Buspar) 5 mg BID PO Last administered on 01/12/17 19:55; Start 01/05/17 at 21:00 [place] Carbonate (Lithobid) 300 mg QHS PO Last administered on 01/12/17 19: 55; Start 01/08/17 at 21:00 Divalproex Sodium (Depakote Er) 750 mg QHS PO Last administered on 01/12/17 19:56; Start 01/11/17 at 21:00 Risperidone (RisperDAL) 0.25 mg DAILY PO ; Start 01/13/17 at 09:00 Active Scripts Active Reported Nicotine Gum (Nicotine Polacrilex) 2 Mg Gum 2 Mg BC PRN Q2HR PRN Clozapine 100 Mg Tablet 150 Mg PO HS Buspirone Hcl 10 Mg Tablet 10 Mg PO BID Analgesic [place] (Methyl Salicylate/Menthol) 28 Gm Oint...g. 1 Applic TP PRN QID PRN [place] Carbonate 450 Mg Tablet.er 450 Mg PO QHS Vitamin D3 (Cholecalciferol (Vitamin D3)) 1,000 Unit Tablet 2,000 Unit PO DAILYBFRSUP Atorvastatin Calcium 20 Mg Tablet 20 Mg PO QHS Zyprexa Zydis (Olanzapine) 5 Mg Tab.rapdis 2.5 Mg PO PRN Q2HR PRN Remeron (Mirtazapine) 15 Mg Tab.rapdis 7.5 Mg PO QHS Mag-Al Plus Xs Suspension (Mag Hydrox/Al Hydrox/Simeth) 30 Ml Oral.susp 15 Ml PO PRN AFTMEALHC PRN Docusate Sodium 100 Mg Tablet 100 Mg PO PRN BID PRN Trazodone Hcl 50 Mg Tablet 100 Mg PO PRN QHS PRN [place] Carbonate 300 Mg Tablet.er 300 Mg PO DAILY Aspirin 325 Mg Tablet 325 Mg PO PRN Q8HRS PRN Milk Of Magnesia (Magnesium Hydroxide) 2,400 Mg/10 Ml Oral.susp 2,400 Mg PO PRN QHS PRN Tylenol (Acetaminophen) 325 Mg Tablet 650 Mg PO PRN Q6HRS PRN Diagnosis: Problems: (1) Depressed (2) Bipolar 1 disorder (3) Anxiety (4) Impulse control disorder (5) Impulse control disorder (6) Dementia with behavioral disturbance (7) Behavior disorder (8) Schizoaffective disorder, chronic condition with acute exacerbation GERA MAY MD Jan 12, 2017 22:13
[2017-01-13 06:03] VITALS: BP 110/66
[2017-01-13] MEDS: LITHIUM CARBONATE ER 300 MG TABLET.ER PO SCH ×2 (07:51→19:52)
[2017-01-13] MEDS: busPIRone 5 MG TABLET. PO SCH ×2 (07:51→19:52)
[2017-01-13] MEDS: CHOLECALCIFEROL (VITAMIN D3) 1,000 UNIT TABLET PO SCH (07:51)
[2017-01-13] MEDS: risperiDONE 0.25 MG TABLET. PO SCH (08:32)
[2017-01-13] MEDS: NICOTINE POLACRILEX GUM 2 MG GUM. BC PRN ×2 (09:53→18:32)
--- NOTE | 2017-01-13 10:49 | PN ---
DATE: 01/11/2017 PSYCHIATRIC PROGRESS NOTE This late entry date of service 01/11/2017 covers elements, not covered in my initial note. I met with the patient on 3 different occasions evening of 01/11/2017. She is ambulating better. Still somewhat psychotic, pulled her tooth out because she said it was bothering her. REVIEW OF SYSTEMS: No CV, , pulmonary, eye, ENT system symptoms on review. MENTAL STATUS EXAM: Reasonably oriented. Speech moderate latency, is in a sing song manner. Abstraction fair, computation impaired, language function intact. Mood and affect, lability is improved. LABORATORY DATA: Valproic acid level, subtherapeutic at 46. IMPRESSION: Unchanged from initial note. PLAN: Continue lithium 300 mg b.i.d., level is 0.7, therapeutic. Depakote ER is 500 mg at bedtime with a subtherapeutic level increased to 750 mg at bedtime. Check CBC, CMP, valproic acid level in 3 days. Continue Risperdal Consta, Remeron, BuSpar, and oral Risperdal, reviewed drug interactions. Risk/benefit ratio favors no further change. Starting in about a week, 10 days. We will taper and stop the oral Risperdal. GERA MAY MD DR: ANNE/caitlyn JOB#: [id number] / [id number]
[2017-01-13 16:39] VITALS: BP 101/67
[2017-01-13] MEDS: ATORVASTATIN CALCIUM 20 MG TABLET PO SCH (19:52)
[2017-01-13] MEDS: DIVALPROEX ER 250 MG TAB.ER.24H. PO SCH (19:52)
[2017-01-13] MEDS: MIRTAZAPINE 7.5 MG TABLET. PO SCH (19:53)
--- NOTE | 2017-01-13 20:58 | PDOC ---
Exam [place] Demential Exam: [place] Note: Please also refer to the separate dictated note~for this date of service dictated separately.~Patient seen individually. Discussed the patient with Nursing staff reviewed the chart.~Reviewed interim history and current functioning. Reviewed vital signs,~Labs/ Radiology~and current medications noted below. Continue current treatment with the changes noted in the dictated addendum note Assessment: Vital Signs: Vital Signs Date Time Temp Pulse Resp B/P (MAP) Pulse Ox O2 Delivery O2 Flow Rate FiO2 01/13/17 16:39 97.8 98 16 101/67 (78) 95 Room Air I&O Intake and Output 01/14/17 07:00 Intake Total 1140 ml Balance 1140 ml Intake Oral 1140 ml Current Medications: Meds: Current Medications Buspirone HCl (Buspar) 10 mg BID PO Last administered on 01/05/17 08:21; Start 12/28/16 at 21:00; Stop 01/05/17 at 15:54; Status DC [place] Carbonate (Lithobid) 300 mg DAILY PO Last administered on 01/13/17 07: 51; Start 12/29/16 at 09:00 [place] Carbonate (Eskalith) 450 mg QHS PO Last administered on 01/06/17 19: 12; Start 12/28/16 at 21:00; Stop 01/08/17 at 16:27; Status DC Mirtazapine (Remeron Olimpia-Tab) 7.5 mg QHS PO Last administered on 12/28/16 19: 51; Start 12/28/16 at 21:00; Stop 12/29/16 at 13:02; Status DC Acetaminophen (Tylenol) 650 mg PRN Q6HRS PRN PO pain/temp; Start 12/28/16 at 14:30 Aspirin (Benji Aspirin) 325 mg PRN Q8HRS PRN PO PAIN; Start 12/28/16 at 14:30 Atorvastatin Calcium (Lipitor) 20 mg QHS PO Last administered on 01/13/17 19: 52; Start 12/28/16 at 21:00 Vitamin D (Vitamin D3) 2,000 unit DAILYBFRSUP PO Last administered on 07:51; Start 12/28/16 at 17:00 Al Hydroxide/Mg Hydroxide (Mylanta Plus Xs) 15 ml PRN AFTMEALHC PRN PO DYSPEPSIA; Start 12/28/16 at 14:30 Multi-Ingredient Ointment (Analgesic [place]) 1 raegan PRN QID PRN TP MUSCLE PAIN; Start 12/28/16 at 14:30 Nicotine Polacrilex (Nicorette Gum) 2 mg PRN Q2HR PRN BC SMOKING CESSATION Last administered on 01/13/17 18:32; Start 12/28/16 at 14:30 Docusate Sodium (Colace) 100 mg PRN BID PRN PO CONSTIPATION; Start 12/28/16 at 14:30 Magnesium Hydroxide (Milk Of Magnesia) 2,400 mg PRN QHS PRN PO CONSTIPATION Last administered on 01/11/17 20:58; Start 12/28/16 at 14:30 Mirtazapine (Remeron) 7.5 mg QHS PO Last administered on 01/13/17 19:53; Start 12/29/16 at 21:00 Divalproex Sodium (Depakote Er) 500 mg QHS PO Last administered on 01/10/17 19:49; Start 12/30/16 at 21:00; Stop 01/11/17 at 19:09; Status DC Risperidone (RisperDAL) 0.5 mg DAILY PO Last administered on 01/12/17 08:06; Start 12/31/16 at 09:00; Stop 01/12/17 at 19:08; Status DC Risperidone (RisperDAL CONSTA) 25 mg Q2WKS IM Last administered on 01/02/17 09:13; Start 01/02/17 at 09:00 Buspirone HCl (Buspar) 5 mg BID PO Last administered on 01/13/17 19:52; Start 01/05/17 at 21:00 [place] Carbonate (Lithobid) 300 mg QHS PO Last administered on 01/13/17 19:52 ; Start 01/08/17 at 21:00 Divalproex Sodium (Depakote Er) 750 mg QHS PO Last administered on 01/13/17 19 :52; Start 01/11/17 at 21:00 Risperidone (RisperDAL) 0.25 mg DAILY PO Last administered on 01/13/17 08:32; Start 01/13/17 at 09:00 Active Scripts Active Reported Nicotine Gum (Nicotine Polacrilex) 2 Mg Gum 2 Mg BC PRN Q2HR PRN Clozapine 100 Mg Tablet 150 Mg PO HS Buspirone Hcl 10 Mg Tablet 10 Mg PO BID Analgesic [place] (Methyl Salicylate/Menthol) 28 Gm Oint...g. 1 Applic TP PRN QID PRN [place] Carbonate 450 Mg Tablet.er 450 Mg PO QHS Vitamin D3 (Cholecalciferol (Vitamin D3)) 1,000 Unit Tablet 2,000 Unit PO DAILYBFRSUP Atorvastatin Calcium 20 Mg Tablet 20 Mg PO QHS Zyprexa Zydis (Olanzapine) 5 Mg Tab.rapdis 2.5 Mg PO PRN Q2HR PRN Remeron (Mirtazapine) 15 Mg Tab.rapdis 7.5 Mg PO QHS Mag-Al Plus Xs Suspension (Mag Hydrox/Al Hydrox/Simeth) 30 Ml Oral.susp 15 Ml PO PRN AFTMEALHC PRN Docusate Sodium 100 Mg Tablet 100 Mg PO PRN BID PRN Trazodone Hcl 50 Mg Tablet 100 Mg PO PRN QHS PRN [place] Carbonate 300 Mg Tablet.er 300 Mg PO DAILY Aspirin 325 Mg Tablet 325 Mg PO PRN Q8HRS PRN Milk Of Magnesia (Magnesium Hydroxide) 2,400 Mg/10 Ml Oral.susp 2,400 Mg PO PRN QHS PRN Tylenol (Acetaminophen) 325 Mg Tablet 650 Mg PO PRN Q6HRS PRN Diagnosis: Problems: (1) Depressed (2) Bipolar 1 disorder (3) Anxiety (4) Impulse control disorder (5) Impulse control disorder (6) Dementia with behavioral disturbance (7) Behavior disorder (8) Schizoaffective disorder, chronic condition with acute exacerbation GERA MAY MD Jan 13, 2017 20:58
[2017-01-14 06:22] VITALS: BP 106/71
[2017-01-14 08:07] LABS: BASO # 0.1 x10^3/uL (0.0-0.2); BASO % 1 % (0-3); EOS # 0.5 x10^3/uL (0.0-0.7); EOS % 6 % (0-3); HEMATOCRIT 39.2 % (36.0-47.0); LYMPH # 1.1 x10^3/uL (1.0-4.8); LYMPH % 15 % (24-48); MEAN CORPUSCULAR HEMOGLOBIN 30 pg (25-35); MEAN CORPUSCULAR HGB CONC 33 g/dL (31-37); MEAN CORPUSCULAR VOLUME 89 fL (79-100); MONO # 0.5 x10^3/uL (0.0-1.1); MONO % 6 % (0-9); NEUT # 5.4 x10^3uL (1.8-7.7); NEUT % 72 % (31-73); PLATELET COUNT 242 x10^3/uL (140-400); RED BLOOD COUNT 4.39 x10^6/uL (3.50-5.40); RED CELL DISTRIBUTION WIDTH 14.2 % (11.5-14.5); WHITE BLOOD COUNT 7.5 x10^3/uL (4.0-11.0)
[2017-01-14 08:16] LABS: ALBUMIN 3.3 g/dL (3.4-5.0); ALK PHOS 47 U/L (46-116); ALT (SGPT) 20 U/L (14-59); ANION GAP 7 (6-14); AST (SGOT) 14 U/L (15-37); BLOOD UREA NITROGEN 13 mg/dL (7-20); BUN/CREATININE RATIO 14 (6-20); CALCIUM 9.5 mg/dL (8.5-10.1); CARBON DIOXIDE 26 mmol/L (21-32); CHLORIDE 105 mmol/L (98-107); CREATININE 0.9 mg/dL (0.6-1.0); GLUCOSE 103 mg/dL (70-99); POTASSIUM 4.1 mmol/L (3.5-5.1); SODIUM 138 mmol/L (136-145); TOTAL BILIRUBIN 0.5 mg/dL (0.2-1.0); TOTAL PROTEIN 6.7 g/dL (6.4-8.2)
[2017-01-14] MEDS: risperiDONE 0.25 MG TABLET. PO SCH (08:17)
[2017-01-14] MEDS: LITHIUM CARBONATE ER 300 MG TABLET.ER PO SCH ×2 (08:17→19:28)
[2017-01-14] MEDS: busPIRone 5 MG TABLET. PO SCH ×2 (08:17→19:29)
[2017-01-14] MEDS: CHOLECALCIFEROL (VITAMIN D3) 1,000 UNIT TABLET PO SCH (08:17)
[2017-01-14 08:25] LABS: VAL ACID 75 mcg/mL (50-100)
[2017-01-14] MEDS: NICOTINE POLACRILEX GUM 2 MG GUM. BC PRN ×3 (08:58→16:01)
--- NOTE | 2017-01-14 09:28 | PN ---
DATE: 01/12/2017 This late entry for 01/12/2017 covers elements not covered in my initial note of 01/12/2017. SUBJECTIVE: I met with the patient the evening of 01/12/2017, the patient is compliant with the medications, was having some tremors in the morning, but better by the afternoon. She continues to have some mood lability, talks in a high pitched voice, but this is better recently. REVIEW OF SYSTEMS: No CV, , pulmonary, eye, ENT system symptoms on review other than the tremors. MENTAL STATUS EXAMINATION: Oriented to herself and situation. Speech coherent, high pitched, abstraction fair, computation impaired, language function intact, attention span short, mood and affect lability is improved. LABORATORY DATA: Reviewed. IMPRESSION: Unchanged from my initial note. PLAN: Continue current psychotropics, reduce the oral Risperdal from 0.5 mg daily to 0.25 mg daily. Maintain rest unchanged. Reviewed drug interactions, risk/benefit ratio, favors no further change. GERA MAY MD DR: ANNE/caitlyn JOB#: [id number] / [id number]
[2017-01-14] MEDS ORDERED: DIVA250T PO (10:57)
[2017-01-14] MEDS ORDERED: DIVA500T4 PO (10:57)
[2017-01-14] MEDS ORDERED: RISP0.2519 PO (10:59)
[2017-01-14] MEDS ORDERED: RISP25DI IM (11:02)
[2017-01-14 16:28] VITALS: BP 107/46
[2017-01-14] MEDS: ATORVASTATIN CALCIUM 20 MG TABLET PO SCH (19:28)
[2017-01-14] MEDS: MIRTAZAPINE 7.5 MG TABLET. PO SCH (19:28)
[2017-01-14] MEDS: DIVALPROEX ER 250 MG TAB.ER.24H. PO SCH (19:29)
--- NOTE | 2017-01-14 20:55 | PDOC ---
Exam [place] Demential Exam: [place] Note: Please also refer to the separate dictated note~for this date of service dictated separately.~Patient seen individually. Discussed the patient with Nursing staff reviewed the chart.~Reviewed interim history and current functioning. Reviewed vital signs,~Labs/ Radiology~and current medications noted below. Continue current treatment with the changes noted in the dictated addendum note Assessment: Vital Signs: Vital Signs Date Time Temp Pulse Resp B/P (MAP) Pulse Ox O2 Delivery O2 Flow Rate FiO2 01/14/17 16:28 97.6 74 18 107/46 (66) 100 Room Air I&O Intake and Output 01/15/17 07:00 Intake Total 1220 ml Balance 1220 ml Intake Oral 1220 ml Labs: Laboratory Tests Test 01/14/17 07:34 White Blood Count 7.5 x10^3/uL (4.0-11.0) Red Blood Count 4.39 x10^6/uL (3.50-5.40) Hemoglobin 13.0 g/dL (12.0-15.5) Hematocrit 39.2 % (36.0-47.0) Mean Corpuscular Volume 89 fL (79-100) Mean Corpuscular Hemoglobin 30 pg (25-35) Mean Corpuscular Hemoglobin Concent 33 g/dL (31-37) Red Cell Distribution Width 14.2 % (11.5-14.5) Platelet Count 242 x10^3/uL (140-400) Neutrophils (%) (Auto) 72 % (31-73) Lymphocytes (%) (Auto) 15 % (24-48) L Monocytes (%) (Auto) 6 % (0-9) Eosinophils (%) (Auto) 6 % (0-3) H Basophils (%) (Auto) 1 % (0-3) Neutrophils # (Auto) 5.4 x10^3uL (1.8-7.7) Lymphocytes # (Auto) 1.1 x10^3/uL (1.0-4.8) Monocytes # (Auto) 0.5 x10^3/uL (0.0-1.1) Eosinophils # (Auto) 0.5 x10^3/uL (0.0-0.7) Basophils # (Auto) 0.1 x10^3/uL (0.0-0.2) Sodium Level 138 mmol/L (136-145) Potassium Level 4.1 mmol/L (3.5-5.1) Chloride Level 105 mmol/L (98-107) Carbon Dioxide Level 26 mmol/L (21-32) Anion Gap 7 (6-14) Blood Urea Nitrogen 13 mg/dL (7-20) Creatinine 0.9 mg/dL (0.6-1.0) Estimated GFR (Cockcroft-Gault) 61.0 BUN/Creatinine Ratio 14 (6-20) Glucose Level 103 mg/dL (70-99) H Calcium Level 9.5 mg/dL (8.5-10.1) Total Bilirubin 0.5 mg/dL (0.2-1.0) Aspartate Amino Transferase (AST) 14 U/L (15-37) L Alanine Aminotransferase (ALT) 20 U/L (14-59) Alkaline Phosphatase 47 U/L (46-116) Total Protein 6.7 g/dL (6.4-8.2) Albumin 3.3 g/dL (3.4-5.0) L Albumin/Globulin Ratio 1.0 (1.0-1.7) Valproic Acid Level 75 mcg/mL (50-100) Valproic Acid Last Dose Date 01/13/2017 Valproic Acid Last Dose Time 2100 Current Medications: Meds: Current Medications Buspirone HCl (Buspar) 10 mg BID PO Last administered on 01/05/17 08:21; Start 12/28/16 at 21:00; Stop 01/05/17 at 15:54; Status DC [place] Carbonate (Lithobid) 300 mg DAILY PO Last administered on 01/14/17 08: 17; Start 12/29/16 at 09:00 [place] Carbonate (Eskalith) 450 mg QHS PO Last administered on 01/06/17 19: 12; Start 12/28/16 at 21:00; Stop 01/08/17 at 16:27; Status DC Mirtazapine (Remeron Olimpia-Tab) 7.5 mg QHS PO Last administered on 12/28/16 19: 51; Start 12/28/16 at 21:00; Stop 12/29/16 at 13:02; Status DC Acetaminophen (Tylenol) 650 mg PRN Q6HRS PRN PO pain/temp; Start 12/28/16 at 14:30 Aspirin (Benji Aspirin) 325 mg PRN Q8HRS PRN PO PAIN; Start 12/28/16 at 14:30 Atorvastatin Calcium (Lipitor) 20 mg QHS PO Last administered on 01/14/17 19: 28; Start 12/28/16 at 21:00 Vitamin D (Vitamin D3) 2,000 unit DAILYBFRSUP PO Last administered on 08:17; Start 12/28/16 at 17:00 [place] Hydroxide/Mg Hydroxide (Mylanta Plus Xs) 15 ml PRN AFTMEALHC PRN PO DYSPEPSIA; Start 12/28/16 at 14:30 Multi-Ingredient Ointment (Analgesic [place]) 1 raegan PRN QID PRN TP MUSCLE PAIN; Start 12/28/16 at 14:30 Nicotine Polacrilex (Nicorette Gum) 2 mg PRN Q2HR PRN [place] SMOKING CESSATION Last administered on 01/14/17 16:01; Start 12/28/16 at 14:30 Docusate Sodium (Colace) 100 mg PRN BID PRN PO CONSTIPATION; Start 12/28/16 at 14:30 Magnesium Hydroxide (Milk Of Magnesia) 2,400 mg PRN QHS PRN PO CONSTIPATION Last administered on 01/11/17 20:58; Start 12/28/16 at 14:30 Mirtazapine (Remeron) 7.5 mg QHS PO Last administered on 01/14/17 19:28; Start 12/29/16 at 21:00 Divalproex Sodium (Depakote Er) 500 mg QHS PO Last administered on 01/10/17 19:49; Start 12/30/16 at 21:00; Stop 01/11/17 at 19:09; Status DC Risperidone (RisperDAL) 0.5 mg DAILY PO Last administered on 01/12/17 08:06; Start 12/31/16 at 09:00; Stop 01/12/17 at 19:08; Status DC Risperidone (RisperDAL CONSTA) 25 mg Q2WKS IM Last administered on 01/02/17 09:13; Start 01/02/17 at 09:00 Buspirone HCl (Buspar) 5 mg BID PO Last administered on 01/14/17 19:29; Start 01/05/17 at 21:00 [place] Carbonate (Lithobid) 300 mg QHS PO Last administered on 01/14/17 19:28 ; Start 01/08/17 at 21:00 Divalproex Sodium (Depakote Er) 750 mg QHS PO Last administered on 01/14/17 19 :29; Start 01/11/17 at 21:00 Risperidone (RisperDAL) 0.25 mg DAILY PO Last administered on 01/14/17 08:17; Start 01/13/17 at 09:00 Active Scripts Active Reported Risperdal Consta (Risperidone Microspheres) 25 Mg/2 Ml Disp.syrin 25 Mg IM Q2WKS Risperdal (Risperidone) 0.25 Mg Tablet 1 Tab PO DAILY Depakote Er (Divalproex Sodium) 250 Mg Tab.er.24h 750 Mg PO QHS Nicotine Gum (Nicotine Polacrilex) 2 Mg Gum 2 Mg BC PRN Q2HR PRN Clozapine 100 Mg Tablet 150 Mg PO HS Buspirone Hcl 10 Mg Tablet 10 Mg PO BID Analgesic [place] (Methyl Salicylate/Menthol) 28 Gm Oint...g. 1 Applic TP PRN QID PRN [place] Carbonate 450 Mg Tablet.er 450 Mg PO QHS Vitamin D3 (Cholecalciferol (Vitamin D3)) 1,000 Unit Tablet 2,000 Unit PO DAILYBFRSUP Atorvastatin Calcium 20 Mg Tablet 20 Mg PO QHS Zyprexa Zydis (Olanzapine) 5 Mg Tab.rapdis 2.5 Mg PO PRN Q2HR PRN Remeron (Mirtazapine) 15 Mg Tab.rapdis 7.5 Mg PO QHS Mag-Al Plus Xs Suspension (Mag Hydrox/Al Hydrox/Simeth) 30 Ml Oral.susp 15 Ml PO PRN AFTMEALHC PRN Docusate Sodium 100 Mg Tablet 100 Mg PO PRN BID PRN Trazodone Hcl 50 Mg Tablet 100 Mg PO PRN QHS PRN [place] Carbonate 300 Mg Tablet.er 300 Mg PO DAILY Aspirin 325 Mg Tablet 325 Mg PO PRN Q8HRS PRN Milk Of Magnesia (Magnesium Hydroxide) 2,400 Mg/10 Ml Oral.susp 2,400 Mg PO PRN QHS PRN Tylenol (Acetaminophen) 325 Mg Tablet 650 Mg PO PRN Q6HRS PRN Diagnosis: Problems: (1) Depressed (2) Bipolar 1 disorder (3) Anxiety (4) Impulse control disorder (5) Impulse control disorder (6) Dementia with behavioral disturbance (7) Behavior disorder (8) Schizoaffective disorder, chronic condition with acute exacerbation GERA MAY MD Jan 14, 2017 20:55
[2017-01-14] MEDS ORDERED: BUSP5TAB PO (23:50)
[2017-01-15 06:18] VITALS: BP 107/61
[2017-01-15] MEDS: CHOLECALCIFEROL (VITAMIN D3) 1,000 UNIT TABLET PO SCH (08:10)
[2017-01-15] MEDS: busPIRone 5 MG TABLET. PO SCH (08:10)
[2017-01-15] MEDS: risperiDONE 0.25 MG TABLET. PO SCH (08:10)
[2017-01-15] MEDS: LITHIUM CARBONATE ER 300 MG TABLET.ER PO SCH (08:11)
[2017-01-15] MEDS: NICOTINE POLACRILEX GUM 2 MG GUM. BC PRN (08:20)
--- NOTE | 2017-01-15 18:11 | PDOC ---
Exam [place] Demential Exam: [place] Note: Please also refer to the separate dictated note~for this date of service dictated separately.~Patient seen individually. Discussed the patient with Nursing staff reviewed the chart.~Reviewed interim history and current functioning. Reviewed vital signs,~Labs/ Radiology~and current medications noted below. Continue current treatment with the changes noted in the dictated addendum note Assessment: Vital Signs: Vital Signs Date Time Temp Pulse Resp B/P (MAP) Pulse Ox O2 Delivery O2 Flow Rate FiO2 01/15/17 06:18 98.2 61 20 107/61 (76) 98 01/14/17 16:28 Room Air I&O Intake and Output 01/16/17 06:59 Intake Total 600 ml Balance 600 ml Intake Oral 600 ml Current Medications: Meds: Current Medications Buspirone HCl (Buspar) 10 mg BID PO Last administered on 01/05/17 08:21; Start 12/28/16 at 21:00; Stop 01/05/17 at 15:54; Status DC [place] Carbonate (Lithobid) 300 mg DAILY PO Last administered on 01/15/17 08: 11; Start 12/29/16 at 09:00; Stop 01/15/17 at 13:32; Status DC [place] Carbonate (Eskalith) 450 mg QHS PO Last administered on 01/06/17 19: 12; Start 12/28/16 at 21:00; Stop 01/08/17 at 16:27; Status DC Mirtazapine (Remeron [place]-Tab) 7.5 mg QHS PO Last administered on 12/28/16 19: 51; Start 12/28/16 at 21:00; Stop 12/29/16 at 13:02; Status DC Acetaminophen (Tylenol) 650 mg PRN Q6HRS PRN PO pain/temp; Start 12/28/16 at 14:30; Stop 01/15/17 at 13:32; Status DC Aspirin (Benji Aspirin) 325 mg PRN Q8HRS PRN PO PAIN; Start 12/28/16 at 14:30 ; Stop 01/15/17 at 13:32; Status DC Atorvastatin Calcium (Lipitor) 20 mg QHS PO Last administered on 01/14/17 19: 28; Start 12/28/16 at 21:00; Stop 01/15/17 at 13:32; Status DC Vitamin D (Vitamin D3) 2,000 unit DAILYBFRSUP PO Last administered on 08:10; Start 12/28/16 at 17:00; Stop 01/15/17 at 13:32; Status DC Al Hydroxide/Mg Hydroxide (Mylanta Plus Xs) 15 ml PRN AFTMEALHC PRN PO DYSPEPSIA; Start 12/28/16 at 14:30; Stop 01/15/17 at 13:32; Status DC Multi-Ingredient Ointment (Analgesic Cornelia) 1 raegan PRN QID PRN TP MUSCLE PAIN; Start 12/28/16 at 14:30; Stop 01/15/17 at 13:32; Status DC Nicotine Polacrilex (Nicorette Gum) 2 mg PRN Q2HR PRN BC SMOKING CESSATION Last administered on 01/15/17 08:20; Start 12/28/16 at 14:30; Stop 01/15/17 at 13:32; Status DC Docusate Sodium (Colace) 100 mg PRN BID PRN PO CONSTIPATION; Start 12/28/16 at 14:30; Stop 01/15/17 at 13:32; Status DC Magnesium Hydroxide (Milk Of Magnesia) 2,400 mg PRN QHS PRN PO CONSTIPATION Last administered on 01/11/17 20:58; Start 12/28/16 at 14:30; Stop 01/15/17 at 13:32; Status DC Mirtazapine (Remeron) 7.5 mg QHS PO Last administered on 01/14/17 19:28; Start 12/29/16 at 21:00; Stop 01/15/17 at 13:32; Status DC Divalproex Sodium (Depakote Er) 500 mg QHS PO Last administered on 01/10/17 19:49; Start 12/30/16 at 21:00; Stop 01/11/17 at 19:09; Status DC Risperidone (RisperDAL) 0.5 mg DAILY PO Last administered on 01/12/17 08:06; Start 12/31/16 at 09:00; Stop 01/12/17 at 19:08; Status DC Risperidone (RisperDAL CONSTA) 25 mg Q2WKS IM Last administered on 01/02/17 09:13; Start 01/02/17 at 09:00; Stop 01/15/17 at 13:32; Status DC Buspirone HCl (Buspar) 5 mg BID PO Last administered on 01/15/17 08:10; Start 01/05/17 at 21:00; Stop 01/15/17 at 13:32; Status DC [place] Carbonate (Lithobid) 300 mg QHS PO Last administered on 01/14/17 19:28 ; Start 01/08/17 at 21:00; Stop 01/15/17 at 13:32; Status DC Divalproex Sodium (Depakote Er) 750 mg QHS PO Last administered on 01/14/17 19 :29; Start 01/11/17 at 21:00; Stop 01/15/17 at 13:32; Status DC Risperidone (RisperDAL) 0.25 mg DAILY PO Last administered on 01/15/17 08:10; Start 01/13/17 at 09:00; Stop 01/15/17 at 13:32; Status DC Active Scripts Active Reported Buspirone Hcl 5 Mg Tablet 5 Mg PO BID Risperdal Consta (Risperidone Microspheres) 25 Mg/2 Ml Disp.syrin 25 Mg IM Q2WKS Risperdal (Risperidone) 0.25 Mg Tablet 1 Tab PO DAILY Depakote Er (Divalproex Sodium) 250 Mg Tab.er.24h 750 Mg PO QHS Nicotine Gum (Nicotine Polacrilex) 2 Mg Gum 2 Mg BC PRN Q2HR PRN Analgesic Cornelia (Methyl Salicylate/Menthol) 28 Gm Oint...g. 1 Applic TP PRN QID PRN Vitamin D3 (Cholecalciferol (Vitamin D3)) 1,000 Unit Tablet 2,000 Unit PO DAILYBFRSUP Atorvastatin Calcium 20 Mg Tablet 20 Mg PO QHS Remeron (Mirtazapine) 15 Mg Tab.rapdis 7.5 Mg PO QHS Mag-Al Plus Xs Suspension (Mag Hydrox/Al Hydrox/Simeth) 30 Ml Oral.susp 15 Ml PO PRN AFTMEALHC PRN Docusate Sodium 100 Mg Tablet 100 Mg PO PRN BID PRN [place] Carbonate 300 Mg Tablet.er 300 Mg PO BID Aspirin 325 Mg Tablet 325 Mg PO PRN Q8HRS PRN Milk Of Magnesia (Magnesium Hydroxide) 2,400 Mg/10 Ml Oral.susp 2,400 Mg PO PRN QHS PRN Tylenol (Acetaminophen) 325 Mg Tablet 650 Mg PO PRN Q6HRS PRN Diagnosis: Problems: (1) Schizoaffective disorder, chronic condition with acute exacerbation (2) Behavior disorder (3) Impulse control disorder (4) Impulse control disorder (5) Anxiety (6) Bipolar 1 disorder (7) Depressed GERA MAY MD Jan 15, 2017 18:11
--- NOTE | 2017-01-16 09:28 | PN ---
DATE: 01/14/2017 PSYCHIATRIC PROGRESS NOTE This late entry 01/14/2017 covers elements, not covered in my initial note of 01/14/2017. I met with the patient in the evening of 01/14/2017. Overall, per nursing report, the patient is doing better, less psychotic. No CV, , pulmonary, eye, ENT system symptoms on review. Tremors are better since we have reduced the Risperdal. MENTAL STATUS EXAM: Reasonably oriented. Speech coherent at times high pitched, abstraction fair, computation impaired, language function intact, attention span short. Mood and affect is improved. IMPRESSION: Unchanged from initial note. PLAN: Continue psychotropics mentioned in my initial note. Reviewed drug interactions. Risk/benefit ratio favors no further change. [place] level therapeutic at 0.7. Valproic acid level therapeutic at 75. MAN Martin MAY MD DR: ANNE/caitlyn JOB#: [id number] / [id number]
--- NOTE | 2017-01-16 14:10 | DS ---
DATE OF DISCHARGE: 01/15/2017 DISCHARGE SUMMARY AND PSYCHIATRIC PROGRESS NOTE REASON FOR ADMISSION: Please refer to the admission history for details. Briefly, the patient is a 76-year-old female who was readmitted from [facility], referred by her primary care physician and psychiatrist on account of recurrence of increased manic behaviors, pacing in the hallways, yelling in a high pitched voice. The patient had put her emesis in an AC vent, psychotic, noncompliant with medications, had failed outpatient psychiatric interventions with Dr. Negrete at the facility. We had treated her here in the past, stabilized her on Clozaril but when she went to the group home, she refused to take the Clozaril and symptoms seemed to have deteriorated since then. We contacted Dr. Negrete and he was suggesting starting her on a long-acting antipsychotic to help stabilize her given her prior noncompliance with treatment resulting in relapses. SIGNIFICANT FINDINGS AND CLINICAL COURSE: Following admission, the patient was seen daily individually by myself, followed medically per Dr. Washington/Dr. Botello. The patient was extremely psychotic, talking in high pitched voices, labile, anxious, disruptive. Adjustments were made in her psychotropics and after she tolerated oral Risperdal, she was started on Risperdal Consta 25 mg IM every 2 weeks. She was additionally on lithium carbonate 300 mg b.i.d. with the therapeutic level of 0.7, BuSpar 5 mg b.i.d., Remeron 7.5 mg at bedtime, Depakote ER 750 mg at bedtime with valproic acid level therapeutic at 75, Risperdal Consta 25 mg IM every 2 weeks and oral Risperdal was reduced from 0.5 mg daily to 0.25 mg daily prior to discharge with the plan to discontinue this in about 30 days post return to the group home so long as she is psychiatrically stable. REVIEW OF SYSTEMS: Prior to discharge on 01/15/2017, no CV, , pulmonary, eye, ENT system symptoms on review. Reliability fair. MENTAL STATUS EXAM: Reasonably oriented. Speech coherent, abstraction fair, computation impaired, language function intact, attention span short. Mood and affect improved. No suicidal or homicidal ideation. FINAL DIAGNOSES: Bipolar 1 disorder, mixed with psychotic features, in partial remission; anxiety disorder, unspecified; impulse control disorder, unspecified. Rest of diagnoses unchanged from admission. DISCHARGE MEDICATIONS: Please refer to the MRAD. DISCHARGE INSTRUCTIONS: Outpatient psychiatric and medical followup at the group home. Time for discharge day management is greater than 30 minutes. GERA MAY MD DR: ANNE/caitlyn JOB#: [id number] / [id number]
--- NOTE | 2017-01-18 19:20 | PN ---
DATE: 01/13/2017 This late entry for 01/13/2017 covers elements not covered in my initial note of 01/13/2017. SUBJECTIVE: I met with the patient the evening of 01/13/2017. The patient was staffed at the treatment team meeting with the entire team morning of 01/13/2017. I reviewed the patient's history, diagnosis, current psychotropics and drug interactions at length and discussed discharge plans. Appetite 75%, sleeping about 6-1/2 hours. Remains somewhat disorganized at times, talking in a high pitch tone, but much less psychotic. She does have some tremors, but prefers not to add Cogentin to help with this. In the meantime, we have reduced the oral Risperdal as well, which should help. REVIEW OF SYSTEMS: No CV, , pulmonary, eye, ENT system symptoms on review. MENTAL STATUS EXAMINATION: Oriented reasonably. Speech is coherent, abstraction fair, computation impaired, language function intact, attention span short. Mood and affect, lability is improved. LABORATORY DATA: Reviewed. IMPRESSION: Unchanged from my initial note. PLAN: Continue current psychotropics, may add Cogentin if tremors persist. Reviewed drug interactions and risk/benefit ratio, favors no further change. GERA MAY MD DR: ANNE/caitlyn JOB#: [id number] / [id number]
== END 2017-01-15 11:35 | disposition home or self-care (01) | DRG 885 ==
LOC: ER 11:57 → GEROPSY 13:55 → ER 13:55
PROVIDERS: ADMIT Psychiatry & Neurology Psychiatry; ATTEND Psychiatry & Neurology Psychiatry
DX: F25.0 Schizoaffective disorder, bipolar type (principal); E87.5 Hyperkalemia; F03.91 Unspecified dementia, unspecified severity, with behavioral disturbance; E78.5 Hyperlipidemia, unspecified; F17.210 Nicotine dependence, cigarettes, uncomplicated; F41.9 Anxiety disorder, unspecified; F63.9 Impulse disorder, unspecified; I10 Essential (primary) hypertension; K59.09 Other constipation; G47.00 Insomnia, unspecified; G89.29 Other chronic pain; Z66 Do not resuscitate; Z79.899 Other long term (current) drug therapy; Z91.14 Patient's other noncompliance with medication regimen; Z91.19 Patient's noncompliance with other medical treatment and regimen; Z91.81 History of falling
CPT/HCPCS: 36415; 80048; 80053; 80061; 80076; 80164; 80178; 81001; 82306; 82607; 83036; 83540; 83550; 83735; 84436; 84443; 84480; 85025; 86592; 86593; 87086; 93005; 99407; J2794; 99285-25